=== PATIENT | female | born 1960 | race Caucasian/White ===

== ENCOUNTER 2016-09-20 08:42 | Day surgery (SDC) | payer OTHER ==
[2016-09-16 15:31] VITALS: BMI 22.6
[2016-09-20 10:22] VITALS: RESP 18; TEMP 98.3
[2016-09-20] MEDS: LACTATED RINGERS 1,000 ML IV SCH ×2 (10:32→10:44)
[2016-09-20] MEDS ORDERED: LIDOCAINE 1% 20 ML VIAL (10MG/ML) FOR IV START INTRADERMA ONE (10:33)
[2016-09-20] MEDS ORDERED: PROPOFOL 10 MG/ML 20 ML VIAL IV ONE (10:48)
[2016-09-20] MEDS ORDERED: LIDOCAINE 1% INJ 10MG/ML (20 ML MDV) ONE (10:48)
--- NOTE | 2016-09-20 11:21 | P.PCN ---
Date of Procedure: 09/20/16 Preoperative Diagnosis: Postoperative Diagnosis: Procedure(s) Performed: Procedure: Esophagogastroduodenoscopy and biopsy. Preoperative diagnosis: Chronic reflux symptoms requiring increasing doses of H2 blockers. Postoperative diagnosis: 1. Sliding hiatal hernia with a grade B distal esophagitis. 2. 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 3. Mild gastritis. Preparation and sedation: Was provided by anesthesia. Brief clinical history: The patient is a 56-year-old female with reflux symptoms since she was in her late 20s early 30s maintained on Zantac, is now referred because of persistent symptoms despite taking Zantac up to 600 mg daily. She is also concerned because of family history of esophageal cancer in her father who had reflux as well. She denied dysphagia, odynophagia or other alarm symptoms. Procedure: With the patient on her left lateral decubitus position and after informed consent and adequate sedation, I passed the Olympus-GIF 160 video upper endoscope through the cricopharyngeus down the esophagus. GE junction was around 35 cm from the incisors and there was a 3 cm sliding hiatal hernia. There was a benign short stricture at the level of the GE junction which did not impede advancement of the endoscope and did not appear restricting to require any intervention at this time. The distal esophagus had couple linear erosions terminating at the GE junction consistent with LA grade B distal esophagitis. No Mercado's esophagus. The endoscope was then passed into the stomach which was insufflated with air and inspected in detail including the retroflex view in the cardia. There was some mottling and erythema in the antrum but no ulcers or erosions. Pyloric channel, duodenal bulb, post bulbar area and descending duodenum appeared within normal limits. Because of her symptoms, I obtained biopsies from the duodenum antrum and esophagus then the endoscope was withdrawn. The patient tolerated the procedure well. Plan: The patient was reassured. Will await biopsy results. Consideration can be given to a trial with PPI what she continue antireflux diet and measures. She will follow-up with you as planned and I would be happy to see in the office if she continues to have issues. Implants: Indications for Procedure: Operative Findings: Description of Procedure:
[2016-09-20 11:31] VITALS: BP 101/64; PULSE 67
== END 2016-09-20 11:58 | disposition home or self-care (01) ==
LOC: ORWHC2ENDO 08:42
DX: K21.0 Gastro-esophageal reflux disease with esophagitis (principal); K29.50 Unspecified chronic gastritis without bleeding; K29.80 Duodenitis without bleeding; K44.9 Diaphragmatic hernia without obstruction or gangrene; K22.2 Esophageal obstruction; Z80.0 Family history of malignant neoplasm of digestive organs; M19.90 Unspecified osteoarthritis, unspecified site; J44.9 Chronic obstructive pulmonary disease, unspecified; Z79.899 Other long term (current) drug therapy
CPT/HCPCS: 88305; 88342; 43239; J2001; J2704; 88312

== ENCOUNTER 2017-09-14 11:13 | Emergency (ER) | payer OTHER ==
[2017-09-14] MEDS ORDERED: KETOROLAC 60 MG/2 ML VIAL IM STA (11:37)
[2017-09-14] MEDS ORDERED: ORPHENADRINE 30 MG/ML 2 ML VIAL IM STA (11:37)
[2017-09-14] MEDS ORDERED: HYDROcodone/APAP 5-325MG 1 EACH TAB PO STA (11:41)
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
--- NOTE | 2017-09-14 12:35 | XR ---
Lumbar spine HISTORY: Low back pain 3 views lumbar spine Lumbar vertebral bodies show decreased mineralization limits sensitivity. Alignment is maintained. Ve rtebral body height is thought to be decreased in L2, superior endplate fracture with loss of height of approximately 25% suspected. Disc spaces are relatively maintained. Surgical clips incidentally no rosette within the abdomen. IMPRESSION: There may be osteoporotic compression fracture, correlate.
[2017-09-14 13:17] VITALS: BP 98/69; PULSE 72; RESP 18; TEMP 98
== END 2017-09-14 13:10 | disposition home or self-care (01) ==
LOC: EC 11:13
DX: S32.020A Wedge compression fracture of second lumbar vertebra, initial encounter for closed fracture (principal); K21.9 Gastro-esophageal reflux disease without esophagitis; M19.90 Unspecified osteoarthritis, unspecified site; F17.200 Nicotine dependence, unspecified, uncomplicated; Z79.899 Other long term (current) drug therapy; X50.9XXA Other and unspecified overexertion or strenuous movements or postures, initial encounter
CPT/HCPCS: 72100; 99284; 96372 ×2; J2360; J1885

== ENCOUNTER → 2017-11-02 | Outpatient (CLI) | payer OTHER ==
--- NOTE | 2017-11-02 13:23 | MR ---
EXAMINATION TYPE: MR lumbar spine wo con DATE OF EXAM: 11/02/2017 COMPARISON: Plain films 09/14/2017 HISTORY: LBP CONTRAST: 0 mL intravenous Gadavist. TECHNIQUE: Multiplanar, multisequence images of the lumbar spine were acquired. FINDINGS: There is a compression deformity superior endplate of L2. There is an estimated 40% loss o f vertebral body height. Compared to the 09/14/2017 plain film exam this appears progressive. L5-S1: No significant disc bulge or disc herniation. No spinal canal stenosis. No foraminal stenosi s. . L4-L5: No significant disc bulge or disc herniation. No spinal canal stenosis. No foraminal stenosi s. . L3-L4: Minimal disc bulge has anterior thecal sac flattening. No spinal canal stenosis. No foramina l stenosis. . L2-L3: No significant disc bulge or disc herniation. No spinal canal stenosis. No foraminal stenosi s. . L1-L2: Minimal disc bulge has anterior thecal sac flattening. No cord contact is evident. No spinal c anal stenosis or neural foraminal stenosis is present. No spinal canal stenosis. No foraminal steno sis. . T12-L1: No significant disc bulge or disc herniation. No spinal canal stenosis. No foraminal stenos is. . IMPRESSION: 1. Appears to be some progressive superior endplate compression deformity of L2. No posterior wall di splacement is evident. 2. Minimal disc bulging L3-4: 2 with anterior thecal sac flattening. No stenosis is evident
== END | disposition home or self-care (01) ==
LOC: RADMRIMAIN 12:29
PROVIDERS: ATTEND Psychiatry & Neurology Pain Medicine
DX: M54.5 Low back pain (principal)
CPT/HCPCS: 72148

== ENCOUNTER → 2017-11-20 | Outpatient (CLI) | payer OTHER ==
--- NOTE | 2017-11-20 13:24 | BD ---
EXAMINATION TYPE: Axial Bone Density DATE OF EXAM: 11/20/2017 COMPARISON: 2014 CLINICAL HISTORY: compression fx Height: 5'1 Weight: 123 FRAX RISK QUESTIONS: History of Fracture in Adulthood: y Secondary Osteoporosis: 3. Menopause before 45: y Current Tobacco Use: y RISK FACTORS HISTORY OF: Postmenopausal woman: y MEDICATIONS: Osteoporosis Medications: Which medication: Fosamax How Lon year Additional Medications: hiatal hernia, ventolin Additional History: EXAM MEASUREMENTS: Bone mineral densitometry was performed using the DVDPlay System. Bone mineral density as measured about the Lumbar spine is: ----- L1-L4(G/cm2): 0.746 T Score Values are as follows: ----- L2: -1.5 ----- L3: -4.2 ----- L4: -4.8 ----- L1-L4: -3.6 Bone mineral density has: Increased 13.3% since study of: 08/15/2014 Bone mineral density about the R hip (g/cm2): 0.502 Bone mineral density about the L hip (g/cm2): 0.499 T Score values are as follows: -----R Neck: -3.9 -----L Neck: -3.6 -----R Total: -4.1 -----L Total: -4.4 Bone mineral density has: Decreased -1.7% since study of: 08/15/2014 IMPRESSION: Osteoporosis NOTE: T-SCORE=SD OF THE YOUNG ADULT MEAN.
== END | disposition home or self-care (01) ==
LOC: RADBDWWP 09:53
PROVIDERS: ATTEND Psychiatry & Neurology Neurology
DX: M81.0 Age-related osteoporosis without current pathological fracture (principal); Z87.891 Personal history of nicotine dependence
CPT/HCPCS: 77080

== ENCOUNTER → 2018-02-13 | Outpatient (CLI) | payer OTHER | END | disposition home or self-care (01) | LOC: LABWHC1 12:06 | PROVIDERS: ATTEND Psychiatry & Neurology Pain Medicine | DX: E55.9 Vitamin D deficiency, unspecified (principal) | CPT/HCPCS: 36415; 82306 ==

== ENCOUNTER → 2018-06-18 | Outpatient (CLI) | payer OTHER ==
--- NOTE | 2018-06-18 09:21 | XR ---
EXAMINATION TYPE: XR chest 2V DATE OF EXAM: 06/18/2018 COMPARISON: 06/02/12 HISTORY: Shortness of breath TECHNIQUE: Frontal and lateral views of the chest are obtained. FINDINGS: Scattered senescent parenchymal changes noted. Hyperinflation compatible with COPD. No evidence for infiltrate. No evidence for atelectasis. Heart size is stable. Mediastinal structures are stable and grossly unremarkable. No evidence for hilar prominence. Degenerative changes dorsal spine. IMPRESSION: 1. No evidence for acute pulmonary disease.
== END ==
LOC: RADXRMAIN 09:03
PROVIDERS: ATTEND Internal Medicine
DX: R06.02 Shortness of breath (principal); J44.9 Chronic obstructive pulmonary disease, unspecified; R07.89 Other chest pain
CPT/HCPCS: 71046

== ENCOUNTER → 2019-01-28 | Outpatient (CLI) | payer OTHER ==
--- NOTE | 2019-01-29 11:29 | MM ---
Reason for exam: screening (asymptomatic). Last mammogram was performed 1 year and 8 months ago. History: Patient is postmenopausal. Family history of breast cancer in maternal grandmother. Physical Findings: A clinical breast exam by your physician is recommended on an annual basis and results should be correlated with mammographic findings. MG 3D Screening Mammo W/Cad Bilateral CC and MLO view(s) were taken. Prior study comparison: May 29, 2017, mammogram, performed at [facility]. October 05, 2015, mammogram, performed at [facility]. The breast tissue is heterogeneously dense. This may lower the sensitivity of mammography. Stable benign calcifications. There is no discrete abnormality. No significant changes when compared with prior studies. ASSESSMENT: Benign, BI-RAD 2 RECOMMENDATION: Routine screening mammogram of both breasts in 1 year.
== END | disposition home or self-care (01) ==
LOC: RADMAMWWP 16:47
PROVIDERS: ATTEND Internal Medicine
DX: Z12.31 Encounter for screening mammogram for malignant neoplasm of breast (principal)
CPT/HCPCS: 77063; 77067

== ENCOUNTER 2019-01-31 09:21 | Day surgery (SDC) | payer OTHER ==
[2019-01-30 09:38] VITALS: BMI 21.7
[~2019-01-31 09:21] MED LIST: DEXAMETHASONE SOD PHOSPHATE 10 MG/ML 1 ML VIAL IV ONE; LACTATED RINGERS 1,000 ML IV SCH; LIDOCAINE 1% 20 ML VIAL (10MG/ML) FOR IV START INTRADERMA PRN
[2019-01-31 09:46] VITALS: TEMP 97.1
[2019-01-31] MEDS ORDERED: LIDOCAINE 1% INJ 10MG/ML (20 ML MDV) ONE (10:09)
[2019-01-31] MEDS ORDERED: PROPOFOL 10 MG/ML 20 ML VIAL IV ONE (10:09)
--- NOTE | 2019-01-31 10:15 | P.GSHP ---
History of Present Illness H&P Date: 01/31/19 Chief Complaint: GERD, screening colonoscopy This is a 58-year-old female who presents today for EGD and screening colonoscopy. Patient issues with GERD. She's never had a previous colonoscopy. Past Medical History Past Medical History: COPD, GERD/Reflux, Osteoarthritis (OA) Additional Past Medical History / Comment(s): Osteoporosis, HPV History of Any Multi-Drug Resistant Organisms: None Reported Past Surgical History: Section, Hysterectomy Additional Past Surgical History / Comment(s): Hemorrhoidectomy, states having some flare ups @ this time. 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 Smoking Status: Current every day smoker - Past Family History Father Family Medical History: Cancer Additional Family Medical History / Comment(s): Esophageal Medications and Allergies Home Medications Medication Instructions Recorded Confirmed Type Albuterol Sulfate [Ventolin Hfa] 2 puff INHALATION RT-QID PRN 09/16/16 01/31/19 History Alendronate Sodium [Fosamax] 35 mg PO Q7D 09/16/16 01/31/19 History Cetirizine HCl [Zyrtec] 10 mg PO DAILY PRN 09/14/17 01/31/19 History Meclizine [Antivert] 25 mg PO BID 01/30/19 01/31/19 History Omeprazole [PriLOSEC] 20 mg PO AC-BID 01/31/19 01/31/19 History Allergies Allergy/AdvReac Type Severity Reaction Status Date / Time No Known Allergies Allergy Verified 01/31/19 09:36 Surgical - Exam Vital Signs Temp Pulse Resp BP Pulse Ox 97.1 F L 109 H 18 120/75 96 01/31/19 09:37 01/31/19 09:37 01/31/19 09:37 01/31/19 09:37 01/31/19 09:37 - General well developed, well nourished, no distress - Eyes PERRL - ENT normal pinna - Neck no masses - Respiratory normal expansion - Cardiovascular Rhythm: regular - Abdomen Abdomen: soft, non tender Assessment and Plan Assessment: GERD, we'll perform EGD We'll also perform screening colonoscopy
--- NOTE | 2019-01-31 10:34 | P.OP ---
Date of Procedure: 01/31/19 Preoperative Diagnosis: GERD Screening colonoscopy Postoperative Diagnosis: Antral gastritis Small hiatal hernia Esophagitis Procedure(s) Performed: EGD Colonoscopy Anesthesia: MAC Surgeon: Kurtis Phipps Pathology: other (Antrum, esophagus) Condition: stable Disposition: PACU Description of Procedure: Patient's placed on the endoscopy table lateral position. She received IV sedation. The gastro-/oropharynx and passed in the esophagus into the stomach. Scope was then placed through the pylorus. The first and second portion of the duodenum appeared normal. Scope was then brought back the antrum and this appeared minimally inflamed. A biopsies performed. The scope was unretroflexed and remainder stomach appeared normal. There was a small sliding hiatal hernia. The GE junction was at 39 cm per the distal esophagus appeared mildly inflamed a biopsies performed. The proximal esophagusAppeared Normal. Scope was brought patient. Next digital rectal exam was performed which revealed external hemorrhoids. The flexible colonoscope was then placed patient anus and passed throughout the entire colon. The ileocecal valve was visualized. The cecum appeared normal. The ascending colon was normal. The transverse colon had a pedunculated polyp which was removed with the snare. The remainder of the transverse colon, descending colon appeared normal. In the; was a few scattered diverticula. Scope was then brought back the rectum and this appeared normal. Scope was withdrawn for patient.
[2019-01-31 11:03] VITALS: BP 101/68; PULSE 88; RESP 18
== END 2019-01-31 11:25 | disposition home or self-care (01) ==
LOC: ORWHC2ENDO 09:21
PROVIDERS: ATTEND Surgery
DX: Z12.11 Encounter for screening for malignant neoplasm of colon (principal); K29.50 Unspecified chronic gastritis without bleeding; K44.9 Diaphragmatic hernia without obstruction or gangrene; D12.3 Benign neoplasm of transverse colon; K21.0 Gastro-esophageal reflux disease with esophagitis; K57.30 Diverticulosis of large intestine without perforation or abscess without bleeding; K64.4 Residual hemorrhoidal skin tags; M19.90 Unspecified osteoarthritis, unspecified site; Z90.710 Acquired absence of both cervix and uterus; J44.9 Chronic obstructive pulmonary disease, unspecified; F17.210 Nicotine dependence, cigarettes, uncomplicated; K21.9 Gastro-esophageal reflux disease without esophagitis; Z97.2 Presence of dental prosthetic device (complete) (partial); Z79.899 Other long term (current) drug therapy
CPT/HCPCS: 88305; 45385; 43239; J2001; J2704

== ENCOUNTER 2019-05-10 15:29 | Emergency (ER) | payer OTHER ==
[2019-05-10] MEDS ORDERED: SODIUM CHLORIDE 0.9% 1,000 ML IV STA (15:56)
[2019-05-10] MEDS ORDERED: ONDANSETRON 4 MG/2 ML VIAL IVP STA (15:56)
[2019-05-10 16:49] LABS: Appearance,Urine Clear (Clear); Bilirubin,Urine Negative (Negative); Blood,Urine Negative (Negative); Color,Urine Yellow; Glucose,Urine (UA) Negative (Negative); Ketones,Urine Negative (Negative); Leukocyte Esterase,Urine Negative (Negative); Nitrite,Urine Negative (Negative); Protein,Urine Negative (Negative); Urobilinogen,Urine <2.0 mg/dL (<2.0)
[2019-05-10 16:50] LABS: Basophils % (A) 0 %; Eosinophils % (A) 1 %; HCT 41.2 % (34.0-46.0); HGB 14.1 gm/dL (11.4-16.0); Lymphocytes # (A) 3.5 k/uL (1.0-4.8); Lymphocytes % (A) 49 %; MCH 30.8 pg (25.0-35.0); MCHC 34.1 g/dL (31.0-37.0); MCV 90.2 fL (80.0-100.0); Mean Platelet Volume 7.3; Monocytes # (A) 0.5 k/uL (0-1.0); Monocytes % (A) 7 %; Neutrophils # (A) 2.9 k/uL (1.3-7.7); Neutrophils % (A) 40 %; Platelet Count 524 k/uL (150-450); RBC 4.57 m/uL (3.80-5.40); RDW 12.1 % (11.5-15.5); WBC 7.2 k/uL (3.8-10.6)
--- NOTE | 2019-05-10 16:54 | XR ---
EXAMINATION TYPE: XR chest 2V DATE OF EXAM: 05/10/2019 COMPARISON: Chest x-ray June 18, 2018. HISTORY: Chest pain. TECHNIQUE: Frontal and lateral views of the chest are obtained. FINDINGS: There is no focal air space opacity, pleural effusion, or pneumothorax seen. The cardiac silhouette size is stable and within normal limits. Old posterior lateral right upper to mid rib frac tures are seen. IMPRESSION: No acute cardiopulmonary process. No significant change from prior.
[2019-05-10 17:00] LABS: ALT 57 U/L (4-34); AST 37 U/L (14-36); African American GFR (CKD) >90 (>60 ml/min/1.73 sqM); Albumin 4.5 g/dL (3.5-5.0); Alkaline Phosphatase 80 U/L (38-126); Amylase 111 U/L (30-110); Anion Gap 10 mmol/L; Blood Urea Nitrogen 9 mg/dL (7-17); Carbon Dioxide 24 mmol/L (22-30); Chloride 100 mmol/L (98-107); Glucose 92 mg/dL (74-99); Non-African American GFR(CKD) >90 (>60 ml/min/1.73 sqM); Potassium 3.7 mmol/L (3.5-5.1); Sodium 134 mmol/L (137-145); Total Bilirubin 0.6 mg/dL (0.2-1.3); Total Protein 7.5 g/dL (6.3-8.2)
--- NOTE | 2019-05-10 17:44 | ED ---
Nausea/Vomiting/Diarrhea HPI - General Chief complaint: Nausea/Vomiting/Diarrhea Stated complaint: Vomiting Time Seen by Provider: 05/10/19 15:35 Source: patient, RN notes reviewed Mode of arrival: ambulatory Limitations: no limitations - History of Present Illness Initial comments: 58-year-old female with a past medical history of COPD, GERD presents to the emergency department for chief complaint of nausea. Patient states that a week ago she was diagnosed with an upper respiratory infection and started on Levaquin. States that since then she has had nausea. She denies any vomiting associated with this. Denies diarrhea. Denies any significant abdominal pain. States she is able to drink Pedialyte. Patient states that she just finished the Levaquin today. States that she is being seen today for nausea. She states that her cough is getting much better and she is not having any shortness of breath.Patient has no other complaints at this time including shortness of breath, chest pain, abdominal pain, nausea or vomiting, headache, or visual changes. MD complaint: nausea Onset/Timin -: days(s) Associated Abdominal Pain: No - Related Data Home Medications Medication Instructions Recorded Confirmed Albuterol Sulfate [Ventolin Hfa] 2 puff INHALATION RT-QID PRN 09/16/16 01/31/19 Alendronate Sodium [Fosamax] 35 mg PO Q7D 09/16/16 01/31/19 Cetirizine HCl [Zyrtec] 10 mg PO DAILY PRN 09/14/17 01/31/19 Meclizine [Antivert] 25 mg PO BID 01/30/19 01/31/19 Omeprazole [PriLOSEC] 20 mg PO AC-BID 01/31/19 01/31/19 Previous Rx's Medication Instructions Recorded Ondansetron [Zofran ODT] 4 mg PO Q8HR PRN #15 tab 05/10/19 Allergies Allergy/AdvReac Type Severity Reaction Status Date / Time No Known Allergies Allergy Verified 05/10/19 15:32 Review of Systems ROS Statement: Those systems with pertinent positive or pertinent negative responses have been documented in the HPI. ROS Other: All systems not noted in ROS Statement are negative. Past Medical History Past Medical History: COPD, GERD/Reflux, Osteoarthritis (OA) Additional Past Medical History / Comment(s): Osteoporosis, HPV History of Any Multi-Drug Resistant Organisms: None Reported Past Surgical History: Section, Hysterectomy Additional Past Surgical History / Comment(s): Hemorrhoidectomy, states having some flare ups @ this time. 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 Past Anesthesia/Blood Transfusion Reactions: Previous Problems w/ Anesthesia Additional Past Anesthesia/Blood Transfusion Reaction / Comment(s): woke up during sx in past Past Psychological History: No Psychological Hx Reported Smoking Status: Current every day smoker Past Alcohol Use History: None Reported Past Drug Use History: None Reported - Past Family History Father Family Medical History: Cancer Additional Family Medical History / Comment(s): Esophageal General Exam Limitations: no limitations General appearance: alert, in no apparent distress Head exam: Present: atraumatic, normocephalic, normal inspection Eye exam: Present: normal appearance, PERRL, EOMI. Absent: scleral icterus, conjunctival injection, periorbital swelling ENT exam: Present: normal exam, mucous membranes moist Neck exam: Present: normal inspection, full ROM. Absent: tenderness, mening ismus, lymphadenopathy Respiratory exam: Present: normal lung sounds bilaterally. Absent: respiratory distress, wheezes, rales, rhonchi, stridor Cardiovascular Exam: Present: regular rate, normal rhythm, normal heart sounds. Absent: systolic murmur, diastolic murmur, rubs, gallop, clicks GI/Abdominal exam: Present: soft, normal bowel sounds. Absent: distended, tenderness (No abdominal tenderness), guarding, rebound, rigid Neurological exam: Present: alert Course Vital Signs 05/10/19 15:30 Temperature 97.7 F Pulse Rate 100 Respiratory 22 Rate Blood Pressure 135/80 O2 Sat by Pulse 96 Oximetry Medical Decision Making - Medical Decision Making Vitals are stable. Physical exam is unremarkable. Abdomen is nontender. Lungs are clear bilaterally. Patient is sitting up in bed well-appearing. CBC is unremarkable. CMP does show hypercalcemia. Discussed this with patient, she will follow up. Urinalysis is unremarkable. Influenza is negative. Chest x- ray shows no acute cardiopulmonary process. No significant change from prior. Reevaluated patient, felt much better after Zofran. Discussed with patient that symptoms are likely related to Levaquin over the past week. However also discussed possibility of hypercalcemia causing symptoms. Discussed to follow up with primary care and have this repeated. Discussed keeping hydrated with this finding. She will return here if any worsening symptoms.I discussed this case with attending Dr. Herbert who agrees with this assessment and treatment plan. - Lab Data Result diagrams: 05/10/19 16:36 05/10/19 16:36 Lab Results 05/10/19 05/10/19 05/10/19 Range/Units 16:15 16:15 16:36 WBC 7.2 (3.8-10.6) k/uL RBC 4.57 (3.80-5.40) m/uL Hgb 14.1 (11.4-16.0) gm/dL Hct 41.2 (34.0-46.0) % MCV 90.2 (80.0-100.0) fL MCH 30.8 (25.0-35.0) pg MCHC 34.1 (31.0-37.0) g/dL RDW 12.1 (11.5-15.5) % Plt Count 524 H (150-450) k/uL Neutrophils % 40 % Lymphocytes % 49 % Monocytes % 7 % Eosinophils % 1 % Basophils % 0 % Neutrophils # 2.9 (1.3-7.7) k/uL Lymphocytes # 3.5 (1.0-4.8) k/uL Monocytes # 0.5 (0-1.0) k/uL Eosinophils # 0.0 (0-0.7) k/uL Basophils # 0.0 (0-0.2) k/uL Sodium (137-145) mmol/L Potassium (3.5-5.1) mmol/L Chloride (98-107) mmol/L Carbon Dioxide (22-30) mmol/L Anion Gap mmol/L BUN (7-17) mg/dL Creatinine (0.52-1.04) mg/dL Est GFR (CKD-EPI)AfAm (>60 ml/min/1.73 sqM) Est GFR (CKD-EPI)NonAf (>60 ml/min/1.73 sqM) Glucose (74-99) mg/dL Calcium (8.4-10.2) mg/dL Total Bilirubin (0.2-1.3) mg/dL AST (14-36) U/L ALT (4-34) U/L Alkaline Phosphatase (38-126) U/L Total Protein (6.3-8.2) g/dL Albumin (3.5-5.0) g/dL Amylase (30-110) U/L Lipase (23-300) U/L Urine Color Yellow Urine Appearance Clear (Clear) Urine pH 7.0 (5.0-8.0) Ur Specific [place] 1.010 (1.001-1.035) Urine Protein Negative (Negative) Urine Glucose (UA) Negative (Negative) Urine Ketones Negative (Negative) Urine Blood Negative (Negative) Urine Nitrite Negative (Negative) Urine Bilirubin Negative (Negative) Urine Urobilinogen <2.0 (<2.0) mg/dL Ur Leukocyte Esterase Negative (Negative) Influenza Type A RNA Not Detected (Not Detectd) Influenza Type B (PCR) Not Detected (Not Detectd) 05/10/19 Range/Units 16:36 WBC (3.8-10.6) k/uL RBC (3.80-5.40) m/uL Hgb (11.4-16.0) gm/dL Hct (34.0-46.0) % MCV (80.0-100.0) fL MCH (25.0-35.0) pg MCHC (31.0-37.0) g/dL RDW (11.5-15.5) % Plt Count (150-450) k/uL Neutrophils % % Lymphocytes % % Monocytes % % Eosinophils % % Basophils % % Neutrophils # (1.3-7.7) k/uL Lymphocytes # (1.0-4.8) k/uL Monocytes # (0-1.0) k/uL Eosinophils # (0-0.7) k/uL Basophils # (0-0.2) k/uL Sodium 134 L (137-145) mmol/L Potassium 3.7 (3.5-5.1) mmol/L Chloride 100 (98-107) mmol/L Carbon Dioxide 24 (22-30) mmol/L Anion Gap 10 mmol/L BUN 9 (7-17) mg/dL Creatinine 0.48 L (0.52-1.04) mg/dL Est GFR (CKD-EPI)AfAm >90 (>60 ml/min/1.73 sqM) Est GFR (CKD-EPI)NonAf >90 (>60 ml/min/1.73 sqM) Glucose 92 (74-99) mg/dL Calcium 12.0 H (8.4-10.2) mg/dL Total Bilirubin 0.6 (0.2-1.3) mg/dL AST 37 H (14-36) U/L ALT 57 H (4-34) U/L Alkaline Phosphatase 80 (38-126) U/L Total Protein 7.5 (6.3-8.2) g/dL Albumin 4.5 (3.5-5.0) g/dL Amylase 111 H (30-110) U/L Lipase 211 (23-300) U/L Urine Color Urine Appearance (Clear) Urine pH (5.0-8.0) Ur Specific [place] (1.001-1.035) Urine Protein (Negative) Urine Glucose (UA) (Negative) Urine Ketones (Negative) Urine Blood (Negative) Urine Nitrite (Negative) Urine Bilirubin (Negative) Urine Urobilinogen (<2.0) mg/dL Ur Leukocyte Esterase (Negative) Influenza Type A RNA (Not Detectd) Influenza Type B (PCR) (Not Detectd) Disposition Clinical Impression: Hypercalcemia, Nausea and vomiting Disposition: HOME SELF-CARE Condition: Good Instructions (If sedation given, give patient instructions): Acute Nausea and Vomiting (ED) Additional Instructions: Please take Zofran as needed for nausea. Please follow-up with your doctor to repeat your calcium level. Keep hydrated with plenty of fluids. Return here to the emergency department if you have any worsening symptoms. Prescriptions: Ondansetron [Zofran ODT] 4 mg PO Q8HR PRN #15 tab PRN Reason: Nausea Is patient prescribed a controlled substance at d/c from ED?: No Referrals: Farzad Strauss MD [Primary Care Provider] - 1-2 days Time of Disposition: 17:46
[2019-05-10 17:53] VITALS: BP 117/77; PULSE 79; RESP 16; TEMP 98.3
== END 2019-05-10 18:18 | disposition home or self-care (01) ==
LOC: EC 15:29
DX: E83.52 Hypercalcemia (principal); R05 Cough; J44.9 Chronic obstructive pulmonary disease, unspecified; K21.9 Gastro-esophageal reflux disease without esophagitis; F17.200 Nicotine dependence, unspecified, uncomplicated; Z79.899 Other long term (current) drug therapy; Z86.19 Personal history of other infectious and parasitic diseases
CPT/HCPCS: 80053; 36415; 82150; 83690; 85025; 81003; 87502; 71046; 99283; 96374; 96361 ×2; J2405

== ENCOUNTER 2019-08-30 12:28 | Emergency (ER) | payer OTHER ==
[2019-08-30] MEDS ORDERED: SODIUM CHLORIDE 0.9% 1,000 ML IV STA (12:51)
[2019-08-30] MEDS ORDERED: MAG HYDROX/AL HYDROX/SIMETH 30 ML, HYOSCYAMINE ELIXIR 10 ML, LIDOCAINE VISCOUS 2% 10 ML PO STA ×3 (12:51)
[2019-08-30] MEDS ORDERED: PANTOPRAZOLE 40 MG/10 ML VIAL IVP STA (12:51)
[2019-08-30] MEDS ORDERED: ONDANSETRON 4 MG/2 ML VIAL IVP STA (12:51)
--- NOTE | 2019-08-30 13:06 | ED ---
Nausea/Vomiting/Diarrhea HPI - General Chief complaint: Nausea/Vomiting/Diarrhea Stated complaint: nausea, vomiting Time Seen by Provider: 08/30/19 12:37 Source: patient Mode of arrival: ambulatory Limitations: no limitations - History of Present Illness Initial comments: Patient is a 59-year-old female, with history of COPD, GERD, presenting to the emergency Department with complaints of nausea, vomiting, burning in her throat that has been increasing over the past few weeks. Patient states she has a history of a hiatal hernia and was supposed to have that repaired by Dr. Beckett in June however it was canceled secondary to Covid. Patient states she has been taking Pepcid for the discomfort however over the past few weeks has been getting worse. Patient states she called their office today who recommended she go into the ER. She states she has not been able to eat or drink much in the last few days as well. She describes the discomfort as burning going from her throat lower down to her stomach. She states she also has pain associated with this. She is not been able to keep much food down the last few days. She denies any recent fever, chills, shortness of breath, cough. She has no further complaints at this time. - Related Data Home Medications Medication Instructions Recorded Confirmed Albuterol Sulfate [Ventolin Hfa] 2 puff INHALATION RT-QID PRN 09/16/16 01/31/19 Alendronate Sodium [Fosamax] 35 mg PO Q7D 09/16/16 01/31/19 Cetirizine HCl [Zyrtec] 10 mg PO DAILY PRN 09/14/17 01/31/19 Meclizine [Antivert] 25 mg PO BID 01/30/19 01/31/19 Omeprazole [PriLOSEC] 20 mg PO AC-BID 01/31/19 01/31/19 Previous Rx's Medication Instructions Recorded Ondansetron [Zofran ODT] 4 mg PO Q8HR PRN #15 tab 05/10/19 Pantoprazole [Protonix] 40 mg PO DAILY 14 Days #14 08/30/19 tablet. Allergies Allergy/AdvReac Type Severity Reaction Status Date / Time No Known Allergies Allergy Verified 08/30/19 12:33 Review of Systems ROS Statement: Those systems with pertinent positive or pertinent negative responses have been documented in the HPI. ROS Other: All systems not noted in ROS Statement are negative. 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 Past Anesthesia/Blood Transfusion Reactions: Previous Problems w/ Anesthesia Additional Past Anesthesia/Blood Transfusion Reaction / Comment(s): woke up during sx in past Past Psychological History: No Psychological Hx Reported Smoking Status: Current every day smoker Past Alcohol Use History: None Reported Past Drug Use History: None Reported - Past Family History Father Family Medical History: Cancer Additional Family Medical History / Comment(s): Esophageal General Exam - General Exam Comments Initial Comments: GENERAL: Patient appears fatigued, dry heaving the ER, and in no acute distress. HEAD: Atraumatic, normocephalic. EYES: Pupils equal round and reactive to light, extraocular movements intact, sclera anicteric, conjunctiva are normal. ENT: TMs normal, nares patent, oropharynx clear without exudates. Moist mucous membranes. NECK: Normal range of motion, supple without lymphadenopathy or JVD. LUNGS: Breath sounds clear to auscultation bilaterally and equal. No wheezes rales or rhonchi. HEART: Regular rate and rhythm without murmurs, rubs or gallops. ABDOMEN: Tender with palpation in the epigastric area. Soft, normoactive bowel sounds. No guarding, no rebound. No masses appreciated. : Deferred EXTREMITIES: Normal range of motion, no pitting or edema. No clubbing or cyanosis. NEUROLOGICAL: Cranial nerves II through XII grossly intact. Normal speech, normal gait. PSYCH: Normal mood, normal affect. SKIN: Warm, Dry, normal turgor, no rashes or lesions noted. Limitations: no limitations Course Vital Signs 08/30/19 08/30/19 08/30/19 12:30 13:56 16:13 Temperature 98.4 F 98.2 F Pulse Rate 114 H 94 100 Respiratory 22 18 18 Rate Blood Pressure 116/75 111/85 105/72 O2 Sat by Pulse 96 98 100 Oximetry Medical Decision Making - Medical Decision Making Patient is a 59-year-old female here with complaints of burning sensation going from her epigastric area up into her throat. She has a history of a hiatal hernia that was listed be repaired in June by Dr. Phipps, which was cancelled secondary to COVID. Her vitals are stable upon arrival. On exam patient has some tenderness in the epigastric region. Her EKG shows no acute changes. Patient did have a leukocytosis of 19.1, lactic acid was normal at 1.0, troponin was normal, lipase was normal at 121. Patient's urine showed a very small amount of WBCs, no signs of infection at this time. Chest x-ray also reveals no acute process. Patient was given fluids, Protonix, Reglan, GI cocktail and reports improvement in her symptoms. She is requesting to be discharged. She will contact Dr. beckett's office to reschedule her surgery. She is in agreement with this plan of care. I did prescribe her Protonix to help with her symptoms. She is stable for discharge. Return parameters were discussed with the patient and she verbalized understanding. Case discussed with Dr. Greenberg. - Lab Data Result diagrams: 08/30/19 13:01 08/30/19 13:01 Lab Results 08/30/19 08/30/19 08/30/19 Range/Units 13:01 13:01 13:01 WBC 19.1 H (3.8-10.6) k/uL RBC 4.76 (3.80-5.40) m/uL Hgb 14.2 (11.4-16.0) gm/dL Hct 43.6 (34.0-46.0) % MCV 91.5 (80.0-100.0) fL MCH 29.9 (25.0-35.0) pg MCHC 32.6 (31.0-37.0) g/dL RDW 12.1 (11.5-15.5) % Plt Count 490 H (150-450) k/uL Neutrophils % 80 % Lymphocytes % 13 % Monocytes % 5 % Eosinophils % 1 % Basophils % 0 % Neutrophils # 15.3 H (1.3-7.7) k/uL Lymphocytes # 2.5 (1.0-4.8) k/uL Monocytes # 1.0 (0-1.0) k/uL Eosinophils # 0.1 (0-0.7) k/uL Basophils # 0.1 (0-0.2) k/uL PT 9.7 (9.0-12.0) sec INR 0.9 (<1.2) APTT 22.2 (22.0-30.0) sec Sodium 136 L (137-145) mmol/L Potassium 3.2 L (3.5-5.1) mmol/L Chloride 95 L (98-107) mmol/L Carbon Dioxide 30 (22-30) mmol/L Anion Gap 11 mmol/L BUN 16 (7-17) mg/dL Creatinine 0.57 (0.52-1.04) mg/dL Est GFR (CKD-EPI)AfAm >90 (>60 ml/min/1.73 sqM) Est GFR (CKD-EPI)NonAf >90 (>60 ml/min/1.73 sqM) Glucose 155 H (74-99) mg/dL Plasma Lactic Acid [place] (0.7-2.0) mmol/L Calcium 11.7 H (8.4-10.2) mg/dL Total Bilirubin 1.0 (0.2-1.3) mg/dL AST 19 (14-36) U/L ALT 14 (4-34) U/L Alkaline Phosphatase 116 (38-126) U/L Troponin I (0.000-0.034) ng/mL Total Protein 8.1 (6.3-8.2) g/dL Albumin 4.7 (3.5-5.0) g/dL Amylase (30-110) U/L Lipase (23-300) U/L Urine Color Urine Appearance (Clear) Urine pH (5.0-8.0) Ur Specific [place] (1.001-1.035) Urine Protein (Negative) Urine Glucose (UA) (Negative) Urine Ketones (Negative) Urine Blood (Negative) Urine Nitrite (Negative) Urine Bilirubin (Negative) Urine Urobilinogen (<2.0) mg/dL Ur Leukocyte Esterase (Negative) Urine RBC (0-5) /hpf Urine WBC (0-5) /hpf Ur Squamous Epith Cells (0-4) /hpf Urine Mucus (None) /hpf 08/30/19 08/30/19 08/30/19 Range/Units 13:01 13:01 13:01 WBC (3.8-10.6) k/uL RBC (3.80-5.40) m/uL Hgb (11.4-16.0) gm/dL Hct (34.0-46.0) % MCV (80.0-100.0) fL MCH (25.0-35.0) pg MCHC (31.0-37.0) g/dL RDW (11.5-15.5) % Plt Count (150-450) k/uL Neutrophils % % Lymphocytes % % Monocytes % % Eosinophils % % Basophils % % Neutrophils # (1.3-7.7) k/uL Lymphocytes # (1.0-4.8) k/uL Monocytes # (0-1.0) k/uL Eosinophils # (0-0.7) k/uL Basophils # (0-0.2) k/uL PT (9.0-12.0) sec INR (<1.2) APTT (22.0-30.0) sec Sodium (137-145) mmol/L Potassium (3.5-5.1) mmol/L Chloride (98-107) mmol/L Carbon Dioxide (22-30) mmol/L Anion Gap mmol/L BUN (7-17) mg/dL Creatinine (0.52-1.04) mg/dL Est GFR (CKD-EPI)AfAm (>60 ml/min/1.73 sqM) Est GFR (CKD-EPI)NonAf (>60 ml/min/1.73 sqM) Glucose (74-99) mg/dL Plasma Lactic Acid [place] 1.0 (0.7-2.0) mmol/L Calcium (8.4-10.2) mg/dL Total Bilirubin (0.2-1.3) mg/dL AST (14-36) U/L ALT (4-34) U/L Alkaline Phosphatase (38-126) U/L Troponin I <0.012 (0.000-0.034) ng/mL Total Protein (6.3-8.2) g/dL Albumin (3.5-5.0) g/dL Amylase 75 (30-110) U/L Lipase 121 (23-300) U/L Urine Color Urine Appearance (Clear) Urine pH (5.0-8.0) Ur Specific [place] (1.001-1.035) Urine Protein (Negative) Urine Glucose (UA) (Negative) Urine Ketones (Negative) Urine Blood (Negative) Urine Nitrite (Negative) Urine Bilirubin (Negative) Urine Urobilinogen (<2.0) mg/dL Ur Leukocyte Esterase (Negative) Urine RBC (0-5) /hpf Urine WBC (0-5) /hpf Ur Squamous Epith Cells (0-4) /hpf Urine Mucus (None) /hpf 08/30/19 Range/Units 15:15 WBC (3.8-10.6) k/uL RBC (3.80-5.40) m/uL Hgb (11.4-16.0) gm/dL Hct (34.0-46.0) % MCV (80.0-100.0) fL MCH (25.0-35.0) pg MCHC (31.0-37.0) g/dL RDW (11.5-15.5) % Plt Count (150-450) k/uL Neutrophils % % Lymphocytes % % Monocytes % % Eosinophils % % Basophils % % Neutrophils # (1.3-7.7) k/uL Lymphocytes # (1.0-4.8) k/uL Monocytes # (0-1.0) k/uL Eosinophils # (0-0.7) k/uL Basophils # (0-0.2) k/uL PT (9.0-12.0) sec INR (<1.2) APTT (22.0-30.0) sec Sodium (137-145) mmol/L Potassium (3.5-5.1) mmol/L Chloride (98-107) mmol/L Carbon Dioxide (22-30) mmol/L Anion Gap mmol/L BUN (7-17) mg/dL Creatinine (0.52-1.04) mg/dL Est GFR (CKD-EPI)AfAm (>60 ml/min/1.73 sqM) Est GFR (CKD-EPI)NonAf (>60 ml/min/1.73 sqM) Glucose (74-99) mg/dL Plasma Lactic Acid [place] (0.7-2.0) mmol/L Calcium (8.4-10.2) mg/dL Total Bilirubin (0.2-1.3) mg/dL AST (14-36) U/L ALT (4-34) U/L Alkaline Phosphatase (38-126) U/L Troponin I (0.000-0.034) ng/mL Total Protein (6.3-8.2) g/dL Albumin (3.5-5.0) g/dL Amylase (30-110) U/L Lipase (23-300) U/L Urine Color Yellow Urine Appearance Clear (Clear) Urine pH 7.0 (5.0-8.0) Ur Specific [place] 1.019 (1.001-1.035) Urine Protein 1+ H (Negative) Urine Glucose (UA) Negative (Negative) Urine Ketones Trace H (Negative) Urine Blood Negative (Negative) Urine Nitrite Negative (Negative) Urine Bilirubin Negative (Negative) Urine Urobilinogen <2.0 (<2.0) mg/dL Ur Leukocyte Esterase Small H (Negative) Urine RBC 9 H (0-5) /hpf Urine WBC 13 H (0-5) /hpf Ur Squamous Epith Cells <1 (0-4) /hpf Urine Mucus Occasional H (None) /hpf - EKG Data EKG Comments: Sinus tachycardia, otherwise a normal ECG. No signs of acute ischemia. Ventricular rate 102, P on arrival 126, QT 354. Disposition Clinical Impression: GERD (gastroesophageal reflux disease), Epigastric abdominal pain Disposition: HOME SELF-CARE Condition: Stable Instructions (If sedation given, give patient instructions): Gastroesophageal Reflux Disease (ED) Additional Instructions: Please return to the Emergency Department if symptoms worsen or any other c oncerns. Follow-up with Dr. Beckett as discussed. Take medication as prescribed. Prescriptions: Pantoprazole [Protonix] 40 mg PO DAILY 14 Days #14 tablet.dr Is patient prescribed a controlled substance at d/c from ED?: No Referrals: Farzad Strauss MD [Primary Care Provider] - 1-2 days Kurtis Phipps MD [STAFF PHYSICIAN] - 1-2 days
[2019-08-30 13:19] LABS: Basophils # (A) 0.1 k/uL (0-0.2); Basophils % (A) 0 %; Eosinophils # (A) 0.1 k/uL (0-0.7); Eosinophils % (A) 1 %; HCT 43.6 % (34.0-46.0); HGB 14.2 gm/dL (11.4-16.0); Lymphocytes # (A) 2.5 k/uL (1.0-4.8); Lymphocytes % (A) 13 %; MCH 29.9 pg (25.0-35.0); MCHC 32.6 g/dL (31.0-37.0); MCV 91.5 fL (80.0-100.0); Mean Platelet Volume 6.8; Monocytes % (A) 5 %; Neutrophils # (A) 15.3 k/uL (1.3-7.7); Neutrophils % (A) 80 %; Platelet Count 490 k/uL (150-450); RBC 4.76 m/uL (3.80-5.40); RDW 12.1 % (11.5-15.5); WBC 19.1 k/uL (3.8-10.6)
[2019-08-30 13:30] LABS: INR 0.9 (<1.2); Partial Thromboplastin Time 22.2 sec (22.0-30.0); Prothrombin Time 9.7 sec (9.0-12.0)
[2019-08-30 13:32] LABS: ALT 14 U/L (4-34); AST 19 U/L (14-36); African American GFR (CKD) >90 (>60 ml/min/1.73 sqM); Albumin 4.7 g/dL (3.5-5.0); Alkaline Phosphatase 116 U/L (38-126); Anion Gap 11 mmol/L; Blood Urea Nitrogen 16 mg/dL (7-17); Calcium 11.7 mg/dL (8.4-10.2); Carbon Dioxide 30 mmol/L (22-30); Chloride 95 mmol/L (98-107); Glucose 155 mg/dL (74-99); Non-African American GFR(CKD) >90 (>60 ml/min/1.73 sqM); Potassium 3.2 mmol/L (3.5-5.1); Sodium 136 mmol/L (137-145); Total Protein 8.1 g/dL (6.3-8.2)
[2019-08-30] MEDS ORDERED: METOCLOPRAMIDE 5 MG/ML 2 ML VIAL IVP STA (13:42)
[2019-08-30 13:57] VITALS: RESP 18
--- NOTE | 2019-08-30 14:18 | XR ---
EXAMINATION TYPE: XR chest 2V DATE OF EXAM: 08/30/2019 COMPARISON: 05/10/2019 INDICATION: Chest pain TECHNIQUE: Frontal and lateral views of the chest are obtained. FINDINGS: The heart size is normal. The pulmonary vasculature is normal. The lungs are clear. IMPRESSION: 1. No acute pulmonary process.
[2019-08-30 15:24] LABS: Appearance,Urine Clear (Clear); Bilirubin,Urine Negative (Negative); Blood,Urine Negative (Negative); Color,Urine Yellow; Glucose,Urine (UA) Negative (Negative); Ketones,Urine Trace (Negative); Leukocyte Esterase,Urine Small (Negative); Mucus,Urine Occasional /hpf; Nitrite,Urine Negative (Negative); Protein,Urine 1+ (Negative); RBC,Urine 9 /hpf (0-5); Specific Gravity,Urine 1.019 (1.001-1.035); Squamous Epithelial Cell,Urine <1 /hpf (0-4); Urobilinogen,Urine <2.0 mg/dL (<2.0); WBC,Urine 13 /hpf (0-5)
[2019-08-30 15:44] LABS: Amylase 75 U/L (30-110)
[2019-08-30 16:16] VITALS: BP 105/72; PULSE 100; TEMP 98.2
== END 2019-08-30 16:17 | disposition home or self-care (01) ==
LOC: EC 12:28
DX: K21.9 Gastro-esophageal reflux disease without esophagitis (principal); J44.9 Chronic obstructive pulmonary disease, unspecified; M81.0 Age-related osteoporosis without current pathological fracture; K44.9 Diaphragmatic hernia without obstruction or gangrene; F17.200 Nicotine dependence, unspecified, uncomplicated; Z79.51 Long term (current) use of inhaled steroids; Z79.899 Other long term (current) drug therapy
CPT/HCPCS: 36415; 93005; 80053; 82150; 83605; 83690; 84484; 85025; 85610; 85730; 81001; 87086; 71046; 99284; 96374; 96375 ×2; 96361; J2765; J2405; C9113

== ENCOUNTER 2019-09-03 14:22 | Emergency (ER) | payer OTHER ==
[2019-09-03 14:38] VITALS: RESP 18
[2019-09-03] MEDS ORDERED: SODIUM CHLORIDE 0.9% 1,000 ML IV ONE (14:56)
[2019-09-03 15:07] LABS: Basophils # (A) 0.1 k/uL (0-0.2); Basophils % (A) 1 %; Eosinophils # (A) 0.2 k/uL (0-0.7); Eosinophils % (A) 2 %; HCT 38.4 % (34.0-46.0); HGB 12.8 gm/dL (11.4-16.0); Lymphocytes # (A) 2.9 k/uL (1.0-4.8); Lymphocytes % (A) 28 %; MCH 30.5 pg (25.0-35.0); MCHC 33.2 g/dL (31.0-37.0); Mean Platelet Volume 6.8; Monocytes # (A) 0.6 k/uL (0-1.0); Monocytes % (A) 5 %; Neutrophils # (A) 6.7 k/uL (1.3-7.7); Neutrophils % (A) 63 %; Platelet Count 428 k/uL (150-450); RBC 4.18 m/uL (3.80-5.40); RDW 12.1 % (11.5-15.5); WBC 10.7 k/uL (3.8-10.6)
--- NOTE | 2019-09-03 15:07 | ED ---
General Adult HPI - General Chief complaint: Recheck/Abnormal Lab/Rx Stated complaint: Abn Labs Time Seen by Provider: 09/03/19 14:45 Source: patient, RN notes reviewed Mode of arrival: ambulatory Limitations: no limitations - History of Present Illness Initial comments: 59-year-old female presents emergency Department chief complaint of abnormal labs. Patient states that she had bloodwork drawn and stated that her calcium was high. Patient states her doctor told about emergency department. Patient denies any muscle cramping she states other than she had small abdominal cramping. Patient states that she is scheduled for hiatal hernia surgery. She denies being on any medications for osteoporosis though she states years ago she was. denies any thyroid issues. Denies any headache or dizziness no chest pain or shortness breath. - Related Data Home Medications Medication Instructions Recorded Confirmed Albuterol Sulfate [Ventolin Hfa] 2 puff INHALATION RT-QID PRN 09/16/16 09/03/19 Cetirizine HCl [Zyrtec] 10 mg PO DAILY PRN 09/14/17 09/03/19 Omeprazole [PriLOSEC] 20 mg PO AC-BID 01/31/19 09/03/19 Fluticasone Nasal [place] [Flonase 1 spr EA NOSTRIL DAILY PRN 09/03/19 09/03/19 Nasal [place]] Ibuprofen [Motrin] 600 mg PO Q8HR PRN 09/03/19 09/03/19 Montelukast [Singulair] 10 mg PO HS 09/03/19 09/03/19 Ondansetron [Zofran ODT] 4 mg PO TID PRN 09/03/19 09/03/19 Sulfamethox-Tmp 800-160Mg [Bactrim 1 tab PO Q12HR 09/03/19 09/03/19 DS 800-160 mg] Previous Rx's Medication Instructions Recorded Pantoprazole [Protonix] 40 mg PO DAILY 14 Days #14 08/30/19 tablet. Allergies Allergy/AdvReac Type Severity Reaction Status Date / Time No Known Allergies Allergy Verified 09/03/19 15:25 Review of Systems ROS Statement: Those systems with pertinent positive or pertinent negative responses have been documented in the HPI. ROS Other: All systems not noted in ROS Statement are negative. 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 Past Anesthesia/Blood Transfusion Reactions: Previous Problems w/ Anesthesia Additional Past Anesthesia/Blood Transfusion Reaction / Comment(s): woke up during sx in past Past Psychological History: No Psychological Hx Reported Smoking Status: Current every day smoker Past Alcohol Use History: None Reported Past Drug Use History: None Reported - Past Family History Father Family Medical History: Cancer Additional Family Medical History / Comment(s): Esophageal General Exam Limitations: no limitations General appearance: alert, in no apparent distress Head exam: Present: atraumatic, normocephalic, normal inspection Eye exam: Present: normal appearance, PERRL, EOMI. Absent: scleral icterus, conjunctival injection, periorbital swelling ENT exam: Present: normal exam, normal oropharynx, mucous membranes moist Neck exam: Present: normal inspection, full ROM. Absent: tenderness, meningismus, lymphadenopathy Respiratory exam: Present: normal lung sounds bilaterally. Absent: respiratory distress, wheezes, rales, rhonchi, stridor Cardiovascular Exam: Present: regular rate, normal rhythm, normal heart sounds. Absent: systolic murmur, diastolic murmur, rubs, gallop, clicks Neurological exam: Present: alert, oriented X3, CN II-XII intact Skin exam: Present: warm, dry, intact, normal color. Absent: rash Course Vital Signs 09/03/19 14:35 Temperature 98.8 F Pulse Rate 92 Respiratory 18 Rate Blood Pressure 124/82 O2 Sat by Pulse 98 Oximetry Medical Decision Making - Medical Decision Making 59-year-old female presented for abnormal labs. Patient has a minimally elevated calcium. Patient is asymptomatic hyperglycemia. Patient has minimal hypokalemia which this will be replaced orally. Patient will follow-up nephrology. Return parameters were discussed. - Lab Data Result diagrams: 09/03/19 15:00 09/03/19 15:00 Lab Results 09/03/19 09/03/19 Range/Units 15:00 15:00 WBC 10.7 H (3.8-10.6) k/uL RBC 4.18 (3.80-5.40) m/uL Hgb 12.8 (11.4-16.0) gm/dL Hct 38.4 (34.0-46.0) % MCV 92.0 (80.0-100.0) fL MCH 30.5 (25.0-35.0) pg MCHC 33.2 (31.0-37.0) g/dL RDW 12.1 (11.5-15.5) % Plt Count 428 (150-450) k/uL Neutrophils % 63 % Lymphocytes % 28 % Monocytes % 5 % Eosinophils % 2 % Basophils % 1 % Neutrophils # 6.7 (1.3-7.7) k/uL Lymphocytes # 2.9 (1.0-4.8) k/uL Monocytes # 0.6 (0-1.0) k/uL Eosinophils # 0.2 (0-0.7) k/uL Basophils # 0.1 (0-0.2) k/uL Sodium 135 L (137-145) mmol/L Potassium 3.2 L (3.5-5.1) mmol/L Chloride 101 (98-107) mmol/L Carbon Dioxide 26 (22-30) mmol/L Anion Gap 8 mmol/L BUN 10 (7-17) mg/dL Creatinine 0.59 (0.52-1.04) mg/dL Est GFR (CKD-EPI)AfAm >90 (>60 ml/min/1.73 sqM) Est GFR (CKD-EPI)NonAf >90 (>60 ml/min/1.73 sqM) Glucose 102 H (74-99) mg/dL Calcium 11.3 H (8.4-10.2) mg/dL Ionized Calcium Ashu 6.1 H* (4.5-5.3) mg/dL Phosphorus 2.6 (2.5-4.5) mg/dL Magnesium 1.9 (1.6-2.3) mg/dL Total Bilirubin 0.6 (0.2-1.3) mg/dL AST 29 (14-36) U/L ALT 13 (4-34) U/L Alkaline Phosphatase 91 (38-126) U/L Total Protein 7.3 (6.3-8.2) g/dL Albumin 4.3 (3.5-5.0) g/dL TSH 1.530 (0.465-4.680) mIU/L Disposition Clinical Impression: Hypokalemia, Hypercalcemia Disposition: HOME SELF-CARE Condition: Stable Instructions (If sedation given, give patient instructions): Hypercalcemia (ED) Additional Instructions: Please return to the Emergency Department if symptoms worsen or any other concerns. Is patient prescribed a controlled substance at d/c from ED?: No Referrals: Farzad Strauss MD [Primary Care Provider] - 1-2 days Demar Cast DO [STAFF PHYSICIAN] - 1-2 days Time of Disposition: 16:02
[2019-09-03 15:13] LABS: Ionized Calcium 6.1 mg/dL (4.5-5.3)
[2019-09-03 15:21] LABS: ALT 13 U/L (4-34); AST 29 U/L (14-36); African American GFR (CKD) >90 (>60 ml/min/1.73 sqM); Albumin 4.3 g/dL (3.5-5.0); Alkaline Phosphatase 91 U/L (38-126); Blood Urea Nitrogen 10 mg/dL (7-17); Carbon Dioxide 26 mmol/L (22-30); Glucose 102 mg/dL (74-99); Non-African American GFR(CKD) >90 (>60 ml/min/1.73 sqM); Phosphorus 2.6 mg/dL (2.5-4.5); Potassium 3.2 mmol/L (3.5-5.1); Total Bilirubin 0.6 mg/dL (0.2-1.3); Total Protein 7.3 g/dL (6.3-8.2)
[2019-09-03 15:24] LABS: Anion Gap 8 mmol/L; Calcium 11.3 mg/dL (8.4-10.2); Chloride 101 mmol/L (98-107); Magnesium 1.9 mg/dL (1.6-2.3); Sodium 135 mmol/L (137-145)
[2019-09-03] MEDS ORDERED: POTASSIUM CHLORIDE ER 20 MEQ TAB.ER PO STA (16:02)
[2019-09-03 16:10] VITALS: BP 120/92; PULSE 83; TEMP 98.9
== END 2019-09-03 16:13 | disposition home or self-care (01) ==
LOC: EC 14:22
DX: E87.6 Hypokalemia (principal); E83.52 Hypercalcemia; R73.9 Hyperglycemia, unspecified; J44.9 Chronic obstructive pulmonary disease, unspecified; M19.90 Unspecified osteoarthritis, unspecified site; K21.9 Gastro-esophageal reflux disease without esophagitis; F17.200 Nicotine dependence, unspecified, uncomplicated; Z79.899 Other long term (current) drug therapy; Z90.710 Acquired absence of both cervix and uterus
CPT/HCPCS: 36415; 80053; 82330; 83735; 83970; 84100; 84443; 85025; 93005; 96360; 99284

== ENCOUNTER → 2019-09-03 | Outpatient (CLI) | payer OTHER ==
[2019-09-03 12:53] LABS: Ionized Calcium 6.2 mg/dL (4.5-5.3)
[2019-09-03 14:15] LABS: HCT 39.5 % (34.0-46.0); HGB 12.9 gm/dL (11.4-16.0); MCH 30.7 pg (25.0-35.0); MCHC 32.8 g/dL (31.0-37.0); MCV 93.6 fL (80.0-100.0); Mean Platelet Volume 7.5; Platelet Count 413 k/uL (150-450); RBC 4.22 m/uL (3.80-5.40); RDW 12.2 % (11.5-15.5); WBC 7.8 k/uL (3.8-10.6)
[2019-09-03 18:13] LABS: African American GFR (CKD) 111.5 (60.0-200.0); Albumin 4.5 g/dL (3.80-4.90); Albumin/Globulin Ratio 1.96 (1.60-3.17); Anion Gap 9.3 mmol/L (4.00-12.00); BUN/Creat Ratio 11.43 Ratio (12.00-20.00); Carbon Dioxide 26.7 mmol/L (21.6-31.8); Globulin 2.3 g/dL (1.6-3.3); Magnesium 1.8 mg/dL (1.5-2.4); Non-African American GFR(CKD) 96.2 (60.0-200.0); Potassium 3.2 mmol/L (3.5-5.5); Total Bilirubin 0.5 mg/dL (0.3-1.2); Total Protein 6.8 g/dL (6.2-8.2)
== END | disposition home or self-care (01) ==
LOC: LABWHC1 11:12
PROVIDERS: ATTEND Internal Medicine
DX: D72.829 Elevated white blood cell count, unspecified (principal); E72.51 Non-ketotic hyperglycinemia
CPT/HCPCS: 36415; 80053; 82330; 83735; 85027

== ENCOUNTER 2019-09-11 03:02 | Emergency (ER) | payer OTHER ==
[2019-09-11 03:11] VITALS: TEMP 98
[2019-09-11] MEDS ORDERED: SODIUM CHLORIDE 0.9% 1,000 ML IV STA ×2 (03:15)
[2019-09-11] MEDS ORDERED: ONDANSETRON 4 MG/2 ML VIAL IVP STA (03:15)
[2019-09-11] MEDS ORDERED: MORPHINE SULFATE 4 MG/ML SYRINGE IVP STA (03:15)
[2019-09-11] MEDS ORDERED: SODIUM CHLORIDE 0.9% 500 ML 500 ML IV STA (03:15)
[2019-09-11] MEDS ORDERED: LORazepam 2 MG/ML INJ IV STA (03:16)
--- NOTE | 2019-09-11 03:22 | ED ---
Chest Pain HPI - General Chief Complaint: Chest Pain Stated Complaint: Acid reflux Time Seen by Provider: 09/11/19 03:07 Source: patient, EMS, RN notes reviewed, old records reviewed Mode of arrival: EMS Limitations: no limitations - History of Present Illness Initial Comments: This is a 59-year-old female DF for evaluation patient Dese for evaluation of patient has recent abdominal surgery coming in with chest pain rating to her back no significant shortness of breath mild nausea no vomiting. No fevers or travel history no sick contacts. MD Complaint: chest pain, other (COPD and reflux) -: days(s) Onset: during rest Pain Location: substernal Pain Radiation: abdomen Severity: mild Severity scale (1-10): 7 Quality: sharp, other (Burning) Consistency: intermittent Improves With: nothing Worsens With: nothing Anginal Symptoms: nausea Other Symptoms: acid taste in mouth Treatments Prior to Arrival: none - Related Data Home Medications Medication Instructions Recorded Confirmed Albuterol Sulfate [Ventolin HFA] 2 puff INHALATION RT-QID PRN 09/16/16 09/12/19 Fluticasone Nasal [place] [Flonase 1 spr EA NOSTRIL BID 09/03/19 09/12/19 Nasal [place]] Montelukast [Singulair] 10 mg PO HS 09/03/19 09/12/19 Ondansetron [Zofran ODT] 4 mg PO TID PRN 09/03/19 09/12/19 Albuterol Nebulized [Ventolin 2.5 mg INHALATION RT-QID PRN 09/05/19 09/12/19 Nebulized] Ipratropium Nebulized [Atrovent 0.5 mg INHALATION RT-QID PRN 09/05/19 09/12/19 Nebulized 0.2 MG/ML] Cetirizine HCl 10 mg PO DAILY 09/12/19 09/12/19 Previous Rx's Medication Instructions Recorded Acetaminophen Tab [Tylenol Tab] 500 mg PO Q6H PRN #30 tablet 09/14/19 Cefuroxime Axetil [Ceftin] 500 mg PO BID 3 Days #6 tab 09/14/19 Metoprolol Tartrate [Lopressor] 12.5 mg PO BID #60 tab 09/14/19 Nicotine 14Mg/24Hr Patch [Habitrol] 1 patch TRANSDERM DAILY #30 patch 09/14/19 Pantoprazole [Protonix] 40 mg PO AC-BID #60 tablet. 09/14/19 Allergies Allergy/AdvReac Type Severity Reaction Status Date / Time No Known Allergies Allergy Verified 09/12/19 16:02 Review of Systems ROS Statement: Those systems with pertinent positive or pertinent negative responses have been documented in the HPI. ROS Other: All systems not noted in ROS Statement are negative. 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 Past Anesthesia/Blood Transfusion Reactions: Previous Problems w/ Anesthesia Additional Past Anesthesia/Blood Transfusion Reaction / Comment(s): woke up during sx in past Past Psychological History: No Psychological Hx Reported Smoking Status: Current every day smoker Past Alcohol Use History: None Reported Past Drug Use History: None Reported - Past Family History Father Family Medical History: Cancer Additional Family Medical History / Comment(s): Esophageal General Exam Limitations: no limitations General appearance: alert, in no apparent distress Head exam: Present: atraumatic, normocephalic, normal inspection Eye exam: Present: normal appearance, PERRL, EOMI. Absent: scleral icterus, conjunctival injection, periorbital swelling ENT exam: Present: normal exam, mucous membranes moist Neck exam: Present: normal inspection. Absent: tenderness, meningismus, lymphadenopathy Respiratory exam: Present: normal lung sounds bilaterally. Absent: respiratory distress, wheezes, rales, rhonchi, stridor Cardiovascular Exam: Present: regular rate, normal rhythm, normal heart sounds. Absent: systolic murmur, diastolic murmur, rubs, gallop, clicks GI/Abdominal exam: Present: soft, normal bowel sounds. Absent: distended, tenderness, guarding, rebound, rigid Extremities exam: Present: normal inspection, full ROM, normal capillary refill. Absent: tenderness, pedal edema, joint swelling, calf tenderness Back exam: Present: normal inspection Neurological exam: Present: alert, oriented X3, CN II-XII intact Psychiatric exam: Present: normal affect, normal mood Skin exam: Present: warm, dry, intact, normal color. Absent: rash Course Vital Signs 09/11/19 09/11/19 09/11/19 03:05 03:12 05:00 Temperature 98 F Pulse Rate 98 81 Pulse Rate [ 99 Pulse Oximetery ] Respiratory 22 16 Rate Blood Pressure 108/83 114/72 O2 Sat by Pulse 94 L 100 Oximetry - Reevaluation(s) Reevaluation #1: Medical records reviewed Patient feeling better with anxiolysis here in the ER fevers discharged home Chest Pain MDM - MDM 59 female to the ER with atypical chest pain and anxiety CT chest CT angiogram chest negative for acute disease Disposition Clinical Impression: GERD (gastroesophageal reflux disease), Epigastric abdominal pain, Panic attack, Atypical chest pain Disposition: HOME SELF-CARE Condition: Good Instructions (If sedation given, give patient instructions): Chest Pain (ED), Abdominal Pain (ED) Is patient prescribed a controlled substance at d/c from ED?: No Referrals: Farzad Strauss MD [Primary Care Provider] - 1-2 days
[2019-09-11 03:41] LABS: Basophils # (A) 0.1 k/uL (0-0.2); Basophils % (A) 1 %; Eosinophils # (A) 0.1 k/uL (0-0.7); Eosinophils % (A) 2 %; HCT 42.7 % (34.0-46.0); HGB 14.1 gm/dL (11.4-16.0); Lymphocytes # (A) 2.7 k/uL (1.0-4.8); Lymphocytes % (A) 30 %; MCH 30.4 pg (25.0-35.0); MCV 92.1 fL (80.0-100.0); Mean Platelet Volume 7.1; Monocytes # (A) 0.4 k/uL (0-1.0); Monocytes % (A) 4 %; Neutrophils # (A) 5.4 k/uL (1.3-7.7); Neutrophils % (A) 62 %; Platelet Count 467 k/uL (150-450); RBC 4.64 m/uL (3.80-5.40); RDW 12.1 % (11.5-15.5); WBC 8.8 k/uL (3.8-10.6)
[2019-09-11 03:50] LABS: ALT 15 U/L (4-34); AST 28 U/L (14-36); African American GFR (CKD) >90 (>60 ml/min/1.73 sqM); Albumin 4.6 g/dL (3.5-5.0); Alkaline Phosphatase 85 U/L (38-126); Anion Gap 13 mmol/L; Blood Urea Nitrogen 11 mg/dL (7-17); Calcium 11.5 mg/dL (8.4-10.2); Carbon Dioxide 24 mmol/L (22-30); Chloride 101 mmol/L (98-107); Creatine Kinase 44 U/L (30-135); Glucose 142 mg/dL (74-99); Magnesium 1.8 mg/dL (1.6-2.3); Non-African American GFR(CKD) >90 (>60 ml/min/1.73 sqM); Phosphorus 2.5 mg/dL (2.5-4.5); Sodium 138 mmol/L (137-145); Total Bilirubin 0.5 mg/dL (0.2-1.3); Total Protein 7.7 g/dL (6.3-8.2)
[2019-09-11 03:51] LABS: Potassium 4.1 mmol/L (3.5-5.1)
[2019-09-11 03:59] LABS: D-Dimer 0.21 mg/L FEU (<0.60); INR 0.9 (<1.2); Partial Thromboplastin Time 23.3 sec (22.0-30.0); Prothrombin Time 9.7 sec (9.0-12.0)
--- NOTE | 2019-09-11 04:14 | CT ---
EXAMINATION TYPE: CT abdomen pelvis w con DATE OF EXAM: 09/11/2019 COMPARISON: None HISTORY: chest pain, hernia repair [id number] ago CT DLP: 506 mGycm Automated exposure control for dose reduction was used. CONTRAST: Performed with IV Contrast, patient injected with 100 mL of Isovue 370. Images were obtained from the diaphragm to the floor the pelvis with IV contrast. Lung bases are clear. There is no pleural effusion. Heart size is normal. There is no pericardial eff usion. Liver appears normal. Gallbladder appears normal. Stomach is large and full fluid. Spleen is i ntact. There is no evidence of pancreatic mass. The bile ducts are not dilated. There is no adrenal mass. Kidneys show satisfactory contrast opacification. There is no hydronephrosi s. The ureters are not dilated. There is no retroperitoneal adenopathy. Appendix is posterior and papo ears normal. The bladder distends smoothly. There is no inguinal hernia. There is no free fluid in the pelvis. There is hysterectomy. There is no evidence of a pelvic mass. There is no ascites or free air. There is no bowel obstruction. There is no mesenteric edema. Lumbar vertebra have normal alignment. There is 25% compression of L2 vertebra with vertebroplasty. 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 There is 20% wedging of T11 vertebra. The bony pelvis appears intact. IMPRESSION: No acute abnormality of the abdomen pelvis. Osteomalacia and osteoporosis. Normal appendix.
--- NOTE | 2019-09-11 04:17 | CT ---
EXAMINATION TYPE: CT angio chest DATE OF EXAM: 09/11/2019 COMPARISON: None HISTORY: chest pain, hernia repair [id number] ago CT DLP: 396.3 mGycm Automated exposure control for dose reduction was used. CONTRAST: Performed with IV Contrast, patient injected with 100 mL of Isovue 370. There are 3-D post processed images. Images were obtained from the thoracic inlet to the diaphragm. The lungs are clear of infiltrate. There is no evidence of a pulmonary mass. Heart size is normal. Th ere is no pericardial effusion. There is no pleural effusion. There are no hilar masses. There is no mediastinal adenopathy. Thoracic aorta is intact. There is no aneurysm or dissection. The ascending aorta measures 3.1 cm. I see no filling defects in the pulmonary arteries. There is normal contrast opacification of the pul monary arteries. There is 20% anterior wedging of T11 vertebra. I see no focal bone destruction. Sternum is intact. Th e ribs appear intact. IMPRESSION: No evidence of pulmonary embolism.
[2019-09-11 05:25] VITALS: BP 114/72; PULSE 81; RESP 16
[2019-09-11] MEDS ORDERED: PANTOPRAZOLE 40 MG/10 ML VIAL IVP SCH (09:00)
== END 2019-09-11 05:26 | disposition home or self-care (01) ==
LOC: EC 03:02
DX: K21.9 Gastro-esophageal reflux disease without esophagitis (principal); F41.0 Panic disorder [episodic paroxysmal anxiety]; R07.89 Other chest pain; J44.9 Chronic obstructive pulmonary disease, unspecified; F17.200 Nicotine dependence, unspecified, uncomplicated; Z79.51 Long term (current) use of inhaled steroids; Z79.899 Other long term (current) drug therapy
CPT/HCPCS: 99285; 96374; 96375 ×2; 96361; 36415; 93005; 85379; 83880; 80053; 82550; 83605; 83735; 84100; 84484; 85025; 85610; 85730; 71275; 74177; J2060; J2270; J2405; Q9967

== ENCOUNTER 2019-09-12 15:50 | Observation (INO) | payer OTHER ==
[2019-09-12] MEDS ORDERED: SODIUM CHLORIDE 0.9% 500 ML 500 ML IV STA (16:26)
[2019-09-12] MEDS ORDERED: ONDANSETRON 4 MG/2 ML VIAL IVP STA (16:28)
[2019-09-12] MEDS ORDERED: HYDROmorphone 1 MG/ML 1 ML SYRINGE IVP STA (16:28)
[2019-09-12] MEDS ORDERED: PANTOPRAZOLE 40 MG/10 ML VIAL IVP STA (16:40)
[2019-09-12] MEDS ORDERED: ASPIRIN 81 MG PO STA (16:41)
[2019-09-12 17:14] LABS: Basophils # (A) 0.1 k/uL (0-0.2); Basophils % (A) 0 %; Eosinophils # (A) 0.2 k/uL (0-0.7); Eosinophils % (A) 1 %; HCT 45.5 % (34.0-46.0); HGB 14.7 gm/dL (11.4-16.0); Lymphocytes # (A) 1.9 k/uL (1.0-4.8); Lymphocytes % (A) 8 %; MCH 29.7 pg (25.0-35.0); MCHC 32.3 g/dL (31.0-37.0); MCV 92.1 fL (80.0-100.0); Mean Platelet Volume 7.2; Monocytes # (A) 0.8 k/uL (0-1.0); Monocytes % (A) 3 %; Neutrophils # (A) 21.4 k/uL (1.3-7.7); Neutrophils % (A) 88 %; Platelet Count 533 k/uL (150-450); RBC 4.94 m/uL (3.80-5.40); WBC 24.4 k/uL (3.8-10.6)
[2019-09-12 17:23] LABS: ALT 14 U/L (4-34); AST 25 U/L (14-36); African American GFR (CKD) >90 (>60 ml/min/1.73 sqM); Albumin 4.8 g/dL (3.5-5.0); Alkaline Phosphatase 96 U/L (38-126); Anion Gap 16 mmol/L; Blood Urea Nitrogen 22 mg/dL (7-17); Calcium 12.3 mg/dL (8.4-10.2); Carbon Dioxide 28 mmol/L (22-30); Chloride 90 mmol/L (98-107); Glucose 206 mg/dL (74-99); Magnesium 1.6 mg/dL (1.6-2.3); Non-African American GFR(CKD) >90 (>60 ml/min/1.73 sqM); Sodium 134 mmol/L (137-145)
[2019-09-12 17:26] LABS: Potassium 4.3 mmol/L (3.5-5.1)
[2019-09-12] MEDS ORDERED: SODIUM CHLORIDE 0.9% 1,000 ML IV ONE (17:29)
--- NOTE | 2019-09-12 17:43 | XR ---
EXAMINATION TYPE: XR KUB DATE OF EXAM: 09/12/2019 COMPARISON: NONE HISTORY: Pain TECHNIQUE: Single supine KUB image of the abdomen is obtained FINDINGS: Small bowel demonstrates no evidence for dilatation or air fluid levels. Gas and fecal material is seen in non-distended colon. No convincing evidence for pneumoperitoneum. No unusual calcifications. The lung bases are clear. The osseous structures are intact. IMPRESSION: 1. Overall nonobstructive bowel gas pattern.
--- NOTE | 2019-09-12 17:43 | XR ---
EXAMINATION TYPE: XR chest 2V DATE OF EXAM: 09/12/2019 COMPARISON: 08/30/2019 HISTORY: Shortness of breath TECHNIQUE: Frontal and lateral views of the chest are obtained. FINDINGS: Scattered senescent parenchymal changes noted. Hyperinflation compatible with COPD. No evidence for infiltrate. No evidence for atelectasis. Heart size is stable. Mediastinal structures are stable and grossly unremarkable. No evidence for hilar prominence. Degenerative changes dorsal spine. IMPRESSION: 1. No evidence for acute pulmonary disease.
[2019-09-12] MEDS ORDERED: NITROGLYCERIN SL TABS 0.4 MG TAB SUBLINGUAL PRN (18:23)
[2019-09-12] MEDS ORDERED: HYDROmorphone 0.5 MG/0.5 ML SYRINGE IVP PRN (18:24)
[2019-09-12] MEDS ORDERED: ONDANSETRON 4 MG/2 ML VIAL IVP PRN (18:25)
--- NOTE | 2019-09-12 18:27 | ED ---
General Adult HPI - General Chief complaint: Nausea/Vomiting/Diarrhea Stated complaint: Vomiting, back pain Time Seen by Provider: 09/12/19 16:16 Source: patient, RN notes reviewed, old records reviewed Mode of arrival: wheelchair Limitations: no limitations - History of Present Illness Initial comments: 59-year-old female patient received chief complaint of chest pain and abdominal pain. She reports symptoms have been ongoing the last 2 days. She has been having nausea and vomiting. Patient was seen at this emergency department for same symptoms on 09/11/19. Denies any other complaints. Systemic: Pt denies fatigue, fever/chills, rash. Pt denies weakness, night sweats, weight loss. Neuro: Pt denies headache, visual disturbances, syncope or pre-syncope. HEENT: Pt denies ocular discharge or irritation, otalgia, rhinorrhea, pharyn gitis or notable lymphadenopathy. Cardiopulmonary: Pt denies SOB, heart palpitations, dyspnea on exertion. Abdominal/GI: Pt denies diarrhea. : Pt denies dysuria, burning w/ urination, frequency/urgency. Denies new onset urinary or bowel incontinence. MSK: Pt denies myalgia, loss of strength or function in extremities. Neuro: Pt denies new onset weakness, paresthesias. - Related Data Home Medications Medication Instructions Recorded Confirmed Albuterol Sulfate [Ventolin Hfa] 2 puff INHALATION RT-QID PRN 09/16/16 09/05/19 Fluticasone Nasal [place] [Flonase 1 spr EA NOSTRIL DAILY PRN 09/03/19 09/05/19 Nasal [place]] Ibuprofen [Motrin] 600 mg PO Q8HR PRN 09/03/19 09/05/19 Montelukast [Singulair] 10 mg PO HS 09/03/19 09/05/19 Ondansetron [Zofran ODT] 4 mg PO TID PRN 09/03/19 09/05/19 Sulfamethox-Tmp 800-160Mg [Bactrim 1 tab PO Q12HR 09/03/19 09/05/19 DS 800-160 mg] Albuterol Nebulized [Ventolin 2.5 mg INHALATION DAILY PRN 09/05/19 09/05/19 Nebulized] Ipratropium Nebulized [Atrovent 0.5 mg INHALATION Q6HR PRN 09/05/19 09/05/19 Nebulized 0.2 MG/ML] Previous Rx's Medication Instructions Recorded Pantoprazole [Protonix] 40 mg PO DAILY 14 Days #14 08/30/19 tablet. Allergies Allergy/AdvReac Type Severity Reaction Status Date / Time No Known Allergies Allergy Verified 09/12/19 16:02 Review of Systems ROS Statement: Those systems with pertinent positive or pertinent negative responses have been documented in the HPI. ROS Other: All systems not noted in ROS Statement are negative. 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 Past Anesthesia/Blood Transfusion Reactions: Previous Problems w/ Anesthesia Additional Past Anesthesia/Blood Transfusion Reaction / Comment(s): woke up during sx in past Past Psychological History: No Psychological Hx Reported Smoking Status: Current every day smoker Past Alcohol Use History: None Reported Past Drug Use History: None Reported - Past Family History Father Family Medical History: Cancer Additional Family Medical History / Comment(s): Esophageal General Exam - General Exam Comments Initial Comments: Constitutional: NAD, AOX3 HEENT: NC/AT, trachea midline, neck supple, no lymphadenopathy. External ears appear normal, without discharge. Mucous membranes moist. Eyes PERRLA, EOM intact. There is no scleral icterus. No pallor noted. Cardiopulmonary: RRR, no murmurs, rubs or gallops, no JVD noted. Lungs CTAB in anterior and posterior [place]. No peripheral edema. Abdominal exam: Abdomen soft and non-distended. Abdomen mildly tender to palpation in epigastric region. Bowel sounds active in LLQ. No hepatosplenomegaly. No ecchymosis Neuro: CN II-XII grossly intact. No nuchal rigidity. No raccon eyes, no rosenberg sign, no hemotympanum. No cervical spinal tenderness. MSK: No posterior calf tenderness bilaterally, homans sign negative bilaterally. Posterior tibialis and radial pulse +2 bilaterally. Sensation intact in upper and lower extremities. Full active ROM in upper and lower extremities. Limitations: no limitations Course Vital Signs 09/12/19 09/12/19 09/12/19 16:00 17:14 18:14 Temperature 99.5 F Pulse Rate 123 H 86 Respiratory 20 16 Rate Blood Pressure 99/64 123/82 O2 Sat by Pulse 95 Oximetry Medical Decision Making - Medical Decision Making 59-year-old female patient received chief complaint of chest pain and abdominal pain. She reports symptoms have been ongoing the last 2 days. She has been having nausea and vomiting. Patient was seen at this emergency department for same symptoms on 09/11/19. Denies any other complaints. Patient will signs are stable, afebrile. Physical exam displayed epigastric tenderness. Patient is vomiting in room. Laboratorydata leukocytosis of 24. Other glucose, elevated lactic acid, elevated calcium around patient's baseline. Troponin is negative. EKG is nonischemic. Patient had extensive imaging history including CT abdomen and pelvis and CT chest angiography was sent display acute process. Patient's symptoms are improved, she'll be admitted for intractable nausea and vomiting. Case discussed with Dr. Goins. - Lab Data Result diagrams: 09/12/19 17:03 09/12/19 17:03 Lab Results 09/12/19 09/12/19 09/12/19 Range/Units 17:03 17:03 17:03 WBC 24.4 H (3.8-10.6) k/uL RBC 4.94 (3.80-5.40) m/uL Hgb 14.7 (11.4-16.0) gm/dL Hct 45.5 (34.0-46.0) % MCV 92.1 (80.0-100.0) fL MCH 29.7 (25.0-35.0) pg MCHC 32.3 (31.0-37.0) g/dL RDW 12.0 (11.5-15.5) % Plt Count 533 H (150-450) k/uL Neutrophils % 88 % Lymphocytes % 8 % Monocytes % 3 % Eosinophils % 1 % Basophils % 0 % Neutrophils # 21.4 H (1.3-7.7) k/uL Lymphocytes # 1.9 (1.0-4.8) k/uL Monocytes # 0.8 (0-1.0) k/uL Eosinophils # 0.2 (0-0.7) k/uL Basophils # 0.1 (0-0.2) k/uL Sodium 134 L (137-145) mmol/L Potassium 4.3 (3.5-5.1) mmol/L Chloride 90 L (98-107) mmol/L Carbon Dioxide 28 (22-30) mmol/L Anion Gap 16 mmol/L BUN 22 H (7-17) mg/dL Creatinine 0.64 (0.52-1.04) mg/dL Est GFR (CKD-EPI)AfAm >90 (>60 ml/min/1.73 sqM) Est GFR (CKD-EPI)NonAf >90 (>60 ml/min/1.73 sqM) Glucose 206 H (74-99) mg/dL Plasma Lactic Acid Héctor (0.7-2.0) mmol/L Calcium 12.3 H (8.4-10.2) mg/dL Magnesium 1.6 (1.6-2.3) mg/dL Total Bilirubin 1.0 (0.2-1.3) mg/dL AST 25 (14-36) U/L ALT 14 (4-34) U/L Alkaline Phosphatase 96 (38-126) U/L Troponin I <0.012 (0.000-0.034) ng/mL Total Protein 8.0 (6.3-8.2) g/dL Albumin 4.8 (3.5-5.0) g/dL 09/12/19 Range/Units 17:03 WBC (3.8-10.6) k/uL RBC (3.80-5.40) m/uL Hgb (11.4-16.0) gm/dL Hct (34.0-46.0) % MCV (80.0-100.0) fL MCH (25.0-35.0) pg MCHC (31.0-37.0) g/dL RDW (11.5-15.5) % Plt Count (150-450) k/uL Neutrophils % % Lymphocytes % % Monocytes % % Eosinophils % % Basophils % % Neutrophils # (1.3-7.7) k/uL Lymphocytes # (1.0-4.8) k/uL Monocytes # (0-1.0) k/uL Eosinophils # (0-0.7) k/uL Basophils # (0-0.2) k/uL Sodium (137-145) mmol/L Potassium (3.5-5.1) mmol/L Chloride (98-107) mmol/L Carbon Dioxide (22-30) mmol/L Anion Gap mmol/L BUN (7-17) mg/dL Creatinine (0.52-1.04) mg/dL Est GFR (CKD-EPI)AfAm (>60 ml/min/1.73 sqM) Est GFR (CKD-EPI)NonAf (>60 ml/min/1.73 sqM) Glucose (74-99) mg/dL Plasma Lactic Acid Héctor 2.2 H* (0.7-2.0) mmol/L Calcium (8.4-10.2) mg/dL Magnesium (1.6-2.3) mg/dL Total Bilirubin (0.2-1.3) mg/dL AST (14-36) U/L ALT (4-34) U/L Alkaline Phosphatase (38-126) U/L Troponin I (0.000-0.034) ng/mL Total Protein (6.3-8.2) g/dL Albumin (3.5-5.0) g/dL - EKG Data -: EKG Interpreted by Me (and Dr. Goins ) EKG Comments: Ventricular rate 78,. For 144, QRS 90, QT/QTc 402/458. Normal sinus rhythm, normal EKG, no concern for acute ischemia. Disposition Clinical Impression: Nausea and vomiting, Chest pain Disposition: ADMITTED IP TO THIS HOSP Condition: Serious Is patient prescribed a controlled substance at d/c from ED?: No Referrals: Farzad Strauss MD [Primary Care Provider] - 1-2 days
[2019-09-12] MEDS: PANTOPRAZOLE 40 MG/10 ML VIAL IVP SCH (22:29)
[2019-09-12] MEDS ORDERED: LORazepam 1 MG TAB PO PRN (22:51)
[2019-09-12] MEDS ORDERED: HYDROcodone/APAP 5-325MG 1 EACH TAB PO PRN (22:51)
[2019-09-12] MEDS ORDERED: IPRATROPIUM-ALBUTEROL 3 ML NEB INHALATION PRN (22:51)
[2019-09-12] MEDS ORDERED: TEMAZEPAM 15 MG CAP PO PRN (22:51)
[2019-09-12] MEDS: NICOTINE 14MG/24HR PATCH TRANSDERM SCH (23:18)
[2019-09-13 02:59] LABS: Appearance,Urine Clear (Clear); Bilirubin,Urine Negative (Negative); Blood,Urine Negative (Negative); Color,Urine Yellow; Glucose,Urine (UA) Negative (Negative); Ketones,Urine 2+ (Negative); Leukocyte Esterase,Urine Negative (Negative); Nitrite,Urine Negative (Negative); Protein,Urine Trace (Negative); Specific Gravity,Urine 1.026 (1.001-1.035); Urobilinogen,Urine <2.0 mg/dL (<2.0)
[2019-09-13 03:14] LABS: Cocaine Screen,Urine Not Detected (NotDetected); Opiate Screen,Urine Detected (NotDetected); Phencyclidine Screen,Urine Not Detected (NotDetected); Urn Cannabinoid Scrn Not Detected (NotDetected)
[2019-09-13 03:15] LABS: Amphetamine Screen,Urine Detected (NotDetected); Barbiturate Screen,Urine Not Detected (NotDetected); Benzodiazepines Screen,Urine Detected (NotDetected); Methadone Screen, Urine Not Detected (NotDetected); Oxycodone Screen, Urine Not Detected (NotDetected); Tricyclic Antidepressant,Urine Not Detected (NotDetected)
[2019-09-13 06:08] LABS: Basophils % (A) 0 %; Eosinophils # (A) 0.2 k/uL (0-0.7); Eosinophils % (A) 1 %; HCT 37.3 % (34.0-46.0); HGB 12.3 gm/dL (11.4-16.0); Lymphocytes # (A) 3.2 k/uL (1.0-4.8); Lymphocytes % (A) 18 %; MCH 31.2 pg (25.0-35.0); MCHC 33.1 g/dL (31.0-37.0); MCV 94.4 fL (80.0-100.0); Mean Platelet Volume 7.1; Monocytes # (A) 0.6 k/uL (0-1.0); Monocytes % (A) 4 %; Neutrophils # (A) 13.4 k/uL (1.3-7.7); Neutrophils % (A) 76 %; Platelet Count 423 k/uL (150-450); RBC 3.95 m/uL (3.80-5.40); WBC 17.6 k/uL (3.8-10.6)
[2019-09-13 06:19] LABS: African American GFR (CKD) >90 (>60 ml/min/1.73 sqM); Anion Gap 6 mmol/L; Blood Urea Nitrogen 14 mg/dL (7-17); Calcium 10.7 mg/dL (8.4-10.2); Carbon Dioxide 23 mmol/L (22-30); Chloride 104 mmol/L (98-107); Cholesterol 88 mg/dL (<200); Glucose 98 mg/dL (74-99); HDL Cholesterol 33 mg/dL (40-60); LDL Cholesterol,Calculated 35 mg/dL (0-99); Non-African American GFR(CKD) >90 (>60 ml/min/1.73 sqM); Potassium 3.6 mmol/L (3.5-5.1); Sodium 133 mmol/L (137-145); Triglycerides 99 mg/dL (<150)
[2019-09-13] MEDS: IPRATROPIUM-ALBUTEROL 3 ML NEB INHALATION SCH ×3 (07:19→20:42)
--- NOTE | 2019-09-13 07:21 | HP ---
HISTORY AND PHYSICAL DATE OF SERVICE: 09/12/2019. CHIEF COMPLAINT: Nausea, vomiting. HISTORY OF PRESENT ILLNESS: This is a 59-year-old woman with a past medical history of multiple medical problems including COPD, GERD, DJD, distention, being followed by Dr. Strauss in the outpatient setting, slated to have hiatal hernia surgery by Dr. Phipps, but apparently because the Covid situation, surgery has not been done. Currently the patient complaining of severe chest pain, abdominal pain and some diarrhea ongoing for several days, worse since 2 days. The patient came to [facility] and admitted for further evaluation. There is no history of fever, rigors. No history of headache, loss of consciousness or seizures. Patient is unable to keep anything down. PAST MEDICAL HISTORY: COPD, GERD, DJD, history of HPV, history of osteoporosis. MEDICATIONS: Prior to admission include home medication, 1. Bactrim DS 1 p.o. b.i.d. 2. Protonix 40 mg p.o. daily. 3. Zofran. 4. Singulair. 5. Atrovent. 6. Fluticasone. 7. Albuterol. ALLERGIES: None. FAMILY HISTORY: History of esophageal cancer in the family. SOCIAL HISTORY: History of smoking continued ongoing. REVIEW OF SYSTEMS: ENT: No diminished vision, no diminished hearing. Cardiovascular: No angina. Respiration as mentioned earlier. GI as mentioned earlier. no dysuria. Nervous system: No numbness or weakness. Allergy: No asthma or hayfever. MUSCULOSKELETAL as mentioned earlier. Hematology: No history anemia. Endocrine no history of history of diabetes or hypothyroidism. CONSTITUTIONAL: As mentioned earlier. Dermatology negative. Rheumatology negative. Psychiatric as mentioned earlier. PHYSICAL EXAMINATION: Alert and oriented times three. Pulse is 86, blood pressure 123/82, respiration 16, temperature 99.5, pulse ox 94% on room air. HEENT: Conjunctivae normal. NECK: No JVD. CARDIOVASCULAR SYSTEM: S1, S2 muffled. RESPIRATORY SYSTEM: Breath sounds diminished at the bases. A few scattered rhonchi and crackles. ABDOMEN: Soft, mild diffuse discomfort. No guarding. No rigidity. No mass palpable. LEGS: No edema, no swelling. NERVOUS SYSTEM: Higher functions as mentioned earlier. Moves all four limbs. No focal motor or sensory deficits. LYMPHATICS: No lymph nodes palpable in the neck, axillae or groin. SKIN: No ulcer, no rash or bleeding. JOINTS: No active deforming arthropathy. LABS: WBC 24.4, sodium 134, and plasma lactic acid 2.2. Calcium is 12.3. ASSESSMENT: 1. Acute nausea, vomiting, diarrhea, possible acute gastritis and gastroenteritis. 2. Hyponatremia. 3. Chest pain, rule out coronary artery disease. 4. Increased WBC. 5. Elevated lactic acid secondary to dehydration. 6. Hypercalcemia possibly secondary to dehydration. 7. History of chronic obstructive pulmonary disease with possible acute purulent tracheobronchitis. 8. Gastroesophageal reflux disease. 9. Degenerative joint disease. 10.History of osteoporosis. 11.History of HPV. 12.History of hemorrhoidectomy. 13.Continued ongoing nicotine dependence. RECOMMENDATIONS AND DISCUSSION: This 59-year-old woman who presented with multiple complex medical issues, we will monitor the patient closely, continue the current medications, symptomatic treatment. Initiated on broad-spectrum antibiotics. Cultures. Symptomatic treatment. Otherwise, Cardiology consultation has been sought to rule out the possibility of any myocardial infarction. We will also obtain a consultation with Dr. Phipps. Prognosis guarded because of multiple complex medical issues. Copy of dictation being forwarded to Dr. Strauss who is the primary physician. MMODL / IJN: [id number] /
[2019-09-13] MEDS ORDERED: POTASSIUM CHLORIDE ER 20 MEQ TAB.ER PO STA (08:52)
[2019-09-13] MEDS: PANTOPRAZOLE 40 MG/10 ML VIAL IVP SCH (10:21)
[2019-09-13] MEDS: NICOTINE 14MG/24HR PATCH TRANSDERM SCH (10:21)
[2019-09-13] MEDS: LORATADINE 10 MG TAB PO SCH (10:21)
[2019-09-13] MEDS: METOPROLOL TARTRATE 12.5 MG TAB PO SCH ×2 (10:22→20:49)
[2019-09-13] MEDS: HEPARIN SODIUM,PORCINE 5,000 UNIT/ML 1 ML VIAL SQ SCH ×2 (10:25→20:49)
[2019-09-13] MEDS: FLUTICASONE 50MCG/SPRAY NASAL 16GM EA NOSTRIL SCH ×2 (10:25→20:50)
[2019-09-13] MEDS ORDERED: MAG HYDROX/AL HYDROX/SIMETH 30 ML CUP PO PRN (11:02)
--- NOTE | 2019-09-13 11:12 | CONS ---
CONSULTATION Mariaa Schmid is a 59-year-old lady who smokes heavily, has history of hiatal hernia, sees Dr. Strauss on a regular basis as an outpatient. Was scheduled for a hiatal hernia surgery, but this was canceled because of recent perez virus pandemic. She is here complaining of epigastric pain. She has no chest pain. Her troponins are normal. Pain seems to be more or less related to the epigastric area. Also complains of some nausea. She is resting comfortably without symptoms at the time of my evaluation. She also had somewhat of an elevated lactate level and was a bit dehydrated when she came into the hospital. At the time of my evaluation, she is asymptomatic. Seems anxious that she should have her surgery sooner. Her main complaint was nausea, epigastric discomfort, vomiting. She has no further emesis. EKG revealed a sinus mechanism, no acute changes. PAST MEDICAL HISTORY: Smoking, COPD, bronchial asthma, hiatal hernia. No documented history of CAD. She does have probably underlying COPD and some osteoarthritis. She is status post hysterectomy, hemorrhoidectomy, and also had some . ALLERGIES: None. MEDICATIONS: Medications at home include Singulair, Zofran, and she also takes Protonix. LABORATORY DATA: Laboratory data revealed unremarkable troponins and no other significant abnormalities. PHYSICAL EXAMINATION: On examination, blood pressure is 104/60, pulse rate is about 88 per minute and regular. HEENT unremarkable. Fundus was not examined by me. Neck is supple. No JVD. I do not hear a carotid bruit. There is no thyromegaly. Heart exam reveals S1, S2 heard normally. Mild tachycardia is noted. Lungs reveal diminished air entry. Abdomen is soft, nontender. Lower extremities reveal diminished pulses. Central nervous system is normal. IMPRESSION: 1. Atypical chest pain. 2. Nausea, vomiting, probably related to hiatal hernia. 3. Smoking and chronic obstructive pulmonary disease. RECOMMENDATIONS: I am recommending that we place her on a small dose of metoprolol tartrate 12.5 mg b.i.d. I have counseled her regarding the need to quit smoking. An echo was advised. She can be discharged and further workup for her chest pain can be performed after her hiatal hernia surgery is done and she is expected to have the operation shortly. Advised beta blockers. She can be discharged and I will be happy to see her in the office in 2-3 weeks. Thank you very much for the consult. RY / ASMITA: [id number] /
--- NOTE | 2019-09-13 11:52 | P.GSCN ---
History of Present Illness Consult date: 09/13/19 History of present illness: CHIEF COMPLAINT: Intractable nausea vomiting HISTORY OF PRESENT ILLNESS: The patient is a 59-year-old female with pre- existing history of hiatal hernia. She reports yesterday developing intractable nausea and vomiting for which she came to the emergency room. She has a presented also with abdominal pain now resolved. Urine drug screen test was positive for opiates including methamphetamine use. She reports no abdominal pain this morning. In fact "I'm hungry," she describes. She reports her nausea is resolved today. General surgery is consulted for gastroesophageal reflux disease. PAST MEDICAL HISTORY: See list and reviewed PAST SURGICAL HISTORY: See list and reviewed MEDICATIONS: See list and reviewed ALLERGIES: See list and reviewed SOCIAL HISTORY: See list and reviewed FAMILY HISTORY: See list and reviewed REVIEW OF ORGAN SYSTEMS: CONSTITUTIONAL: No fevers or chills. EYES: Denies any trouble with vision. No glasses. HEENT: No difficulties with hearing. No nosebleeds. RESPIRATORY: Denies pneumonia. Has COPD. CARDIOVASCULAR: Denies any chest pain, palpitations, or recent heart attacks. GASTROINTESTINAL: Has gastroesophageal reflux disease. Denies change in bowel habits and gas bloat. GENITOURINARY: Denies any blood in urine or increased urinary frequency. NEUROLOGICAL: Denies any numbness or tingling along the distal extremities. No seizure disorders or headaches. MUSCULOSKELETAL: Has back pain, stiffness or joint arthritis. Has osteoarthritis. SKIN: No current skin cancer. No rash. PSYCHIATRIC: Denies current depression or suicidal thoughts. ENDOCRINE: Denies current thyroid disorders. Denies any blood sugar glucose intolerance. HEME/LYMPHATIC: Denies any lumps and bumps around the neck. No recent deep venous thrombosis. ALLERGY/IMMUNOLOGY: No immunoglobulin therapy. No immune deficiencies. BREAST: Denies current breast lumps, pain or nipple discharge. PHYSICAL EXAM: VITALS: Reviewed CONSTITUTIONAL: Well developed and in no acute distress. EYES: Conjuctivae without sclera icterus. Pupils are equally round and reactive to light. Extraocular movements grossly intact. HEAD, EARS, NOSE, THROAT: Dry buccal mucosa. Head is atraumatic, normocephalic. Hears conversational speech. No nasal drainage. NECK: Supple. No JV distention. No thyroidomegaly. RESPIRATORY: Non-labored respirations and equal bilateral excursions. No gross wheezes. CARDIOVASCULAR: Regular rate and rhythm. Extremities without moderate edema. Palpable 2+ radial pulses. ABDOMEN: Soft. Non-tender. Nondistended. LYMPH: No neck lymphadenopathy. MUSCULOSKELETAL: Nail and fingers with good capillary refill. SKIN: Warm and well perfused with good skin turgor. NEUROLOGIC: Cranial nerves II through XII grossly intact. No focal or lateralizing signs. PSYCH: Alert and oriented to person, place and time. CLINCAL LABS: Reviewed. White blood cell count decreased from 24,000 and 17,00 0. Urinalysis consistent with positive methamphetamine use including opiates. IMAGING: CT of the abdomen and pelvis from 09/11/2019 independently reviewed with small hiatal hernia identified. Stomach was dilated. RADIOLOGY: Report reviewed also confirms osteoporosis RECORDS: previous old records reviewed of esophagogastroduodenoscopy 2019 confirmed esophagitis hiatal hernia. ASSESSMENT: 1. Intractable nausea and vomiting 2. Gastroesophageal reflux disease PLAN: 1. May start diet as tolerated as she reports resolution of nausea including abdominal pain 2. IV fluid hydration for dehydration 3. Follow-up as outpatient for history of gastroesophageal reflux disease Thank you for this kind consultation. 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 Past Anesthesia/Blood Transfusion Reactions: Previous Problems w/ Anesthesia Additional Past Anesthesia/Blood Transfusion Reaction / Comm: woke up during sx in past Past Psychological History: No Psychological Hx Reported Smoking Status: Current every day smoker Past Alcohol Use History: None Reported Additional Past Alcohol Use History / Comment(s): smokes 1ppd from age 20 (1980) Past Drug Use History: None Reported - Past Family History Father Family Medical History: Cancer Additional Family Medical History / Comment(s): Esophageal Medications and Allergies Home Medications Medication Instructions Recorded Confirmed Type Albuterol Sulfate [Ventolin Hfa] 2 puff INHALATION RT-QID PRN 09/16/16 09/12/19 History Pantoprazole [Protonix] 40 mg PO DAILY 14 Days #14 08/30/19 09/12/19 Rx tablet. Fluticasone Nasal [place] [Flonase 1 spr EA NOSTRIL BID 09/03/19 09/12/19 History Nasal [place]] Ibuprofen [Motrin] 600 mg PO TID PRN 09/03/19 09/12/19 History Montelukast [Singulair] 10 mg PO HS 09/03/19 09/12/19 History Ondansetron [Zofran ODT] 4 mg PO TID PRN 09/03/19 09/12/19 History Sulfamethox-Tmp 800-160Mg [Bactrim 1 tab PO Q12HR 09/03/19 09/12/19 History DS 800-160 mg] Albuterol Nebulized [Ventolin 2.5 mg INHALATION RT-QID PRN 09/05/19 09/12/19 History Nebulized] Ipratropium Nebulized [Atrovent 0.5 mg INHALATION RT-QID PRN 09/05/19 09/12/19 History Nebulized 0.2 MG/ML] Cetirizine HCl 10 mg PO DAILY 09/12/19 09/12/19 History Allergies Allergy/AdvReac Type Severity Reaction Status Date / Time No Known Allergies Allergy Verified 09/12/19 16:02 Surgical - Exam Vital Signs Temp Pulse Resp Pulse Ox 99.5 F 123 H 20 95 09/12/19 16:00 09/12/19 16:00 09/12/19 16:00 09/12/19 16:00 Results - Labs 09/13/19 05:51 09/13/19 05:51 Abnormal Lab Results - Last 24 Hours (Table) 09/12/19 09/12/19 09/12/19 Range/Units 17:03 17:03 17:03 WBC 24.4 H (3.8-10.6) k/uL Plt Count 533 H (150-450) k/uL Neutrophils # 21.4 H (1.3-7.7) k/uL Sodium 134 L (137-145) mmol/L Chloride 90 L (98-107) mmol/L BUN 22 H (7-17) mg/dL Glucose 206 H (74-99) mg/dL Plasma Lactic Acid Héctor 2.2 H* (0.7-2.0) mmol/L Calcium 12.3 H (8.4-10.2) mg/dL HDL Cholesterol (40-60) mg/dL Urine Protein (Negative) Urine Ketones (Negative) Urine Opiates Screen (NotDetected) Ur Amphetamines Screen (NotDetected) U Methamphetamines Scrn (NotDetected) U Benzodiazepines Scrn (NotDetected) 09/13/19 09/13/19 09/13/19 Range/Units 02:24 02:24 05:51 WBC (3.8-10.6) k/uL Plt Count (150-450) k/uL Neutrophils # (1.3-7.7) k/uL Sodium 133 L (137-145) mmol/L Chloride (98-107) mmol/L BUN (7-17) mg/dL Glucose (74-99) mg/dL Plasma Lactic Acid Héctor (0.7-2.0) mmol/L Calcium 10.7 H (8.4-10.2) mg/dL HDL Cholesterol 33 L (40-60) mg/dL Urine Protein Trace H (Negative) Urine Ketones 2+ H (Negative) Urine Opiates Screen Detected H (NotDetected) Ur Amphetamines Screen Detected H (NotDetected) U Methamphetamines Scrn Detected H (NotDetected) U Benzodiazepines Scrn Detected H (NotDetected) 09/13/19 Range/Units 05:51 WBC 17.6 H (3.8-10.6) k/uL Plt Count (150-450) k/uL Neutrophils # 13.4 H (1.3-7.7) k/uL Sodium (137-145) mmol/L Chloride (98-107) mmol/L BUN (7-17) mg/dL Glucose (74-99) mg/dL Plasma Lactic Acid Héctor (0.7-2.0) mmol/L Calcium (8.4-10.2) mg/dL HDL Cholesterol (40-60) mg/dL Urine Protein (Negative) Urine Ketones (Negative) Urine Opiates Screen (NotDetected) Ur Amphetamines Screen (NotDetected) U Methamphetamines Scrn (NotDetected) U Benzodiazepines Scrn (NotDetected) Diabetes panel 09/12/19 09/13/19 Range/Units 17:03 05:51 Sodium 134 L 133 L (137-145) mmol/L Potassium 4.3 3.6 (3.5-5.1) mmol/L Chloride 90 L 104 (98-107) mmol/L Carbon Dioxide 28 23 (22-30) mmol/L BUN 22 H 14 (7-17) mg/dL Creatinine 0.64 0.54 (0.52-1.04) mg/dL Glucose 206 H 98 (74-99) mg/dL Calcium 12.3 H 10.7 H (8.4-10.2) mg/dL AST 25 (14-36) U/L ALT 14 (4-34) U/L Alkaline Phosphatase 96 (38-126) U/L Total Protein 8.0 (6.3-8.2) g/dL Albumin 4.8 (3.5-5.0) g/dL Triglycerides 99 (<150) mg/dL HDL Cholesterol 33 L (40-60) mg/dL Calcium panel 09/12/19 09/13/19 Range/Units 17:03 05:51 Calcium 12.3 H 10.7 H (8.4-10.2) mg/dL Albumin 4.8 (3.5-5.0) g/dL Pituitary panel 09/12/19 09/13/19 Range/Units 17:03 05:51 Sodium 134 L 133 L (137-145) mmol/L Potassium 4.3 3.6 (3.5-5.1) mmol/L Chloride 90 L 104 (98-107) mmol/L Carbon Dioxide 28 23 (22-30) mmol/L BUN 22 H 14 (7-17) mg/dL Creatinine 0.64 0.54 (0.52-1.04) mg/dL Glucose 206 H 98 (74-99) mg/dL Calcium 12.3 H 10.7 H (8.4-10.2) mg/dL Adrenal panel 09/12/19 09/13/19 Range/Units 17:03 05:51 Sodium 134 L 133 L (137-145) mmol/L Potassium 4.3 3.6 (3.5-5.1) mmol/L Chloride 90 L 104 (98-107) mmol/L Carbon Dioxide 28 23 (22-30) mmol/L BUN 22 H 14 (7-17) mg/dL Creatinine 0.64 0.54 (0.52-1.04) mg/dL Glucose 206 H 98 (74-99) mg/dL Calcium 12.3 H 10.7 H (8.4-10.2) mg/dL Total Bilirubin 1.0 (0.2-1.3) mg/dL AST 25 (14-36) U/L ALT 14 (4-34) U/L Alkaline Phosphatase 96 (38-126) U/L Total Protein 8.0 (6.3-8.2) g/dL Albumin 4.8 (3.5-5.0) g/dL Assessment and Plan (1) Methamphetamine abuse Current Visit: Yes Status: Acute Code(s): F15.10 - OTHER STIMULANT ABUSE, UNCOMPLICATED SNOMED Code(s): 006010294 (2) Dehydration Current Visit: Yes Status: Acute Code(s): E86.0 - DEHYDRATION SNOMED Code (s): 93548911 (3) COPD (chronic obstructive pulmonary disease) Current Visit: Yes Status: Acute Code(s): J44.9 - CHRONIC OBSTRUCTIVE PULMONARY DISEASE, UNSPECIFIED SNOMED Code(s): 31849315 (4) Nausea and vomiting Current Visit: Yes Status: Acute Code(s): R11.2 - NAUSEA WITH VOMITING, UNSPECIFIED SNOMED Code(s): 55872301 (5) Atypical chest pain Current Visit: No Status: Acute Code(s): R07.89 - OTHER CHEST PAIN SNOMED Code(s): 495389931 (6) Epigastric abdominal pain Current Visit: No Status: Acute Code(s): R10.13 - EPIGASTRIC PAIN SNOMED Code(s): 94929420 (7) GERD (gastroesophageal reflux disease) Current Visit: No Status: Acute Code(s): K21.9 - GASTRO-ESOPHAGEAL REFLUX DISEASE WITHOUT ESOPHAGITIS SNOMED Code(s): 244902001
--- NOTE | 2019-09-13 15:39 | PN ---
PROGRESS NOTE DATE OF SERVICE: 09/13/2019 This 58-year-old woman was admitted with nausea, vomiting and is still complaining of some chest pain. No fever. No cough. The patient also had significant hiatal hernia also. Surgery has seen the patient, as well as cardiology is also following the patient. Past medical history was reviewed. PHYSICAL EXAM: Patient is alert, oriented x3. The pulse is 91, blood pressure 97/52, respirations 16, temperature is 99 degrees, pulse ox 97% on room air. HEENT: Conjunctivae normal. Oral mucosa moist. CARDIAC: S1 and S2 normal. RESPIRATORY: Breath sounds diminished at the bases, no rhonchi, no crackles. ABDOMEN: Soft, mild diffuse discomfort on palpation. LEGS: No edema. NERVOUS SYSTEM: No focal deficits. LABS: WBC 17.6, sodium is 133, UA noted. Drug screen noted. ASSESSMENT: 1. Acute nausea, vomiting, diarrhea, possible acute gastritis and gastroenteritis. 2. Hyponatremia. No chest pain, rule out coronary artery disease, possible gastroesophageal reflux disease. 3. Increased WBC. 4. Elevated lactic acid secondary to dehydration. 5. Hypercalcemia secondary to dehydration. 6. History of chronic obstructive pulmonary disease with possible acute purulent tracheobronchitis. 7. Gastroesophageal reflux disease. 8. Degenerative joint disease. 9. History of osteoporosis. 10.History of human papillomavirus. 11.History of hemorrhoidectomy. 12.History of ongoing nicotine dependence. RECOMMENDATION: Recommend to continue current management, continue symptomatic management. Calcium is improved to 10.7 at this time. I recommend to avoid calcium supplementation. Otherwise, repeat labs. Continue with hydration. Proton pump inhibitors. Symptomatic treatment. Guarded prognosis. Further recommendations to follow. MMODL / IJN: [id number] /
[2019-09-13] MEDS: PANTOPRAZOLE 40 MG TABLET PO SCH (16:36)
[2019-09-13] MEDS ORDERED: MONTELUKAST 10 MG TAB PO SCH (21:00)
[2019-09-14] MEDS: IPRATROPIUM-ALBUTEROL 3 ML NEB INHALATION SCH ×2 (07:36→11:18)
[2019-09-14 07:58] VITALS: BP 94/58; PULSE 88; RESP 12; TEMP 98.4
[2019-09-14] MEDS: HEPARIN SODIUM,PORCINE 5,000 UNIT/ML 1 ML VIAL SQ SCH (07:58)
[2019-09-14] MEDS: FLUTICASONE 50MCG/SPRAY NASAL 16GM EA NOSTRIL SCH (07:59)
[2019-09-14] MEDS: PANTOPRAZOLE 40 MG TABLET PO SCH (07:59)
[2019-09-14] MEDS: METOPROLOL TARTRATE 12.5 MG TAB PO SCH (07:59)
[2019-09-14] MEDS: LORATADINE 10 MG TAB PO SCH (07:59)
[2019-09-14] MEDS: NICOTINE 14MG/24HR PATCH TRANSDERM SCH (07:59)
[2019-09-14 08:28] LABS: Basophils # (A) 0.1 k/uL (0-0.2); Basophils % (A) 1 %; Eosinophils # (A) 0.1 k/uL (0-0.7); Eosinophils % (A) 1 %; HCT 39.4 % (34.0-46.0); HGB 12.6 gm/dL (11.4-16.0); Lymphocytes # (A) 2.4 k/uL (1.0-4.8); Lymphocytes % (A) 33 %; MCH 30.4 pg (25.0-35.0); MCHC 31.9 g/dL (31.0-37.0); MCV 95.3 fL (80.0-100.0); Mean Platelet Volume 7.1; Monocytes # (A) 0.3 k/uL (0-1.0); Monocytes % (A) 4 %; Neutrophils # (A) 4.3 k/uL (1.3-7.7); Neutrophils % (A) 59 %; Platelet Count 358 k/uL (150-450); RBC 4.13 m/uL (3.80-5.40); WBC 7.2 k/uL (3.8-10.6)
[2019-09-14 08:41] LABS: African American GFR (CKD) >90 (>60 ml/min/1.73 sqM); Anion Gap 8 mmol/L; Blood Urea Nitrogen 9 mg/dL (7-17); Calcium 10.9 mg/dL (8.4-10.2); Carbon Dioxide 21 mmol/L (22-30); Chloride 105 mmol/L (98-107); Glucose 173 mg/dL (74-99); Non-African American GFR(CKD) >90 (>60 ml/min/1.73 sqM); Potassium 3.5 mmol/L (3.5-5.1); Sodium 134 mmol/L (137-145)
--- NOTE | 2019-09-15 09:37 | DS ---
DISCHARGE SUMMARY DATE OF SERVICE: 09/15/2019 FINAL DIAGNOSIS: 1. Acute nausea, vomiting, diarrhea, possible acute gastritis and gastroenteritis. 2. Hyponatremia. 3. Chest pain, myocardial infarction ruled out, possible gastroesophageal reflux disease. 4. Increased WBC. 5. Elevated lactic acid secondary to dehydration. 6. Hypercalcemia secondary to dehydration. 7. History of chronic obstructive pulmonary disease with acute purulent tracheobronchitis. 8. Gastroesophageal reflux disease. 9. Degenerative joint disease. 10.History of osteoporosis. 11.History of human papilloma virus. 12.History of hemorrhoidectomy. 13.History of ongoing nicotine dependence. DISCHARGE DISPOSITION: The patient will be discharged in a stable condition with a guarded prognosis. HISTORY OF PRESENT ILLNESS: This is a 59-year-old woman with a past medical history of multiple medical problems who was admitted with nausea, vomiting and gastritis, gastroenteritis, hyponatremia, chest pain, and multiple medical issues. Patient improved significantly with symptomatic treatment. Surgery and Cardiology saw the patient. Myocardial infarction was ruled out. Recommended outpatient followup. A short course of antibiotics was also given. PHYSICAL EXAMINATION: On exam, vitals are stable. Cardiovascular shows S1 and S2. Abdomen is soft. Nervous system shows no focal deficits. LABORATORY DATA: Normal labs. WBC 7.8. DISCHARGE DISPOSITION AND MEDICATIONS: Diet is cardiac. Activity is limited until follow up. Follow up with Dr. Strauss in 2-3 days. Follow with Surgery and Cardiology as recommended. Medications are; 1. Atrovent nebulizer q.i.d. p.r.n. 2. Cetirizine 10 mg daily. 3. Fluticasone spray daily. 4. Singulair 10 mg q.h.s. 5. Albuterol 2 puffs q.i.d. p.r.n. 6. Zofran 4 mg t.i.d. p.r.n. 7. Ceftin 500 mg p.o. b.i.d. for 3 days. 8. Habitrol 14. 9. Lopressor 12.5 mg b.i.d. 10.Protonix 40 mg b.i.d. 11.Tylenol p.r.n. Once again, the patient will be discharged in stable condition with guarded prognosis. MMODL / IJN: [id number] /
--- NOTE | 2019-09-18 16:00 | ECHOF ---
Referral Reason:chest pain MEASUREMENTS -------- HEIGHT: 154.9 cm WEIGHT: 54.0 kg BP: 97/52 RVIDd: 3.1 cm (< 3.3) IVSd: 0.8 cm (0.6 - 1.1) LVIDd: 3.7 cm (3.9 - 5.3) LVPWd: 1.0 cm (0.6 - 1.1) IVSs: 1.5 cm LVIDs: 2.4 cm LVPWs: 1.3 cm LA Diam: 2.8 cm (2.7 - 3.8) LAESV Index (A-L): 20.49 ml/m Ao Diam: 2.7 cm (2.0 - 3.7) AV Cusp: 1.7 cm (1.5 - 2.6) MV EXCURSION: 16.920 mm (> 18.000) MV EF SLOPE: 94 mm/s (70 - 150) EPSS: 0.5 cm MV E Lester: 0.99 m/s MV DecT: 231 ms MV A Lester: 0.94 m/s MV E/A Ratio: 1.05 AV maxP.76 mmHg AV meanP.91 mmHg FINDINGS -------- Sinus rhythm. This was a technically good study. The left ventricular size is normal. Left ventricular wall thickness is normal. Overall left vent ricular systolic function is normal with, an EF between 60 - 65 %. The right ventricle is normal in size. Normal LA size by volume 22+/-6 ml/m2. The right atrium is normal in size. Interatrial and interventricular septum intact. The aortic valve is trileaflet and appears structurally normal. Peak/mean gradient across the Aorti c Valve is 17.76mmHg / 7.91mmHg. There is trace mitral regurgitation. The tricuspid valve appears structurally normal. There is no pulmonic regurgitation present. The aortic root size is normal. Normal inferior vena cava with normal inspiratory collapse consistent with estimated right atrial pre ssure of 5 mmHg. There is no pericardial effusion. CONCLUSIONS -------- 1. Sinus rhythm. 2. This was a technically good study. 3. The left ventricular size is normal. 4. Left ventricular wall thickness is normal. 5. Overall left ventricular systolic function is normal with, an EF between 60 - 65 %. 6. The right ventricle is normal in size. 7. Normal LA size by volume 22+/-6 ml/m2. 8. The right atrium is normal in size. 9. Interatrial and interventricular septum intact. 10. The aortic valve is trileaflet and appears structurally normal. 11. Peak/mean gradient across the Aortic Valve is 17.76mmHg / 7.91mmHg. 12. There is trace mitral regurgitation. 13. The tricuspid valve appears structurally normal. 14. There is no pulmonic regurgitation present. 15. The aortic root size is normal. 16. Normal inferior vena cava with normal inspiratory collapse consistent with estimated right atrial pressure of 5 mmHg. 17. There is no pericardial effusion. ACOUSTIC ENGINEER: Laura Bird RDCS
== END 2019-09-14 12:37 | disposition home or self-care (01) ==
LOC: EC 15:50 → 1SOBS 20:24
PROVIDERS: ADMIT Internal Medicine; ATTEND Internal Medicine
DX: R11.2 Nausea with vomiting, unspecified (principal); R19.7 Diarrhea, unspecified; R07.89 Other chest pain; R10.13 Epigastric pain; E87.1 Hypo-osmolality and hyponatremia; E86.0 Dehydration; D72.829 Elevated white blood cell count, unspecified; J44.9 Chronic obstructive pulmonary disease, unspecified; M19.90 Unspecified osteoarthritis, unspecified site; M81.0 Age-related osteoporosis without current pathological fracture; Z20.828 Contact with and (suspected) exposure to other viral communicable diseases; R79.89 Other specified abnormal findings of blood chemistry; J40 Bronchitis, not specified as acute or chronic; K44.9 Diaphragmatic hernia without obstruction or gangrene; K21.9 Gastro-esophageal reflux disease without esophagitis; E83.52 Hypercalcemia; F17.210 Nicotine dependence, cigarettes, uncomplicated; F15.10 Other stimulant abuse, uncomplicated; M54.9 Dorsalgia, unspecified; Z53.8 Procedure and treatment not carried out for other reasons; Z79.899 Other long term (current) drug therapy; Z79.1 Long term (current) use of non-steroidal anti-inflammatories (NSAID); Z90.710 Acquired absence of both cervix and uterus; Z86.19 Personal history of other infectious and parasitic diseases; Z80.0 Family history of malignant neoplasm of digestive organs
CPT/HCPCS: 93005 ×2; 96365; 96366; 96372 ×2; 96376 ×2; 96361; 96375; 99285; 36415; 94640; 93306; 80061; 80053; 80048 ×2; 83605; 83690; 83735; 84484; 85025 ×3; 81003; 80306; 71046; 74018; G0378 ×3; U0003; S4990 ×3; J1644 ×2; J2405; J0696 ×2; J1170; C9113 ×2

== ENCOUNTER → 2019-09-19 | Outpatient (CLI) | payer OTHER ==
--- NOTE | 2019-09-20 07:18 | US ---
EXAMINATION TYPE: US thyroid st tissue head/neck DATE OF EXAM: 09/19/2019 COMPARISON: NONE CLINICAL HISTORY: E21.3 ELEV PTH,E83.52 ELEV CALCIUM. elevated PTH and calcium GLAND SIZE: Right Lobe: 4.9 x 0.9 x 1.5 cm Overall Parenchyma: homogenous Left Lobe: 5.0 x 1.2 x 1.6 cm Overall Parenchyma: heterogeneous Isthmus Thickness: 0.3 cm NODULES RIGHT: # of nodules measured on right: 0 LEFT: # of nodules measured on left: sub-centimeter nodules noted, only largest measured 1. 1.7 X 1.2 x 1.8 cm mixed nodule at the lower pole with well-defined margins; . This nodule is w ider than tall and shows intranodular vascularity. Prior size: no prior ISTHMUS: # of nodules measured in the isthmus: 0 Bilateral neck scanned, probable lymph node posterior to inferior right thyroid gland = 1.2cm IMPRESSION: Greater than 1 cm nodule left thyroid lobe. The need to biopsy should be made on a clinical basis.
== END | disposition home or self-care (01) ==
LOC: RADUSWWP 16:21
PROVIDERS: ATTEND Internal Medicine
DX: E04.1 Nontoxic single thyroid nodule (principal)
CPT/HCPCS: 76536

== ENCOUNTER 2019-09-26 21:29 | Observation (INO) | payer OTHER ==
[2019-09-26] MEDS ORDERED: HYDROmorphone 0.5 MG/0.5 ML SYRINGE IVP STA (22:10)
[2019-09-26] MEDS ORDERED: diphenhydrAMINE 50 MG/ML 1 ML VIAL IVP STA (22:10)
[2019-09-26] MEDS ORDERED: SODIUM CHLORIDE 0.9% 1,000 ML IV STA (22:10)
[2019-09-26] MEDS ORDERED: METOCLOPRAMIDE 5 MG/ML 2 ML VIAL IVP STA (22:10)
[2019-09-26 22:34] LABS: Basophils # (A) 0.1 k/uL (0-0.2); Basophils % (A) 0 %; Eosinophils # (A) 0.2 k/uL (0-0.7); Eosinophils % (A) 1 %; HCT 45.9 % (34.0-46.0); HGB 15.5 gm/dL (11.4-16.0); Lymphocytes # (A) 2.3 k/uL (1.0-4.8); Lymphocytes % (A) 13 %; MCH 30.9 pg (25.0-35.0); MCHC 33.7 g/dL (31.0-37.0); MCV 91.8 fL (80.0-100.0); Mean Platelet Volume 7.2; Monocytes # (A) 0.7 k/uL (0-1.0); Monocytes % (A) 4 %; Neutrophils # (A) 14.3 k/uL (1.3-7.7); Neutrophils % (A) 81 %; Platelet Count 500 k/uL (150-450); RDW 11.9 % (11.5-15.5); WBC 17.6 k/uL (3.8-10.6)
[2019-09-26 22:51] LABS: Albumin 5.1 g/dL (3.5-5.0); Calcium 12.2 mg/dL (8.4-10.2); Total Bilirubin 0.9 mg/dL (0.2-1.3); Total Protein 8.5 g/dL (6.3-8.2)
--- NOTE | 2019-09-26 22:52 | ED ---
Abdominal Pain HPI - General Source: patient Mode of arrival: wheelchair Limitations: no limitations <Melva Jiang - Last Filed: 09/27/19 02:19> <Arnulfo Lee - Last Filed: 09/27/19 02:29> - General Chief Complaint: Abdominal Pain Stated Complaint: Hernia Time Seen by Provider: 09/26/19 21:49 - History of Present Illness Initial Comments: 59-year-old female patient presents to the emergency department today for evaluation of upper abdominal pain and vomiting. Patient states that she started vomiting earlier today and has been unable to stop. States she is unable to keep down any food or fluids. States she is having pain to the upper abdomen and in her mid upper back. She denies any chest pain, shortness of breath, dizziness. States that she is scheduled to have hiatal hernia surgery with Dr. Phipps in the morning. Patient states that she has been having similar symptoms to this over the last several months and this is not new for her. States she was recently treated for an intestinal infection with antibiotics which she did complete. She denies any current diarrhea or constipation. Denies any hematochezia, melena, or hematemesis. Denies any fever or chills. Patient denies any recent rash, cough, numbness, tingling, dizziness, weakness, hematuria, dysuria, urinary urgency, urinary frequency, headache, visual changes, or any other complaints. (Melva Jiang) - Related Data Home Medications Medication Instructions Recorded Confirmed Albuterol Sulfate [Ventolin HFA] 2 puff INHALATION RT-QID PRN 09/16/16 09/26/19 Fluticasone Nasal [place] [Flonase 1 spr EA NOSTRIL BID PRN 09/03/19 09/26/19 Nasal [place]] Montelukast [Singulair] 10 mg PO HS 09/03/19 09/26/19 Albuterol Nebulized [Ventolin 2.5 mg INHALATION RT-QID PRN 09/05/19 09/26/19 Nebulized] Metoprolol Tartrate 12.5 mg PO BID 09/26/19 09/26/19 Previous Rx's Medication Instructions Recorded Acetaminophen Tab [Tylenol Tab] 500 mg PO Q6H PRN #30 tablet 09/14/19 Pantoprazole [Protonix] 40 mg PO AC-BID #60 tablet. 09/14/19 Allergies Allergy/AdvReac Type Severity Reaction Status Date / Time No Known Allergies Allergy Verified 09/26/19 22:24 Review of Systems ROS Other: All systems not noted in ROS Statement are negative. <Melva Jiang - Last Filed: 09/27/19 02:19> ROS Other: All systems not noted in ROS Statement are negative. <Arnulfo Lee - Last Filed: 09/27/19 02:29> ROS Statement: Those systems with pertinent positive or pertinent negative responses have been documented in the HPI. 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 Past Anesthesia/Blood Transfusion Reactions: Previous Problems w/ Anesthesia Additional Past Anesthesia/Blood Transfusion Reaction / Comment(s): woke up during sx in past Past Psychological History: No Psychological Hx Reported Smoking Status: Current every day smoker Past Alcohol Use History: None Reported Past Drug Use History: None Reported - Past Family History Father Family Medical History: Cancer Additional Family Medical History / Comment(s): Esophageal <Melva Jiang - Last Filed: 09/27/19 02:19> General Exam Limitations: no limitations General appearance: alert, in no apparent distress, other (This is a well- developed, well-nourished adult female patient in mild distress related to pain. Vital signs upon presentation are temperature 98.1F, pulse 125, respirations 20, blood pressure 147/82, pulse ox 97% on room air.) Eye exam: Present: normal appearance, PERRL, EOMI. Absent: scleral icterus, conjunctival injection, periorbital swelling ENT exam: Present: normal exam, normal oropharynx, mucous membranes moist Respiratory exam: Present: normal lung sounds bilaterally. Absent: respiratory distress, wheezes, rales, rhonchi, stridor Cardiovascular Exam: Present: normal rhythm, tachycardia, normal heart sounds. Absent: systolic murmur, diastolic murmur, rubs, gallop, clicks GI/Abdominal exam: Present: soft, tenderness (Upper abdominal tenderness), normal bowel sounds. Absent: distended, guarding, rebound, rigid Neurological exam: Present: alert, oriented X3, CN II-XII intact Psychiatric exam: Present: normal affect, normal mood Skin exam: Present: warm, dry, intact, normal color. Absent: rash <Melva Jiang - Last Filed: 09/27/19 02:19> Course Vital Signs 09/26/19 09/26/19 09/27/19 21:36 23:25 00:27 Temperature 98.1 F Pulse Rate 125 H 109 H 75 Respiratory 20 19 18 Rate Blood Pressure 147/82 96/58 83/57 O2 Sat by Pulse 97 97 99 Oximetry Medical Decision Making - Lab Data Result diagrams: 09/26/19 22:25 09/26/19 22:25 - EKG Data -: EKG Interpreted by Me - Radiology Data Radiology results: report reviewed, image reviewed <Melva Jiang - Last Filed: 09/27/19 02:19> - Lab Data Result diagrams: 09/26/19 22:25 09/26/19 22:25 <Arnulfo Lee - Last Filed: 09/27/19 02:29> - Medical Decision Making 59-year-old female patient presents to the emergency department today for evaluation of vomiting upper abdominal pain radiating through to the back. Physical examination did reveal midepigastric tenderness. Labs reviewed and did reveal elevated white blood cell count is 17.5. Lipase is mildly elevated at 570. Patient did receive IV fluids, nausea medication, small dose of pain medicine here and she is feeling better. Given labs and scheduled surgery in the morning we will admit to the hospital for further monitoring, management of symptoms. Dr. Phipps will be consulted. (Melva Jiang) I saw this patient in conjunction with the nurse practitioner. I performed independent history and physical exam. Agree with case management. (Arnulfo Lee) - Lab Data Lab Results 09/26/19 09/26/19 09/26/19 Range/Units 22:25 22:25 22:25 WBC 17.6 H (3.8-10.6) k/uL RBC 5.00 (3.80-5.40) m/uL Hgb 15.5 (11.4-16.0) gm/dL Hct 45.9 (34.0-46.0) % MCV 91.8 (80.0-100.0) fL MCH 30.9 (25.0-35.0) pg MCHC 33.7 (31.0-37.0) g/dL RDW 11.9 (11.5-15.5) % Plt Count 500 H (150-450) k/uL Neutrophils % 81 % Lymphocytes % 13 % Monocytes % 4 % Eosinophils % 1 % Basophils % 0 % Neutrophils # 14.3 H (1.3-7.7) k/uL Lymphocytes # 2.3 (1.0-4.8) k/uL Monocytes # 0.7 (0-1.0) k/uL Eosinophils # 0.2 (0-0.7) k/uL Basophils # 0.1 (0-0.2) k/uL Sodium 134 L (137-145) mmol/L Potassium 5.3 H (3.5-5.1) mmol/L Chloride 95 L (98-107) mmol/L Carbon Dioxide 24 (22-30) mmol/L Anion Gap 15 mmol/L BUN 14 (7-17) mg/dL Creatinine 1.18 H (0.52-1.04) mg/dL Est GFR (CKD-EPI)AfAm 59 (>60 ml/min/1.73 sqM) Est GFR (CKD-EPI)NonAf 52 (>60 ml/min/1.73 sqM) Glucose 187 H (74-99) mg/dL Plasma Lactic Acid Héctor 1.9 (0.7-2.0) mmol/L Calcium 12.2 H (8.4-10.2) mg/dL Total Bilirubin 0.9 (0.2-1.3) mg/dL AST 36 (14-36) U/L ALT 24 (4-34) U/L Alkaline Phosphatase 101 (38-126) U/L Troponin I (0.000-0.034) ng/mL Total Protein 8.5 H (6.3-8.2) g/dL Albumin 5.1 H (3.5-5.0) g/dL Amylase 245 H (30-110) U/L Lipase 524 H (23-300) U/L Urine Color Urine Appearance (Clear) Urine pH (5.0-8.0) Ur Specific [place] (1.001-1.035) Urine Protein (Negative) Urine Glucose (UA) (Negative) Urine Ketones (Negative) Urine Blood (Negative) Urine Nitrite (Negative) Urine Bilirubin (Negative) Urine Urobilinogen (<2.0) mg/dL Ur Leukocyte Esterase (Negative) Urine RBC (0-5) /hpf Urine WBC (0-5) /hpf Ur Squamous Epith Cells (0-4) /hpf Urine Bacteria (None) /hpf Hyaline Casts (0-2) /lpf Urine Mucus (None) /hpf 09/26/19 09/26/19 Range/Units 22:25 23:18 WBC (3.8-10.6) k/uL RBC (3.80-5.40) m/uL Hgb (11.4-16.0) gm/dL Hct (34.0-46.0) % MCV (80.0-100.0) fL MCH (25.0-35.0) pg MCHC (31.0-37.0) g/dL RDW (11.5-15.5) % Plt Count (150-450) k/uL Neutrophils % % Lymphocytes % % Monocytes % % Eosinophils % % Basophils % % Neutrophils # (1.3-7.7) k/uL Lymphocytes # (1.0-4.8) k/uL Monocytes # (0-1.0) k/uL Eosinophils # (0-0.7) k/uL Basophils # (0-0.2) k/uL Sodium (137-145) mmol/L Potassium (3.5-5.1) mmol/L Chloride (98-107) mmol/L Carbon Dioxide (22-30) mmol/L Anion Gap mmol/L BUN (7-17) mg/dL Creatinine (0.52-1.04) mg/dL Est GFR (CKD-EPI)AfAm (>60 ml/min/1.73 sqM) Est GFR (CKD-EPI)NonAf (>60 ml/min/1.73 sqM) Glucose (74-99) mg/dL Plasma Lactic Acid Héctor (0.7-2.0) mmol/L Calcium (8.4-10.2) mg/dL Total Bilirubin (0.2-1.3) mg/dL AST (14-36) U/L ALT (4-34) U/L Alkaline Phosphatase (38-126) U/L Troponin I <0.012 (0.000-0.034) ng/mL Total Protein (6.3-8.2) g/dL Albumin (3.5-5.0) g/dL Amylase (30-110) U/L Lipase (23-300) U/L Urine Color Yellow Urine Appearance Cloudy H (Clear) Urine pH 5.5 (5.0-8.0) Ur Specific [place] 1.022 (1.001-1.035) Urine Protein 1+ H (Negative) Urine Glucose (UA) Negative (Negative) Urine Ketones Trace H (Negative) Urine Blood Trace H (Negative) Urine Nitrite Negative (Negative) Urine Bilirubin Negative (Negative) Urine Urobilinogen 2.0 (<2.0) mg/dL Ur Leukocyte Esterase Moderate H (Negative) Urine RBC 30 H (0-5) /hpf Urine WBC 30 H (0-5) /hpf Ur Squamous Epith Cells 3 (0-4) /hpf Urine Bacteria Rare H (None) /hpf Hyaline Casts 110 H (0-2) /lpf Urine Mucus Many H (None) /hpf - EKG Data EKG Comments: EKG obtained at 2219 shows normal sinus rhythm with a ventricular rate is 97, [place] interval 132, QRS duration 82, QT 3:30, QTC 419. No evidence of ST elevation or depression. (Melva Jiang) - Radiology Data 2 views of the abdomen are obtained. Report was reviewed in its entirety. Impression by Dr. Ragland shows large and small bowel intestinal fluid levels without significant dilatation could relate to ileus and appears not significantly different than old exam. Partial mechanical bowel obstruction is not entirely excluded. (Melva Jiang) Disposition Decision to Admit Reason: Admit from EC Decision Date: 09/27/19 Decision Time: 02:06 <Melva Jiang - Last Filed: 09/27/19 02:19> <Arnulfo Lee - Last Filed: 09/27/19 02:29> Clinical Impression: Abdominal pain, Vomiting Disposition: ADMITTED IP TO THIS [facility] Condition: Serious Referrals: None,Stated [Primary Care Provider] - 1-2 days
[2019-09-26 22:54] LABS: Potassium 5.3 mmol/L (3.5-5.1)
--- NOTE | 2019-09-26 23:01 | XR ---
EXAMINATION TYPE: XR KUB DATE OF EXAM: 09/26/2019 COMPARISON: September 12, 2019 HISTORY: Abdominal pain. Vomiting TECHNIQUE: 2 views upright FINDINGS: There are multiple intestinal fluid levels in large and small bowel. There is gas down to t he rectum. I see no sign of free air. There is vertebroplasty of L2 vertebra. There is mild compressi on deformity. There are surgical clips in the pelvis. There is no evidence of abdominal mass. IMPRESSION: Large and small bowel intestinal fluid levels without significant dilation could relate t o ileus and appears not significantly different than old exam. Partial mechanical bowel obstruction n ot entirely excluded.
[2019-09-26 23:34] LABS: Appearance,Urine Cloudy (Clear); Bacteria,Urine Rare /hpf; Bilirubin,Urine Negative (Negative); Blood,Urine Trace (Negative); Color,Urine Yellow; Glucose,Urine (UA) Negative (Negative); Hyaline Casts,Urine 110 /lpf (0-2); Ketones,Urine Trace (Negative); Leukocyte Esterase,Urine Moderate (Negative); Mucus,Urine Many /hpf; Nitrite,Urine Negative (Negative); PH, Urine 5.5 (5.0-8.0); Protein,Urine 1+ (Negative); RBC,Urine 30 /hpf (0-5); Specific Gravity,Urine 1.022 (1.001-1.035); Squamous Epithelial Cell,Urine 3 /hpf (0-4); WBC,Urine 30 /hpf (0-5)
[2019-09-27] MEDS ORDERED: SODIUM CHLORIDE 0.9% 500 ML 500 ML IV ONE ×2 (00:20→01:03)
[2019-09-27] MEDS ORDERED: NALOXONE 0.4 MG/ML 1 ML VIAL IV PRN (02:04)
[2019-09-27] MEDS ORDERED: ONDANSETRON 4 MG/2 ML VIAL IVP PRN ×2 (02:04→11:48)
[2019-09-27] MEDS: SODIUM CHLORIDE 0.9% 1,000 ML IV SCH ×2 (03:00→14:45)
[2019-09-27] MEDS ORDERED: ALBUTEROL NEBULIZED 2.5 MG/3 ML INHALATION PRN (11:47)
[2019-09-27 12:25] LABS: Basophils # (A) 0.1 k/uL (0-0.2); Basophils % (A) 1 %; Eosinophils # (A) 0.1 k/uL (0-0.7); Eosinophils % (A) 1 %; HCT 35.4 % (34.0-46.0); Lymphocytes # (A) 3.5 k/uL (1.0-4.8); Lymphocytes % (A) 40 %; MCH 30.4 pg (25.0-35.0); MCHC 33.2 g/dL (31.0-37.0); MCV 91.5 fL (80.0-100.0); Monocytes # (A) 0.6 k/uL (0-1.0); Monocytes % (A) 6 %; Neutrophils # (A) 4.5 k/uL (1.3-7.7); Neutrophils % (A) 51 %; Platelet Count 390 k/uL (150-450); RBC 3.87 m/uL (3.80-5.40); RDW 12.1 % (11.5-15.5); WBC 8.9 k/uL (3.8-10.6)
[2019-09-27] MEDS: NICOTINE 14MG/24HR PATCH TRANSDERM SCH (12:25)
[2019-09-27] MEDS: PANTOPRAZOLE 40 MG/10 ML VIAL IVP SCH ×2 (12:25→20:39)
[2019-09-27 12:28] LABS: HGB 11.8 gm/dL (11.4-16.0)
[2019-09-27 12:40] LABS: African American GFR (CKD) >90 (>60 ml/min/1.73 sqM); Anion Gap 6 mmol/L; Blood Urea Nitrogen 9 mg/dL (7-17); Carbon Dioxide 23 mmol/L (22-30); Chloride 107 mmol/L (98-107); Glucose 86 mg/dL (74-99); Non-African American GFR(CKD) >90 (>60 ml/min/1.73 sqM); Potassium 3.9 mmol/L (3.5-5.1); Sodium 136 mmol/L (137-145)
[2019-09-27] MEDS: MONTELUKAST 10 MG TAB PO SCH (14:04)
--- NOTE | 2019-09-27 14:05 | P.GSCN ---
History of Present Illness Consult date: 09/27/19 Reason for Consult: Abdominal pain, nausea History of present illness: This a 59-year-old female who is admitted to hospital complaints of abdominal pain nausea. Patient underwent have leukocytosis. She also has elevated amylase lipase and a UA consistent with urinary tract infection. Patient's is crampy abdominal pain with nausea. 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 Past Anesthesia/Blood Transfusion Reactions: Previous Problems w/ Anesthesia Additional Past Anesthesia/Blood Transfusion Reaction / Comm: woke up during sx in past Past Psychological History: No Psychological Hx Reported Smoking Status: Current every day smoker Past Alcohol Use History: None Reported Additional Past Alcohol Use History / Comment(s): smokes 1ppd from age 20 (1980) Past Drug Use History: None Reported - Past Family History Father Family Medical History: Cancer Additional Family Medical History / Comment(s): Esophageal Medications and Allergies Home Medications Medication Instructions Recorded Confirmed Type Albuterol Sulfate [Ventolin HFA] 2 puff INHALATION RT-QID PRN 09/16/16 09/26/19 History Fluticasone Nasal [place] [Flonase 1 spr EA NOSTRIL BID PRN 09/03/19 09/26/19 History Nasal [place]] Montelukast [Singulair] 10 mg PO HS 09/03/19 09/26/19 History Albuterol Nebulized [Ventolin 2.5 mg INHALATION RT-QID PRN 09/05/19 09/26/19 History Nebulized] Acetaminophen Tab [Tylenol Tab] 500 mg PO Q6H PRN #30 tablet 09/14/19 09/26/19 Rx Pantoprazole [Protonix] 40 mg PO AC-BID #60 tablet. 09/14/19 09/26/19 Rx Metoprolol Tartrate 12.5 mg PO BID 09/26/19 09/26/19 History Allergies Allergy/AdvReac Type Severity Reaction Status Date / Time No Known Allergies Allergy Verified 09/26/19 22:24 Surgical - Exam Vital Signs Temp Pulse Resp BP Pulse Ox 98.1 F 125 H 20 147/82 97 09/26/19 21:36 09/26/19 21:36 09/26/19 21:36 09/26/19 21:36 09/26/19 21:36 - General well developed, well nourished, no distress - Eyes PERRL - ENT normal pinna - Neck no masses - Respiratory normal expansion - Cardiovascular Rhythm: regular - Abdomen Mild epigastric tenderness Abdomen: soft Results - Labs 09/27/19 11:58 09/27/19 11:58 Abnormal Lab Results - Last 24 Hours (Table) 09/26/19 09/26/19 09/26/19 Range/Units 22:25 22:25 23:18 WBC 17.6 H (3.8-10.6) k/uL Plt Count 500 H (150-450) k/uL Neutrophils # 14.3 H (1.3-7.7) k/uL Sodium 134 L (137-145) mmol/L Potassium 5.3 H (3.5-5.1) mmol/L Chloride 95 L (98-107) mmol/L Creatinine 1.18 H (0.52-1.04) mg/dL Glucose 187 H (74-99) mg/dL Plasma Lactic Acid Héctor (0.7-2.0) mmol/L Calcium 12.2 H (8.4-10.2) mg/dL Total Protein 8.5 H (6.3-8.2) g/dL Albumin 5.1 H (3.5-5.0) g/dL Amylase 245 H (30-110) U/L Lipase 524 H (23-300) U/L Urine Appearance Cloudy H (Clear) Urine Protein 1+ H (Negative) Urine Ketones Trace H (Negative) Urine Blood Trace H (Negative) Ur Leukocyte Esterase Moderate H (Negative) Urine RBC 30 H (0-5) /hpf Urine WBC 30 H (0-5) /hpf Urine Bacteria Rare H (None) /hpf Hyaline Casts 110 H (0-2) /lpf Urine Mucus Many H (None) /hpf 09/27/19 09/27/19 Range/Units 04:11 11:58 WBC (3.8-10.6) k/uL Plt Count (150-450) k/uL Neutrophils # (1.3-7.7) k/uL Sodium 136 L (137-145) mmol/L Potassium (3.5-5.1) mmol/L Chloride (98-107) mmol/L Creatinine (0.52-1.04) mg/dL Glucose (74-99) mg/dL Plasma Lactic Acid Héctor 0.6 L (0.7-2.0) mmol/L Calcium (8.4-10.2) mg/dL Total Protein (6.3-8.2) g/dL Albumin (3.5-5.0) g/dL Amylase (30-110) U/L Lipase (23-300) U/L Urine Appearance (Clear) Urine Protein (Negative) Urine Ketones (Negative) Urine Blood (Negative) Ur Leukocyte Esterase (Negative) Urine RBC (0-5) /hpf Urine WBC (0-5) /hpf Urine Bacteria (None) /hpf Hyaline Casts (0-2) /lpf Urine Mucus (None) /hpf Microbiology - Last 24 Hours (Table) 09/26/19 23:18 Urine Culture - Preliminary Urine,Voided Diabetes panel 09/26/19 09/27/19 Range/Units 22:25 11:58 Sodium 134 L 136 L (137-145) mmol/L Potassium 5.3 H 3.9 (3.5-5.1) mmol/L Chloride 95 L 107 (98-107) mmol/L Carbon Dioxide 24 23 (22-30) mmol/L BUN 14 9 (7-17) mg/dL Creatinine 1.18 H 0.53 (0.52-1.04) mg/dL Glucose 187 H 86 (74-99) mg/dL Calcium 12.2 H 10.0 (8.4-10.2) mg/dL AST 36 (14-36) U/L ALT 24 (4-34) U/L Alkaline Phosphatase 101 (38-126) U/L Total Protein 8.5 H (6.3-8.2) g/dL Albumin 5.1 H (3.5-5.0) g/dL Calcium panel 09/26/19 09/27/19 Range/Units 22:25 11:58 Calcium 12.2 H 10.0 (8.4-10.2) mg/dL Albumin 5.1 H (3.5-5.0) g/dL Pituitary panel 09/26/19 09/27/19 Range/Units 22:25 11:58 Sodium 134 L 136 L (137-145) mmol/L Potassium 5.3 H 3.9 (3.5-5.1) mmol/L Chloride 95 L 107 (98-107) mmol/L Carbon Dioxide 24 23 (22-30) mmol/L BUN 14 9 (7-17) mg/dL Creatinine 1.18 H 0.53 (0.52-1.04) mg/dL Glucose 187 H 86 (74-99) mg/dL Calcium 12.2 H 10.0 (8.4-10.2) mg/dL Adrenal panel 09/26/19 09/27/19 Range/Units 22:25 11:58 Sodium 134 L 136 L (137-145) mmol/L Potassium 5.3 H 3.9 (3.5-5.1) mmol/L Chloride 95 L 107 (98-107) mmol/L Carbon Dioxide 24 23 (22-30) mmol/L BUN 14 9 (7-17) mg/dL Creatinine 1.18 H 0.53 (0.52-1.04) mg/dL Glucose 187 H 86 (74-99) mg/dL Calcium 12.2 H 10.0 (8.4-10.2) mg/dL Total Bilirubin 0.9 (0.2-1.3) mg/dL AST 36 (14-36) U/L ALT 24 (4-34) U/L Alkaline Phosphatase 101 (38-126) U/L Total Protein 8.5 H (6.3-8.2) g/dL Albumin 5.1 H (3.5-5.0) g/dL Assessment and Plan Assessment: UTI Possible mild pectus Patient will be observed. We will follow with you.
[2019-09-27] MEDS ORDERED: HYDROmorphone 0.5 MG/0.5 ML SYRINGE IVP STA (14:08)
[2019-09-27] MEDS ORDERED: HYDROcodone/APAP 5-325MG 1 EACH TAB PO PRN (17:42)
[2019-09-27] MEDS: ALPRAZolam 0.25 MG TAB PO PRN (18:48)
[2019-09-27] MEDS: METOPROLOL TARTRATE 12.5 MG TAB PO SCH (20:36)
--- NOTE | 2019-09-27 23:37 | P.HPIM ---
History of Present Illness H&P Date: 09/27/19 Chief Complaint: N/V Patient is a 59-year-old female with a known history of COPD currently everyday smoker, osteoarthritis, GERD and hiatal hernia and is scheduled for Rosemary fundoplication and recurrent abdominal pain came to ER with complaints of abdominal pain mainly in the epigastric region and mid abdomen. Associate with nausea vomiting. Patient is unable to keep food down. Patient states that she was recently treated with antibiotics for infection abdo janeth which she did complete recently. Denied any diarrhea. No hematemesis or melena. Patient denied any complaints of chest pain or shortness of breath. No cough or sputum production. No fever no chills. Denied any dysuria or hematuria. No headache or dizziness. KUB x-ray showed large and small bowel distention fluid levels without significant dilation could relate to ileus and appears not significantly different than old exam. Partial mechanical bowel obstruction not entirely excluded. EKG showed normal sinus rhythm Laboratory data showed WBC 17.6, hemoglobin 15.5 and platelets 500 Sodium 134, potassium 5.3, BUN 14 and creatinine 1.18 Amylase 245 Lipase 524 Urinalysis showed cloudy with moderate leukocytes present RBC 30 and WBC is 30. Coronavirus negative. Review of Systems Constitutional: Patient denies any fever or chills . No generalized weakness or weight loss. Abdomen: Patient complains of nausea vomiting and abdominal pain. No diarrhea no constipation.. Cardiovascular: Patient denies any chest pain or short of breath no palpitations. Respiratory: patient denied any cough is from production. No shortness of breath Neurologic: Patient denied any numbness or tingling headache. Musculoskeletal: Patient denies any complaints of joint swelling or deformity. Skin: Negative Psychiatric: Negative Endocrine: No heat or cold intolerance. No recent weight gain. Genitourinary: No dysuria or hematuria. 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 Past Anesthesia/Blood Transfusion Reactions: Previous Problems w/ Anesthesia Additional Past Anesthesia/Blood Transfusion Reaction / Comment(s): woke up during sx in past Past Psychological History: No Psychological Hx Reported Smoking Status: Current every day smoker Past Alcohol Use History: None Reported Additional Past Alcohol Use History / Comment(s): smokes 1ppd from age 20 (1980) Past Drug Use History: None Reported - Past Family History Father Family Medical History: Cancer Additional Family Medical History / Comment(s): Esophageal Medications and Allergies Home Medications Medication Instructions Recorded Confirmed Type Albuterol Sulfate [Ventolin HFA] 2 puff INHALATION RT-QID PRN 09/16/16 09/26/19 History Fluticasone Nasal [place] [Flonase 1 spr EA NOSTRIL BID PRN 09/03/19 09/26/19 History Nasal [place]] Montelukast [Singulair] 10 mg PO HS 09/03/19 09/26/19 History Albuterol Nebulized [Ventolin 2.5 mg INHALATION RT-QID PRN 09/05/19 09/26/19 History Nebulized] Acetaminophen Tab [Tylenol Tab] 500 mg PO Q6H PRN #30 tablet 09/14/19 09/26/19 Rx Pantoprazole [Protonix] 40 mg PO AC-BID #60 tablet. 09/14/19 09/26/19 Rx Metoprolol Tartrate 12.5 mg PO BID 09/26/19 09/26/19 History Allergies Allergy/AdvReac Type Severity Reaction Status Date / Time No Known Allergies Allergy Verified 09/26/19 22:24 Physical Exam Vitals: Vital Signs Temp Pulse Pulse Pulse Resp BP BP 09/27/19 09:59 97.8 F 89 16 09/27/19 04:55 98.6 F 61 16 87/77 09/27/19 02:38 98 F 77 16 97/62 09/27/19 02:00 80 18 94/68 09/27/19 01:00 84 18 97/73 09/27/19 00:27 75 18 83/57 09/26/19 23:25 109 H 19 96/58 09/26/19 21:36 98.1 F 125 H 20 147/82 BP Pulse Ox 09/27/19 09:59 102/70 99 09/27/19 04:55 99 09/27/19 02:38 96 09/27/19 02:00 99 09/27/19 01:00 99 07/17/20 00:27 99 09/26/19 23:25 97 09/26/19 21:36 97 Intake and Output 09/26/19 09/27/19 09/27/19 22:59 06:59 14:59 Other: Voiding Method Toilet Weight 53.977 kg 53.977 kg PHYSICAL EXAMINATION: Patient is lying in the bed comfortably, no acute distress, awake alert and oriented.. HEENT: Normocephalic. Neck is supple. Pupils reactive. Nostrils clear. Oral cavity is moist. Ears reveal no drainage. Neck reveals no JVD, carotid bruits, or thyromegaly. CHEST EXAMINATION: Trachea is central. Symmetrical expansion. Lung haddad clear to auscultation and percussion. CARDIAC: Normal S1, S2 with no gallops. No murmurs ABDOMEN: Soft. Mild epigastric tenderness. Bowel sounds present. No organomegaly. No abdominal bruits. Extremities: reveal no edema. No clubbing or cyanosis Neurologically awake, alert, oriented x3 with well-coordinated movements. No focal deficits noted Skin: No rash or skin lesions. Psychiatric: Coperative. Nonsuicidal Musculoskeletal: No joint swelling or deformity. Normal range of motion. Results CBC & Chem 7: 09/27/19 11:58 09/27/19 11:58 Labs: Abnormal Lab Results - Last 24 Hours (Table) 09/26/19 09/26/19 09/26/19 Range/Units 22:25 22:25 23:18 WBC 17.6 H (3.8-10.6) k/uL Plt Count 500 H (150-450) k/uL Neutrophils # 14.3 H (1.3-7.7) k/uL Sodium 134 L (137-145) mmol/L Potassium 5.3 H (3.5-5.1) mmol/L Chloride 95 L (98-107) mmol/L Creatinine 1.18 H (0.52-1.04) mg/dL Glucose 187 H (74-99) mg/dL Plasma Lactic Acid Héctor (0.7-2.0) mmol/L Calcium 12.2 H (8.4-10.2) mg/dL Total Protein 8.5 H (6.3-8.2) g/dL Albumin 5.1 H (3.5-5.0) g/dL Amylase 245 H (30-110) U/L Lipase 524 H (23-300) U/L Urine Appearance Cloudy H (Clear) Urine Protein 1+ H (Negative) Urine Ketones Trace H (Negative) Urine Blood Trace H (Negative) Ur Leukocyte Esterase Moderate H (Negative) Urine RBC 30 H (0-5) /hpf Urine WBC 30 H (0-5) /hpf Urine Bacteria Rare H (None) /hpf Hyaline Casts 110 H (0-2) /lpf Urine Mucus Many H (None) /hpf 09/27/19 Range/Units 04:11 WBC (3.8-10.6) k/uL Plt Count (150-450) k/uL Neutrophils # (1.3-7.7) k/uL Sodium (137-145) mmol/L Potassium (3.5-5.1) mmol/L Chloride (98-107) mmol/L Creatinine (0.52-1.04) mg/dL Glucose (74-99) mg/dL Plasma Lactic Acid Héctor 0.6 L (0.7-2.0) mmol/L Calcium (8.4-10.2) mg/dL Total Protein (6.3-8.2) g/dL Albumin (3.5-5.0) g/dL Amylase (30-110) U/L Lipase (23-300) U/L Urine Appearance (Clear) Urine Protein (Negative) Urine Ketones (Negative) Urine Blood (Negative) Ur Leukocyte Esterase (Negative) Urine RBC (0-5) /hpf Urine WBC (0-5) /hpf Urine Bacteria (None) /hpf Hyaline Casts (0-2) /lpf Urine Mucus (None) /hpf Thrombosis Risk Factor Assmnt - DVT/VTE Prophylaxis DVT/VTE Prophylaxis: Pharmacologic Prophylaxis ordered - Choose All That Apply Each Factor Represents 1 point: Age 41-60 years Other Risk Factors: No Thrombosis Risk Factor Assessment Total Risk Factor Score: 1 Thrombosis Risk Factor Assessment Level: Low Risk Assessment and Plan Assessment: Intractable nausea and vomiting likely due to ileus and Possible acute gastritis Acute urinary tract infection Leukocytosis resolved Acute pancreatitis with mild elevated lipase and amylase level. Hiatal hernia patient is scheduled for surgery. COPD currently not in exacerbation GERD Osteoarthritis Ongoing nicotine addiction DVT prophylaxis with heparin subcu Plan: Patient will be continued on IV hydration and nothing by mouth. Continue with symptomatic management for nausea and vomiting. Continue with IV PPI Continue with antibiotics the form of ceftriaxone and follow-up urine culture reports. General surgery was consulted and further recommendations based on the clinical course. Time with Patient: Greater than 30
[2019-09-28] MEDS: SODIUM CHLORIDE 0.9% 1,000 ML IV SCH ×2 (02:31→16:05)
[2019-09-28 07:48] VITALS: RESP 18
[2019-09-28] MEDS: NICOTINE 14MG/24HR PATCH TRANSDERM SCH (07:50)
[2019-09-28] MEDS: PANTOPRAZOLE 40 MG/10 ML VIAL IVP SCH (07:50)
[2019-09-28] MEDS: METOPROLOL TARTRATE 12.5 MG TAB PO SCH (07:50)
[2019-09-28] MEDS: MONTELUKAST 10 MG TAB PO SCH (07:51)
--- NOTE | 2019-09-28 10:42 | P.PN ---
Progress Note - Text Progress Note Date: 09/28/19 Patient feels better. She is requesting more E. On exam vital signs are stable. Abdomen soft. Patient will have her diet advanced. She will be discharged home follow-up the office next week.
[2019-09-28 14:53] VITALS: BP 101/64; PULSE 71; TEMP 98.6
[2019-09-28] MEDS: ALPRAZolam 0.25 MG TAB PO PRN (16:47)
--- NOTE | 2019-10-08 21:16 | P.DS ---
Providers Date of admission: 09/27/19 02:28 Expected date of discharge: 09/28/19 Attending physician: Iker Miranda Consults: 09/27/19 02:04 Consult Physician Routine Consulting Provider: Kurtis Phipps Consult Reason/Comments: Vomiting; abdominal pain; Planned hernia surgery Do you want consulting provider notified?: Yes Primary care physician: Stated None Hospital Course: Discharge diagnosis Intractable nausea and vomiting likely due to ileus and Possible acute gastritis Acute urinary tract infection Leukocytosis resolved Acute pancreatitis with mild elevated lipase and amylase level. Hiatal hernia patient is scheduled for surgery. COPD currently not in exacerbation GERD Osteoarthritis Ongoing nicotine addiction DVT prophylaxis with heparin subcu Hospital course Patient is a 59-year-old female with a known history of COPD currently everyday smoker, osteoarthritis, GERD and hiatal hernia and is scheduled for Rosemary fundoplication and recurrent abdominal pain came to ER with complaints of abdominal pain mainly in the epigastric region and mid abdomen. Associate with nausea vomiting. Patient is unable to keep food down. Patient states that she was recently treated with antibiotics for infection abdominal which she did complete recently. Denied any diarrhea. No hematemesis or melena. Patient denied any complaints of chest pain or shortness of breath. No cough or sputum production. No fever no chills. Denied any dysuria or hematuria. No headache or dizziness. KUB x-ray showed large and small bowel distention fluid levels without signif icant dilation could relate to ileus and appears not significantly different than old exam. Partial mechanical bowel obstruction not entirely excluded. EKG showed normal sinus rhythm Laboratory data showed WBC 17.6, hemoglobin 15.5 and platelets 500 Sodium 134, potassium 5.3, BUN 14 and creatinine 1.18 Amylase 245 Lipase 524 Urinalysis showed cloudy with moderate leukocytes present RBC 30 and WBC is 30. Coronavirus negative. 09/28/2019 Patient's abdominal pain is improved and started on diet. Advance as tolerated. Patient was discharged home and recommended to follow-up with general surgery for hiatal hernia surgery. No complaints of nausea vomiting. No diarrhea. No chest pain or shortness breath. Urine culture showed normal eli. PHYSICAL EXAMINATION: Patient is lying in the bed comfortably, no acute distress, awake alert and oriented.. HEENT: Normocephalic. Neck is supple. Pupils reactive. Nostrils clear. Oral cavity is moist. Ears reveal no drainage. Neck reveals no JVD, carotid bruits, or thyromegaly. CHEST EXAMINATION: Trachea is central. Symmetrical expansion. Lung haddad clear to auscultation and percussion. CARDIAC: Normal S1, S2 with no gallops. No murmurs ABDOMEN: Soft. Mild epigastric tenderness. Bowel sounds present. No organomegaly. No abdominal bruits. Extremities: reveal no edema. No clubbing or cyanosis Neurologically awake, alert, oriented x3 with well-coordinated movements. No focal deficits noted Skin: No rash or skin lesions. Psychiatric: Coperative. Nonsuicidal Musculoskeletal: No joint swelling or deformity. Normal range of motion. Discharge vitals reviewed Patient Condition at Discharge: Stable Plan - Discharge Summary Discharge Rx Participant: No New Discharge Prescriptions: Continue Albuterol Sulfate [Ventolin HFA] 2 puff INHALATION RT-QID PRN PRN Reason: Shortness Of Breath Montelukast [Singulair] 10 mg PO QAM Fluticasone Nasal [place] [Flonase Nasal [place]] 1 spr EA NOSTRIL BID PRN PRN Reason: allergies Albuterol Nebulized [Ventolin Nebulized] 2.5 mg INHALATION RT-QID PRN PRN Reason: Shortness Of Breath Pantoprazole [Protonix] 40 mg PO AC-BID #60 tablet. Acetaminophen Tab [Tylenol] 500 mg PO Q6H PRN #30 tablet PRN Reason: Pain Metoprolol Tartrate 12.5 mg PO BID No Action Nicotine Patch Unk Dose 1 patch TOPICAL DAILY Discharge Medication List Albuterol Sulfate [Ventolin HFA] 2 puff INHALATION RT-QID PRN 09/16/16 [History] Fluticasone Nasal [place] [Flonase Nasal [place]] 1 spr EA NOSTRIL BID PRN 09/03/19 [History] Montelukast [Singulair] 10 mg PO QAM 09/03/19 [History] Albuterol Nebulized [Ventolin Nebulized] 2.5 mg INHALATION RT-QID PRN 09/05/19 [History] Acetaminophen Tab [Tylenol] 500 mg PO Q6H PRN #30 tablet 09/14/19 [Rx] Pantoprazole [Protonix] 40 mg PO AC-BID #60 tablet. 09/14/19 [Rx] Metoprolol Tartrate 12.5 mg PO BID 09/26/19 [History] Nicotine Patch Unk Dose 1 patch TOPICAL DAILY 10/04/19 [History] Follow up Appointment(s)/Referral(s): None,Stated [Primary Care Provider] - 1-2 days Kurtis Phipps MD [STAFF PHYSICIAN] - 1 Week Patient Instructions/Handouts: Acute Nausea and Vomiting (GEN), Acute Abdominal Pain (GEN) Discharge Disposition: HOME SELF-CARE
== END 2019-09-28 18:42 | disposition home or self-care (01) ==
LOC: EC 21:29 → 1SOBS 09-27 02:28
PROVIDERS: ADMIT Hospitalist; ATTEND Hospitalist
DX: R10.13 Epigastric pain (principal); F17.200 Nicotine dependence, unspecified, uncomplicated; J44.9 Chronic obstructive pulmonary disease, unspecified; K21.9 Gastro-esophageal reflux disease without esophagitis; K44.9 Diaphragmatic hernia without obstruction or gangrene; M19.90 Unspecified osteoarthritis, unspecified site; M81.0 Age-related osteoporosis without current pathological fracture; N39.0 Urinary tract infection, site not specified; Z79.899 Other long term (current) drug therapy; Z90.710 Acquired absence of both cervix and uterus; Z80.0 Family history of malignant neoplasm of digestive organs; K85.90 Acute pancreatitis without necrosis or infection, unspecified; Z03.818 Encounter for observation for suspected exposure to other biological agents ruled out
CPT/HCPCS: 96361 ×4; 96365 ×2; 96375 ×2; 96376; 99285; 36415; 93005; 80053; 80048; 82150; 83605 ×2; 83690; 84484; 85025 ×2; 81001; 87040; 87086; 74018; G0378 ×2; U0003; S4990 ×2; J1200; J2765; J0696 ×2; C9113 ×2; J1170 ×2

== ENCOUNTER 2019-10-07 09:52 | Inpatient (IN) | payer OTHER ==
[2019-10-07] MEDS ORDERED: LACTATED RINGERS 1,000 ML IV ONE (11:07)
[2019-10-07] MEDS ORDERED: LIDOCAINE 1% (10MG/ML) FOR IV START INTRADERMA ONE (11:08)
[2019-10-07] MEDS ORDERED: ONDANSETRON 4 MG/2 ML VIAL IVP ONE (11:12)
[2019-10-07] MEDS ORDERED: DEXAMETHASONE SOD PHOSPHATE 10 MG/ML 1 ML VIAL IV ONE (11:13)
[2019-10-07] MEDS ORDERED: ACETAMINOPHEN TAB 500 MG TAB ONE (11:18)
[2019-10-07] MEDS ORDERED: ACETAMINOPHEN TAB 500 MG TAB PO ONE (11:19)
[2019-10-07] MEDS ORDERED: HEPARIN SODIUM,PORCINE 5,000 UNIT/ML 1 ML VIAL SQ ONE (11:23)
[2019-10-07] MEDS ORDERED: MIDAZOLAM 2 MG/2 ML VIAL IVP ONE (11:38)
[2019-10-07] MEDS ORDERED: MIDAZOLAM 2 MG/2 ML VIAL IV ONE (11:46)
--- NOTE | 2019-10-07 12:02 | P.GSHP ---
History of Present Illness H&P Date: 10/07/19 Chief Complaint: GERD Is a 59-year-old female who has complaints of GERD. The patient has had long- standing problems with reflux esophagitis. The patient underwent recent EGD is found have evidence of esophagitis. Patient has been well informed on the pr ocedure of laparoscopic Rosemary fundoplication. The patient is aware the risk of the conversion to the open procedure, risk of injury to the stomach, liver and spleen. The patient is also a risk of recurrent GERD and dysphagia symptoms. The patient understands there is a postoperative diet of full liquids for 2 weeks after surgery. Past Medical History Past Medical History: COPD, GERD/Reflux, Osteoarthritis (OA) Additional Past Medical History / Comment(s): RECENT ADMISSION FOR UTI, N & V TREATED WITH ANTIBIOTICS. HIATAL HERNIA. 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 Past Anesthesia/Blood Transfusion Reactions: Previous Problems w/ Anesthesia Additional Past Anesthesia/Blood Transfusion Reaction / Comment(s): woke up during sx in past Past Psychological History: Anxiety Additional Psychological History / Comment(s): TAKES NO MEDS Smoking Status: Current every day smoker Past Alcohol Use History: None Reported Additional Past Alcohol Use History / Comment(s): smokes 1ppd from age 20 (1980) Past Drug Use History: None Reported - Past Family History Father Family Medical History: Cancer Additional Family Medical History / Comment(s): Esophageal Medications and Allergies Home Medications Medication Instructions Recorded Confirmed Type Albuterol Sulfate [Ventolin HFA] 2 puff INHALATION RT-QID PRN 09/16/16 10/04/19 History Fluticasone Nasal [place] [Flonase 1 spr EA NOSTRIL BID PRN 09/03/19 10/04/19 History Nasal [place]] Montelukast [Singulair] 10 mg PO QAM 09/03/19 10/04/19 History Albuterol Nebulized [Ventolin 2.5 mg INHALATION RT-QID PRN 09/05/19 10/04/19 History Nebulized] Acetaminophen Tab [Tylenol] 500 mg PO Q6H PRN #30 tablet 09/14/19 10/04/19 Rx Pantoprazole [Protonix] 40 mg PO AC-BID #60 tablet. 09/14/19 10/04/19 Rx Metoprolol Tartrate 12.5 mg PO BID 09/26/19 10/04/19 History Nicotine Patch Unk Dose 1 patch TOPICAL DAILY 10/04/19 History Allergies Allergy/AdvReac Type Severity Reaction Status Date / Time No Known Allergies Allergy Verified 10/04/19 08:24 Surgical - Exam Vital Signs Temp Pulse Resp BP Pulse Ox 97.8 F 71 18 126/71 97 10/07/19 10:39 10/07/19 10:39 10/07/19 10:39 10/07/19 10:39 10/07/19 10:39 - General well developed, well nourished, no distress - Eyes PERRL - ENT normal pinna - Neck no masses - Respiratory normal expansion - Cardiovascular Rhythm: regular - Abdomen Abdomen: soft, non tender Assessment and Plan Assessment: GERD. We'll perform laparoscopic Rosemary fundal plication
[2019-10-07] MEDS ORDERED: PROPOFOL 10 MG/ML 20 ML VIAL IV ONE (12:30)
[2019-10-07] MEDS ORDERED: GLYCOPYRROLATE 0.2 MG/ML 2 ML VIAL ONE (12:30)
[2019-10-07] MEDS ORDERED: LIDOCAINE 1% INJ 10MG/ML (20 ML MDV) ONE (12:30)
[2019-10-07] MEDS ORDERED: ROCURONIUM BROMIDE 10 MG/ML 5 ML VIAL IV ONE (12:30)
[2019-10-07] MEDS ORDERED: NEOSTIGMINE 1 MG/ML 10 ML VIAL ONE (12:30)
[2019-10-07] MEDS ORDERED: fentaNYL (PF) 50 MCG/ML 2 ML AMP ONE (12:30)
[2019-10-07] MEDS ORDERED: MIDAZOLAM 2 MG/2 ML VIAL ONE (12:30)
[2019-10-07] MEDS ORDERED: SUCCINYLCHOLINE CHLORIDE 100 MG/5 ML SYR IV ONE (12:30)
[2019-10-07] MEDS ORDERED: BUPIVACAINE (PF) 0.25% 30 ML VIAL SQ ONE (12:52)
--- NOTE | 2019-10-07 13:21 | P.OP ---
Date of Procedure: 10/07/19 Preoperative Diagnosis: GERD Postoperative Diagnosis: GERD Procedure(s) Performed: Laparoscopic Rosemary fundal plication Anesthesia: KRYSTEN Surgeon: Kurtis Phipps Pathology: none sent Condition: stable Disposition: PACU Description of Procedure: HarThe patient was placed on the operating table in the supine position. The patient received general anesthesia. And was placed in dorsal lithotomy position. The patient was prepped and draped in the usual sterile fashion. The skin incision sites were anesthetized with 1% local Xylocaine. The skin was incised in the left periumbilical area and then using a blade less 5 mm trocar under direct visualization panel cavity was entered. After adequate insufflation the laparoscope was then placed into the peritoneal cavity. Next a 5 mm trochars placed in the right epigastric position. Another 5 millimeter trocar the right lateral position. Another 5 millimeter trocar in the left lateral position a 5 mm trocar is placed in the left epigastric position. And then the initial 5 mm trocar was exchanged for a 10 mm trocar. The left lateral lobe liver was retracted. The hernia was seen. The crural defect was then dissected using the Harmonic scissors device. A 360 crural dissection was performed the esophagus stomach was reduced back into the peritoneal Cavity. The crural defect was then closed using 2-0 Ethibond suture. Next the fundus of the stomach was mobilized using the [employer] [place] scissors device. and then a 58-[place] bougie dilator was placed oropharynx passed into the esophagus and stomach the fundal plication wrap was then performed by grasping the fundus posteriorly and bringing it around the esophagus and stomach fundoplication was then performed using 2-0 Ethibond suture. Care was taken that the fundal location rested over top of the intra-abdominal esophagus. There was no injury seen to the stomach or esophagus. The dilator was then withdrawn. The abdomen was irrigated there is no bleeding seen. The trochars were then withdrawn and then skin incision sites were closed using 3-0 Monocryl suture Steri-Strips are applied. Patient thought procedure well and sent to recovery room in stable condition.
[2019-10-07] MEDS ORDERED: HYDROmorphone 0.5 MG/0.5 ML SYRINGE IVP ONE ×4 (13:30→13:59)
[2019-10-07] MEDS: HYDROmorphone 1 MG/ML 1 ML SYRINGE IVP PRN ×2 (15:14→20:21)
[2019-10-07] MEDS: NICOTINE 14MG/24HR PATCH TRANSDERM SCH (17:39)
[2019-10-07] MEDS: ONDANSETRON 4 MG/2 ML VIAL IVP PRN (18:26)
[2019-10-07] MEDS ORDERED: WATER FOR INJECTION, STERILE 10 ML IV ONE (18:57)
[2019-10-07] MEDS: LORazepam 2 MG/ML INJ IV PRN (19:03)
[2019-10-07] MEDS ORDERED: FLUTICASONE 50MCG/SPRAY NASAL 16GM EA NOSTRIL PRN (21:22)
[2019-10-07] MEDS ORDERED: ALBUTEROL NEBULIZED 2.5 MG/3 ML INHALATION PRN (21:22)
[2019-10-07] MEDS: PANTOPRAZOLE 40 MG/10 ML VIAL IVP SCH (21:45)
[2019-10-08] MEDS: HYDROmorphone 1 MG/ML 1 ML SYRINGE IVP PRN ×5 (00:20→21:36)
--- NOTE | 2019-10-08 00:52 | P.CONS ---
History of Present Illness - Reason for Consult Consult date: 10/07/19 Medical management - Chief Complaint Status post Rosemary fundoplication. - History of Present Illness Patient is a 59-year-old female with a known history of COPD, osteoarthritis, GERD, recent hospital admission with POLO and nausea and vomiting, hiatal hernia and currently everyday smoker has been having problems with GERD for a long time. Patient was admitted to the hospital for laparoscopic Rosemary fundoplication surgery. Patient tolerated the procedure very well. Currently pain is controlled. Complains of nausea and also anxious. Denies any complaints of chest pain. No headache or dizziness or lightheadedness. No fever no chills. Laboratory data not available at this time. Review of Systems Constitutional: Patient denies any fever or chills . No generalized weakness or weight loss. Abdomen: Patient does have nausea no vomiting , diarrhea or abdominal pain. Cardiovascular: Patient denies any chest pain or short of breath no palpitations. Respiratory: patient denied any cough is from production. No shortness of breath Neurologic: Patient denied any numbness or tingling headache. Musculoskeletal: Patient denies any complaints of joint swelling or deformity. Skin: Negative Psychiatric: Negative Endocrine: No heat or cold intolerance. No recent weight gain. Genitourinary: No dysuria or hematuria. All other 14 point ROS negative except the above Past Medical History Past Medical History: COPD, GERD/Reflux, Osteoarthritis (OA) Additional Past Medical History / Comment(s): RECENT ADMISSION FOR UTI, N & V TREATED WITH ANTIBIOTICS. HIATAL HERNIA. 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 Past Anesthesia/Blood Transfusion Reactions: Previous Problems w/ Anesthesia Additional Past Anesthesia/Blood Transfusion Reaction / Comm: woke up during sx in past Past Psychological History: Anxiety Additional Psychological History / Comment(s): TAKES NO MEDS Smoking Status: Current every day smoker Past Alcohol Use History: None Reported Additional Past Alcohol Use History / Comment(s): smokes 1ppd from age 20 (1980) Past Drug Use History: None Reported - Past Family History Father Family Medical History: Cancer Additional Family Medical History / Comment(s): Esophageal Medications and Allergies Home Medications Medication Instructions Recorded Confirmed Type Albuterol Sulfate [Ventolin HFA] 2 puff INHALATION RT-QID PRN 09/16/16 10/07/19 History Fluticasone Nasal [place] [Flonase 1 spr EA NOSTRIL BID PRN 09/03/19 10/07/19 History Nasal [place]] Montelukast [Singulair] 10 mg PO QAM 09/03/19 10/07/19 History Albuterol Nebulized [Ventolin 2.5 mg INHALATION RT-QID PRN 09/05/19 10/07/19 History Nebulized] Acetaminophen Tab [Tylenol] 500 mg PO Q6H PRN #30 tablet 09/14/19 10/07/19 Rx Pantoprazole [Protonix] 40 mg PO AC-BID #60 tablet. 09/14/19 10/07/19 Rx Metoprolol Tartrate 12.5 mg PO BID 09/26/19 10/07/19 History Nicotine Patch Unk Dose 1 patch TOPICAL DAILY 10/04/19 10/07/19 History Allergies Allergy/AdvReac Type Severity Reaction Status Date / Time No Known Allergies Allergy Verified 10/07/19 19:14 Physical Exam Vitals: Vital Signs Temp Pulse Resp BP Pulse Ox 10/07/19 14:38 81 16 146/84 96 10/07/19 14:23 75 18 119/88 95 10/07/19 14:08 77 18 135/89 96 10/07/19 13:53 73 16 144/83 95 10/07/19 13:38 72 18 153/83 96 10/07/19 13:23 98.5 F 71 16 140/80 100 10/07/19 10:39 97.8 F 71 18 126/71 97 Intake and Output 10/06/19 10/07/19 10/07/19 22:59 06:59 14:59 Intake Total 1050 Output Total 10 Balance 1040 Intake: IV 1050 Output: Estimated Blood Loss 10 Other: Weight 50.7 kg PHYSICAL EXAMINATION: Patient is lying in the bed comfortably, no acute distress, awake alert and oriented.. HEENT: Normocephalic. Neck is supple. Pupils reactive. Nostrils clear. Oral cavity is moist. Ears reveal no drainage. Neck reveals no JVD, carotid bruits, or thyromegaly. CHEST EXAMINATION: Trachea is central. Symmetrical expansion. Lung haddad clear to auscultation and percussion. CARDIAC: Normal S1, S2 with no gallops. No murmurs ABDOMEN: Soft. Bowel sounds normal. No organomegaly. No abdominal bruits. Extremities: reveal no edema. No clubbing or cyanosis Neurologically awake, alert, oriented x3 with well-coordinated movements. No focal deficits noted Skin: No rash or skin lesions. Psychiatric: Coperative. Nonsuicidal Musculoskeletal: No joint swelling or deformity. Normal range of motion. Assessment and Plan Assessment: Status post Rosemary fundoplication. POD 0 Longstanding history of GERD Recent admission for ileus and nausea vomiting COPD Hypertension Ongoing nicotine addiction Osteoarthritis DVT prophylaxis Plan: Patient will be continued on pain management, bowel regimen and DVT prophylaxis. Encourage incentive spirometry. Patient will be continued on home blood pressure medications in the form of metoprolol and breathing treatments as needed. Monitor H&H. Will follow closely and further recommendations based on the clinical course. Thank you for your consult. Time with Patient: Greater than 30
[2019-10-08] MEDS: ONDANSETRON 4 MG/2 ML VIAL IVP PRN ×2 (05:41→11:02)
[2019-10-08 07:01] LABS: Basophils % (A) 0 %; Eosinophils # (A) 0.1 k/uL (0-0.7); Eosinophils % (A) 0 %; HCT 37.5 % (34.0-46.0); HGB 12.8 gm/dL (11.4-16.0); Lymphocytes # (A) 2.8 k/uL (1.0-4.8); Lymphocytes % (A) 22 %; MCH 31.5 pg (25.0-35.0); MCHC 34.2 g/dL (31.0-37.0); MCV 91.9 fL (80.0-100.0); Mean Platelet Volume 7.7; Monocytes # (A) 0.6 k/uL (0-1.0); Monocytes % (A) 5 %; Neutrophils % (A) 71 %; Platelet Count 365 k/uL (150-450); RBC 4.08 m/uL (3.80-5.40); RDW 12.6 % (11.5-15.5); WBC 12.6 k/uL (3.8-10.6)
[2019-10-08 07:09] LABS: African American GFR (CKD) >90 (>60 ml/min/1.73 sqM); Anion Gap 6 mmol/L; Blood Urea Nitrogen 8 mg/dL (7-17); Calcium 10.2 mg/dL (8.4-10.2); Carbon Dioxide 26 mmol/L (22-30); Chloride 107 mmol/L (98-107); Glucose 96 mg/dL (74-99); Non-African American GFR(CKD) >90 (>60 ml/min/1.73 sqM); Potassium 3.6 mmol/L (3.5-5.1); Sodium 139 mmol/L (137-145)
--- NOTE | 2019-10-08 09:19 | FL ---
EXAMINATION TYPE: FL esophagus cervic/pharynx DATE OF EXAM: 10/08/2019 HISTORY: Status post Rosemary fundoplication COMPARISON: NONE TECHNIQUE: Patient was given 25 cc [id number] to drink, evaluation under real-time fluoroscopy the le teresa of the gastroesophageal junction FINDINGS: The esophagus shows tertiary contractions. High-grade obstruction is noted at the level of the patien t's fundoplication, only minimal contrast courses across the surgical site. There is no evident leak or pneumoperitoneum. Persisting contrast on delayed images within the distal soft tissues. Incidental note of vertebroplasty change in the lumbar spine. 1 minute 56 seconds fluoroscopy time, 7 images obtained IMPRESSION: High-grade partial obstruction at the level of the surgical site.
[2019-10-08] MEDS: ENOXAPARIN 40 MG/0.4 ML SYRINGE SQ SCH (09:47)
[2019-10-08] MEDS: METOPROLOL TARTRATE 25 MG TAB PO SCH ×3 (09:48→20:06)
[2019-10-08] MEDS: MONTELUKAST 10 MG TAB PO SCH (09:48)
[2019-10-08] MEDS: PANTOPRAZOLE 40 MG/10 ML VIAL IVP SCH ×2 (09:48→20:06)
[2019-10-08] MEDS: NICOTINE 14MG/24HR PATCH TRANSDERM SCH (09:48)
[2019-10-08 09:52] VITALS: BMI 21.1
[2019-10-08] MEDS ORDERED: WATER FOR INJECTION, STERILE 10 ML IV ONE (12:15)
[2019-10-08] MEDS: LORazepam 2 MG/ML INJ IV PRN ×2 (12:19→23:30)
[2019-10-08] MEDS: METOCLOPRAMIDE 5 MG/ML 2 ML VIAL IVP PRN (14:02)
[2019-10-08] MEDS ORDERED: SODIUM CHLORIDE 0.9% 1,000 ML IV SCH (15:45)
[2019-10-08] MEDS: SODIUM CHLORIDE 0.9% 1,000 ML IV SCH (17:09)
--- NOTE | 2019-10-08 17:28 | P.PN ---
Progress Note - Text Progress Note Date: 10/08/19 The patient has some complaints of dysphagia. Her esophagram shows a partial obstruction. On exam vital signs are stable. Abdomen soft. Patient will have repeat esophagram performed tomorrow. She'll be placed on Decadron for postoperative edema. She'll remain on sips of clears.
[2019-10-08] MEDS: DEXAMETHASONE SOD PHOSPHATE 4 MG/ML 1 ML VIAL IV SCH ×2 (17:41→23:30)
[2019-10-09] MEDS: HYDROmorphone 1 MG/ML 1 ML SYRINGE IVP PRN ×3 (03:54→12:19)
[2019-10-09] MEDS: SODIUM CHLORIDE 0.9% 1,000 ML IV SCH (03:59)
[2019-10-09] MEDS: ONDANSETRON 4 MG/2 ML VIAL IVP PRN (03:59)
[2019-10-09] MEDS: DEXAMETHASONE SOD PHOSPHATE 4 MG/ML 1 ML VIAL IV SCH ×2 (06:08→12:09)
[2019-10-09] MEDS: LORazepam 2 MG/ML INJ IV PRN (06:15)
[2019-10-09 08:01] VITALS: RESP 16; TEMP 97.6
[2019-10-09] MEDS: PANTOPRAZOLE 40 MG/10 ML VIAL IVP SCH (08:01)
[2019-10-09] MEDS: NICOTINE 14MG/24HR PATCH TRANSDERM SCH (08:02)
[2019-10-09] MEDS: ENOXAPARIN 40 MG/0.4 ML SYRINGE SQ SCH (08:03)
[2019-10-09] MEDS: METOPROLOL TARTRATE 25 MG TAB PO SCH (09:53)
[2019-10-09] MEDS: MONTELUKAST 10 MG TAB PO SCH (09:53)
--- NOTE | 2019-10-09 11:18 | P.DS ---
Providers Date of admission: 10/07/19 09:52 Expected date of discharge: 10/09/19 Attending physician: Kurtis Phipps Consults: 10/07/19 13:23 Consult Physician Routine Consulting Provider: Iker Miranda Consult Reason/Comments: Medical management Do you want consulting provider notified?: Yes Primary care physician: Stated None Hospital Course: This a 59-year-old female who underwent laparoscopic Rosemary fundoplication. Patient did well postoperative. Initially she had some nausea. Patient was discharged home postop day 2. Discussed her for details. Procedures: Laparoscopic Rosemary fundoplication Patient Condition at Discharge: Good Plan - Discharge Summary Discharge Rx Participant: Yes New Discharge Prescriptions: New Docusate [Colace] 100 mg PO BID #20 capsule HYDROcodone/APAP 5-325MG [[place] 5-325] 1 tab PO Q6HR PRN #10 tab PRN Reason: Pain No Action Albuterol Sulfate [Ventolin HFA] 2 puff INHALATION RT-QID PRN PRN Reason: Shortness Of Breath Montelukast [Singulair] 10 mg PO QAM Fluticasone Nasal [place] [Flonase Nasal [place]] 1 spr EA NOSTRIL BID PRN PRN Reason: allergies Albuterol Nebulized [Ventolin Nebulized] 2.5 mg INHALATION RT-QID PRN PRN Reason: Shortness Of Breath Pantoprazole [Protonix] 40 mg PO AC-BID #60 tablet. Acetaminophen Tab [Tylenol] 500 mg PO Q6H PRN #30 tablet PRN Reason: Pain Metoprolol Tartrate 12.5 mg PO BID Nicotine Patch Unk Dose 1 patch TOPICAL DAILY Discharge Medication List Albuterol Sulfate [Ventolin HFA] 2 puff INHALATION RT-QID PRN 09/16/16 [History] Fluticasone Nasal [place] [Flonase Nasal [place]] 1 spr EA NOSTRIL BID PRN 09/03/19 [History] Montelukast [Singulair] 10 mg PO QAM 09/03/19 [History] Albuterol Nebulized [Ventolin Nebulized] 2.5 mg INHALATION RT-QID PRN 09/05/19 [History] Acetaminophen Tab [Tylenol] 500 mg PO Q6H PRN #30 tablet 09/14/19 [Rx] Pantoprazole [Protonix] 40 mg PO AC-BID #60 tablet. 09/14/19 [Rx] Metoprolol Tartrate 12.5 mg PO BID 09/26/19 [History] Nicotine Patch Unk Dose 1 patch TOPICAL DAILY 10/04/19 [History] Docusate [Colace] 100 mg PO BID #20 capsule 10/09/19 [Rx] HYDROcodone/APAP 5-325MG [[place] 5-325] 1 tab PO Q6HR PRN #10 tab 10/09/19 [Rx] Follow up Appointment(s)/Referral(s): Kurtis Phipps MD [STAFF PHYSICIAN] - 10/22/19 1:20 pm Patient Instructions/Handouts: *Surgery [facility] - ([facility]) Lap Rosemary Fundiplication Post-Op Instructions, Full Liquid Diet (GEN), Fundoplication in Adults (DC) Activity/Diet/Wound Care/Special Instructions: No lifting anything heavier than a gallon of milk. No driving while on pain medications. No bathtubs, hot tubs, pools, ponds, or hallman swimming. No house work. You have surgical tape over your incisions. Please leave this tape in place as it will all off on its own. Call Dr Phipps if you develop a fever or chills, increase in pain, vomiting, or if you have any other questions or concerns. Keep your follow up appointment with Dr Phipps on Tuesday, October 22, 2019 at 1:40 pm. Discharge Disposition: HOME SELF-CARE
--- NOTE | 2019-10-09 11:33 | FL ---
EXAMINATION TYPE: FL esophagus cervic/pharynx DATE OF EXAM: 10/09/2019 HISTORY: Status post Niesen fundoplication 2 days postoperative. COMPARISON: Fluoroscopic barium swallow 10/08/2019 TECHNIQUE: A single contrast esophagram is performed utilizing water-soluble contrast. FINDINGS: The esophagus shows mild tertiary contractions. There is decreased narrowing at the fundoplication, n ow with complete esophageal emptying into the stomach. No abnormal contrast extravasation. No evidenc e of hiatal hernia. Fluoroscopy time 43 seconds. 6 images obtained. IMPRESSION: Interval decrease in postoperative edema at the surgical site versus 10/08/2019 compariso n, now with mildly delayed however complete esophageal emptying into the stomach. No evidence of leak .
[2019-10-09 12:03] VITALS: BP 102/67; PULSE 76
[2019-10-09] MEDS: METOCLOPRAMIDE 5 MG/ML 2 ML VIAL IVP PRN (12:09)
== END 2019-10-09 14:00 | disposition home or self-care (01) | DRG 328 ==
LOC: 2ORMAIN 09:52 → 6PED 13:44
PROVIDERS: ADMIT Surgery; ATTEND Surgery
DX: K21.0 Gastro-esophageal reflux disease with esophagitis (principal); F41.9 Anxiety disorder, unspecified; I10 Essential (primary) hypertension; J44.9 Chronic obstructive pulmonary disease, unspecified; M19.90 Unspecified osteoarthritis, unspecified site; M81.0 Age-related osteoporosis without current pathological fracture; R13.10 Dysphagia, unspecified; F17.210 Nicotine dependence, cigarettes, uncomplicated; K44.9 Diaphragmatic hernia without obstruction or gangrene; R60.9 Edema, unspecified; Z90.710 Acquired absence of both cervix and uterus; Z87.440 Personal history of urinary (tract) infections; Z79.899 Other long term (current) drug therapy
CPT/HCPCS: 74210; 80048; 85025

== ENCOUNTER 2019-10-12 16:27 | Observation (INO) | payer OTHER ==
[2019-10-12] MEDS ORDERED: ONDANSETRON 4 MG/2 ML VIAL IVP STA (17:19)
[2019-10-12] MEDS ORDERED: SODIUM CHLORIDE 0.9% 500 ML 500 ML IV STA (17:19)
[2019-10-12] MEDS ORDERED: FAMOTIDINE 20 MG/2 ML VIAL IV STA (17:19)
[2019-10-12] MEDS ORDERED: SODIUM CHLORIDE 0.9% 1,000 ML IV STA (17:19)
[2019-10-12 17:34] LABS: Basophils % (A) 0 %; Eosinophils # (A) 0.2 k/uL (0-0.7); Eosinophils % (A) 2 %; HCT 40.8 % (34.0-46.0); HGB 13.5 gm/dL (11.4-16.0); Lymphocytes # (A) 2.9 k/uL (1.0-4.8); Lymphocytes % (A) 29 %; MCH 30.1 pg (25.0-35.0); MCHC 33.1 g/dL (31.0-37.0); MCV 91.1 fL (80.0-100.0); Mean Platelet Volume 6.7; Monocytes # (A) 0.6 k/uL (0-1.0); Monocytes % (A) 6 %; Neutrophils # (A) 6.3 k/uL (1.3-7.7); Neutrophils % (A) 62 %; Platelet Count 442 k/uL (150-450); RBC 4.48 m/uL (3.80-5.40); RDW 12.9 % (11.5-15.5); WBC 10.2 k/uL (3.8-10.6)
[2019-10-12 17:46] LABS: ALT 15 U/L (4-34); AST 19 U/L (14-36); African American GFR (CKD) >90 (>60 ml/min/1.73 sqM); Albumin 4.4 g/dL (3.5-5.0); Alkaline Phosphatase 69 U/L (38-126); Anion Gap 9 mmol/L; Blood Urea Nitrogen 13 mg/dL (7-17); Calcium 11.4 mg/dL (8.4-10.2); Carbon Dioxide 27 mmol/L (22-30); Chloride 102 mmol/L (98-107); Glucose 107 mg/dL (74-99); Non-African American GFR(CKD) >90 (>60 ml/min/1.73 sqM); Potassium 2.8 mmol/L (3.5-5.1); Sodium 138 mmol/L (137-145); Total Bilirubin 0.8 mg/dL (0.2-1.3)
[2019-10-12 17:50] LABS: Amorphous Sediment,Urine Rare /hpf; Appearance,Urine Turbid (Clear); Bilirubin,Urine Negative (Negative); Blood,Urine Moderate (Negative); Color,Urine Yellow; Glucose,Urine (UA) Negative (Negative); Ketones,Urine 2+ (Negative); Leukocyte Esterase,Urine Moderate (Negative); Mucus,Urine Moderate /hpf; Nitrite,Urine Negative (Negative); PH, Urine 6.5 (5.0-8.0); Protein,Urine Trace (Negative); RBC,Urine >182 /hpf (0-5); Specific Gravity,Urine 1.014 (1.001-1.035); Squamous Epithelial Cell,Urine 2 /hpf (0-4); WBC,Urine 15 /hpf (0-5)
--- NOTE | 2019-10-12 18:21 | CT ---
EXAMINATION TYPE: CT abdomen pelvis w con DATE OF EXAM: 10/12/2019 COMPARISON: 09/11/2019 HISTORY: Post op hernia repair, vomiting and abdominal pain. CT DLP: 592 mGycm Automated exposure control for dose reduction was used. CONTRAST: Performed with IV Contrast, patient injected with 100ml mL of Isovue 300. Lung bases are clear. There is hiatal hernia. There are surgical clips at the gastroesophageal juncti on. Liver spleen pancreas gallbladder appear normal. Bile ducts are not dilated. Stomach is intact. There is no adrenal mass. Kidneys show satisfactory contrast opacification. There is no hydronephrosi s. There is 3 mm calculus posterior right kidney. Ureters are not dilated. The delayed images show no rmal renal excretion. There is no retroperitoneal adenopathy. Appendix is posterior and appears anand l. Bladder distends smoothly. There is no inguinal hernia. There is no evidence of pelvic mass. There is hysterectomy. There is no mesenteric edema. There is no ascites or free air. There is no sign of a bowel obstructio n. Lumbar vertebra show normal alignment. There is 20% biconcave compression deformity of L2 vertebra with vertebroplasty. There is similar compression fracture of T11 vertebra. The bony pelvis appears intact. IMPRESSION: Compression fractures of T11 and L2 unchanged compared to old exam. No acute fracture. Changes of ost eomalacia. No sign of acute abdomen and pelvis. Previous gastric surgery.
--- NOTE | 2019-10-12 18:32 | ED ---
Nausea/Vomiting/Diarrhea HPI - General Chief complaint: Nausea/Vomiting/Diarrhea Stated complaint: post op/vomiting Time Seen by Provider: 10/12/19 16:42 Source: patient Mode of arrival: wheelchair Limitations: no limitations - History of Present Illness Initial comments: 59-year-old female patient presents to the emergency department today for evaluation of vomiting. Patient did have viviana fundoplication [address] Phipps. States that initially she was doing well. A couple of days ago she started to experience heart burn and has been throwing up any fluids she takes in. She state that her vomitous is foamy. She states she has tried to eat some soft foods including mashed potatoes but gets really nauseated when trying to eat anything more solid. she denies any fevers or chills. Denies any constipation or diarrhea. States her incision seemed to be doing well and she is not having abdominal pain. Patient denies any recent rash, cough, shortness of breath, chest pain, back pain, numbness, tingling, dizziness, weakness, hematuria, dysuria, urinary urgency, urinary frequency, headache, visual changes, or any other complaints. - Related Data Home Medications Medication Instructions Recorded Confirmed Albuterol Sulfate [Ventolin HFA] 2 puff INHALATION RT-QID PRN 09/16/16 10/12/19 Fluticasone Nasal [place] [Flonase 1 spr EA NOSTRIL BID PRN 09/03/19 10/12/19 Nasal [place]] Montelukast [Singulair] 10 mg PO DAILY 09/03/19 10/12/19 Albuterol Nebulized [Ventolin 2.5 mg INHALATION RT-QID PRN 09/05/19 10/12/19 Nebulized] Metoprolol Tartrate 12.5 mg PO BID 09/26/19 10/12/19 Nicotine 14Mg/24Hr Patch [Habitrol 1 patch TRANSDERM DAILY 10/12/19 10/12/19 14Mg/24Hr Patch] Ondansetron [Zofran ODT] 4 mg PO Q8H PRN 10/12/19 10/12/19 Previous Rx's Medication Instructions Recorded Acetaminophen Tab [Tylenol] 500 mg PO Q6H PRN #30 tablet 09/14/19 Pantoprazole [Protonix] 40 mg PO AC-BID #60 tablet. 09/14/19 Docusate [Colace] 100 mg PO BID #20 capsule 10/09/19 HYDROcodone/APAP 5-325MG [[place] 1 tab PO Q6HR PRN #10 tab 10/09/19 5-325] Allergies Allergy/AdvReac Type Severity Reaction Status Date / Time No Known Allergies Allergy Verified 10/12/19 18:40 Review of Systems ROS Statement: Those systems with pertinent positive or pertinent negative responses have been documented in the HPI. ROS Other: All systems not noted in ROS Statement are negative. Past Medical History Past Medical History: COPD, GERD/Reflux, Osteoarthritis (OA) Additional Past Medical History / Comment(s): RECENT ADMISSION FOR UTI, N & V TREATED WITH ANTIBIOTICS. HIATAL HERNIA. 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 10/07/2019 Viviana procedure Past Anesthesia/Blood Transfusion Reactions: Previous Problems w/ Anesthesia Additional Past Anesthesia/Blood Transfusion Reaction / Comment(s): woke up during sx in past Past Psychological History: Anxiety Smoking Status: Current every day smoker Past Alcohol Use History: None Reported Past Drug Use History: None Reported - Past Family History Father Family Medical History: Cancer Additional Family Medical History / Comment(s): Esophageal General Exam Limitations: no limitations General appearance: alert, in no apparent distress, other (this is a well- developed, well-nourished adult female patient in no acute distress.) Respiratory exam: Present: normal lung sounds bilaterally. Absent: respiratory distress, wheezes, rales, rhonchi, stridor Cardiovascular Exam: Present: regular rate, normal rhythm, normal heart sounds. Absent: systolic murmur, diastolic murmur, rubs, gallop, clicks GI/Abdominal exam: Present: soft, normal bowel sounds, other (There are 5 laparoscopic incision sites over the abdomen, incisions are well approximated, no surrounding erythema, no drainage.). Absent: distended, tenderness, guarding, rebound, rigid Neurological exam: Present: alert, oriented X3, CN II-XII intact Psychiatric exam: Present: normal affect, normal mood Skin exam: Present: warm, dry, intact, normal color. Absent: rash Course Vital Signs 10/12/19 10/12/19 16:38 17:25 Temperature 98.7 F 98.7 F Pulse Rate 104 H 79 Respiratory 18 18 Rate Blood Pressure 101/66 99/66 O2 Sat by Pulse 97 97 Oximetry Medical Decision Making - Medical Decision Making 59-year-old female patient presents to the emergency department today for evaluation of vomiting. Patient had Viviana fundoplication last Monday with Dr. Phipps.patient presented she is unable to keep down any food or fluids. Denies abdominal pain. Incisions look approximated with no signs of infection. Abdomen is soft. Labs reviewed and did reveal decreased potassium level at 2.8. We did perform CT, plan was for barium swallow but she was unable to swallow the barium contrast. I did discuss the case with Dr. Phipps, he wants to admit for IV hydration and potassium replacement. Dr. Balbuena is on-call and she has been notified of the patient is here. - Lab Data Result diagrams: 10/12/19 17:23 10/12/19 17:23 Lab Results 10/12/19 10/12/19 10/12/19 Range/Units 17:23 17:23 17:35 WBC 10.2 (3.8-10.6) k/uL RBC 4.48 (3.80-5.40) m/uL Hgb 13.5 (11.4-16.0) gm/dL Hct 40.8 (34.0-46.0) % MCV 91.1 (80.0-100.0) fL MCH 30.1 (25.0-35.0) pg MCHC 33.1 (31.0-37.0) g/dL RDW 12.9 (11.5-15.5) % Plt Count 442 (150-450) k/uL Neutrophils % 62 % Lymphocytes % 29 % Monocytes % 6 % Eosinophils % 2 % Basophils % 0 % Neutrophils # 6.3 (1.3-7.7) k/uL Lymphocytes # 2.9 (1.0-4.8) k/uL Monocytes # 0.6 (0-1.0) k/uL Eosinophils # 0.2 (0-0.7) k/uL Basophils # 0.0 (0-0.2) k/uL Sodium 138 (137-145) mmol/L Potassium 2.8 L (3.5-5.1) mmol/L Chloride 102 (98-107) mmol/L Carbon Dioxide 27 (22-30) mmol/L Anion Gap 9 mmol/L BUN 13 (7-17) mg/dL Creatinine 0.55 (0.52-1.04) mg/dL Est GFR (CKD-EPI)AfAm >90 (>60 ml/min/1.73 sqM) Est GFR (CKD-EPI)NonAf >90 (>60 ml/min/1.73 sqM) Glucose 107 H (74-99) mg/dL Calcium 11.4 H (8.4-10.2) mg/dL Total Bilirubin 0.8 (0.2-1.3) mg/dL AST 19 (14-36) U/L ALT 15 (4-34) U/L Alkaline Phosphatase 69 (38-126) U/L Total Protein 7.0 (6.3-8.2) g/dL Albumin 4.4 (3.5-5.0) g/dL Lipase 30 (23-300) U/L Urine Color Yellow Urine Appearance Turbid H (Clear) Urine pH 6.5 (5.0-8.0) Ur Specific [place] 1.014 (1.001-1.035) Urine Protein Trace H (Negative) Urine Glucose (UA) Negative (Negative) Urine Ketones 2+ H (Negative) Urine Blood Moderate H (Negative) Urine Nitrite Negative (Negative) Urine Bilirubin Negative (Negative) Urine Urobilinogen 2.0 (<2.0) mg/dL Ur Leukocyte Esterase Moderate H (Negative) Urine RBC >182 H (0-5) /hpf Urine WBC 15 H (0-5) /hpf Ur Squamous Epith Cells 2 (0-4) /hpf Amorphous Sediment Rare H (None) /hpf Urine Mucus Moderate H (None) /hpf - Radiology Data Radiology results: report reviewed, image reviewed CT abdomen and pelvis with contrast was obtained. Report was reviewed in its entirety. Impression by Dr. Ragland shows compression fractures of T11 and L2 unchanged compared to old exam. No acute fracture. Changes of osteomalacia. No sign of acute abdomen and pelvis. Previous gastric surgery. Disposition Clinical Impression: Hypokalemia, Vomiting Disposition: ADMITTED IP TO THIS [facility] Condition: Serious Referrals: None,Stated [Primary Care Provider] - 1-2 days Decision to Admit Reason: Admit from EC Decision Date: 10/12/19 Decision Time: 19:02
[2019-10-12] MEDS ORDERED: Potassium Replacement Protocol 1 EACH MISC MISCELLANE PRN (18:35)
[2019-10-12] MEDS ORDERED: ONDANSETRON 4 MG/2 ML VIAL IVP PRN (18:36)
[2019-10-12] MEDS ORDERED: NALOXONE 0.4 MG/ML 1 ML VIAL IV PRN (18:36)
[2019-10-12] MEDS ORDERED: SODIUM CHLORIDE 0.9% 1,000 ML IV SCH (18:45)
[2019-10-12] MEDS: POTASSIUM CHLORIDE 10 MEQ in WATER FOR INJECTION 1 100ML.BAG IVPB SCH ×4 (19:15→23:18)
[2019-10-12] MEDS ORDERED: ALBUTEROL NEBULIZED 2.5 MG/3 ML INHALATION PRN ×2 (22:08)
[2019-10-12] MEDS ORDERED: ONDANSETRON ODT 4 MG TAB PO PRN (22:08)
[2019-10-12] MEDS ORDERED: FLUTICASONE 50MCG/SPRAY NASAL 16GM EA NOSTRIL PRN (22:08)
[2019-10-12] MEDS ORDERED: ACETAMINOPHEN TAB 500 MG TAB PO PRN (22:08)
[2019-10-12] MEDS ORDERED: HYDROcodone/APAP 5-325MG 1 EACH TAB PO PRN (22:08)
[2019-10-12] MEDS ORDERED: NICOTINE 14MG/24HR PATCH TRANSDERM STA (22:27)
[2019-10-12] MEDS ORDERED: HYDROmorphone 0.5 MG/0.5 ML SYRINGE IM PRN (22:40)
[2019-10-12] MEDS ORDERED: HYDROmorphone 0.5 MG/0.5 ML SYRINGE IVP PRN (22:50)
--- NOTE | 2019-10-12 23:46 | XR ---
EXAMINATION TYPE: XR chest 1V portable DATE OF EXAM: 10/12/2019 COMPARISON: September 12, 2019 HISTORY: Short of breath TECHNIQUE: FINDINGS: Heart and mediastinum are normal. Lungs are clear. Diaphragm is normal. Bony thorax appears normal. There is probably old right-sided healed rib fractures. IMPRESSION: No active cardiopulmonary disease. Normal heart. No evidence of heart failure. No change.
[2019-10-13] MEDS: POTASSIUM CHLORIDE 10 MEQ in WATER FOR INJECTION 1 100ML.BAG IVPB SCH ×2 (00:23→01:29)
[2019-10-13] MEDS: DEXAMETHASONE SOD PHOSPHATE 4 MG/ML 1 ML VIAL IV SCH ×3 (00:23→12:32)
[2019-10-13] MEDS: SODIUM CHLORIDE 0.9% 1,000 ML with POTASSIUM CHLORIDE 40 MEQ IV SCH ×4 (02:53→12:33)
[2019-10-13 02:57] VITALS: RESP 16
[2019-10-13 06:52] LABS: African American GFR (CKD) >90 (>60 ml/min/1.73 sqM); Anion Gap 7 mmol/L; Blood Urea Nitrogen 10 mg/dL (7-17); Calcium 9.6 mg/dL (8.4-10.2); Carbon Dioxide 19 mmol/L (22-30); Chloride 112 mmol/L (98-107); Glucose 101 mg/dL (74-99); Magnesium 1.8 mg/dL (1.6-2.3); Non-African American GFR(CKD) >90 (>60 ml/min/1.73 sqM); Potassium 4.8 mmol/L (3.5-5.1); Sodium 138 mmol/L (137-145)
--- NOTE | 2019-10-13 07:06 | CONS ---
CONSULTATION DATE OF SERVICE: 07/12/2019 REASON FOR CONSULTATION: Advice regarding COPD and other multiple medical issues, requested by Dr. Phipps. HISTORY OF PRESENT ILLNESS: This 59-year-old woman with a past COPD, GERD, DJD, not being followed by any primary physician in the outpatient setting, recently had a Rosemary fundoplication. Patient went home but subsequently patient was having difficulty swallowing, fluid coming out of his mouth, nausea, and the patient unable to keep anything down and because of dehydration the patient came to [facility] and was admitted for further evaluation and treatment. The white count is normal. Calcium is 11.4. UA showed some RBCs and an abdominal and pelvis CAT scan was also done which showed compression fracture of T1-L2, unchanged. Otherwise, no other significant findings are noted. There is no history of fever, rigors. No history of headache, loss of consciousness, seizures. PAST MEDICAL HISTORY: History of recent Rosemary fundoplication, COPD, GERD, DJD, UTI, hiatal hernia. HOME MEDICATIONS: 1. Protonix 40 mg p.o. b.i.d. 2. Zofran 4 mg q.8 p.r.n. 3. Habitrol 14 daily. 4. Singulair 10 mg daily. 5. Metoprolol 12.5 mg b.i.d. 6. [place] 5 mg q.6 p.r.n. 7. Flonase 1 spray b.i.d. p.r.n. 8. Colace 100 mg p.o. b.i.d. 9. Ventolin 2 puffs q.i.d. p.r.n. 10.Tylenol 500 mg q.6 p.r.n. ALLERGIES: None. FAMILY HISTORY: History of esophageal cancer in the family. SOCIAL HISTORY: No history of alcohol. History of smoking, continued, ongoing. REVIEW OF SYSTEMS: ENT No history of diminished hearing or vision. CARDIOVASCULAR No angina or palpitations. RESPIRATORY As mentioned earlier. GI As mentioned earlier. No dysuria or hematuria. NERVOUS No numbness or weakness. ALLERGY/IMMUNOLOGY No asthma or hayfever. MUSCULOSKELETAL As mentioned earlier. HEMATOLOGY/ONCOLOGY Negative. ENDOCRINE No history of diabetes or hypothyroidism. CONSTITUTIONAL As mentioned earlier. DERMATOLOGY Negative. RHEUMATOLOGY Negative, PSYCHIATRY As mentioned earlier. PHYSICAL EXAMINATION: Alert and oriented x3. Pulse 78, blood pressure 116/79, respiration 18, temperature 98.5, pulse ox 98% on room. HEENT: Conjunctivae normal. Oral mucosa moist. NECK: No jugular venous distention. No lymph node enlargement. CARDIOVASCULAR: S1, S2, muffled. No S3, no S4, RESPIRATORY: Diminished breath sounds at the bases. No rhonchi, no crackles. ABDOMEN: Soft. Status post laparoscopic surgery. Mild diffuse discomfort. No tenderness. No rigidity. No rebound tenderness. No distention. Bowel sounds are diminished. LEGS: No edema, no swelling. NERVOUS SYSTEM: Higher functions mentioned earlier. Moves all four limbs. No focal motor or sensory deficits. LYMPHATICS: No lymph node in neck or axilla. SKIN: No rash. JOINTS: No active deforming arthropathy. LABS: CBC within normal. Potassium 2.8, calcium 11.4. UA noted. ASSESSMENT: 1. Incessant nausea and vomiting after surgery, rule out esophageal obstruction. 2. Recent Rosemary fundoplication. 3. Severe hypokalemia. 4. Dehydration, present on admission. 5. Hypercalcemia. 6. Hematuria. 7. Chronic obstructive pulmonary disease. 8. Gastroesophageal reflux disease. 9. Degenerative joint disease. 10.History of urinary tract infection. 11.History of hemorrhoidectomy. 12.History of anxiety. 13.Continued ongoing nicotine dependence. RECOMMENDATIONS AND DISCUSSION: In this 59-year-old woman who presented with multiple complex medical issues, we will monitor the patient closely, continue the current medications, continue symptomatic treatment, replace potassium and check magnesium. Otherwise, resume the home medications. Symptomatic treatment and also recommend close followup with primary physician outpatient in the outpatient setting. Further recommendations to follow. Thank you for letting us participate in this care of this patient. MMODL / IJN: [id number] /
[2019-10-13] MEDS ORDERED: PANTOPRAZOLE 40 MG TABLET PO SCH (07:30)
[2019-10-13 08:39] VITALS: BP 98/61; PULSE 83; TEMP 98.2
[2019-10-13] MEDS ORDERED: DOCUSATE 100 MG CAP PO SCH (09:00)
[2019-10-13] MEDS ORDERED: NICOTINE 14MG/24HR PATCH TRANSDERM SCH (09:00)
[2019-10-13] MEDS ORDERED: MONTELUKAST 10 MG TAB PO SCH (09:00)
[2019-10-13] MEDS ORDERED: METOPROLOL TARTRATE 25 MG TAB PO SCH (09:00)
[2019-10-13] MEDS ORDERED: FAMOTIDINE 20 MG/2 ML VIAL IV SCH (09:00)
--- NOTE | 2019-10-13 13:09 | P.GSHP ---
History of Present Illness H&P Date: 10/13/19 CHIEF COMPLAINT: Intractable nausea and vomiting HISTORY OF PRESENT ILLNESS: The patient is a59 year old female who is status post Rosemary fundoplication 10/07/2019 was discharged 10/09/2019. She had gone home and reports developing nausea and vomiting. She was could not keep anything down. She presented to the emergency room with intractable nausea and vomiting and potassium less than 2.8. After receiving several bags of potassium, her potassium is elevated at 4.8. "I feel great.". She is tolerating diet. She reports avoiding straws. PAST MEDICAL HISTORY: See list and reviewed PAST SURGICAL HISTORY: See list and reviewed. Recent Rosemary fundoplication 10/07/2019 MEDICATIONS: See list and reviewed ALLERGIES: See list and reviewed SOCIAL HISTORY: See list and reviewed. History of tobacco use. FAMILY HISTORY: See list and reviewed REVIEW OF ORGAN SYSTEMS: CONSTITUTIONAL: No fevers or chills. EYES: Denies any trouble with vision. No glasses. HEENT: No difficulties with hearing. No nosebleeds. No difficulty swallowing. RESPIRATORY: Denies pneumonia. Has asthma. History of COPD. CARDIOVASCULAR: Denies any chest pain, palpitations, or recent heart attacks. GASTROINTESTINAL: Has gastroesophageal reflux disease GENITOURINARY: Denies any blood in urine or increased urinary frequency. NEUROLOGICAL: Denies any numbness or tingling along the distal extremities. No seizure disorders or headaches. MUSCULOSKELETAL: Has back pain, stiffness or joint arthritis. SKIN: No current skin cancer. No rash. PSYCHIATRIC: Denies current depression or suicidal thoughts. Has anxiety. ENDOCRINE: Denies current thyroid disorders. Denies any blood sugar glucose int olerance. HEME/LYMPHATIC: Denies any lumps and bumps around the neck. No recent deep venous thrombosis. ALLERGY/IMMUNOLOGY: No immunoglobulin therapy. No immune deficiencies. PHYSICAL EXAM: VITALS: Reviewed CONSTITUTIONAL: Well developed and in no acute distress. EYES: Conjuctivae without sclera icterus. Pupils are equally round and reactive to light. Extraocular movements grossly intact. HEAD, EARS, NOSE, THROAT: Moist buccal mucosa. Head is atraumatic, normocephalic. Hears conversational speech. No nasal drainage. NECK: No JV distention. No thyroidomegaly. RESPIRATORY: Non-labored respirations and equal bilateral excursions. No gross wheezes. CARDIOVASCULAR: Regular rate and rhythm. Extremities without moderate edema. Palpable 2+ radial pulses. ABDOMEN: Soft. Non-tender. Nondistended. LYMPH: No neck lymphadenopathy. MUSCULOSKELETAL: Nail and fingers with good capillary refill. SKIN: Warm and well perfused with good skin turgor. NEUROLOGIC: Cranial nerves II through XII grossly intact. Sensation upper and extremities intact. No focal or lateralizing signs. PSYCH: Appropriate affect. Alert and oriented to person, place and time. Displays appropriate insight. CLINCAL LABS: Reviewed. Initial potassium 2.8 now 4.8. Magnesium 1.8. WBC normal. IMAGING: Independently reviewed CT of the abdomen and pelvis reviewed demonstrating dilated stomach. No free air. No small bowel obstruction. RADIOLOGY: Report reviewed. CT abdomen and pelvis demonstrates pre-existing compression fracture of T11. Calculus of the right kidney. RECORDS: previous records reviewed health Rosemary fundoplasty 10/07/2019 ASSESSMENT: 1. Intractable nausea and vomiting 2. Hypokalemia 3. History of tobacco use PLAN: 1. Patient encouraged to take high potassium foods and beverages such as apple juice. 2. Recommend dietary evaluation. 3. Otherwise patient stable for discharge as acute nausea and vomiting is now resolved. 4. Post-Rosemary diet including avoiding carbonated beverages and straws reinforced This note serves for same-day admit discharge Past Medical History Past Medical History: COPD, GERD/Reflux, Osteoarthritis (OA) Additional Past Medical History / Comment(s): RECENT ADMISSION FOR UTI, N & V TREATED WITH ANTIBIOTICS. HIATAL HERNIA. 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 10/07/2019 Rosemary procedure Past Anesthesia/Blood Transfusion Reactions: Previous Problems w/ Anesthesia Additional Past Anesthesia/Blood Transfusion Reaction / Comment(s): woke up during sx in past Past Psychological History: Anxiety Additional Psychological History / Comment(s): TAKES NO MEDS Smoking Status: Former smoker Past Alcohol Use History: None Reported Additional Past Alcohol Use History / Comment(s): smokes 1ppd from age 20 (1980) Past Drug Use History: None Reported Additional Drug Use History / Comment(s): currently using a nicotine patch at home - Past Family History Father Family Medical History: Cancer Additional Family Medical History / Comment(s): Esophageal Medications and Allergies Home Medications Medication Instructions Recorded Confirmed Type Albuterol Sulfate [Ventolin HFA] 2 puff INHALATION RT-QID PRN 09/16/16 10/12/19 History Fluticasone Nasal [place] [Flonase 1 spr EA NOSTRIL BID PRN 09/03/19 10/12/19 History Nasal [place]] Montelukast [Singulair] 10 mg PO DAILY 09/03/19 10/12/19 History Albuterol Nebulized [Ventolin 2.5 mg INHALATION RT-QID PRN 09/05/19 10/12/19 History Nebulized] Acetaminophen Tab [Tylenol] 500 mg PO Q6H PRN #30 tablet 09/14/19 10/12/19 Rx Pantoprazole [Protonix] 40 mg PO AC-BID #60 tablet. 09/14/19 10/12/19 Rx Metoprolol Tartrate 12.5 mg PO BID 09/26/19 10/12/19 History Docusate [Colace] 100 mg PO BID #20 capsule 10/09/19 10/12/19 Rx HYDROcodone/APAP 5-325MG [[place] 1 tab PO Q6HR PRN #10 tab 10/09/19 10/12/19 Rx 5-325] Nicotine 14Mg/24Hr Patch [Habitrol] 1 patch TRANSDERM DAILY 10/12/19 10/12/19 History Ondansetron [Zofran ODT] 4 mg PO Q8H PRN 10/12/19 10/12/19 History Allergies Allergy/AdvReac Type Severity Reaction Status Date / Time No Known Allergies Allergy Verified 10/12/19 18:40 Surgical - Exam Vital Signs Temp Pulse Resp BP Pulse Ox 98.7 F 104 H 18 101/66 97 10/12/19 16:38 10/12/19 16:38 10/12/19 16:38 10/12/19 16:38 10/12/19 16:38 Results - Labs 10/12/19 17:23 10/13/19 06:23 Abnormal Lab Results - Last 24 Hours (Table) 10/12/19 10/12/19 10/13/19 Range/Units 17:23 17:35 06:23 Potassium 2.8 L (3.5-5.1) mmol/L Chloride 112 H (98-107) mmol/L Carbon Dioxide 19 L (22-30) mmol/L Creatinine 0.47 L (0.52-1.04) mg/dL Glucose 107 H 101 H (74-99) mg/dL Calcium 11.4 H (8.4-10.2) mg/dL Urine Appearance Turbid H (Clear) Urine Protein Trace H (Negative) Urine Ketones 2+ H (Negative) Urine Blood Moderate H (Negative) Ur Leukocyte Esterase Moderate H (Negative) Urine RBC >182 H (0-5) /hpf Urine WBC 15 H (0-5) /hpf Amorphous Sediment Rare H (None) /hpf Urine Mucus Moderate H (None) /hpf Microbiology - Last 24 Hours (Table) 10/12/19 17:35 Urine Culture - Preliminary Urine,Voided Diabetes panel 10/12/19 10/13/19 Range/Units 17:23 06:23 Sodium 138 138 (137-145) mmol/L Potassium 2.8 L 4.8 (3.5-5.1) mmol/L Chloride 102 112 H (98-107) mmol/L Carbon Dioxide 27 19 L (22-30) mmol/L BUN 13 10 (7-17) mg/dL Creatinine 0.55 0.47 L (0.52-1.04) mg/dL Glucose 107 H 101 H (74-99) mg/dL Calcium 11.4 H 9.6 (8.4-10.2) mg/dL AST 19 (14-36) U/L ALT 15 (4-34) U/L Alkaline Phosphatase 69 (38-126) U/L Total Protein 7.0 (6.3-8.2) g/dL Albumin 4.4 (3.5-5.0) g/dL Calcium panel 10/12/19 10/13/19 Range/Units 17:23 06:23 Calcium 11.4 H 9.6 (8.4-10.2) mg/dL Albumin 4.4 (3.5-5.0) g/dL Pituitary panel 10/12/19 10/13/19 Range/Units 17:23 06:23 Sodium 138 138 (137-145) mmol/L Potassium 2.8 L 4.8 (3.5-5.1) mmol/L Chloride 102 112 H (98-107) mmol/L Carbon Dioxide 27 19 L (22-30) mmol/L BUN 13 10 (7-17) mg/dL Creatinine 0.55 0.47 L (0.52-1.04) mg/dL Glucose 107 H 101 H (74-99) mg/dL Calcium 11.4 H 9.6 (8.4-10.2) mg/dL Adrenal panel 10/12/19 10/13/19 Range/Units 17:23 06:23 Sodium 138 138 (137-145) mmol/L Potassium 2.8 L 4.8 (3.5-5.1) mmol/L Chloride 102 112 H (98-107) mmol/L Carbon Dioxide 27 19 L (22-30) mmol/L BUN 13 10 (7-17) mg/dL Creatinine 0.55 0.47 L (0.52-1.04) mg/dL Glucose 107 H 101 H (74-99) mg/dL Calcium 11.4 H 9.6 (8.4-10.2) mg/dL Total Bilirubin 0.8 (0.2-1.3) mg/dL AST 19 (14-36) U/L ALT 15 (4-34) U/L Alkaline Phosphatase 69 (38-126) U/L Total Protein 7.0 (6.3-8.2) g/dL Albumin 4.4 (3.5-5.0) g/dL
--- NOTE | 2019-10-13 14:57 | PN ---
PROGRESS NOTE DATE OF SERVICE: 10/13/2019 This is a 59-year-old woman who had recent Rosemary fundoplication who was admitted with nausea and vomiting. The patient is significantly improving at this time. The patient has severe hypokalemia, which is being corrected. No chest pain. No palpitations. No fever. Potassium 4.8 today. PHYSICAL EXAMINATION: GENERAL: Patient is alert and oriented times three. VITAL SIGNS: Pulse 83, blood pressure 98/61, respirations 16, temperature 98.2, pulse ox 99% on room air HEENT: Conjunctivae normal. NECK: No jugular venous distention. RESPIRATORY: Breath sounds diminished at the bases. No rhonchi, no crackles. HEART: S1 and S2, muffled. ABDOMEN: Soft, status post recent surgery. No guarding, no rigidity, no tenderness. EXTREMITIES: No edema, no swelling. NERVOUS: No focal deficits. LABS: CO2 is 19, otherwise other labs are noted. ASSESSMENT: 1. Nausea and vomiting after surgery improved. 2. Recent Rosemary fundoplication. 3. Severe hypokalemia on presentation, improved. 4. Dehydration, present on admission, improved. 5. Hypercalcemia, improved. 6. Hematuria. 7. Chronic obstructive pulmonary disease. 8. Gastroesophageal reflux disease. 9. Degenerative joint disease. 10.History of urinary tract infection .. 11.History of hemorrhoidectomy. 12.History of anxiety. 13.Continued ongoing nicotine dependence. RECOMMENDATIONS AND DISCUSSION: In this 59-year-old woman who presented with multiple medical problems, patient improving significantly. Surgery is planning discharge. I am recommending to resume the home medications. Follow with primary physician, Dr. Ahn, in the outpatient setting. Otherwise the rest of the recommendations per Surgery. Continue to monitor with guarded prognosis. MMODL / IJN: [id number] /
--- NOTE | 2019-10-13 20:51 | P.DS ---
Providers Date of admission: 10/12/19 19:02 Expected date of discharge: 10/13/19 Attending physician: Anastasiya Balbuena Primary care physician: Stated None - Discharge Diagnosis(es) (1) COPD (chronic obstructive pulmonary disease) Status: Acute (2) Dehydration Status: Acute (3) GERD (gastroesophageal reflux disease) Status: Acute (4) Hypokalemia Status: Acute (5) Nausea and vomiting Status: Acute Hospital Course: CHIEF COMPLAINT: Intractable nausea and vomiting HISTORY OF PRESENT ILLNESS: The patient is a59 year old female who is status post Rosemary fundoplication 10/07/2019 was discharged 10/09/2019. She had gone home and reports developing nausea and vomiting. She was could not keep anything down. She presented to the emergency room with intractable nausea and vomiting and potassium less than 2.8. After receiving several bags of potassium, her potassium is elevated at 4.8. "I feel great.". She is tolerating diet. She reports avoiding straws. PAST MEDICAL HISTORY: See list and reviewed PAST SURGICAL HISTORY: See list and reviewed. Recent Rosemary fundoplication 10/07/2019 MEDICATIONS: See list and reviewed ALLERGIES: See list and reviewed SOCIAL HISTORY: See list and reviewed. History of tobacco use. FAMILY HISTORY: See list and reviewed REVIEW OF ORGAN SYSTEMS: CONSTITUTIONAL: No fevers or chills. EYES: Denies any trouble with vision. No glasses. HEENT: No difficulties with hearing. No nosebleeds. No difficulty swallowing. RESPIRATORY: Denies pneumonia. Has asthma. History of COPD. CARDIOVASCULAR: Denies any chest pain, palpitations, or recent heart attacks. GASTROINTESTINAL: Has gastroesophageal reflux disease GENITOURINARY: Denies any blood in urine or increased urinary frequency. NEUROLOGICAL: Denies any numbness or tingling along the distal extremities. No seizure disorders or headaches. MUSCULOSKELETAL: Has back pain, stiffness or joint arthritis. SKIN: No current skin cancer. No rash. PSYCHIATRIC: Denies current depression or suicidal thoughts. Has anxiety. ENDOCRINE: Denies current thyroid disorders. Denies any blood sugar glucose intolerance. HEME/LYMPHATIC: Denies any lumps and bumps around the neck. No recent deep venous thrombosis. ALLERGY/IMMUNOLOGY: No immunoglobulin therapy. No immune deficiencies. PHYSICAL EXAM: VITALS: Reviewed CONSTITUTIONAL: Well developed and in no acute distress. EYES: Conjuctivae without sclera icterus. Pupils are equally round and reactive to light. Extraocular movements grossly intact. HEAD, EARS, NOSE, THROAT: Moist buccal mucosa. Head is atraumatic, normocephalic. Hears conversational speech. No nasal drainage. NECK: No JV distention. No thyroidomegaly. RESPIRATORY: Non-labored respirations and equal bilateral excursions. No gross wheezes. CARDIOVASCULAR: Regular rate and rhythm. Extremities without moderate edema. Palpable 2+ radial pulses. ABDOMEN: Soft. Non-tender. Nondistended. LYMPH: No neck lymphadenopathy. MUSCULOSKELETAL: Nail and fingers with good capillary refill. SKIN: Warm and well perfused with good skin turgor. NEUROLOGIC: Cranial nerves II through XII grossly intact. Sensation upper and extremities intact. No focal or lateralizing signs. PSYCH: Appropriate affect. Alert and oriented to person, place and time. Displays appropriate insight. CLINCAL LABS: Reviewed. Initial potassium 2.8 now 4.8. Magnesium 1.8. WBC normal. IMAGING: Independently reviewed CT of the abdomen and pelvis reviewed demonstrating dilated stomach. No free air. No small bowel obstruction. RADIOLOGY: Report reviewed. CT abdomen and pelvis demonstrates pre-existing compression fracture of T11. Calculus of the right kidney. RECORDS: previous records reviewed health Rosemary fundoplasty 10/07/2019 ASSESSMENT: 1. Intractable nausea and vomiting 2. Hypokalemia 3. History of tobacco use PLAN: 1. Patient encouraged to take high potassium foods and beverages such as apple juice. 2. Recommend dietary evaluation. 3. Otherwise patient stable for discharge as acute nausea and vomiting is now resolved. 4. Post-Rosemary diet including avoiding carbonated beverages and straws reinforced This note serves for same-day admit discharge Patient Condition at Discharge: Stable Plan - Discharge Summary New Discharge Prescriptions: Continue Albuterol Sulfate [Ventolin HFA] 2 puff INHALATION RT-QID PRN PRN Reason: Shortness Of Breath Montelukast [Singulair] 10 mg PO DAILY Fluticasone Nasal [place] [Flonase Nasal [place]] 1 spr EA NOSTRIL BID PRN PRN Reason: allergies Albuterol Nebulized [Ventolin Nebulized] 2.5 mg INHALATION RT-QID PRN PRN Reason: Shortness Of Breath Pantoprazole [Protonix] 40 mg PO AC-BID #60 tablet. Acetaminophen Tab [Tylenol] 500 mg PO Q6H PRN #30 tablet PRN Reason: Pain Metoprolol Tartrate 12.5 mg PO BID Docusate [Colace] 100 mg PO BID #20 capsule HYDROcodone/APAP 5-325MG [[place] 5-325] 1 tab PO Q6HR PRN #10 tab PRN Reason: Pain Ondansetron [Zofran ODT] 4 mg PO Q8H PRN PRN Reason: Nausea Nicotine 14Mg/24Hr Patch [Habitrol] 1 patch TRANSDERM DAILY Discharge Medication List Albuterol Sulfate [Ventolin HFA] 2 puff INHALATION RT-QID PRN 09/16/16 [History] Fluticasone Nasal [place] [Flonase Nasal [place]] 1 spr EA NOSTRIL BID PRN 09/03/19 [History] Montelukast [Singulair] 10 mg PO DAILY 09/03/19 [History] Albuterol Nebulized [Ventolin Nebulized] 2.5 mg INHALATION RT-QID PRN 09/05/19 [History] Acetaminophen Tab [Tylenol] 500 mg PO Q6H PRN #30 tablet 09/14/19 [Rx] Pantoprazole [Protonix] 40 mg PO AC-BID #60 tablet. 09/14/19 [Rx] Metoprolol Tartrate 12.5 mg PO BID 09/26/19 [History] Docusate [Colace] 100 mg PO BID #20 capsule 10/09/19 [Rx] HYDROcodone/APAP 5-325MG [[place] 5-325] 1 tab PO Q6HR PRN #10 tab 10/09/19 [Rx] Nicotine 14Mg/24Hr Patch [Habitrol] 1 patch TRANSDERM DAILY 10/12/19 [History] Ondansetron [Zofran ODT] 4 mg PO Q8H PRN 10/12/19 [History] Follow up Appointment(s)/Referral(s): None,Stated [Primary Care Provider] - 1-2 days (Kurtis Martinez MD [STAFF PHYSICIAN] - 1 Week Patient Instructions/Handouts: Potassium Content of Foods List (DC), Hypokalemia (DC) Activity/Diet/Wound Care/Special Instructions: Continue Rosemary diet. Avoid carbonated beverages. Avoid straws. Potassium- rich foods described for discharge. Discharge Disposition: HOME SELF-CARE
== END 2019-10-13 15:11 | disposition home or self-care (01) ==
LOC: EC 16:27 → 1SOBS 19:02
PROVIDERS: ADMIT Surgery Plastic and Reconstructive Surgery; ATTEND Surgery Plastic and Reconstructive Surgery
DX: E86.0 Dehydration (principal); E87.6 Hypokalemia; E83.52 Hypercalcemia; R31.9 Hematuria, unspecified; R11.2 Nausea with vomiting, unspecified; J44.9 Chronic obstructive pulmonary disease, unspecified; N20.0 Calculus of kidney; K21.9 Gastro-esophageal reflux disease without esophagitis; A63.0 Anogenital (venereal) warts; M19.90 Unspecified osteoarthritis, unspecified site; M80.88XA Other osteoporosis with current pathological fracture, vertebra(e), initial encounter for fracture; Z87.440 Personal history of urinary (tract) infections; Z90.710 Acquired absence of both cervix and uterus; Z98.890 Other specified postprocedural states; F41.9 Anxiety disorder, unspecified; F17.210 Nicotine dependence, cigarettes, uncomplicated; Z80.0 Family history of malignant neoplasm of digestive organs; Z79.891 Long term (current) use of opiate analgesic; Z79.899 Other long term (current) drug therapy
CPT/HCPCS: 96361 ×3; 96366 ×2; 96375 ×3; 96376; 96365; 99285; 36415; 80053; 80048; 83690; 83735; 85025; 81001; 87086; 87077; 87186; 71045; 74177; G0378 ×2; U0003; S4990 ×2; J1100; J2405; J3480 ×3; J1170; Q9967

== ENCOUNTER 2019-10-16 13:31 | Observation (INO) | payer OTHER ==
--- NOTE | 2019-10-16 13:52 | ED ---
Abdominal Pain HPI <Uzair Hercules - Last Filed: 10/16/19 15:20> - General Source: patient, EMS Mode of arrival: EMS Limitations: no limitations <Anshul uSn - Last Filed: 10/16/19 15:28> - General Chief Complaint: Abdominal Pain Stated Complaint: Dehydration Time Seen by Provider: 10/16/19 13:43 - History of Present Illness Initial Comments: Patient is a 59-year-old female presenting to the emergency room with a chief complaint of abdominal pain, back pain, nausea and diarrhea. Patient states about 10 days ago she had Rosemary fundoplication for a hiatal hernia by . Patient states initially she had difficulties with nausea or vomiting, however now she has developed profuse diarrhea for the last 2 days. Patient reports the diarrhea is green in nature. States she is able to keep some fluids down but is still not able to tolerate larger meals. Patient reports the back pain is located in the right thoracic region and states that was there ever since the surgery. Patient reports she is concerned for dehydration. She denies any hematuria, hematochezia or melena. Denies any vaginal urinary symptoms. She denies any chest pain shortness of breath headaches positive weakness paresthesias. Denies night sweats fevers or chills. (Anshul Sun) - Related Data Home Medications Medication Instructions Recorded Confirmed Albuterol Sulfate [Ventolin HFA] 2 puff INHALATION RT-QID PRN 09/16/16 10/12/19 Fluticasone Nasal [place] [Flonase 1 spr EA NOSTRIL BID PRN 09/03/19 10/12/19 Nasal [place]] Montelukast [Singulair] 10 mg PO DAILY 09/03/19 10/12/19 Albuterol Nebulized [Ventolin 2.5 mg INHALATION RT-QID PRN 09/05/19 10/12/19 Nebulized] Metoprolol Tartrate 12.5 mg PO BID 09/26/19 10/12/19 Nicotine 14Mg/24Hr Patch [Habitrol] 1 patch TRANSDERM DAILY 10/12/19 10/12/19 Ondansetron [Zofran ODT] 4 mg PO Q8H PRN 10/12/19 10/12/19 Previous Rx's Medication Instructions Recorded Acetaminophen Tab [Tylenol] 500 mg PO Q6H PRN #30 tablet 09/14/19 Pantoprazole [Protonix] 40 mg PO AC-BID #60 tablet. 09/14/19 Docusate [Colace] 100 mg PO BID #20 capsule 10/09/19 HYDROcodone/APAP 5-325MG [[place] 1 tab PO Q6HR PRN #10 tab 10/09/19 5-325] Allergies Allergy/AdvReac Type Severity Reaction Status Date / Time No Known Allergies Allergy Verified 10/16/19 13:38 Review of Systems ROS Other: All systems not noted in ROS Statement are negative. <Uzair Hercules - Last Filed: 10/16/19 15:20> ROS Other: All systems not noted in ROS Statement are negative. <Anshul Sun - Last Filed: 10/16/19 15:28> ROS Statement: Those systems with pertinent positive or pertinent negative responses have been documented in the HPI. Past Medical History Past Medical History: COPD, GERD/Reflux, Osteoarthritis (OA) Additional Past Medical History / Comment(s): RECENT ADMISSION FOR UTI, N & V TREATED WITH ANTIBIOTICS. HIATAL HERNIA. 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 10/07/2019 Rosemary procedure Past Anesthesia/Blood Transfusion Reactions: Previous Problems w/ Anesthesia Additional Past Anesthesia/Blood Transfusion Reaction / Comment(s): woke up during sx in past Past Psychological History: Anxiety Smoking Status: Former smoker Past Alcohol Use History: None Reported Past Drug Use History: None Reported - Past Family History Father Family Medical History: Cancer Additional Family Medical History / Comment(s): Esophageal <Anshul Sun - Last Filed: 10/16/19 15:28> General Exam Limitations: no limitations General appearance: alert, in no apparent distress Head exam: Present: atraumatic, normocephalic, normal inspection Eye exam: Present: normal appearance, PERRL, EOMI Pupils: Present: normal accommodation ENT exam: Present: normal exam, normal oropharynx, mucous membranes moist, TM's normal bilaterally, normal external ear exam Neck exam: Present: normal inspection, full ROM. Absent: tenderness Respiratory exam: Present: normal lung sounds bilaterally. Absent: respiratory distress, wheezes, rales Cardiovascular Exam: Present: regular rate, normal rhythm, normal heart sounds GI/Abdominal exam: Present: soft, tenderness (Epigastric tenderness), other (5 the prescribed incision sites are healing well.). Absent: distended Extremities exam: Present: normal inspection, full ROM, normal capillary refill Back exam: Present: normal inspection, full ROM, tenderness (Right-sided thoracic region near days of low) Neurological exam: Present: alert, oriented X3 Psychiatric exam: Present: normal affect, normal mood Skin exam: Present: warm, dry, intact, normal color <Anshul Sun - Last Filed: 10/16/19 15:28> Course <Uzair Hercules - Last Filed: 10/16/19 15:20> Vital Signs 10/16/19 10/16/19 10/16/19 13:33 14:26 15:24 Temperature 98.2 F Pulse Rate 70 71 Respiratory 18 18 Rate Blood Pressure 95/73 105/82 100/71 O2 Sat by Pulse 100 100 Oximetry - Reevaluation(s) Reevaluation #1: 10/16/19 15:[address] Phipps recommended CT with both oral and IV contrast, antibiotics, IV hydration, will admit. (Uzair Hercules) Medical Decision Making - Lab Data Result diagrams: 10/16/19 14:19 10/16/19 14:19 <Uzair Hercules - Last Filed: 10/16/19 15:20> - Lab Data Result diagrams: 10/16/19 14:19 10/16/19 14:19 <Anshul Sun - Last Filed: 10/16/19 15:28> - Medical Decision Making Patient 59-year-old male presenting to the emergency department with chief complaint of abdominal pain. Patient had recent Rosemary fundoplication about 10 days ago. Patient was recently admitted for dehydration due to intractable nausea or vomiting. Now she appears to be dehydrated on physical examination secondary to profuse diarrhea for the past 2 days. Patient was given IV fluids, antiemetics, analgesia. CBC reveals leukocytosis of 20 K. CMP reveals hypercalcemia. CT of abdomen and pelvis with oral and IV contrast ordered. Imaging is pending. Patient will be started on antibiotics. Case was discussed with who spoke with Dr Fisher. Will admit patient for further management (Anshul Sun) - Lab Data Lab Results 10/16/19 10/16/19 Range/Units 14:19 14:19 WBC 20.3 H (3.8-10.6) k/uL RBC 4.56 (3.80-5.40) m/uL Hgb 13.8 (11.4-16.0) gm/dL Hct 43.2 (34.0-46.0) % MCV 94.7 (80.0-100.0) fL MCH 30.2 (25.0-35.0) pg MCHC 31.9 (31.0-37.0) g/dL RDW 13.1 (11.5-15.5) % Plt Count 444 (150-450) k/uL Neutrophils % 89 % Lymphocytes % 6 % Monocytes % 4 % Eosinophils % 0 % Basophils % 0 % Neutrophils # 18.2 H (1.3-7.7) k/uL Lymphocytes # 1.2 (1.0-4.8) k/uL Monocytes # 0.8 (0-1.0) k/uL Eosinophils # 0.1 (0-0.7) k/uL Basophils # 0.0 (0-0.2) k/uL Sodium 137 (137-145) mmol/L Potassium 4.4 (3.5-5.1) mmol/L Chloride 106 (98-107) mmol/L Carbon Dioxide 23 (22-30) mmol/L Anion Gap 8 mmol/L BUN 13 (7-17) mg/dL Creatinine 0.56 (0.52-1.04) mg/dL Est GFR (CKD-EPI)AfAm >90 (>60 ml/min/1.73 sqM) Est GFR (CKD-EPI)NonAf >90 (>60 ml/min/1.73 sqM) Glucose 139 H (74-99) mg/dL Calcium 10.5 H (8.4-10.2) mg/dL Magnesium 1.7 (1.6-2.3) mg/dL Total Bilirubin 0.5 (0.2-1.3) mg/dL AST 14 (14-36) U/L ALT 12 (4-34) U/L Alkaline Phosphatase 62 (38-126) U/L Total Protein 6.9 (6.3-8.2) g/dL Albumin 4.3 (3.5-5.0) g/dL Lipase 30 (23-300) U/L Disposition <Uzair Hercules - Last Filed: 10/16/19 15:20> Is patient prescribed a controlled substance at d/c from ED?: No Time of Disposition: 15:28 <Anshul Sun - Last Filed: 10/16/19 15:28> Clinical Impression: Abdominal pain, Diarrhea Disposition: ADMITTED IP TO THIS HOSP Condition: Stable Instructions (If sedation given, give patient instructions): Abdominal Pain (ED) Additional Instructions: Patient will be admitted Referrals: None,Stated [Primary Care Provider] - 1-2 days
[2019-10-16] MEDS ORDERED: SODIUM CHLORIDE 0.9% 1,000 ML IV STA (13:57)
[2019-10-16] MEDS ORDERED: PANTOPRAZOLE 40 MG/10 ML VIAL IVP STA (13:57)
[2019-10-16 14:42] LABS: Basophils % (A) 0 %; Eosinophils # (A) 0.1 k/uL (0-0.7); Eosinophils % (A) 0 %; HCT 43.2 % (34.0-46.0); HGB 13.8 gm/dL (11.4-16.0); Lymphocytes # (A) 1.2 k/uL (1.0-4.8); Lymphocytes % (A) 6 %; MCH 30.2 pg (25.0-35.0); MCHC 31.9 g/dL (31.0-37.0); MCV 94.7 fL (80.0-100.0); Mean Platelet Volume 6.9; Monocytes # (A) 0.8 k/uL (0-1.0); Monocytes % (A) 4 %; Neutrophils # (A) 18.2 k/uL (1.3-7.7); Neutrophils % (A) 89 %; Platelet Count 444 k/uL (150-450); RBC 4.56 m/uL (3.80-5.40); RDW 13.1 % (11.5-15.5); WBC 20.3 k/uL (3.8-10.6)
[2019-10-16 14:46] LABS: ALT 12 U/L (4-34); AST 14 U/L (14-36); African American GFR (CKD) >90 (>60 ml/min/1.73 sqM); Albumin 4.3 g/dL (3.5-5.0); Alkaline Phosphatase 62 U/L (38-126); Anion Gap 8 mmol/L; Blood Urea Nitrogen 13 mg/dL (7-17); Calcium 10.5 mg/dL (8.4-10.2); Carbon Dioxide 23 mmol/L (22-30); Chloride 106 mmol/L (98-107); Glucose 139 mg/dL (74-99); Magnesium 1.7 mg/dL (1.6-2.3); Non-African American GFR(CKD) >90 (>60 ml/min/1.73 sqM); Potassium 4.4 mmol/L (3.5-5.1); Sodium 137 mmol/L (137-145); Total Bilirubin 0.5 mg/dL (0.2-1.3); Total Protein 6.9 g/dL (6.3-8.2)
[2019-10-16] MEDS ORDERED: PIPERACILLIN-TAZOBACTAM 3.375 GM in SODIUM CHLORIDE 0.9% 100 ML IVPB STA (15:19)
[2019-10-16] MEDS ORDERED: IOPAMIDOL CONTRAST (ORAL USE) VIAL PO PRN (15:19)
[2019-10-16] MEDS ORDERED: ACETAMINOPHEN TAB 325 MG TAB PO PRN (15:23)
[2019-10-16] MEDS ORDERED: HYDROmorphone 1 MG/ML 1 ML SYRINGE IVP PRN (15:23)
[2019-10-16] MEDS ORDERED: NALOXONE 0.4 MG/ML 1 ML VIAL IV PRN (15:23)
[2019-10-16] MEDS ORDERED: ONDANSETRON 4 MG/2 ML VIAL IVP PRN (15:23)
[2019-10-16 15:43] LABS: Appearance,Urine Cloudy (Clear); Bacteria,Urine Rare /hpf; Bilirubin,Urine Negative (Negative); Blood,Urine Negative (Negative); Color,Urine Yellow; Glucose,Urine (UA) Negative (Negative); Hyaline Casts,Urine 18 /lpf (0-2); Ketones,Urine 1+ (Negative); Leukocyte Esterase,Urine Trace (Negative); Mucus,Urine Many /hpf; Nitrite,Urine Negative (Negative); Protein,Urine Trace (Negative); RBC,Urine 14 /hpf (0-5); Specific Gravity,Urine 1.022 (1.001-1.035); Squamous Epithelial Cell,Urine 1 /hpf (0-4); Urobilinogen,Urine <2.0 mg/dL (<2.0); WBC,Urine 9 /hpf (0-5)
--- NOTE | 2019-10-16 15:59 | CT ---
EXAMINATION TYPE: CT abdomen pelvis w con DATE OF EXAM: 10/16/2019 HISTORY: Abdomen pain. Recent hiatal hernia sx on [address] DLP: 634.8mGycm Automated Exposure Control for Dose Reduction was Utilized. CONTRAST: CT scan of the abdomen and pelvis is performed without oral but with IV Contrast, patient injected wi th 100 mL of Isovue 300. COMPARISON: CT 4 days ago. FINDINGS: LUNG BASES: Stable tiny pericardial effusion. LIVER/GB: No significant abnormality is appreciated. PANCREAS: No significant abnormality is seen. SPLEEN: Single calcification in spleen presumed benign axial image 22. ADRENALS: No significant abnormality is seen. KIDNEYS: Symmetric cortical medullary uptake and excretion without hydronephrosis seen bilaterally. S table 3 mm calculus right kidney midpole level axial image 33. BOWEL: Suboptimal evaluation of enteric contrast. Surgical changes epigastric region near the diaphra gm from hiatal hernia repair surgery redemonstrated. No recurrent hiatal hernia currently. Fluid fill ed mildly prominent stomach with internal 2-3 ovoid densities presumed ingested pills axial image 31. Some fluid-filled prominent small bowel loops throughout the abdomen and pelvis without greater than 3.0 cm dilatation. There are nondistended ileal loops in the right lower quadrant. Transition point n ot distinctly identified. Fluid in the right and transverse colon could reflect product of diarrhea a nd/or mild uncomplicated colitis. Few diverticula in the sigmoid colon with mild to moderate wall thi ckening. Poor distention noted. There is 2.2 cm diverticulum along the third portion of duodenum mesenteric surface coronal image 43. Incidental normal-appearing appendix from base of cecum. UTERUS/ADNEXA: Uterus surgically absent markedly atrophic. LYMPH NODES: No greater than 1cm abdominal or pelvic lymph nodes are appreciated. OSSEOUS STRUCTURES: Osseous structures are demineralized. Vertebroplasty L2 level redemonstrated. Sta ble mild compression fractures T11 and L2 level. OTHER: No significant additional abnormality is seen. IMPRESSION: Possible mild uncomplicated acute enterocolitis as detailed above. Possible partial small bowel obstruction with prominent fluid-filled small bowel loops and distal ileal loops right lower q uadrant showing poor distention.
[2019-10-16] MEDS: HYDROmorphone 0.5 MG/0.5 ML SYRINGE IVP PRN ×2 (16:10→22:34)
[2019-10-16] MEDS: SODIUM CHLORIDE 0.9% 1,000 ML IV SCH (16:15)
[2019-10-16] MEDS: LORazepam 2 MG/ML INJ IV PRN (16:27)
[2019-10-16] MEDS: NICOTINE 21MG/24HR PATCH TRANSDERM SCH (20:10)
[2019-10-16] MEDS: PIPERACILLIN-TAZOBACTAM 3.375 GM in SODIUM CHLORIDE 0.9% 100 ML IVPB SCH (22:34)
[2019-10-17] MEDS: SODIUM CHLORIDE 0.9% 1,000 ML IV SCH ×2 (03:54→12:14)
[2019-10-17] MEDS: PIPERACILLIN-TAZOBACTAM 3.375 GM in SODIUM CHLORIDE 0.9% 100 ML IVPB SCH ×3 (05:44→21:51)
[2019-10-17] MEDS: HYDROmorphone 0.5 MG/0.5 ML SYRINGE IVP PRN ×2 (07:31→21:47)
[2019-10-17 08:43] LABS: Basophils % (A) 0 %; Eosinophils # (A) 0.2 k/uL (0-0.7); Eosinophils % (A) 2 %; HCT 34.2 % (34.0-46.0); Lymphocytes # (A) 2.8 k/uL (1.0-4.8); Lymphocytes % (A) 28 %; MCH 30.6 pg (25.0-35.0); MCHC 31.7 g/dL (31.0-37.0); MCV 96.3 fL (80.0-100.0); Mean Platelet Volume 7.1; Monocytes # (A) 0.6 k/uL (0-1.0); Monocytes % (A) 6 %; Neutrophils # (A) 6.3 k/uL (1.3-7.7); Neutrophils % (A) 63 %; Platelet Count 323 k/uL (150-450); RBC 3.55 m/uL (3.80-5.40); RDW 13.3 % (11.5-15.5)
[2019-10-17 08:46] LABS: HGB 10.8 gm/dL (11.4-16.0)
[2019-10-17] MEDS: LORazepam 2 MG/ML INJ IV PRN (11:10)
--- NOTE | 2019-10-17 13:52 | P.GSHP ---
History of Present Illness H&P Date: 10/17/19 CHIEF COMPLAINT: Abdominal pain HISTORY OF PRESENT ILLNESS: This is a 59-year-old female with a known past medical history of Rosemary fundoplication for hiatal hernia about 10 days ago. She also has a history of COPD, GERD, osteoarthritis and nicotine dependence. Patient presented to the emergency room with complaints of abdominal pain, shoulder pain nausea and diarrhea. Patient reports initially after her Rosemary fundoplication she was having some nausea and vomiting. However now she is havi ng diarrhea for the last 2 days. She is able to keep some fluids down. Patient denies any hematochezia or melena. She denies any hematemesis. She is able to keep some fluids down but is unable to tolerate larger meals. PAST MEDICAL HISTORY: See list. PAST SURGICAL HISTORY: See list. MEDICATIONS: See list. ALLERGIES: See list. SOCIAL HISTORY: No illicit drug use. REVIEW OF SYSTEMS: CONSTITUTIONAL: Denies fever or chills. HEENT: Denies blurred vision, vision changes, or eye pain. Denies hemoptysis ENDOCRINE: Denies heat or cold intolerance. CARDIOVASCULAR: Denies chest pain or pressure. RESPIRATORY: No shortness of breath. GASTROINTESTINAL: Denies abdominal pain. Denies nausea or vomiting. NEURO: Denies history of seizures. PSYCH: No depression or suicidal ideation HEMATOLOGIC: Denies bleeding disorders. LYMPHATIC: The patient denies any lumps and bumps around the neck. GENITOURINARY: Denies any blood in urine or increased urinary frequency. MUSCULOSKELETAL: Denies myalgias. Denies joint swelling. Denies decreased range of motion beyond patients baseline. SKIN: Denies pruitis. Denies rash. PHYSICAL EXAM: VITAL SIGNS: Reviewed GENERAL: Well-developed in no acute distress. HEENT: No sclera icterus. Extraocular movements grossly intact. Moist buccal mucosa. Head is atraumatic, normocephalic. Hears conversational speech. No nasal drainage. NECK: Supple without lymphadenopathy. CHEST: Non-labored respirations and equal bilateral excursions. CARDIOVASCULAR: Regular rate with regular rhythm. Palpable 2+ radial pulses. ABDOMEN: Soft. Nondistended. Right upper quadrant tenderness MUSCULOSKELETAL: No clubbing or cyanosis. NEUROLOGIC: No focal or lateralizing signs. Cranial nerves II through XII grossly intact. PSYCH: Appropriate affect. Alert and oriented to person, place and time. SKIN: Well perfused. Good skin turgor. LABORATORY DATA: White count 20.3 down to 10.0, hemoglobin 13.8 down to 10.8. Normal LFTs. Lipase normal IMAGING: Computed tomography scan of the abdomen and pelvis: Possible mild uncomplicated acute enterocolitis. Possible partial small bowel obstruction with prominent fluid-filled small bowel loops and distal ileal loops right lower quadrant showing poor distention ASSESSMENT: 1. Mild uncomplicated acute enterocolitis. 2. Recent Rosemary fundoplication for hiatal hernia about 10 days ago 3. Nicotine dependence 4. Anemia likely dilutional due to IV fluids. We'll monitor PLAN: 1. Continue IV Zosyn and IV fluids 2. Follow-up on stool studies 3. Advance diet to a full liquid diet 4. GI prophylaxis Pepcid 5. DVT prophylaxis subcu heparin 6. Check CBC in a.m. 7. Nicotine patch added Physician Pole Climber note has been reviewed by physician. Signing provider agrees with the documented findings, assessment, and plan of care. Past Medical History Past Medical History: COPD, GERD/Reflux, Osteoarthritis (OA) Additional Past Medical History / Comment(s): RECENT ADMISSION FOR UTI, N & V TREATED WITH ANTIBIOTICS. HIATAL HERNIA. 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 10/07/2019 Rosemary procedure Past Anesthesia/Blood Transfusion Reactions: Previous Problems w/ Anesthesia Additional Past Anesthesia/Blood Transfusion Reaction / Comment(s): woke up during sx in past Past Psychological History: Anxiety Additional Psychological History / Comment(s): TAKES NO MEDS Smoking Status: Former smoker Past Alcohol Use History: None Reported Additional Past Alcohol Use History / Comment(s): smokes 1ppd from age 20 (1980) Past Drug Use History: None Reported Additional Drug Use History / Comment(s): currently using a nicotine patch at home - Past Family History Father Family Medical History: Cancer Additional Family Medical History / Comment(s): Esophageal Medications and Allergies Home Medications Medication Instructions Recorded Confirmed Type Albuterol Sulfate [Ventolin HFA] 2 puff INHALATION RT-QID PRN 09/16/16 10/16/19 History Montelukast [Singulair] 10 mg PO DAILY 09/03/19 10/16/19 History Acetaminophen Tab [Tylenol] 500 mg PO Q6H PRN #30 tablet 09/14/19 10/16/19 Rx Pantoprazole [Protonix] 40 mg PO AC-BID #60 tablet. 09/14/19 10/16/19 Rx Metoprolol Tartrate 12.5 mg PO BID 09/26/19 10/16/19 History HYDROcodone/APAP 5-325MG [[place] 1 tab PO Q6HR PRN #10 tab 10/09/19 10/16/19 Rx 5-325] Ondansetron [Zofran ODT] 4 mg PO Q8H PRN 10/12/19 10/16/19 History Allergies Allergy/AdvReac Type Severity Reaction Status Date / Time No Known Allergies Allergy Verified 10/16/19 16:13 Surgical - Exam Vital Signs Temp Pulse Resp BP Pulse Ox 98.2 F 70 18 95/73 100 10/16/19 13:33 10/16/19 13:33 10/16/19 13:33 10/16/19 13:33 10/16/19 13:33 Results - Labs 10/17/19 08:23 10/16/19 14:19 Abnormal Lab Results - Last 24 Hours (Table) 10/16/19 10/16/19 10/16/19 Range/Units 14:19 14:19 15:20 WBC 20.3 H (3.8-10.6) k/uL RBC (3.80-5.40) m/uL Hgb (11.4-16.0) gm/dL Neutrophils # 18.2 H (1.3-7.7) k/uL Glucose 139 H (74-99) mg/dL Calcium 10.5 H (8.4-10.2) mg/dL Urine Appearance Cloudy H (Clear) Urine Protein Trace H (Negative) Urine Ketones 1+ H (Negative) Ur Leukocyte Esterase Trace H (Negative) Urine RBC 14 H (0-5) /hpf Urine WBC 9 H (0-5) /hpf Urine Bacteria Rare H (None) /hpf Hyaline Casts 18 H (0-2) /lpf Urine Mucus Many H (None) /hpf 10/17/19 Range/Units 08:23 WBC (3.8-10.6) k/uL RBC 3.55 L (3.80-5.40) m/uL Hgb 10.8 L D (11.4-16.0) gm/dL Neutrophils # (1.3-7.7) k/uL Glucose (74-99) mg/dL Calcium (8.4-10.2) mg/dL Urine Appearance (Clear) Urine Protein (Negative) Urine Ketones (Negative) Ur Leukocyte Esterase (Negative) Urine RBC (0-5) /hpf Urine WBC (0-5) /hpf Urine Bacteria (None) /hpf Hyaline Casts (0-2) /lpf Urine Mucus (None) /hpf Diabetes panel 10/16/19 Range/Units 14:19 Sodium 137 (137-145) mmol/L Potassium 4.4 (3.5-5.1) mmol/L Chloride 106 (98-107) mmol/L Carbon Dioxide 23 (22-30) mmol/L BUN 13 (7-17) mg/dL Creatinine 0.56 (0.52-1.04) mg/dL Glucose 139 H (74-99) mg/dL Calcium 10.5 H (8.4-10.2) mg/dL AST 14 (14-36) U/L ALT 12 (4-34) U/L Alkaline Phosphatase 62 (38-126) U/L Total Protein 6.9 (6.3-8.2) g/dL Albumin 4.3 (3.5-5.0) g/dL Calcium panel 10/16/19 Range/Units 14:19 Calcium 10.5 H (8.4-10.2) mg/dL Albumin 4.3 (3.5-5.0) g/dL Pituitary panel 10/16/19 Range/Units 14:19 Sodium 137 (137-145) mmol/L Potassium 4.4 (3.5-5.1) mmol/L Chloride 106 (98-107) mmol/L Carbon Dioxide 23 (22-30) mmol/L BUN 13 (7-17) mg/dL Creatinine 0.56 (0.52-1.04) mg/dL Glucose 139 H (74-99) mg/dL Calcium 10.5 H (8.4-10.2) mg/dL Adrenal panel 10/16/19 Range/Units 14:19 Sodium 137 (137-145) mmol/L Potassium 4.4 (3.5-5.1) mmol/L Chloride 106 (98-107) mmol/L Carbon Dioxide 23 (22-30) mmol/L BUN 13 (7-17) mg/dL Creatinine 0.56 (0.52-1.04) mg/dL Glucose 139 H (74-99) mg/dL Calcium 10.5 H (8.4-10.2) mg/dL Total Bilirubin 0.5 (0.2-1.3) mg/dL AST 14 (14-36) U/L ALT 12 (4-34) U/L Alkaline Phosphatase 62 (38-126) U/L Total Protein 6.9 (6.3-8.2) g/dL Albumin 4.3 (3.5-5.0) g/dL
[2019-10-17] MEDS: FAMOTIDINE 20 MG TAB PO SCH (16:47)
[2019-10-17] MEDS: NICOTINE 21MG/24HR PATCH TRANSDERM SCH (21:50)
[2019-10-18] MEDS: SODIUM CHLORIDE 0.9% 1,000 ML IV SCH ×2 (01:35→08:49)
[2019-10-18] MEDS: HEPARIN SODIUM,PORCINE 5,000 UNIT/ML 1 ML VIAL SQ SCH ×2 (04:47→08:49)
[2019-10-18] MEDS: PIPERACILLIN-TAZOBACTAM 3.375 GM in SODIUM CHLORIDE 0.9% 100 ML IVPB SCH (05:26)
[2019-10-18] MEDS: HYDROmorphone 0.5 MG/0.5 ML SYRINGE IVP PRN (05:30)
[2019-10-18 06:57] LABS: Basophils % (A) 1 %; Eosinophils # (A) 0.2 k/uL (0-0.7); Eosinophils % (A) 2 %; HCT 36.3 % (34.0-46.0); HGB 11.3 gm/dL (11.4-16.0); Hypochromasia Slight; Lymphocytes # (A) 2.1 k/uL (1.0-4.8); Lymphocytes % (A) 32 %; MCH 30.2 pg (25.0-35.0); MCV 97.3 fL (80.0-100.0); Mean Platelet Volume 7.3; Monocytes # (A) 0.5 k/uL (0-1.0); Monocytes % (A) 7 %; Neutrophils # (A) 3.8 k/uL (1.3-7.7); Neutrophils % (A) 57 %; Platelet Count 332 k/uL (150-450); RBC 3.73 m/uL (3.80-5.40); RDW 13.3 % (11.5-15.5); WBC 6.7 k/uL (3.8-10.6)
[2019-10-18 07:19] VITALS: RESP 18
[2019-10-18] MEDS: FAMOTIDINE 20 MG TAB PO SCH (08:49)
[2019-10-18 11:45] LABS: African American GFR (CKD) >90 (>60 ml/min/1.73 sqM); Anion Gap 4 mmol/L; Blood Urea Nitrogen 3 mg/dL (7-17); Calcium 9.8 mg/dL (8.4-10.2); Carbon Dioxide 20 mmol/L (22-30); Chloride 112 mmol/L (98-107); Glucose 89 mg/dL (74-99); Non-African American GFR(CKD) >90 (>60 ml/min/1.73 sqM); Potassium 3.7 mmol/L (3.5-5.1); Sodium 136 mmol/L (137-145)
--- NOTE | 2019-10-18 14:23 | P.DS ---
Providers Date of admission: 10/16/19 15:20 Expected date of discharge: 10/18/19 Attending physician: Kurtis Phipps Primary care physician: Stated None Hospital Course: discharge diagnosis 1. Mild uncomplicated acute enterocolitis. 2. Recent Rosemary fundoplication for hiatal hernia about 10 days ago 3. Nicotine dependence 4. Anemia likely dilutional due to IV fluids. Hemoglobin Improved and is 11.3 at discharge Hospital course Patient presented to the emergency room with complaints of abdominal pain, shoulder pain nausea and diarrhea. Patient reports initially after her Rosemary fundoplication she was having some nausea and vomiting. she also had been having some diarrhea. computed tomography scan of the abdomen and pelvis showing Possible mild uncomplicated acute enterocolitis. Possible partial small bowel obstruction with prominent fluid-filled small bowel loops and distal ileal loops right lower quadrant showing poor distention. She was given IV fluids and IV antibiotics. Her diarrhea resolved. Her white count has normalized. Electrolytes are within normal range. Patient seen and evaluated by Dr. Phipps. patient does not require antibiotics at discharge. He is recommending patient stays on a full liquid diet and follow-up in the Bariatric clinic in 1 week. patient is stable for discharge. Physician Medication Aid note has been reviewed by physician. Signing provider agrees with the documented findings, assessment, and plan of care. Patient Condition at Discharge: Stable Plan - Discharge Summary Discharge Rx Participant: Yes New Discharge Prescriptions: Continue Albuterol Sulfate [Ventolin HFA] 2 puff INHALATION RT-QID PRN PRN Reason: Shortness Of Breath Montelukast [Singulair] 10 mg PO DAILY Pantoprazole [Protonix] 40 mg PO AC-BID #60 tablet. Acetaminophen Tab [Tylenol] 500 mg PO Q6H PRN #30 tablet PRN Reason: Pain Metoprolol Tartrate 12.5 mg PO BID HYDROcodone/APAP 5-325MG [[place] 5-325] 1 tab PO Q6HR PRN #10 tab PRN Reason: Pain Ondansetron [Zofran ODT] 4 mg PO Q8H PRN PRN Reason: Nausea Discharge Medication List Albuterol Sulfate [Ventolin HFA] 2 puff INHALATION RT-QID PRN 09/16/16 [History] Montelukast [Singulair] 10 mg PO DAILY 09/03/19 [History] Acetaminophen Tab [Tylenol] 500 mg PO Q6H PRN #30 tablet 09/14/19 [Rx] Pantoprazole [Protonix] 40 mg PO AC-BID #60 tablet. 09/14/19 [Rx] Metoprolol Tartrate 12.5 mg PO BID 09/26/19 [History] HYDROcodone/APAP 5-325MG [[place] 5-325] 1 tab PO Q6HR PRN #10 tab 10/09/19 [Rx] Ondansetron [Zofran ODT] 4 mg PO Q8H PRN 10/12/19 [History] Follow up Appointment(s)/Referral(s): None,Stated [Primary Care Provider] - 1-2 days [place], [place] [NON-STAFF] - 1 Week Patient Instructions/Handouts: Abdominal Pain (ED) Activity/Diet/Wound Care/Special Instructions: Diet Full liquids Activity as tolerated Discharge Disposition: HOME SELF-CARE
[2019-10-18 14:55] VITALS: BP 106/68; PULSE 67; TEMP 98.3
== END 2019-10-18 15:24 | disposition home or self-care (01) ==
LOC: EC 13:31 → OBSVTOIN 15:20 → 1SOBS 15:20 → INTOOBSV 15:20 → 4SSUR 16:58 → UNDODISIN 10-18 15:24
PROVIDERS: ADMIT Surgery; ATTEND Surgery
DX: K52.9 Noninfective gastroenteritis and colitis, unspecified (principal); E86.0 Dehydration; E83.52 Hypercalcemia; Z98.890 Other specified postprocedural states; Z79.899 Other long term (current) drug therapy; K21.9 Gastro-esophageal reflux disease without esophagitis; J44.9 Chronic obstructive pulmonary disease, unspecified; M19.90 Unspecified osteoarthritis, unspecified site; M81.0 Age-related osteoporosis without current pathological fracture; Z90.710 Acquired absence of both cervix and uterus; F41.9 Anxiety disorder, unspecified; Z87.891 Personal history of nicotine dependence; Z87.42 Personal history of other diseases of the female genital tract; Z80.0 Family history of malignant neoplasm of digestive organs; D64.9 Anemia, unspecified; Z79.891 Long term (current) use of opiate analgesic
CPT/HCPCS: 96376 ×3; 96366 ×4; 96372; 96361; 96365; 96375; 99285; 36415; 80053; 80048; 83690; 83735 ×2; 85025 ×3; 81001; 87040; 74177; G0378 ×3; S4990 ×2; J2543 ×3; J2060 ×2; J1644; C9113; J1170 ×3; Q9967

== ENCOUNTER 2019-10-28 01:20 | Observation (INO) | payer OTHER ==
[2019-10-28] MEDS ORDERED: SODIUM CHLORIDE 0.9% 1,000 ML IV ONE ×2 (01:37→03:21)
[2019-10-28] MEDS ORDERED: MORPHINE SULFATE 4 MG/ML SYRINGE IVP STA (01:38)
--- NOTE | 2019-10-28 01:50 | ED ---
Back Pain HPI - General Chief Complaint: Back Pain/Injury Stated Complaint: Dehydrated Time Seen by Provider: 10/28/19 01:30 Source: patient, family Limitations: no limitations - History of Present Illness Initial Comments: Ileana is a 59-year-old female who presents the ER today for evaluation of possible dehydration. Patient reports that since having her hiatal hernia surgery last month she's had come the hospital 2 times for dehydration. She reports that she's been trying to eat and drink but has noticed that her skin is very dry and tenting which is for her bed indication that she is dehydrated. Patient also reports pain in the bilateral flanks which she believes is due to dehydration. She denies any abdominal pain, nausea or vomiting. Denies any dysuria but reports that her urine is very dark. - Related Data Home Medications Medication Instructions Recorded Confirmed Albuterol Sulfate [Ventolin HFA] 2 puff INHALATION RT-QID PRN 09/16/16 10/16/19 Montelukast [Singulair] 10 mg PO DAILY 09/03/19 10/16/19 Metoprolol Tartrate 12.5 mg PO BID 09/26/19 10/16/19 Ondansetron [Zofran ODT] 4 mg PO Q8H PRN 10/12/19 10/16/19 Previous Rx's Medication Instructions Recorded Acetaminophen Tab [Tylenol] 500 mg PO Q6H PRN #30 tablet 09/14/19 Pantoprazole [Protonix] 40 mg PO AC-BID #60 tablet. 09/14/19 HYDROcodone/APAP 5-325MG [[place] 1 tab PO Q6HR PRN #10 tab 10/09/19 5-325] Allergies Allergy/AdvReac Type Severity Reaction Status Date / Time No Known Allergies Allergy Verified 10/28/19 01:25 Review of Systems ROS Statement: Those systems with pertinent positive or pertinent negative responses have been documented in the HPI. ROS Other: All systems not noted in ROS Statement are negative. Past Medical History Past Medical History: COPD, GERD/Reflux, Osteoarthritis (OA) Additional Past Medical History / Comment(s): RECENT ADMISSION FOR UTI, N & V TREATED WITH ANTIBIOTICS. HIATAL HERNIA. 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 10/07/2019 Rosemary procedure Past Anesthesia/Blood Transfusion Reactions: Previous Problems w/ Anesthesia Additional Past Anesthesia/Blood Transfusion Reaction / Comment(s): woke up during sx in past Past Psychological History: Anxiety Smoking Status: Former smoker Past Alcohol Use History: None Reported Past Drug Use History: None Reported - Past Family History Father Family Medical History: Cancer Additional Family Medical History / Comment(s): Esophageal General Exam - General Exam Comments Initial Comments: Physical Exam GENERAL: Chronically ill-appearing female, appears older than stated age HENT: Normocephalic, Atraumatic. EYES: PERRL, EOMI PULMONARY: Unlabored respirations. CARDIOVASCULAR: RRR Warm and well perfused extremities ABDOMEN: Soft, nontender, Non-distended Tenderness to percussion of bilateral flanks SKIN: No rashes or bruising Skin tenting is noted : Deferred NEUROLOGIC: Alert and oriented Normal speech Normal gait MUSCULOSKELETAL: Moving all extremities with no apparent injury PSYCHIATRIC: No SI/HI Limitations: no limitations Course Vital Signs 10/28/19 10/28/19 01:21 03:05 Temperature 97.6 F Pulse Rate 107 H 86 Respiratory 20 18 Rate Blood Pressure 90/58 103/71 O2 Sat by Pulse 99 100 Oximetry Procedures - Sepsis Sepsis Focused Exam #1 Time Sepsis Criteria Met: 03:20 Sepsis Focused Exam Date: 10/28/19 Sepsis Focused Exam Time: 03:50 Sepsis Focused Exam Complete: Yes Vital Signs & RN Notes Reviewed: Yes Capillary Refill: < 2 Seconds: Fingers, Toes Peripheral Pulses: Normal: Radial (R), Radial (L) Skin Color: Normal for Patient Respiratory Exam: normal lung sounds Cardiovascular Exam: regular rate Medical Decision Making - Medical Decision Making The patient was seen and evaluated history was obtained from the patient has concern that she is dehydrated she has bilateral flank pain Basic labs and urinalysis were obtained Basic labs resulted with profound leukocytosis, given the patient's leukocytosis and back pain a computed tomography scan was ordered and results with no acute findings 3:20 AM sepsis identified Urinalysis has some contamination but some concern for infection, previous urinalysis was positive for Proteus which was yates susceptible, patient be treated with Rocephin Given the patient presented tachycardic and hypotensive she has leukocytosis and a urinary tract infection she does meet criteria for sepsis, at this point blood cultures lactic acid were obtained 3:50 AM Patient was reevaluated, she has received a full liter fluids, her blood pressure has improved her heart rate has improved she remains afebrile Review of patient's chart reveals she previously followed with Dr. 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 Disla from [facility] who agrees with plan for admission for dehydration, ileus and possible pyelo - Lab Data Result diagrams: 10/28/19 01:40 10/28/19 01:40 Lab Results 10/28/19 10/28/19 10/28/19 Range/Units 01:40 01:40 01:40 WBC 22.3 H (3.8-10.6) k/uL RBC 4.97 (3.80-5.40) m/uL Hgb 14.9 D (11.4-16.0) gm/dL Hct 47.5 H (34.0-46.0) % MCV 95.5 (80.0-100.0) fL MCH 30.0 (25.0-35.0) pg MCHC 31.4 (31.0-37.0) g/dL RDW 12.9 (11.5-15.5) % Plt Count 419 (150-450) k/uL Neutrophils % 82 % Lymphocytes % 13 % Monocytes % 3 % Eosinophils % 2 % Basophils % 1 % Neutrophils # 18.2 H (1.3-7.7) k/uL Lymphocytes # 2.8 (1.0-4.8) k/uL Monocytes # 0.7 (0-1.0) k/uL Eosinophils # 0.4 (0-0.7) k/uL Basophils # 0.1 (0-0.2) k/uL Sodium 131 L (137-145) mmol/L Potassium 4.8 (3.5-5.1) mmol/L Chloride 100 (98-107) mmol/L Carbon Dioxide 18 L (22-30) mmol/L Anion Gap 13 mmol/L BUN 24 H (7-17) mg/dL Creatinine 1.26 H (0.52-1.04) mg/dL Est GFR (CKD-EPI)AfAm 55 (>60 ml/min/1.73 sqM) Est GFR (CKD-EPI)NonAf 47 (>60 ml/min/1.73 sqM) Glucose 192 H (74-99) mg/dL Calcium 11.6 H (8.4-10.2) mg/dL Total Bilirubin 0.6 (0.2-1.3) mg/dL AST 27 (14-36) U/L ALT 15 (4-34) U/L Alkaline Phosphatase 89 (38-126) U/L Total Protein 7.6 (6.3-8.2) g/dL Albumin 4.7 (3.5-5.0) g/dL Lipase 81 (23-300) U/L Urine Color Luci Urine Appearance Clear (Clear) Urine pH 6.0 (5.0-8.0) Ur Specific Dwight 1.005 (1.001-1.035) Urine Protein 1+ H (Negative) Urine Glucose (UA) Negative (Negative) Urine Ketones Negative (Negative) Urine Blood Small H (Negative) Urine Nitrite Negative (Negative) Urine Bilirubin Negative (Negative) Urine Urobilinogen <2.0 (<2.0) mg/dL Ur Leukocyte Esterase Large H (Negative) Urine RBC 34 H (0-5) /hpf Urine WBC 11 H (0-5) /hpf Ur Squamous Epith Cells 11 H (0-4) /hpf Urine Bacteria Rare H (None) /hpf Hyaline Casts 160 H (0-2) /lpf Urine Mucus Rare H (None) /hpf Urine Yeast (Budding) Occasional H (None) /hpf Disposition Clinical Impression: Status post Rosemary fundoplication, Dehydration, Urinary tract infection, Ileus following gastrointestinal surgery Disposition: ADMITTED IP TO THIS HOSP Condition: Stable Is patient prescribed a controlled substance at d/c from ED?: No Referrals: None,Stated [Primary Care Provider] - 1-2 days
[2019-10-28 02:13] LABS: Basophils # (A) 0.1 k/uL (0-0.2); Basophils % (A) 1 %; Eosinophils # (A) 0.4 k/uL (0-0.7); Eosinophils % (A) 2 %; HCT 47.5 % (34.0-46.0); Lymphocytes # (A) 2.8 k/uL (1.0-4.8); Lymphocytes % (A) 13 %; MCHC 31.4 g/dL (31.0-37.0); MCV 95.5 fL (80.0-100.0); Mean Platelet Volume 7.9; Monocytes # (A) 0.7 k/uL (0-1.0); Monocytes % (A) 3 %; Neutrophils # (A) 18.2 k/uL (1.3-7.7); Neutrophils % (A) 82 %; Platelet Count 419 k/uL (150-450); RBC 4.97 m/uL (3.80-5.40); RDW 12.9 % (11.5-15.5); WBC 22.3 k/uL (3.8-10.6)
[2019-10-28 02:14] LABS: HGB 14.9 gm/dL (11.4-16.0)
[2019-10-28 02:22] LABS: Albumin 4.7 g/dL (3.5-5.0); Calcium 11.6 mg/dL (8.4-10.2); Potassium 4.8 mmol/L (3.5-5.1); Total Bilirubin 0.6 mg/dL (0.2-1.3); Total Protein 7.6 g/dL (6.3-8.2)
--- NOTE | 2019-10-28 03:07 | CT ---
EXAMINATION TYPE: CT abdomen pelvis w con DATE OF EXAM: 10/28/2019 COMPARISON: 10/16/2019 HISTORY: Dehydration, Pain CT DLP: 559.60 mGycm Automated exposure control for dose reduction was used. CONTRAST: Performed with IV Contrast, patient injected with 80 mL of Isovue 300. The lung bases are clear. There is no pleural effusion. Heart size is normal. There is no pericardial effusion. Liver spleen pancreas gallbladder appear normal. Bile ducts are not dilated. Stomach is la rge and filled with fluid. There are clips at the gastroesophageal junction. There is no adrenal mass. Kidneys show satisfactory contrast opacification. There is no hydronephrosi s. Ureters are not dilated. There is 4 mm calculus interpolar right kidney. There is no retroperitone al adenopathy. Bladder distends smoothly. There is 5 mm high density focus in the dependent urinary b ladder on the left side. This could be a small bladder stone. There is no inguinal hernia. There is n o evidence of a pelvic mass. There is no free fluid in the pelvis. Appendix is posterior and appears normal. There are large bowel fluid levels down to the rectum. There is distended loops of fluid-fill ed distal small bowel that measure up to 2.5 cm. There is no evidence of free air. There is no ascite s. There is no mesenteric edema. Proximal small bowel has fairly normal size. Lumbar vertebra have normal alignment. There is 35% compression deformity of L2 vertebra with vertebr oplasty. There is T11 wedging 25%. Bony pelvis is intact. IMPRESSION: Distended large and small bowel loops with fluid and air consistent with ileus and diarrhea. I do not suspect a mechanical bowel obstruction. Normal appendix. Bowel appears not significantly different t knight previous exam. Distended gas and fluid-filled stomach consistent with some degree of gastroparesi s. Compression fractures unchanged.
[2019-10-28 03:18] LABS: Bacteria,Urine Rare /hpf; Budding Yeast,Urine Occasional /hpf; Hyaline Casts,Urine 160 /lpf (0-2); Mucus,Urine Rare /hpf; RBC,Urine 34 /hpf (0-5); Squamous Epithelial Cell,Urine 11 /hpf (0-4); WBC,Urine 11 /hpf (0-5)
[2019-10-28 03:21] LABS: Appearance,Urine Clear (Clear); Color,Urine Amber; Protein,Urine 1+ (Negative); Specific Gravity,Urine 1.005 (1.001-1.035)
[2019-10-28 03:22] LABS: Bilirubin,Urine Negative (Negative); Blood,Urine Small (Negative); Glucose,Urine (UA) Negative (Negative); Ketones,Urine Negative (Negative)
[2019-10-28 03:23] LABS: Leukocyte Esterase,Urine Large (Negative); Nitrite,Urine Negative (Negative); Urobilinogen,Urine <2.0 mg/dL (<2.0)
[2019-10-28] MEDS ORDERED: cefTRIAXone IN SWFI 1,000 MG/10 ML SYRINGE IVP STA (03:24)
[2019-10-28] MEDS ORDERED: SODIUM CHLORIDE 0.9% 1,000 ML IV SCH (03:30)
[2019-10-28] MEDS ORDERED: NALOXONE 0.4 MG/ML 1 ML VIAL IV PRN (03:40)
[2019-10-28] MEDS ORDERED: MORPHINE SULFATE 4 MG/ML SYRINGE IV PRN (03:40)
[2019-10-28] MEDS ORDERED: NICOTINE 14MG/24HR PATCH TRANSDERM STA (04:09)
--- NOTE | 2019-10-28 04:18 | P.HPIM ---
History of Present Illness H&P Date: 10/28/19 Patient is a 59-year-old female with a PMH of recent fundoplication for hiatal hernia 3 weeks ago, COPD, tobacco abuse, and GERD who presented to the ED with complaints of back pain and "dehydration". The patient reports that ever since her surgery, she has a poor appetite and has not been drinking enough water. She reports drinking no water on a daily basis, and drinks only 1-2 bottles of Gatorade a day. At presentation to the ED, she had endorsed flank pain which had resolved by the time of this interview. The patient reported feeling better this after receiving IV fluids. She also reported feeling somewhat lethargic but denied any additional complaints. She denied urinary complaints including dysuria, urinary frequency, or urgency. She denied diarrhea, nausea, or vomiting. Denied chest pain, shortness of breath, cough, fever, or chills. In the emergency room, she was tachycardic on presentation with pulse 107 with BP 90/58 which improved to pulse 86 and BP 103/[address] abdomen and pelvis revealed distended large and small bowel loops consistent with ileus juan carlos mir diarrhea. Laboratory evaluation revealed a WBC count of 22.3, sodium 131, CO2 18, BUN 24, creatinine 1.26, calcium 11.6, and a contaminated UA. Review of Systems Pertinent positives and negatives as discussed in HPI, a complete review of systems was performed and all other systems are negative. Past Medical History Past Medical History: COPD, GERD/Reflux, Osteoarthritis (OA) Additional Past Medical History / Comment(s): RECENT ADMISSION FOR UTI, N & V TREATED WITH ANTIBIOTICS. HIATAL HERNIA. 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 10/07/2019 Rosemary procedure Past Anesthesia/Blood Transfusion Reactions: Previous Problems w/ Anesthesia Additional Past Anesthesia/Blood Transfusion Reaction / Comment(s): woke up during sx in past Past Psychological History: Anxiety Smoking Status: Former smoker Past Alcohol Use History: None Reported Past Drug Use History: None Reported - Past Family History Father Family Medical History: Cancer Additional Family Medical History / Comment(s): Esophageal Medications and Allergies Home Medications Medication Instructions Recorded Confirmed Type Albuterol Sulfate [Ventolin HFA] 2 puff INHALATION RT-QID PRN 09/16/16 10/16/19 History Montelukast [Singulair] 10 mg PO DAILY 09/03/19 10/16/19 History Acetaminophen Tab [Tylenol] 500 mg PO Q6H PRN #30 tablet 09/14/19 10/16/19 Rx Pantoprazole [Protonix] 40 mg PO AC-BID #60 tablet. 09/14/19 10/16/19 Rx Metoprolol Tartrate 12.5 mg PO BID 09/26/19 10/16/19 History HYDROcodone/APAP 5-325MG [[place] 1 tab PO Q6HR PRN #10 tab 10/09/19 10/16/19 Rx 5-325] Ondansetron [Zofran ODT] 4 mg PO Q8H PRN 10/12/19 10/16/19 History Allergies Allergy/AdvReac Type Severity Reaction Status Date / Time No Known Allergies Allergy Verified 10/28/19 01:25 Physical Exam Vitals: Vital Signs Temp Pulse Resp BP Pulse Ox 10/28/19 03:05 86 18 103/71 100 10/28/19 01:21 97.6 F 107 H 20 90/58 99 Intake and Output 10/27/19 10/27/19 10/28/19 14:59 22:59 06:59 Other: Weight 52.163 kg General: non toxic, no distress, appears older than stated age, normal weight Derm: no unusual rashes/lesions no unusual ecchymoses, warm, dry Head: atraumatic, normocephalic, symmetric Eyes: EOMI, no lid lag, anicteric sclera, pupils equal round reactive to light ENT: Nose and ears atraumatic, no thrush, no pharyngeal erythema Neck: No thyromegaly, no cervical lymphadenopathy, trachea midline, supple Mouth: no lip lesion, mucus membranes dry Cardiovascular: S1S2 reg, no murmur, positive posterior tibial pulse bilateral, no edema, capillary refill less than 2 seconds Lungs: CTA bilateral, no rhonchi, no rales , no accessory muscle use Abdominal: soft, nontender to palpation, no guarding, no appreciable organomegaly, normal bowel sounds, no CVA tenderness Ext: no gross muscle atrophy, muscle strength 5 out of 5 in all 4 extremities grossly, no contractures, Neuro: CN II-XI grossly intact, light touch intact all 4 extremities, finger to nose within normal limits, Psych: Alert, oriented, appropriate affect Results CBC & Chem 7: 10/28/19 01:40 10/28/19 01:40 Labs: Abnormal Lab Results - Last 24 Hours (Table) 10/28/19 10/28/19 10/28/19 Range/Units 01:40 01:40 01:40 WBC 22.3 H (3.8-10.6) k/uL Hct 47.5 H (34.0-46.0) % Neutrophils # 18.2 H (1.3-7.7) k/uL Sodium 131 L (137-145) mmol/L Carbon Dioxide 18 L (22-30) mmol/L BUN 24 H (7-17) mg/dL Creatinine 1.26 H (0.52-1.04) mg/dL Glucose 192 H (74-99) mg/dL Calcium 11.6 H (8.4-10.2) mg/dL Urine Protein 1+ H (Negative) Urine Blood Small H (Negative) Ur Leukocyte Esterase Large H (Negative) Urine RBC 34 H (0-5) /hpf Urine WBC 11 H (0-5) /hpf Ur Squamous Epith Cells 11 H (0-4) /hpf Urine Bacteria Rare H (None) /hpf Hyaline Casts 160 H (0-2) /lpf Urine Mucus Rare H (None) /hpf Urine Yeast (Budding) Occasional H (None) /hpf Assessment and Plan Plan: Dehydration with prerenal GUALBERTO, due to poor oral fluid intake -Continue with IV fluids -Monitor BMP Postoperative ileus -Surgery consult Leukocytosis -Likely secondary to severe dehydration -No signs of active infection at this time Abnormal UA, likely due to dehydration -Patient denying any urinary complaints at this time -Hold off on antibiotics at this time Hypercalcemia, due to dehydration -Monitor BMP for now Chronic conditions: Nicotine dependence, COPD -Containing patch as needed DVT prophylaxis -Heparin subq The patient is admitted with an anticipated less than 2 midnight stay for evaluation of dehydration CODE STATUS: Full Code Discussed with: Patient Anticipated discharge date: 10/[address]: Home A total of 35 minutes was spent on the care of this complex patient more than 50% of the time was spent in counseling and care coordination.
[2019-10-28 05:39] LABS: HCT 37.9 % (34.0-46.0); HGB 12.1 gm/dL (11.4-16.0); MCH 30.5 pg (25.0-35.0); MCHC 31.9 g/dL (31.0-37.0); MCV 95.8 fL (80.0-100.0); Mean Platelet Volume 8.7; Platelet Count 374 k/uL (150-450); RBC 3.95 m/uL (3.80-5.40); RDW 12.7 % (11.5-15.5); WBC 19.8 k/uL (3.8-10.6)
[2019-10-28 05:52] LABS: African American GFR (CKD) >90 (>60 ml/min/1.73 sqM); Anion Gap 7 mmol/L; Blood Urea Nitrogen 21 mg/dL (7-17); Calcium 9.5 mg/dL (8.4-10.2); Carbon Dioxide 19 mmol/L (22-30); Chloride 107 mmol/L (98-107); Glucose 86 mg/dL (74-99); Non-African American GFR(CKD) 79 (>60 ml/min/1.73 sqM); Sodium 133 mmol/L (137-145)
[2019-10-28 06:23] VITALS: RESP 16
[2019-10-28 11:45] VITALS: BP 97/56; PULSE 89; TEMP 98
--- NOTE | 2019-10-28 12:05 | P.DS ---
Providers Date of admission: 10/28/19 03:40 Attending physician: Nicol Disla MD Primary care physician: Stated None Hospital Course: 1. Dehydration 2. GUALBERTO 3. Ileus 59 year old woman with recent fundoplication surgery 3 weeks ago, COPD, and GERD presented with dehydration with prerenal GUALBERTO, due to poor oral fluid intake. Pt was placed on IVF and reported significant improvement with increase in her appetite. She reported feeling back to her normal and wanted to return home. Imaging showed distended small and large bowel loops, but no obstruction. Patient Condition at Discharge: Stable Plan - Discharge Summary Discharge Rx Participant: No New Discharge Prescriptions: Continue Albuterol Sulfate [Ventolin HFA] 2 puff INHALATION RT-QID PRN PRN Reason: Shortness Of Breath Montelukast [Singulair] 10 mg PO DAILY Acetaminophen Tab [Tylenol] 500 mg PO Q6H PRN #30 tablet PRN Reason: Pain Metoprolol Tartrate 12.5 mg PO BID Ondansetron [Zofran ODT] 4 mg PO Q8H PRN PRN Reason: Nausea Fluticasone Nasal Buckner [Flonase Nasal Buckner] 1 spr EA NOSTRIL DAILY PRN PRN Reason: Allergy Symptoms Nicotine 14Mg/24Hr Patch [Habitrol] 1 patch TRANSDERM DAILY Discharge Medication List Albuterol Sulfate [Ventolin HFA] 2 puff INHALATION RT-QID PRN 09/16/16 [History] Montelukast [Singulair] 10 mg PO DAILY 09/03/19 [History] Acetaminophen Tab [Tylenol] 500 mg PO Q6H PRN #30 tablet 09/14/19 [Rx] Metoprolol Tartrate 12.5 mg PO BID 09/26/19 [History] Ondansetron [Zofran ODT] 4 mg PO Q8H PRN 10/12/19 [History] Fluticasone Nasal Buckner [Flonase Nasal Buckner] 1 spr EA NOSTRIL DAILY PRN 10/28/19 [History] Nicotine 14Mg/24Hr Patch [Habitrol] 1 patch TRANSDERM DAILY 10/28/19 [History] Follow up Appointment(s)/Referral(s): None,Stated [Primary Care Provider] - 1-2 days Patient Instructions/Handouts: Chronic Back Pain (DC) Discharge Disposition: HOME SELF-CARE
== END 2019-10-28 11:46 | disposition home or self-care (01) ==
LOC: EC 01:20 → 1SOBS 03:40
PROVIDERS: ADMIT Internal Medicine; ATTEND Internal Medicine
DX: E86.0 Dehydration (principal); N17.9 Acute kidney failure, unspecified; K56.7 Ileus, unspecified; A41.9 Sepsis, unspecified organism; N39.0 Urinary tract infection, site not specified; J44.9 Chronic obstructive pulmonary disease, unspecified; K21.9 Gastro-esophageal reflux disease without esophagitis; E83.52 Hypercalcemia; M54.9 Dorsalgia, unspecified; M81.0 Age-related osteoporosis without current pathological fracture; F41.9 Anxiety disorder, unspecified; F17.200 Nicotine dependence, unspecified, uncomplicated; M19.90 Unspecified osteoarthritis, unspecified site; Z79.899 Other long term (current) drug therapy; K91.89 Other postprocedural complications and disorders of digestive system; Z87.440 Personal history of urinary (tract) infections; Z90.710 Acquired absence of both cervix and uterus; Z79.891 Long term (current) use of opiate analgesic; Z80.0 Family history of malignant neoplasm of digestive organs
CPT/HCPCS: 96361; 96374; 96375; 99284; 36415; 80053; 80048; 83605; 83690; 85025; 85027; 81001; 87040; 74177; G0378; S4990; J2270; J0696; Q9967

== ENCOUNTER 2019-10-29 03:49 | Observation (INO) | payer OTHER ==
[2019-10-29] MEDS ORDERED: MORPHINE SULFATE 4 MG/ML SYRINGE IV STA (04:17)
[2019-10-29] MEDS ORDERED: SODIUM CHLORIDE 0.9% 1,000 ML IV ONE (04:17)
[2019-10-29] MEDS ORDERED: ONDANSETRON 4 MG/2 ML VIAL IVP STA (04:17)
--- NOTE | 2019-10-29 04:20 | ED ---
Nausea/Vomiting/Diarrhea HPI - General Chief complaint: Nausea/Vomiting/Diarrhea Stated complaint: Vomiting, Diarrhea Time Seen by Provider: 10/29/19 03:59 Source: patient Mode of arrival: ambulatory Limitations: no limitations - History of Present Illness MD complaint: nausea, vomiting, abdominal pain -: hour(s) Description of Vomiting: food contents Associated Abdominal Pain: Yes Location: RUQ, RLQ Radiation: none Severity: severe Quality: cramping Consistency: constant Improves with: none Worsens with: none Context: recent surgery/procedure - Related Data Home Medications Medication Instructions Recorded Confirmed Albuterol Sulfate [Ventolin HFA] 2 puff INHALATION RT-QID PRN 09/16/16 10/28/19 Montelukast [Singulair] 10 mg PO DAILY 09/03/19 10/28/19 Metoprolol Tartrate 12.5 mg PO BID 09/26/19 10/28/19 Ondansetron [Zofran ODT] 4 mg PO Q8H PRN 10/12/19 10/28/19 Fluticasone Nasal [place] [Flonase 1 spr EA NOSTRIL DAILY PRN 10/28/19 10/28/19 Nasal [place]] Nicotine 14Mg/24Hr Patch [Habitrol] 1 patch TRANSDERM DAILY 10/28/19 10/28/19 Previous Rx's Medication Instructions Recorded Acetaminophen Tab [Tylenol] 500 mg PO Q6H PRN #30 tablet 09/14/19 Allergies Allergy/AdvReac Type Severity Reaction Status Date / Time No Known Allergies Allergy Verified 10/29/19 03:57 Review of Systems ROS Statement: Those systems with pertinent positive or pertinent negative responses have been documented in the HPI. ROS Other: All systems not noted in ROS Statement are negative. Constitutional: Denies: fever, chills Respiratory: Denies: cough, dyspnea Cardiovascular: Denies: chest pain, palpitations, edema Gastrointestinal: Reports: abdominal pain, nausea, vomiting, diarrhea. Denies: hematemesis, melena, hematochezia Genitourinary: Denies: dysuria, hematuria Musculoskeletal: Denies: back pain Skin: Denies: rash Neurological: Denies: headache, weakness Past Medical History Past Medical History: COPD, GERD/Reflux, Osteoarthritis (OA) Additional Past Medical History / Comment(s): Pt recently admitted to [facility] twice for dehydration/post viviana fundoplication. Other hx: Pt states she has been having diarrhea lately-liquid/watery stools, bronchitis, UTI, nephritis, pt unsure why lopressor was recently prescribed, osteoporosis, past low back fracture, occasional upper back pain, sinus allergies. History of Any Multi-Drug Resistant Organisms: None Reported Past Surgical History: Section, Hernia Repair, Hysterectomy Additional Past Surgical History / Comment(s): 10/07/19 Viviana fundoplication, colonoscopy, hemorrhoidectomy, L shoulder benign tumor removed Past Anesthesia/Blood Transfusion Reactions: Previous Problems w/ Anesthesia Additional Past Anesthesia/Blood Transfusion Reaction / Comment(s): woke up during sx in past Past Psychological History: Anxiety, Depression Smoking Status: Current every day smoker Past Alcohol Use History: Occasional Past Drug Use History: None Reported - Past Family History Father Family Medical History: Cancer Additional Family Medical History / Comment(s): Esophageal cancer/ulcer. Pt states father of pneumonia at the age of 56yrs. Mother Family Medical History: Diabetes Mellitus Additional Family Medical History / Comment(s): MENS SYNDROME Sister(s) Additional Family Medical History / Comment(s): MENS SYNDROME General Exam Limitations: no limitations General appearance: alert, in no apparent distress Head exam: Present: atraumatic, normocephalic Eye exam: Present: normal appearance. Absent: scleral icterus, conjunctival injection Respiratory exam: Present: normal lung sounds bilaterally. Absent: respiratory distress, wheezes, rales, rhonchi, stridor Cardiovascular Exam: Present: regular rate, normal rhythm, normal heart sounds. Absent: systolic murmur, diastolic murmur, rubs, gallop GI/Abdominal exam: Present: soft, hyperactive bowel sounds. Absent: distended, tenderness, guarding, rebound, rigid, mass, pulsatile mass, hernia Extremities exam: Present: normal inspection, normal capillary refill. Absent: pedal edema, calf tenderness Back exam: Present: normal inspection. Absent: CVA tenderness (R), CVA tenderness (L) Neurological exam: Present: alert Skin exam: Present: warm, dry, intact, normal color. Absent: rash Course Vital Signs 10/29/19 10/29/19 03:53 05:50 Temperature 98.1 F Pulse Rate 108 H 81 Respiratory 22 16 Rate Blood Pressure 91/60 96/68 O2 Sat by Pulse 97 100 Oximetry Medical Decision Making - Lab Data Result diagrams: 10/29/19 04:18 10/29/19 04:18 Lab Results 10/29/19 10/29/19 10/29/19 Range/Units 04:17 04:18 04:18 WBC 15.4 H (3.8-10.6) k/uL RBC 4.55 (3.80-5.40) m/uL Hgb 13.8 (11.4-16.0) gm/dL Hct 42.5 (34.0-46.0) % MCV 93.5 (80.0-100.0) fL MCH 30.4 (25.0-35.0) pg MCHC 32.5 (31.0-37.0) g/dL RDW 12.7 (11.5-15.5) % Plt Count 428 (150-450) k/uL Neutrophils % 77 % Lymphocytes % 15 % Monocytes % 4 % Eosinophils % 3 % Basophils % 0 % Neutrophils # 11.9 H (1.3-7.7) k/uL Lymphocytes # 2.3 (1.0-4.8) k/uL Monocytes # 0.7 (0-1.0) k/uL Eosinophils # 0.4 (0-0.7) k/uL Basophils # 0.1 (0-0.2) k/uL Sodium (137-145) mmol/L Potassium (3.5-5.1) mmol/L Chloride (98-107) mmol/L Carbon Dioxide (22-30) mmol/L Anion Gap mmol/L BUN (7-17) mg/dL Creatinine (0.52-1.04) mg/dL Est GFR (CKD-EPI)AfAm (>60 ml/min/1.73 sqM) Est GFR (CKD-EPI)NonAf (>60 ml/min/1.73 sqM) Glucose (74-99) mg/dL Plasma Lactic Acid Héctor 1.0 (0.7-2.0) mmol/L Calcium (8.4-10.2) mg/dL Total Bilirubin (0.2-1.3) mg/dL AST (14-36) U/L ALT (4-34) U/L Alkaline Phosphatase (38-126) U/L Total Protein (6.3-8.2) g/dL Albumin (3.5-5.0) g/dL Amylase (30-110) U/L Lipase (23-300) U/L Urine Color Yellow Urine Appearance Cloudy H (Clear) Urine pH 6.0 (5.0-8.0) Ur Specific [place] 1.015 (1.001-1.035) Urine Protein 1+ H (Negative) Urine Glucose (UA) Negative (Negative) Urine Ketones 2+ H (Negative) Urine Blood Large (Negative) Urine Nitrite Negative (Negative) Urine Bilirubin Negative (Negative) Urine Urobilinogen <2.0 (<2.0) mg/dL Ur Leukocyte Esterase Negative (Negative) Urine RBC >182 H (0-5) /hpf Urine WBC 11 H (0-5) /hpf Ur Squamous Epith Cells <1 (0-4) /hpf Amorphous Sediment Rare H (None) /hpf Hyaline Casts 2 (0-2) /lpf Urine Mucus Rare H (None) /hpf 08/18/20 Range/Units 04:18 WBC (3.8-10.6) k/uL RBC (3.80-5.40) m/uL Hgb (11.4-16.0) gm/dL Hct (34.0-46.0) % MCV (80.0-100.0) fL MCH (25.0-35.0) pg MCHC (31.0-37.0) g/dL RDW (11.5-15.5) % Plt Count (150-450) k/uL Neutrophils % % Lymphocytes % % Monocytes % % Eosinophils % % Basophils % % Neutrophils # (1.3-7.7) k/uL Lymphocytes # (1.0-4.8) k/uL Monocytes # (0-1.0) k/uL Eosinophils # (0-0.7) k/uL Basophils # (0-0.2) k/uL Sodium 136 L (137-145) mmol/L Potassium 3.6 (3.5-5.1) mmol/L Chloride 101 (98-107) mmol/L Carbon Dioxide 26 (22-30) mmol/L Anion Gap 9 mmol/L BUN 15 (7-17) mg/dL Creatinine 0.51 L (0.52-1.04) mg/dL Est GFR (CKD-EPI)AfAm >90 (>60 ml/min/1.73 sqM) Est GFR (CKD-EPI)NonAf >90 (>60 ml/min/1.73 sqM) Glucose 133 H (74-99) mg/dL Plasma Lactic Acid Héctor (0.7-2.0) mmol/L Calcium 11.5 H (8.4-10.2) mg/dL Total Bilirubin 0.6 (0.2-1.3) mg/dL AST 29 (14-36) U/L ALT 16 (4-34) U/L Alkaline Phosphatase 68 (38-126) U/L Total Protein 6.7 (6.3-8.2) g/dL Albumin 4.1 (3.5-5.0) g/dL Amylase 46 (30-110) U/L Lipase 68 (23-300) U/L Urine Color Urine Appearance (Clear) Urine pH (5.0-8.0) Ur Specific [place] (1.001-1.035) Urine Protein (Negative) Urine Glucose (UA) (Negative) Urine Ketones (Negative) Urine Blood (Negative) Urine Nitrite (Negative) Urine Bilirubin (Negative) Urine Urobilinogen (<2.0) mg/dL Ur Leukocyte Esterase (Negative) Urine RBC (0-5) /hpf Urine WBC (0-5) /hpf Ur Squamous Epith Cells (0-4) /hpf Amorphous Sediment (None) /hpf Hyaline Casts (0-2) /lpf Urine Mucus (None) /hpf Disposition Clinical Impression: Abdominal pain, Ileus, Hematuria Disposition: ADMITTED IP TO THIS [facility] Condition: Fair Referrals: None,Stated [Primary Care Provider] - 1-2 days
[2019-10-29 04:59] LABS: Basophils # (A) 0.1 k/uL (0-0.2); Basophils % (A) 0 %; Eosinophils # (A) 0.4 k/uL (0-0.7); Eosinophils % (A) 3 %; HCT 42.5 % (34.0-46.0); HGB 13.8 gm/dL (11.4-16.0); Lymphocytes # (A) 2.3 k/uL (1.0-4.8); Lymphocytes % (A) 15 %; MCH 30.4 pg (25.0-35.0); MCHC 32.5 g/dL (31.0-37.0); MCV 93.5 fL (80.0-100.0); Mean Platelet Volume 8.6; Monocytes # (A) 0.7 k/uL (0-1.0); Monocytes % (A) 4 %; Neutrophils # (A) 11.9 k/uL (1.3-7.7); Neutrophils % (A) 77 %; Platelet Count 428 k/uL (150-450); RBC 4.55 m/uL (3.80-5.40); RDW 12.7 % (11.5-15.5); WBC 15.4 k/uL (3.8-10.6)
--- NOTE | 2019-10-29 05:06 | XR ---
EXAMINATION TYPE: XR KUB DATE OF EXAM: 10/29/2019 COMPARISON: 09/26/2019. CT scan yesterday. HISTORY: Abdominal pain TECHNIQUE: Single view FINDINGS: There are some distended loops of small bowel with multiple fluid levels. There is L2 verte broplasty. There is gas down to the rectum. There is no sign of free air. IMPRESSION: Dilated large and small bowel loops with fluid levels consistent with ileus. Partial mech anical obstruction not excluded. There is probably no change compared to CT scan yesterday. No free a ir.
[2019-10-29 05:07] LABS: ALT 16 U/L (4-34); AST 29 U/L (14-36); African American GFR (CKD) >90 (>60 ml/min/1.73 sqM); Albumin 4.1 g/dL (3.5-5.0); Alkaline Phosphatase 68 U/L (38-126); Amorphous Sediment,Urine Rare /hpf; Amylase 46 U/L (30-110); Anion Gap 9 mmol/L; Blood Urea Nitrogen 15 mg/dL (7-17); Calcium 11.5 mg/dL (8.4-10.2); Carbon Dioxide 26 mmol/L (22-30); Chloride 101 mmol/L (98-107); Glucose 133 mg/dL (74-99); Hyaline Casts,Urine 2 /lpf (0-2); Mucus,Urine Rare /hpf; Non-African American GFR(CKD) >90 (>60 ml/min/1.73 sqM); Potassium 3.6 mmol/L (3.5-5.1); RBC,Urine >182 /hpf (0-5); Sodium 136 mmol/L (137-145); Squamous Epithelial Cell,Urine <1 /hpf (0-4); Total Bilirubin 0.6 mg/dL (0.2-1.3); Total Protein 6.7 g/dL (6.3-8.2); WBC,Urine 11 /hpf (0-5)
[2019-10-29 05:10] LABS: Color,Urine Yellow
[2019-10-29 05:11] LABS: Appearance,Urine Cloudy (Clear); Bilirubin,Urine Negative (Negative); Blood,Urine Large (Negative); Glucose,Urine (UA) Negative (Negative); Ketones,Urine 2+ (Negative); Leukocyte Esterase,Urine Negative (Negative); Nitrite,Urine Negative (Negative); Protein,Urine 1+ (Negative); Specific Gravity,Urine 1.015 (1.001-1.035); Urobilinogen,Urine <2.0 mg/dL (<2.0)
[2019-10-29] MEDS ORDERED: ONDANSETRON 4 MG/2 ML VIAL IVP PRN (06:18)
[2019-10-29] MEDS ORDERED: NALOXONE 0.4 MG/ML 1 ML VIAL IV PRN (06:18)
[2019-10-29] MEDS ORDERED: ALBUTEROL NEBULIZED 2.5 MG/3 ML INHALATION PRN (06:20)
[2019-10-29] MEDS ORDERED: FLUTICASONE 50MCG/SPRAY NASAL 16GM EA NOSTRIL PRN (06:20)
[2019-10-29] MEDS: SODIUM CHLORIDE 0.9% 1,000 ML IV SCH ×2 (06:22→16:18)
[2019-10-29] MEDS: MONTELUKAST 10 MG TAB PO SCH (07:30)
[2019-10-29] MEDS: METOPROLOL TARTRATE 12.5 MG TAB PO SCH ×2 (07:30→22:47)
[2019-10-29] MEDS: NICOTINE 14MG/24HR PATCH TRANSDERM SCH (07:34)
[2019-10-29 09:28] VITALS: BMI 21.7
[2019-10-29] MEDS: HYDROmorphone 0.5 MG/0.5 ML SYRINGE IVP PRN ×3 (11:30→22:51)
--- NOTE | 2019-10-29 11:38 | P.GSHP ---
History of Present Illness H&P Date: 10/29/19 CHIEF COMPLAINT: Abdominal pain with nausea and vomiting HISTORY OF PRESENT ILLNESS: This is a 59-year-old female with a known past medical history of Viviana fundoplication for hiatal hernia that was recently done on November 06. She also has a history of COPD, GERD, osteo-arthritis and nicotine dependence. She presents to the emergency room with complaints of diffuse abdominal pain with nausea and vomiting. She reports since her surgery she is unable to keep anything down. She has tried to start on soft diet but is on been unable to tolerate it. She also has difficulty with liquids. She had been recently discharged on October 27 and at that time treated by medicine for dehydration and acute kidney injury and ileus. Patient denies any fever, chills, sweats. She reports having small bowel movements. She is found to have a UTI as well as an ileus on KUB x-ray. PAST MEDICAL HISTORY: See list. PAST SURGICAL HISTORY: See list. MEDICATIONS: See list. ALLERGIES: See list. SOCIAL HISTORY: No illicit drug use. REVIEW OF SYSTEMS: CONSTITUTIONAL: Denies fever or chills. HEENT: Denies blurred vision, vision changes, or eye pain. Denies hemoptysis CARDIOVASCULAR: Denies chest pain or pressure. RESPIRATORY: No shortness of breath. GASTROINTESTINAL: See HPI for pertinent findings HEMATOLOGIC: Denies bleeding disorders. GENITOURINARY: Denies any blood in urine or increased urinary frequency. SKIN: Denies pruitis. Denies rash. PHYSICAL EXAM: VITAL SIGNS: Reviewed GENERAL: Well-developed in no acute distress. HEENT: No sclera icterus. Extraocular movements grossly intact. Moist buccal mucosa. Head is atraumatic, normocephalic. No nasal drainage. ABDOMEN: Soft. Nondistended. Diffuse abdominal tenderness with palpation NEUROLOGIC: Alert and oriented. Cranial nerves II through XII grossly intact. LABORATORY DATA: WBC is 15.4 hemoglobin 15.8 platelets are 428 calcium 11.5 IMAGING: kub x-ray dilated large and small bowel loops with fluid levels consistent with ileus ASSESSMENT: 1. Ileus likely secondary to UTI 2. Abdominal pain with nausea and vomiting 3. UTI PLAN: -Start Rocephin 1 g daily -Await urine culture -Continue with IV fluids -Check CBC, CMP, Mg in a.m. -Consult medicine for medical management Physician Potter Or Ceramic Artist note has been reviewed by physician. Signing provider agrees with the documented findings, assessment, and plan of care. Past Medical History Past Medical History: COPD, GERD/Reflux, Osteoarthritis (OA) Additional Past Medical History / Comment(s): Pt recently admitted to [facility] on 10/28/19 for dehydration, acute kidney injury, ileus. She is recent post viviana fundoplication and has had other recent admits for dehydration. Other hx: Pt states she has been having diarrhea lately-liquid/watery stools, bronchitis, UTI, nephritis, pt unsure why lopressor was recently prescribed, osteoporosis, past low back fracture, occasional upper back pain, sinus allergies. History of Any Multi-Drug Resistant Organisms: None Reported Past Surgical History: Section, Hernia Repair, Hysterectomy Additional Past Surgical History / Comment(s): 10/07/19 Viviana fundoplication, colonoscopy, hemorrhoidectomy, L shoulder benign tumor removed Past Anesthesia/Blood Transfusion Reactions: Previous Problems w/ Anesthesia Additional Past Anesthesia/Blood Transfusion Reaction / Comment(s): woke up during sx in past Smoking Status: Current every day smoker - Past Family History Father Family Medical History: Cancer Additional Family Medical History / Comment(s): Esophageal cancer/ulcer. Pt states father of pneumonia at the age of 56yrs. Mother Family Medical History: Diabetes Mellitus Additional Family Medical History / Comment(s): MENS SYNDROME Sister(s) Additional Family Medical History / Comment(s): MENS SYNDROME Medications and Allergies Home Medications Medication Instructions Recorded Confirmed Type Albuterol Sulfate [Ventolin HFA] 2 puff INHALATION RT-QID PRN 09/16/16 10/29/19 History Montelukast [Singulair] 10 mg PO DAILY 09/03/19 10/29/19 History Acetaminophen Tab [Tylenol] 500 mg PO Q6H PRN #30 tablet 09/14/19 10/29/19 Rx Metoprolol Tartrate 12.5 mg PO BID 09/26/19 10/29/19 History Ondansetron [Zofran ODT] 4 mg PO Q8H PRN 10/12/19 10/29/19 History Fluticasone Nasal [place] [Flonase 1 spr EA NOSTRIL DAILY PRN 10/28/19 10/29/19 History Nasal [place]] Nicotine 14Mg/24Hr Patch [Habitrol] 1 patch TRANSDERM DAILY 10/28/19 10/29/19 History Allergies Allergy/AdvReac Type Severity Reaction Status Date / Time No Known Allergies Allergy Verified 10/29/19 07:10 Surgical - Exam Vital Signs Temp Pulse Resp BP Pulse Ox 98.1 F 108 H 22 91/60 97 10/29/19 03:53 10/29/19 03:53 10/29/19 03:53 10/29/19 03:53 10/29/19 03:53 Results - Labs 10/29/19 04:18 10/29/19 04:18 Abnormal Lab Results - Last 24 Hours (Table) 10/29/19 10/29/19 10/29/19 Range/Units 04:18 04:18 04:18 WBC 15.4 H (3.8-10.6) k/uL Neutrophils # 11.9 H (1.3-7.7) k/uL Sodium 136 L (137-145) mmol/L Creatinine 0.51 L (0.52-1.04) mg/dL Glucose 133 H (74-99) mg/dL Calcium 11.5 H (8.4-10.2) mg/dL Urine Appearance Cloudy H (Clear) Urine Protein 1+ H (Negative) Urine Ketones 2+ H (Negative) Urine RBC >182 H (0-5) /hpf Urine WBC 11 H (0-5) /hpf Amorphous Sediment Rare H (None) /hpf Urine Mucus Rare H (None) /hpf Diabetes panel 10/29/19 Range/Units 04:18 Sodium 136 L (137-145) mmol/L Potassium 3.6 (3.5-5.1) mmol/L Chloride 101 (98-107) mmol/L Carbon Dioxide 26 (22-30) mmol/L BUN 15 (7-17) mg/dL Creatinine 0.51 L (0.52-1.04) mg/dL Glucose 133 H (74-99) mg/dL Calcium 11.5 H (8.4-10.2) mg/dL AST 29 (14-36) U/L ALT 16 (4-34) U/L Alkaline Phosphatase 68 (38-126) U/L Total Protein 6.7 (6.3-8.2) g/dL Albumin 4.1 (3.5-5.0) g/dL Calcium panel 10/29/19 Range/Units 04:18 Calcium 11.5 H (8.4-10.2) mg/dL Albumin 4.1 (3.5-5.0) g/dL Pituitary panel 10/29/19 Range/Units 04:18 Sodium 136 L (137-145) mmol/L Potassium 3.6 (3.5-5.1) mmol/L Chloride 101 (98-107) mmol/L Carbon Dioxide 26 (22-30) mmol/L BUN 15 (7-17) mg/dL Creatinine 0.51 L (0.52-1.04) mg/dL Glucose 133 H (74-99) mg/dL Calcium 11.5 H (8.4-10.2) mg/dL Adrenal panel 10/29/19 Range/Units 04:18 Sodium 136 L (137-145) mmol/L Potassium 3.6 (3.5-5.1) mmol/L Chloride 101 (98-107) mmol/L Carbon Dioxide 26 (22-30) mmol/L BUN 15 (7-17) mg/dL Creatinine 0.51 L (0.52-1.04) mg/dL Glucose 133 H (74-99) mg/dL Calcium 11.5 H (8.4-10.2) mg/dL Total Bilirubin 0.6 (0.2-1.3) mg/dL AST 29 (14-36) U/L ALT 16 (4-34) U/L Alkaline Phosphatase 68 (38-126) U/L Total Protein 6.7 (6.3-8.2) g/dL Albumin 4.1 (3.5-5.0) g/dL
[2019-10-29] MEDS ORDERED: HYDROcodone/APAP 5-325MG 1 EACH TAB PO PRN (12:39)
[2019-10-29] MEDS ORDERED: ALPRAZolam 0.25 MG TAB PO PRN (12:39)
[2019-10-29] MEDS ORDERED: ACETAMINOPHEN TAB 500 MG TAB PO PRN (12:39)
--- NOTE | 2019-10-29 13:13 | CONS ---
CONSULTATION REASON FOR CONSULTATION: Advice regarding COPD and other multiple medical issues requested by Dr. Phipps. HISTORY OF PRESENT ILLNESS: This is a 52-year-old woman with a past history COPD, GERD, DJD, was recently admitted with dehydration, kidney injury and ileus. The patient has a Rosemary fundoplication recently. The patient is complaining of diffuse abdominal pain, some diarrhea. A CT scan of the abdomen was done last night which showed dilated small and large bowel loops, possibly ileus. No mechanical obstruction was seen. The x-ray plain as well as KUB also confirmed the finding. Dr. Phipps is following the patient closely. There is no history of fever, rigors, chills. No history of headache, loss of consciousness, seizures. PAST MEDICAL: COPD, GERD, DJD, history of anxiety, depression, and Rosemary fundoplication. HOME MEDICATIONS: 1. Zofran 4 mg q.8 p.r.n. 2. Habitrol 14 daily. 3. Singulair 10 mg daily. 4. Metoprolol 12.5 mg b.i.d. 5. Flonase 1 spray daily p.r.n. 6. Ventolin 2 puffs q.i.d. p.r.n. 7. Tylenol 500 mg q.6 p.r.n. ALLERGIES: None known. FAMILY HISTORY: History of esophageal cancer in the family. SOCIAL HISTORY: History of smoking. No history of alcohol intake. REVIEW OF SYSTEMS: ENT: No diminished vision or hearing. CARDIOVASCULAR: No angina or palpitations. RESPIRATORY: As mentioned earlier. GI: No nausea or vomiting. : No dysuria. NERVOUS SYSTEM: No numbness or weakness. ALLERGY/IMMUNOLOGY: No asthma or hayfever. MUSCULOSKELETAL: As mentioned earlier. HEMATOLOGY: No history anemia. ENDOCRINE: No history of diabetes or hypothyroidism. CONSTITUTIONAL: As mentioned earlier. DERMATOLOGY: Negative. RHEUMATOLOGY: Negative. PSYCHIATRY: As mentioned earlier. PHYSICAL EXAMINATION: Patient is alert and oriented times three. Pulse 77, blood pressure 97/58, respiration 18, temperature 97.5, pulse ox 100% on room air. HEENT: Conjunctivae normal. Oral mucous moist. NECK: No jugular venous distention. No carotid bruits. No lymph node enlargement. RESPIRATORY: Breath sounds diminished at the bases. A few scattered rhonchi and crackles. HEART: S1 and S2, muffled. ABDOMEN: Soft, mild diffuse discomfort. Bowel sounds diminished. No guarding, no rigidity or masses palpable. EXTREMITIES: No edema, no swelling. NERVOUS: Higher functions as mentioned earlier. Moves all limbs. No focal or motor deficits. LYMPHATICS: No lymph nodes in the neck or axilla. SKIN: No rashes. JOINTS: No active deforming arthropathy. LABS: WBC 15.4, sodium 136. UA shows some WBCs. ASSESSMENT: 1. Abdominal discomfort and possibly ileus with dilated large and small bowel loops. Rule out mechanical obstruction. 2. Possible acute urinary tract infection present on admission. 3. Increased WBC. 4. Hyponatremia. 5. Hypercalcemia. 6. Hypomagnesemia. 7. Dehydration, present on admission. 8. Continued ongoing nicotine dependence. 9. Chronic obstructive pulmonary disease. 10.Gastroesophageal reflux disease. 11.Degenerative joint disease. 12.History of recent kidney injury. 13.Ileus. 14.History of Rosemary fundoplication recently. 15.History of anxiety, depression. 16.FULL CODE. RECOMMENDATIONS AND DISCUSSION: In this 49-year-old woman who presented with multiple complex medical issues, we will monitor the patient closely. Continue the current management and continue symptomatic treatment. The patient has empiric antibiotics. Otherwise, we will resume the home medications. Symptomatic treatment. DVT prophylaxis. Check C difficile. Guarded prognosis because of multiple complex medical issues. Further recommendations to follow. MMODL / IJN: [id number] /
[2019-10-29] MEDS: PANTOPRAZOLE 40 MG/10 ML VIAL IVP SCH (13:33)
[2019-10-29] MEDS ORDERED: Magnesium Replacement Protocol 1 EACH MISC MISCELLANE PRN ×2 (21:24→21:41)
[2019-10-29] MEDS: FAMOTIDINE 20 MG TAB PO SCH (22:43)
[2019-10-29] MEDS: HEPARIN SODIUM,PORCINE 5,000 UNIT/ML 1 ML VIAL SQ SCH (22:43)
[2019-10-29] MEDS: MAGNESIUM SULFATE-D5W PMX 1 GM in DEXTROSE/WATER 1 100ML.BAG IVPB SCH (23:42)
[2019-10-30] MEDS: MAGNESIUM SULFATE-D5W PMX 1 GM in DEXTROSE/WATER 1 100ML.BAG IVPB SCH (00:50)
[2019-10-30] MEDS: SODIUM CHLORIDE 0.9% 1,000 ML IV SCH ×2 (02:42→12:12)
[2019-10-30 06:12] LABS: Basophils # (A) 0.1 k/uL (0-0.2); Basophils % (A) 1 %; Eosinophils # (A) 0.2 k/uL (0-0.7); Eosinophils % (A) 3 %; HCT 32.4 % (34.0-46.0); Hypochromasia Slight; Lymphocytes % (A) 42 %; MCH 30.8 pg (25.0-35.0); MCHC 31.8 g/dL (31.0-37.0); MCV 96.8 fL (80.0-100.0); Monocytes # (A) 0.4 k/uL (0-1.0); Monocytes % (A) 5 %; Neutrophils # (A) 3.5 k/uL (1.3-7.7); Neutrophils % (A) 47 %; Platelet Count 295 k/uL (150-450); RBC 3.35 m/uL (3.80-5.40); RDW 12.9 % (11.5-15.5); WBC 7.3 k/uL (3.8-10.6)
[2019-10-30 06:14] LABS: HGB 10.3 gm/dL (11.4-16.0)
[2019-10-30 06:15] LABS: ALT 11 U/L (4-34); AST 16 U/L (14-36); African American GFR (CKD) >90 (>60 ml/min/1.73 sqM); Albumin 2.5 g/dL (3.5-5.0); Alkaline Phosphatase 55 U/L (38-126); Anion Gap 3 mmol/L; Blood Urea Nitrogen 5 mg/dL (7-17); Calcium 8.7 mg/dL (8.4-10.2); Carbon Dioxide 20 mmol/L (22-30); Chloride 113 mmol/L (98-107); Glucose 73 mg/dL (74-99); Non-African American GFR(CKD) >90 (>60 ml/min/1.73 sqM); Potassium 3.5 mmol/L (3.5-5.1); Sodium 136 mmol/L (137-145); Total Bilirubin 0.3 mg/dL (0.2-1.3); Total Protein 4.6 g/dL (6.3-8.2)
[2019-10-30] MEDS: HEPARIN SODIUM,PORCINE 5,000 UNIT/ML 1 ML VIAL SQ SCH ×2 (09:00→22:18)
[2019-10-30] MEDS: METOPROLOL TARTRATE 12.5 MG TAB PO SCH ×2 (09:00→22:18)
[2019-10-30] MEDS: NICOTINE 14MG/24HR PATCH TRANSDERM SCH (09:00)
[2019-10-30] MEDS: MONTELUKAST 10 MG TAB PO SCH (09:00)
[2019-10-30] MEDS: PANTOPRAZOLE 40 MG/10 ML VIAL IVP SCH (09:00)
[2019-10-30] MEDS: FAMOTIDINE 20 MG TAB PO SCH ×2 (09:00→22:18)
--- NOTE | 2019-10-30 11:58 | P.PN ---
Subjective Progress Note Date: 10/30/19 CHIEF COMPLAINT: Abdominal pain with nausea and vomiting HISTORY OF PRESENT ILLNESS: Patient reports improvement in her abdominal pain. No further nausea or vomiting. White count has normalized at 7.3 she is afebrile. She was clear liquid diet. She'll be advanced to regular. Magnesium replaced yesterday. Magnesium level II.0 PHYSICAL EXAM: VITAL SIGNS: Reviewed. GENERAL: Well-developed in no acute distress. HEENT: No sclera icterus. Extraocular movements grossly intact. Moist buccal mucosa. Head is atraumatic, normocephalic. ABDOMEN: Soft. Nondistended. Nontender. NEUROLOGIC: Alert and oriented. Cranial nerves II through XII grossly intact. ASSESSMENT: 1. Ileus likely secondary to UTI 2. Abdominal pain with nausea and vomiting 3. UTI 4. Hypomagnesemia improved with supplements 5. History of recent Rosemary fundoplication for hiatal hernia PLAN: -Continue Rocephin 1 g daily -Await urine culture -Continue with IV fluids -Check CBC, CMP -Medicine following -Advance diet to regular diet -Anticipate discharge home tomorrow Physician Antenna Design Engineer note has been reviewed by physician. Signing provider agrees with the documented findings, assessment, and plan of care. Objective - Vital Signs Vital signs: Vital Signs Temp 98.2 F 10/30/19 08:56 Pulse 62 10/30/19 08:56 Resp 16 10/30/19 08:56 BP 98/58 10/30/19 08:56 Pulse Ox 100 10/30/19 08:56 Intake & Output 10/29/19 10/30/19 10/30/19 18:59 06:59 18:59 Intake Total 240 440 Balance 240 440 Weight 52.163 kg Intake: Oral 240 240 Other 200 Other: # Voids 1 1 - Labs CBC & Chem 7: 10/30/19 05:16 10/30/19 05:16 Labs: Abnormal Lab Results - Last 24 Hours (Table) 10/29/19 10/30/19 10/30/19 Range/Units 12:03 05:16 05:16 RBC 3.35 L (3.80-5.40) m/uL Hgb 10.3 L D (11.4-16.0) gm/dL Hct 32.4 L (34.0-46.0) % Sodium 136 L (137-145) mmol/L Chloride 113 H (98-107) mmol/L Carbon Dioxide 20 L (22-30) mmol/L BUN 5 L (7-17) mg/dL Creatinine 0.38 L (0.52-1.04) mg/dL Glucose 73 L (74-99) mg/dL Magnesium 1.3 L (1.6-2.3) mg/dL Total Protein 4.6 L (6.3-8.2) g/dL Albumin 2.5 L (3.5-5.0) g/dL Microbiology - Last 24 Hours (Table) 10/29/19 04:18 Urine Culture - Preliminary Urine,Clean Catch
--- NOTE | 2019-10-30 19:52 | PN ---
PROGRESS NOTE DATE OF SERVICE: 10/30/2019 This 59-year-old woman who was admitted with acute abdominal discomfort and possible ileus is being closely monitored. No chest pain. No palpitations. No fever. Surgery is following the patient closely. PHYSICAL EXAMINATION: Alert and oriented x3. Pulse 62, blood pressure 98/58, respirations 16, temperature 98.8, pulse ox 100% on room air. HEENT: Conjunctivae normal. NECK: No jugular venous distention. CARDIOVASCULAR SYSTEM: S1, S2 muffled. RESPIRATORY SYSTEM: Breath sounds diminished at the bases. No rhonchi. No crackles. ABDOMEN: Soft, non-tender. No mass palpable. LEGS: No edema. No swelling. NERVOUS SYSTEM: No focal deficit. LABS: Hemoglobin 10.3, sodium 136 and albumin is 2.5. UA showing possible UTI. ASSESSMENT: 1. Abdominal discomfort and possible ileus with dilated large and small bowel loops. Rule out mechanical obstruction. 2. Possible acute urinary tract infection, present on admission. 3. Increased white count. 4. Hyponatremia. 5. Hypercalcemia. 6. Hypomagnesemia. 7. Dehydration, present on admission. 8. Continued ongoing nicotine dependence. 9. History of chronic obstructive pulmonary disease. 10.Gastroesophageal reflux disease. 11.Degenerative joint disease. 12.History of recent kidney injury. 13.Ileus. 14.History of Rosemary fundoplication recently. 15.History of anxiety, depression. 16.FULL CODE. RECOMMENDATIONS AND DISCUSSION: I recommend to continue current medications, continue with the monitoring, symptomatic treatment. Diet per Surgery. Repeat labs. Continue with the antibiotics. Further recommendations to follow. MMODL / IJN: [id number] /
[2019-10-31] MEDS: SODIUM CHLORIDE 0.9% 1,000 ML IV SCH ×2 (04:15→08:00)
[2019-10-31 06:08] LABS: Basophils % (A) 1 %; Eosinophils # (A) 0.2 k/uL (0-0.7); Eosinophils % (A) 3 %; HCT 33.5 % (34.0-46.0); HGB 10.9 gm/dL (11.4-16.0); Lymphocytes # (A) 2.9 k/uL (1.0-4.8); Lymphocytes % (A) 55 %; MCH 30.6 pg (25.0-35.0); MCHC 32.4 g/dL (31.0-37.0); MCV 94.6 fL (80.0-100.0); Mean Platelet Volume 8.1; Monocytes # (A) 0.3 k/uL (0-1.0); Monocytes % (A) 6 %; Neutrophils # (A) 1.8 k/uL (1.3-7.7); Neutrophils % (A) 34 %; Platelet Count 317 k/uL (150-450); RBC 3.55 m/uL (3.80-5.40); RDW 13.1 % (11.5-15.5); WBC 5.2 k/uL (3.8-10.6)
[2019-10-31 06:28] LABS: ALT 14 U/L (4-34); AST 21 U/L (14-36); African American GFR (CKD) >90 (>60 ml/min/1.73 sqM); Albumin 2.9 g/dL (3.5-5.0); Alkaline Phosphatase 55 U/L (38-126); Anion Gap 5 mmol/L; Blood Urea Nitrogen 5 mg/dL (7-17); Calcium 9.6 mg/dL (8.4-10.2); Carbon Dioxide 23 mmol/L (22-30); Chloride 111 mmol/L (98-107); Glucose 97 mg/dL (74-99); Non-African American GFR(CKD) >90 (>60 ml/min/1.73 sqM); Potassium 3.2 mmol/L (3.5-5.1); Sodium 139 mmol/L (137-145); Total Bilirubin 0.3 mg/dL (0.2-1.3); Total Protein 5.1 g/dL (6.3-8.2)
[2019-10-31] MEDS ORDERED: POTASSIUM CHLORIDE ER 20 MEQ TAB.ER PO STA (07:41)
[2019-10-31] MEDS: NICOTINE 14MG/24HR PATCH TRANSDERM SCH (07:59)
[2019-10-31] MEDS: METOPROLOL TARTRATE 12.5 MG TAB PO SCH (07:59)
[2019-10-31] MEDS: FAMOTIDINE 20 MG TAB PO SCH (07:59)
[2019-10-31] MEDS: PANTOPRAZOLE 40 MG/10 ML VIAL IVP SCH (07:59)
[2019-10-31] MEDS: HEPARIN SODIUM,PORCINE 5,000 UNIT/ML 1 ML VIAL SQ SCH (07:59)
[2019-10-31] MEDS: MONTELUKAST 10 MG TAB PO SCH (08:00)
[2019-10-31 08:07] VITALS: BP 112/69; PULSE 60; RESP 16; TEMP 98.3
[2019-10-31] MEDS ORDERED: PANTOPRAZOLE 40 MG TABLET PO SCH (09:15)
--- NOTE | 2019-10-31 11:42 | P.DS ---
Providers Date of admission: 10/29/19 06:18 Expected date of discharge: 10/31/19 Attending physician: Kurtis Phipps Consults: 10/29/19 09:59 Consult Physician Routine Consulting Provider: Iker Miranda Consult Reason/Comments: medical management Do you want consulting provider notified?: Yes Primary care physician: Stated None Hospital Course: Discharge diagnosis 1. Ileus likely secondary to UTI 2. Abdominal pain with nausea and vomiting 3. UTI 4. Hypomagnesemia improved with supplements 6. Hypokalemia patient given supplement for K 3.2 at discharge 7. History of recent Rosemary fundoplication for hiatal hernia Hospital course This is a 59-year-old female presented to the hospital with complaints of abdominal pain with nausea and vomiting. KUB x-ray showed evidence of dilated large and small bowel loops with fluid levels consistent with ileus. She also had evidence of a UTI. She was started on antibiotics. Given IV fluids. Likely ileus secondary to UTI. Symptoms improved. She tolerated advancement of diet. She is having bowel movements. Her magnesium and potassium were also replaced during this admission. Recommend continue potassium supplement K Dur 10 mEq twice a day for one month. Also she will get 3 more days of Ceftin to complete treatment for UTI. Urine culture was negative. She is afebrile. Patient is stable for discharge. She will follow-up with Dr. Phipps in 1 week Physician Vessel Manager note has been reviewed by physician. Signing provider agrees with the documented findings, assessment, and plan of care. Patient Condition at Discharge: Stable Plan - Discharge Summary Discharge Rx Participant: No New Discharge Prescriptions: New Potassium Chloride ER [K-Dur 10] 10 meq PO BID #60 tab Continue Albuterol Sulfate [Ventolin HFA] 2 puff INHALATION RT-QID PRN PRN Reason: Shortness Of Breath Montelukast [Singulair] 10 mg PO DAILY Acetaminophen Tab [Tylenol] 500 mg PO Q6H PRN #30 tablet PRN Reason: Pain Metoprolol Tartrate 12.5 mg PO BID Ondansetron [Zofran ODT] 4 mg PO Q8H PRN PRN Reason: Nausea Fluticasone Nasal [place] [Flonase Nasal [place]] 1 spr EA NOSTRIL DAILY PRN PRN Reason: Allergy Symptoms Nicotine 14Mg/24Hr Patch [Habitrol] 1 patch TRANSDERM DAILY Discharge Medication List Albuterol Sulfate [Ventolin HFA] 2 puff INHALATION RT-QID PRN 09/16/16 [History] Montelukast [Singulair] 10 mg PO DAILY 09/03/19 [History] Acetaminophen Tab [Tylenol] 500 mg PO Q6H PRN #30 tablet 09/14/19 [Rx] Metoprolol Tartrate 12.5 mg PO BID 09/26/19 [History] Ondansetron [Zofran ODT] 4 mg PO Q8H PRN 10/12/19 [History] Fluticasone Nasal [place] [Flonase Nasal [place]] 1 spr EA NOSTRIL DAILY PRN 10/28/19 [History] Nicotine 14Mg/24Hr Patch [Habitrol] 1 patch TRANSDERM DAILY 10/28/19 [History] Potassium Chloride ER [K-Dur 10] 10 meq PO BID #60 tab 10/31/19 [Rx] Follow up Appointment(s)/Referral(s): None,Stated [Primary Care Provider] - 1-2 days Kurtis Phipps MD [STAFF PHYSICIAN] - 1 Week Activity/Diet/Wound Care/Special Instructions: Diet Regular Activity as tolerated Discharge Disposition: HOME SELF-CARE
--- NOTE | 2019-10-31 23:57 | PN ---
PROGRESS NOTE DATE OF SERVICE: 10/31/2019 This is a 59-year-old woman who was admitted with abdominal discomfort and possible ileus, improving significantly. No chest pain or palpitations. No fever. PHYSICAL EXAMINATION: On exam, alert and oriented x3. Pulse 68, blood pressure 103/71, respirations 14, temperature 97.9, pulse ox 100% on room air. HEENT: Conjunctivae normal. NECK: No jugular venous distention. CARDIOVASCULAR: S1, S2 muffled. RESPIRATORY: Breath sounds diminished at the bases. No rhonchi, no crackles. ABDOMEN: Soft, nontender. No mass palpable. LEGS: No edema, no swelling. NERVOUS SYSTEM: No focal deficits. LABS: WBC 5.2, potassium 3.2. ASSESSMENT: 1. Abdominal discomfort with possible ileus, dilated large AND small bowel loops, improving with conservative line of management. 2. Hypokalemia. 3. Acute urinary tract infection, present on admission. 4. Increased WBC. 5. Hyponatremia. 6. Hypercalcemia. 7. Hypomagnesemia. 8. Dehydration, present on admission. 9. Continued ongoing nicotine dependence. 10.History of chronic obstructive pulmonary disease. 11.Gastroesophageal reflux disease. 12.Degenerative joint disease. 13.History of recent kidney injury. 14.History of ileus. 15.History of Rosemary fundoplication. 16.History of anxiety, depression. 17.FULL CODE. RECOMMENDATIONS AND DISCUSSION: Recommend to continue current medications and symptomatic treatment. Cultures are negative. Recommend to continue the current medications and closely follow with primary physician and short course of Ceftin. Further recommendations to follow. MMODL / IJN: [id number] /
== END 2019-10-31 12:32 | disposition home or self-care (01) ==
LOC: EC 03:49 → 1SOBS 06:18
PROVIDERS: ADMIT Surgery; ATTEND Surgery
DX: K56.7 Ileus, unspecified (principal); N39.0 Urinary tract infection, site not specified; E83.42 Hypomagnesemia; E87.6 Hypokalemia; J44.9 Chronic obstructive pulmonary disease, unspecified; K21.9 Gastro-esophageal reflux disease without esophagitis; M19.90 Unspecified osteoarthritis, unspecified site; M81.0 Age-related osteoporosis without current pathological fracture; F41.9 Anxiety disorder, unspecified; F32.9 Major depressive disorder, single episode, unspecified; E83.52 Hypercalcemia; E86.0 Dehydration; F17.200 Nicotine dependence, unspecified, uncomplicated; Z87.19 Personal history of other diseases of the digestive system; Z98.890 Other specified postprocedural states; Z79.899 Other long term (current) drug therapy; Z86.39 Personal history of other endocrine, nutritional and metabolic disease; Z87.09 Personal history of other diseases of the respiratory system; Z87.898 Personal history of other specified conditions; Z87.440 Personal history of urinary (tract) infections; Z87.448 Personal history of other diseases of urinary system; Z87.81 Personal history of (healed) traumatic fracture; Z91.09 Other allergy status, other than to drugs and biological substances; Z90.710 Acquired absence of both cervix and uterus; Z91.89 Other specified personal risk factors, not elsewhere classified; Z80.0 Family history of malignant neoplasm of digestive organs; Z82.5 Family history of asthma and other chronic lower respiratory diseases; Z83.3 Family history of diabetes mellitus; Z83.49 Family history of other endocrine, nutritional and metabolic diseases
CPT/HCPCS: 96361 ×2; 96365; 96366 ×2; 96367; 96372 ×3; 96375 ×2; 96376 ×3; 99285; 36415; 80053 ×3; 82150; 83605; 83690; 83735 ×2; 85025 ×3; 81001; 87086; 74018; G0378 ×3; S4990 ×3; J2270; J1644 ×3; J2405; J0696 ×3; J3475 ×2; C9113 ×3; J1170

== ENCOUNTER 2019-11-06 17:13 | Inpatient (IN) | payer OTHER ==
[2019-11-06] MEDS ORDERED: SODIUM CHLORIDE 0.9% 1,000 ML IV STA (18:16)
[2019-11-06] MEDS ORDERED: ONDANSETRON 4 MG/2 ML VIAL IVP STA (18:16)
[2019-11-06] MEDS ORDERED: MORPHINE SULFATE 4 MG/ML SYRINGE IV STA (18:31)
[2019-11-06 19:13] LABS: Basophils # (A) 0.1 k/uL (0-0.2); Basophils % (A) 1 %; Eosinophils # (A) 0.3 k/uL (0-0.7); Eosinophils % (A) 1 %; Lymphocytes # (A) 4.1 k/uL (1.0-4.8); Lymphocytes % (A) 19 %; MCH 30.6 pg (25.0-35.0); MCV 95.7 fL (80.0-100.0); Mean Platelet Volume 7.9; Monocytes # (A) 0.9 k/uL (0-1.0); Monocytes % (A) 4 %; Neutrophils # (A) 16.1 k/uL (1.3-7.7); Neutrophils % (A) 74 %; Platelet Count 614 k/uL (150-450); RBC 5.12 m/uL (3.80-5.40); RDW 13.1 % (11.5-15.5); WBC 21.8 k/uL (3.8-10.6)
[2019-11-06 19:16] LABS: HGB 15.7 gm/dL (11.4-16.0)
[2019-11-06] MEDS ORDERED: SODIUM CHLORIDE 0.9% 1,000 ML IV ONE (19:21)
[2019-11-06 19:25] LABS: Potassium 5.3 mmol/L (3.5-5.1)
[2019-11-06 19:26] LABS: Albumin 5.5 g/dL (3.5-5.0); Calcium 12.7 mg/dL (8.4-10.2); Total Bilirubin 0.7 mg/dL (0.2-1.3); Total Protein 8.7 g/dL (6.3-8.2)
--- NOTE | 2019-11-06 19:37 | XR ---
EXAMINATION TYPE: XR KUB DATE OF EXAM: 11/06/2019 COMPARISON: 10/29/2019 INDICATION: Small bowel obstruction, UTI, abdominal pain TECHNIQUE: Single view abdomen supine view FINDINGS: Multiple dilated air-filled small bowel loops are present. This extends to the right abdomen. Small a mount of colonic bowel gas is present. Partial small bowel obstruction should be considered. Follow-u p is recommended. No mass effect is evident. Surgical clips are within the upper pelvic region. Psoas margins are normal. No organomegaly is present. IMPRESSION: 1. Multiple dilated air-filled small bowel loops. Partial small bowel obstruction should be considere d. Ileus could be considered. Follow-up is recommended.
[2019-11-06] MEDS ORDERED: HYDROmorphone 0.5 MG/0.5 ML SYRINGE IVP STA (20:01)
--- NOTE | 2019-11-06 21:28 | ED ---
General Adult HPI - General Chief complaint: Urogenital Stated complaint: UTI Time Seen by Provider: 11/06/19 17:42 Source: patient, RN notes reviewed, old records reviewed Mode of arrival: wheelchair Limitations: no limitations - History of Present Illness Initial comments: 59-year-old female patient proceeded for evaluation of abdominal pain. Also has been having some dysuria. Patient reports has been having abdominal pain nausea and diarrhea for the last 3 days. Patient had partial hernia Jered fundal plication procedure about a month ago. She did have postop ileus after. Denies any other acute complaints at this time. Systemic: Pt denies fatigue, fever/chills, rash. Pt denies weakness, night sweats, weight loss. Neuro: Pt denies headache, visual disturbances, syncope or pre-syncope. HEENT: Pt denies ocular discharge or irritation, otalgia, rhinorrhea, pharyngitis or notable lymphadenopathy. Cardiopulmonary: Pt denies chest pain, SOB, heart palpitations, dyspnea on exertion. : Pt denies dysuria, burning w/ urination, frequency/urgency. Denies new onset urinary or bowel incontinence. MSK: Pt denies myalgia, loss of strength or function in extremities. Neuro: Pt denies new onset weakness, paresthesias. - Related Data Home Medications Medication Instructions Recorded Confirmed Montelukast [Singulair] 10 mg PO HS 09/03/19 11/06/19 Metoprolol Tartrate 12.5 mg PO BID 09/26/19 11/06/19 Nicotine 14Mg/24Hr Patch [Habitrol] 1 patch TRANSDERM DAILY 10/28/19 11/06/19 Pantoprazole [Protonix] 40 mg PO BID 11/06/19 11/06/19 Previous Rx's Medication Instructions Recorded Potassium Chloride ER [K-Dur 10] 10 meq PO BID #60 tab 10/31/19 Allergies Allergy/AdvReac Type Severity Reaction Status Date / Time No Known Allergies Allergy Verified 11/06/19 18:58 Review of Systems ROS Statement: Those systems with pertinent positive or pertinent negative responses have been documented in the HPI. ROS Other: All systems not noted in ROS Statement are negative. Past Medical History Past Medical History: COPD, GERD/Reflux, Osteoarthritis (OA) Additional Past Medical History / Comment(s): Pt recently admitted to [facility] on 10/28/19 for dehydration, acute kidney injury, ileus. She is recent post rosemary fundoplication and has had other recent admits for dehydration. Other hx: Pt states she has been having diarrhea lately-liquid/watery stools, bronchitis, UTI, nephritis, pt unsure why lopressor was recently prescribed, osteoporosis, past low back fracture, occasional upper back pain, sinus allergies. History of Any Multi-Drug Resistant Organisms: None Reported Past Surgical History: Section, Hernia Repair, Hysterectomy Additional Past Surgical History / Comment(s): 10/07/19 Rosemary fundoplication, colonoscopy, hemorrhoidectomy, L shoulder benign tumor removed Past Anesthesia/Blood Transfusion Reactions: Previous Problems w/ Anesthesia Additional Past Anesthesia/Blood Transfusion Reaction / Comment(s): woke up during sx in past Past Psychological History: Anxiety, Depression Smoking Status: Current every day smoker Past Alcohol Use History: None Reported Past Drug Use History: None Reported - Past Family History Father Family Medical History: Cancer Additional Family Medical History / Comment(s): Esophageal cancer/ulcer. Pt states father of pneumonia at the age of 56yrs. Mother Family Medical History: Diabetes Mellitus Additional Family Medical History / Comment(s): MENS SYNDROME Sister(s) Additional Family Medical History / Comment(s): MENS SYNDROME General Exam - General Exam Comments Initial Comments: Constitutional: NAD, AOX3, Pt has pleasant affect. HEENT: NC/AT, trachea midline, neck supple, no lymphadenopathy. External ears appear normal, without discharge. Mucous membranes moist. Eyes PERRLA, EOM intact. There is no scleral icterus. No pallor noted. Cardiopulmonary: RRR, no murmurs, rubs or gallops, no JVD noted. Lungs CTAB in anterior and posterior [place]. No peripheral edema. Abdominal exam: Abdomen soft and non-distended. Abdomen moderate tenderness diffusely.. Bowel sounds active in LLQ. No hepatosplenomegaly. No ecchymosis Neuro: CN II-XII grossly intact. No nuchal rigidity. No raccon eyes, no rosenberg sign, no hemotympanum. No cervical spinal tenderness. MSK: Full active ROM in upper and lower extremities, 5/5 stregnth. Limitations: no limitations Course Vital Signs 11/06/19 11/06/19 11/06/19 17:29 18:37 20:00 Temperature 98.6 F 98.3 F Pulse Rate 107 H 98 80 Respiratory 20 22 16 Rate Blood Pressure 92/55 92/74 96/75 O2 Sat by Pulse 100 100 100 Oximetry 11/06/19 11/06/19 21:23 22:45 Temperature 97.6 F 98.5 F Pulse Rate 66 94 Respiratory 16 16 Rate Blood Pressure 98/69 125/74 O2 Sat by Pulse 100 99 Oximetry Medical Decision Making - Medical Decision Making 59-year-old female patient received chief complaint of abdominal pain. Patient vital signs are stable, afebrile. Physical exam is displaying lateral abdominal tenderness in all quadrants. Laboratory investigations are obtained they do display leukocytosis of 21. Multivitamin bounces secondary to dehydration. Mild lactic acid elevation 2.2. Uterine is contaminated however does display some possible signs of infection. The TMs films displayed findings suggestive high-grade small bowel obstruction transition the right lower quadrant distal ileum proximal terminal ileum. I did discuss case with patient's surgeon Dr. Dunn who recommended continuing of Rocephin, IV fluids, NG tube which was placed. Patient will be admitted. Case discussed with Dr. Aguirre. - Lab Data Result diagrams: 11/06/19 18:37 11/06/19 18:37 Lab Results 11/06/19 11/06/19 11/06/19 Range/Units 18:37 18:37 18:37 WBC 21.8 H (3.8-10.6) k/uL RBC 5.12 (3.80-5.40) m/uL Hgb 15.7 D (11.4-16.0) gm/dL Hct 49.0 H (34.0-46.0) % MCV 95.7 (80.0-100.0) fL MCH 30.6 (25.0-35.0) pg MCHC 32.0 (31.0-37.0) g/dL RDW 13.1 (11.5-15.5) % Plt Count 614 H (150-450) k/uL Neutrophils % 74 % Lymphocytes % 19 % Monocytes % 4 % Eosinophils % 1 % Basophils % 1 % Neutrophils # 16.1 H (1.3-7.7) k/uL Lymphocytes # 4.1 (1.0-4.8) k/uL Monocytes # 0.9 (0-1.0) k/uL Eosinophils # 0.3 (0-0.7) k/uL Basophils # 0.1 (0-0.2) k/uL Sodium 135 L (137-145) mmol/L Potassium 5.3 H (3.5-5.1) mmol/L Chloride 99 (98-107) mmol/L Carbon Dioxide 21 L (22-30) mmol/L Anion Gap 15 mmol/L BUN 17 (7-17) mg/dL Creatinine 1.01 (0.52-1.04) mg/dL Est GFR (CKD-EPI)AfAm 72 (>60 ml/min/1.73 sqM) Est GFR (CKD-EPI)NonAf 62 (>60 ml/min/1.73 sqM) Glucose 221 H (74-99) mg/dL Lactic Ac Sepsis Rflx Plasma Lactic Acid Héctor (0.7-2.0) mmol/L Calcium 12.7 H (8.4-10.2) mg/dL Total Bilirubin 0.7 (0.2-1.3) mg/dL AST 44 H (14-36) U/L ALT 37 H (4-34) U/L Alkaline Phosphatase 81 (38-126) U/L Total Protein 8.7 H (6.3-8.2) g/dL Albumin 5.5 H (3.5-5.0) g/dL Lipase 155 (23-300) U/L Urine Color Yellow Urine Appearance Cloudy H (Clear) Urine pH 6.0 (5.0-8.0) Ur Specific [place] >1.050 H (1.001-1.035) Urine Protein 1+ H (Negative) Urine Glucose (UA) Negative (Negative) Urine Ketones Negative (Negative) Urine Blood Small H (Negative) Urine Nitrite Negative (Negative) Urine Bilirubin Negative (Negative) Urine Urobilinogen <2.0 (<2.0) mg/dL Ur Leukocyte Esterase Small H (Negative) Urine RBC 27 H (0-5) /hpf Urine WBC 20 H (0-5) /hpf Ur Squamous Epith Cells 8 H (0-4) /hpf Calcium Oxalate Crystal Rare H (None) /hpf Hyaline Casts 9 H (0-2) /lpf Urine Mucus Few H (None) /hpf 11/06/19 11/06/19 Range/Units 18:37 19:56 WBC (3.8-10.6) k/uL RBC (3.80-5.40) m/uL Hgb (11.4-16.0) gm/dL Hct (34.0-46.0) % MCV (80.0-100.0) fL MCH (25.0-35.0) pg MCHC (31.0-37.0) g/dL RDW (11.5-15.5) % Plt Count (150-450) k/uL Neutrophils % % Lymphocytes % % Monocytes % % Eosinophils % % Basophils % % Neutrophils # (1.3-7.7) k/uL Lymphocytes # (1.0-4.8) k/uL Monocytes # (0-1.0) k/uL Eosinophils # (0-0.7) k/uL Basophils # (0-0.2) k/uL Sodium (137-145) mmol/L Potassium (3.5-5.1) mmol/L Chloride (98-107) mmol/L Carbon Dioxide (22-30) mmol/L Anion Gap mmol/L BUN (7-17) mg/dL Creatinine (0.52-1.04) mg/dL Est GFR (CKD-EPI)AfAm (>60 ml/min/1.73 sqM) Est GFR (CKD-EPI)NonAf (>60 ml/min/1.73 sqM) Glucose (74-99) mg/dL Lactic Ac Sepsis Rflx Y Plasma Lactic Acid Héctor 2.2 H* (0.7-2.0) mmol/L Calcium (8.4-10.2) mg/dL Total Bilirubin (0.2-1.3) mg/dL AST (14-36) U/L ALT (4-34) U/L Alkaline Phosphatase (38-126) U/L Total Protein (6.3-8.2) g/dL Albumin (3.5-5.0) g/dL Lipase (23-300) U/L Urine Color Urine Appearance (Clear) Urine pH (5.0-8.0) Ur Specific [place] (1.001-1.035) Urine Protein (Negative) Urine Glucose (UA) (Negative) Urine Ketones (Negative) Urine Blood (Negative) Urine Nitrite (Negative) Urine Bilirubin (Negative) Urine Urobilinogen (<2.0) mg/dL Ur Leukocyte Esterase (Negative) Urine RBC (0-5) /hpf Urine WBC (0-5) /hpf Ur Squamous Epith Cells (0-4) /hpf Calcium Oxalate Crystal (None) /hpf Hyaline Casts (0-2) /lpf Urine Mucus (None) /hpf Disposition Clinical Impression: Small bowel obstruction Disposition: ADMITTED IP TO THIS HOSP Condition: Serious Is patient prescribed a controlled substance at d/c from ED?: No
--- NOTE | 2019-11-06 21:28 | CT ---
EXAMINATION TYPE: CT abdomen pelvis w con DATE OF EXAM: 11/06/2019 COMPARISON: 10/28/2019 INDICATION: Abdomen pain, possible bowel obstruction. Patient 1 month postop DLP: 579.3 mGycm, Automated exposure control for dose reduction was used. CONTRAST: 100 mL of Isovue 300. Study performed without Oral Contrast TECHNIQUE: Axial images were obtained from above the diaphragm to the pubic rami in the axial plane a t 5 mm thick sections. Reconstructed images are reviewed on the computer in the coronal plane. FINDINGS: Limited CT sections are obtained the lung bases. The lung bases are clear. CT ABDOMEN: Stomach is distended with fluid. The proximal duodenum is distended. Second portion duode num has a more normal caliber in the retroperitoneal region. Additional small bowel loops within the abdomen or dilated with fluid. Distal ileum has a more normal caliber. A zone of transition is within the distal ileum right lower quadrant. Series 202 image 34, series 201 image 56. An etiology for obs truction is not identified. Differential could include ileus and partial small bowel obstruction. Fin dings have worsened from the comparison study. Report was called to emergency room by Dr. Wong by telephone 2119 hours the 2019. Liver: Normal Spleen: Normal Pancreas: Pancreatic duct is prominent. No cut off sign is evident. No discrete masses or cysts are i dentified. Adrenal glands: The adrenal glands are normal. Gallbladder: Normal Kidneys: No masses are evident. No hydronephrosis is present. No cysts are present. Delayed images were obtained through the kidneys, which remain unremarkable. Aorta: Normal Inferior vena cava: Normal. CT PELVIS: Appendix: Normal as visualized. Urinary bladder: Incompletely distended. Genitourinary structures: Uterus is not identified. Adnexal regions are clear. No free fluid is withi n the pelvis. Osseous structures: No suspicious lytic or sclerotic lesions. IMPRESSIONS: 1. Findings suggestive for high-grade partial small bowel obstruction with transition in the right l ower quadrant distal ileum proximal to the terminal ileum. No radiographic etiology is identified how ever.
[2019-11-06 21:37] LABS: Appearance,Urine Cloudy (Clear); Bilirubin,Urine Negative (Negative); Blood,Urine Small (Negative); Calcium Oxalate Crystals,Urine Rare /hpf; Color,Urine Yellow; Glucose,Urine (UA) Negative (Negative); Hyaline Casts,Urine 9 /lpf (0-2); Ketones,Urine Negative (Negative); Leukocyte Esterase,Urine Small (Negative); Mucus,Urine Few /hpf; Nitrite,Urine Negative (Negative); Protein,Urine 1+ (Negative); RBC,Urine 27 /hpf (0-5); Squamous Epithelial Cell,Urine 8 /hpf (0-4); Urobilinogen,Urine <2.0 mg/dL (<2.0); WBC,Urine 20 /hpf (0-5)
[2019-11-06 21:44] LABS: Specific Gravity,Urine >1.050 (1.001-1.035)
[2019-11-06] MEDS ORDERED: ONDANSETRON 4 MG/2 ML VIAL IVP PRN (22:21)
[2019-11-06] MEDS ORDERED: HYDROmorphone 0.5 MG/0.5 ML SYRINGE IVP PRN (22:21)
[2019-11-06] MEDS ORDERED: NALOXONE 0.4 MG/ML 1 ML VIAL IV PRN (22:21)
--- NOTE | 2019-11-06 23:09 | XR ---
EXAMINATION TYPE: XR abdomen 1V DATE OF EXAM: 11/06/2019 COMPARISON: NONE HISTORY: Pain TECHNIQUE: Single view FINDINGS: There is nasogastric tube in the stomach. Tip is in the gastric fundus. The bowel gas patte rn is nonacute. There is L2 vertebroplasty noted. There is no evidence of abdominal mass. Lung bases are clear. IMPRESSION: NG tube is in good position in the gastric fundus.
[2019-11-07] MEDS ORDERED: LORazepam 2 MG/ML INJ IV STA ×2 (00:10→09:33)
[2019-11-07] MEDS: SODIUM CHLORIDE 0.9% 1,000 ML IV SCH ×3 (00:18→20:18)
[2019-11-07] MEDS: NICOTINE 14MG/24HR PATCH TRANSDERM SCH ×2 (00:18→07:47)
--- NOTE | 2019-11-07 10:21 | XR ---
EXAMINATION TYPE: XR KUB DATE OF EXAM: 11/07/2019 6:51 AM CLINICAL HISTORY: Bowel obstruction TECHNIQUE: Upright images of the abdomen and pelvis were obtained COMPARISON: 11/06/2019 KUB. FINDINGS: There is a paucity of small bowel gas on current exam. Colonic gas with air-fluid levels is seen. Excreted contrast within the urinary bladder. Lower abdominal surgical clips and kyphoplasty c hanges. No pneumoperitoneum. Lung bases are clear. Osseous structures are intact. IMPRESSION: Paucity of small bowel gas limits evaluation of the small bowel on current exam. The colonic gas is n onspecific with air-fluid levels suggestive of ileus.
[2019-11-07] MEDS ORDERED: IV FLUID CONTINUATION 50 ML IV ONE (10:24)
--- NOTE | 2019-11-07 10:27 | P.GSHP ---
<Edwige Dwyer - Last Filed: 11/07/19 10:10> History of Present Illness H&P Date: 11/07/19 CHIEF COMPLAINT: Abdominal pain with nausea and vomiting 3 days HISTORY OF PRESENT ILLNESS: This is a 59-year-old female with a known history of Rosemary fundoplication for hiatal hernia completed on 10/07/2019. She also has a history of COPD, GERD, osteoarthritis and nicotine dependence. She was recently hospitalized on October due to an ileus secondary to UTI. She completed treatment for UTI and her ileus did resolve. Patient presents back again to the emergency room with abdominal pain nausea and vomiting for the last 3 days. She reports she had gone several days without a bowel movement and then she was able to have one small soft BM yesterday. She had a computed tomography scan of the abdomen and pelvis showing high-grade partial small bowel obstruction. NG tube was placed in ER. Patient denies any fever, chills or sweats. She denies any hematemesis or hematochezia. PAST MEDICAL HISTORY: See list. PAST SURGICAL HISTORY: See list. MEDICATIONS: See list. ALLERGIES: See list. SOCIAL HISTORY: No illicit drug use. REVIEW OF SYSTEMS: CONSTITUTIONAL: Denies fever or chills. HEENT: Denies blurred vision, vision changes, or eye pain. Denies hemoptysis CARDIOVASCULAR: Denies chest pain or pressure. RESPIRATORY: No shortness of breath. GASTROINTESTINAL: See HPI for pertinent findings HEMATOLOGIC: Denies bleeding disorders. GENITOURINARY: Denies any blood in urine or increased urinary frequency. SKIN: Denies pruitis. Denies rash. PHYSICAL EXAM: VITAL SIGNS: Reviewed GENERAL: Well-developed in no acute distress. HEENT: No sclera icterus. Extraocular movements grossly intact. Moist buccal mucosa. Head is atraumatic, normocephalic. No nasal drainage. ABDOMEN: Soft. Nondistended. diffuse tenderness with palpation. NG tube in place with clear pinkish color fluid NEUROLOGIC: Alert and oriented. Cranial nerves II through XII grossly intact. LABORATORY DATA: WBC 21.8 lactic acid 2.2 AST 44 ALT 37 lipase 155 IMAGING: Computed tomography scan of the abdomen and pelvis reveals report shows suggestive findings for high-grade partial small bowel obstruction with miller sition in the right lower quadrant distal ileum proximal to the terminal ileum. ASSESSMENT: 1. High-grade partial small bowel obstruction in the distal ileum 2. Possible UTI continue Rocephin. Urine culture pending 3. Recent hospitalization with ileus likely secondary to UTI 4. History of recent Rosemary fundoplication for hiatal hernia 10/07/2019 PLAN: -Exploratory laparotomy scheduled today with Dr. Phipps -Continue NG tube to suction -Continue nothing by mouth -Continue IV fluids -Continue IV pain medication as needed -Continue IV Zofran as needed for nausea -Give 1 dose of IV Ativan 0.5 mg 1 for anxiety -Consult placed for medicine for medical management Physician Coal Handling Supervisor note has been reviewed by physician. Signing provider agrees with the documented findings, assessment, and plan of care. Past Medical History Past Medical History: COPD, GERD/Reflux, Osteoarthritis (OA) Additional Past Medical History / Comment(s): Pt recently admitted to [facility] on 10/28/19 for dehydration, acute kidney injury, ileus. She is recent post rosemary fundoplication and has had other recent admits for dehydration. Other hx: Pt states she has been having diarrhea lately-liquid/watery stools, bronchitis, UTI, nephritis, pt unsure why lopressor was recently prescribed, osteoporosis, past low back fracture, occasional upper back pain, sinus allergies. History of Any Multi-Drug Resistant Organisms: None Reported Past Surgical History: Section, Hernia Repair, Hysterectomy Additional Past Surgical History / Comment(s): 10/07/19 Rosemary fundoplication, colonoscopy, hemorrhoidectomy, L shoulder benign tumor removed Past Anesthesia/Blood Transfusion Reactions: Previous Problems w/ Anesthesia Additional Past Anesthesia/Blood Transfusion Reaction / Comment(s): woke up during sx in past Past Psychological History: Anxiety, Depression Additional Psychological History / Comment(s): Pt reides with her significant other. She has a nebulizer. She is independent. Smoking Status: Current every day smoker Past Alcohol Use History: None Reported Additional Past Alcohol Use History / Comment(s): Pt smokes 1ppd from age 20 (1980) Past Drug Use History: None Reported Additional Drug Use History / Comment(s): currently using a nicotine patch at home - Past Family History Father Family Medical History: Cancer Additional Family Medical History / Comment(s): Esophageal cancer/ulcer. Pt states father of pneumonia at the age of 56yrs. Mother Family Medical History: Diabetes Mellitus Additional Family Medical History / Comment(s): MENS SYNDROME Sister(s) Additional Family Medical History / Comment(s): MENS SYNDROME Medications and Allergies Home Medications Medication Instructions Recorded Confirmed Type Montelukast [Singulair] 10 mg PO HS 09/03/19 11/06/19 History Metoprolol Tartrate 12.5 mg PO BID 09/26/19 11/06/19 History Nicotine 14Mg/24Hr Patch [Habitrol] 1 patch TRANSDERM DAILY 10/28/19 11/06/19 History Potassium Chloride ER [K-Dur 10] 10 meq PO BID #60 tab 10/31/19 11/06/19 Rx Pantoprazole [Protonix] 40 mg PO BID 11/06/19 11/06/19 History Allergies Allergy/AdvReac Type Severity Reaction Status Date / Time No Known Allergies Allergy Verified 11/06/19 18:58 Surgical - Exam Vital Signs Temp Pulse Resp BP Pulse Ox 98.6 F 107 H 20 92/55 100 11/06/19 17:29 11/06/19 17:29 11/06/19 17:29 11/06/19 17:29 11/06/19 17:29 Results - Labs 11/06/19 18:37 11/06/19 18:37 Abnormal Lab Results - Last 24 Hours (Table) 11/06/19 11/06/19 11/06/19 Range/Units 18:37 18:37 18:37 WBC 21.8 H (3.8-10.6) k/uL Hct 49.0 H (34.0-46.0) % Plt Count 614 H (150-450) k/uL Neutrophils # 16.1 H (1.3-7.7) k/uL Sodium 135 L (137-145) mmol/L Potassium 5.3 H (3.5-5.1) mmol/L Carbon Dioxide 21 L (22-30) mmol/L Glucose 221 H (74-99) mg/dL Plasma Lactic Acid Héctor (0.7-2.0) mmol/L Calcium 12.7 H (8.4-10.2) mg/dL AST 44 H (14-36) U/L ALT 37 H (4-34) U/L Total Protein 8.7 H (6.3-8.2) g/dL Albumin 5.5 H (3.5-5.0) g/dL Urine Appearance Cloudy H (Clear) Ur Specific [place] >1.050 H (1.001-1.035) Urine Protein 1+ H (Negative) Urine Blood Small H (Negative) Ur Leukocyte Esterase Small H (Negative) Urine RBC 27 H (0-5) /hpf Urine WBC 20 H (0-5) /hpf Ur Squamous Epith Cells 8 H (0-4) /hpf Calcium Oxalate Crystal Rare H (None) /hpf Hyaline Casts 9 H (0-2) /lpf Urine Mucus Few H (None) /hpf 11/06/19 Range/Units 18:37 WBC (3.8-10.6) k/uL Hct (34.0-46.0) % Plt Count (150-450) k/uL Neutrophils # (1.3-7.7) k/uL Sodium (137-145) mmol/L Potassium (3.5-5.1) mmol/L Carbon Dioxide (22-30) mmol/L Glucose (74-99) mg/dL Plasma Lactic Acid Héctor 2.2 H* (0.7-2.0) mmol/L Calcium (8.4-10.2) mg/dL AST (14-36) U/L ALT (4-34) U/L Total Protein (6.3-8.2) g/dL Albumin (3.5-5.0) g/dL Urine Appearance (Clear) Ur Specific [place] (1.001-1.035) Urine Protein (Negative) Urine Blood (Negative) Ur Leukocyte Esterase (Negative) Urine RBC (0-5) /hpf Urine WBC (0-5) /hpf Ur Squamous Epith Cells (0-4) /hpf Calcium Oxalate Crystal (None) /hpf Hyaline Casts (0-2) /lpf Urine Mucus (None) /hpf Microbiology - Last 24 Hours (Table) 11/06/19 18:37 Urine Culture - Preliminary Urine,Clean Catch Diabetes panel 11/06/19 Range/Units 18:37 Sodium 135 L (137-145) mmol/L Potassium 5.3 H (3.5-5.1) mmol/L Chloride 99 (98-107) mmol/L Carbon Dioxide 21 L (22-30) mmol/L BUN 17 (7-17) mg/dL Creatinine 1.01 (0.52-1.04) mg/dL Glucose 221 H (74-99) mg/dL Calcium 12.7 H (8.4-10.2) mg/dL AST 44 H (14-36) U/L ALT 37 H (4-34) U/L Alkaline Phosphatase 81 (38-126) U/L Total Protein 8.7 H (6.3-8.2) g/dL Albumin 5.5 H (3.5-5.0) g/dL Calcium panel 11/06/19 Range/Units 18:37 Calcium 12.7 H (8.4-10.2) mg/dL Albumin 5.5 H (3.5-5.0) g/dL Pituitary panel 11/06/19 Range/Units 18:37 Sodium 135 L (137-145) mmol/L Potassium 5.3 H (3.5-5.1) mmol/L Chloride 99 (98-107) mmol/L Carbon Dioxide 21 L (22-30) mmol/L BUN 17 (7-17) mg/dL Creatinine 1.01 (0.52-1.04) mg/dL Glucose 221 H (74-99) mg/dL Calcium 12.7 H (8.4-10.2) mg/dL Adrenal panel 11/06/19 Range/Units 18:37 Sodium 135 L (137-145) mmol/L Potassium 5.3 H (3.5-5.1) mmol/L Chloride 99 (98-107) mmol/L Carbon Dioxide 21 L (22-30) mmol/L BUN 17 (7-17) mg/dL Creatinine 1.01 (0.52-1.04) mg/dL Glucose 221 H (74-99) mg/dL Calcium 12.7 H (8.4-10.2) mg/dL Total Bilirubin 0.7 (0.2-1.3) mg/dL AST 44 H (14-36) U/L ALT 37 H (4-34) U/L Alkaline Phosphatase 81 (38-126) U/L Total Protein 8.7 H (6.3-8.2) g/dL Albumin 5.5 H (3.5-5.0) g/dL <Kurtis Phipps - Last Filed: 11/07/19 11:00> Surgical - Exam Vital Signs Temp Pulse Resp BP Pulse Ox 98.6 F 107 H 20 92/55 100 11/06/19 17:29 11/06/19 17:29 11/06/19 17:29 11/06/19 17:29 11/06/19 17:29 Results - Labs 11/06/19 18:37 11/06/19 18:37 Abnormal Lab Results - Last 24 Hours (Table) 11/06/19 11/06/19 11/06/19 Range/Units 18:37 18:37 18:37 WBC 21.8 H (3.8-10.6) k/uL Hct 49.0 H (34.0-46.0) % Plt Count 614 H (150-450) k/uL Neutrophils # 16.1 H (1.3-7.7) k/uL Sodium 135 L (137-145) mmol/L Potassium 5.3 H (3.5-5.1) mmol/L Carbon Dioxide 21 L (22-30) mmol/L Glucose 221 H (74-99) mg/dL Plasma Lactic Acid Héctor (0.7-2.0) mmol/L Calcium 12.7 H (8.4-10.2) mg/dL AST 44 H (14-36) U/L ALT 37 H (4-34) U/L Total Protein 8.7 H (6.3-8.2) g/dL Albumin 5.5 H (3.5-5.0) g/dL Urine Appearance Cloudy H (Clear) Ur Specific [place] >1.050 H (1.001-1.035) Urine Protein 1+ H (Negative) Urine Blood Small H (Negative) Ur Leukocyte Esterase Small H (Negative) Urine RBC 27 H (0-5) /hpf Urine WBC 20 H (0-5) /hpf Ur Squamous Epith Cells 8 H (0-4) /hpf Calcium Oxalate Crystal Rare H (None) /hpf Hyaline Casts 9 H (0-2) /lpf Urine Mucus Few H (None) /hpf 11/06/19 Range/Units 18:37 WBC (3.8-10.6) k/uL Hct (34.0-46.0) % Plt Count (150-450) k/uL Neutrophils # (1.3-7.7) k/uL Sodium (137-145) mmol/L Potassium (3.5-5.1) mmol/L Carbon Dioxide (22-30) mmol/L Glucose (74-99) mg/dL Plasma Lactic Acid Héctor 2.2 H* (0.7-2.0) mmol/L Calcium (8.4-10.2) mg/dL AST (14-36) U/L ALT (4-34) U/L Total Protein (6.3-8.2) g/dL Albumin (3.5-5.0) g/dL Urine Appearance (Clear) Ur Specific [place] (1.001-1.035) Urine Protein (Negative) Urine Blood (Negative) Ur Leukocyte Esterase (Negative) Urine RBC (0-5) /hpf Urine WBC (0-5) /hpf Ur Squamous Epith Cells (0-4) /hpf Calcium Oxalate Crystal (None) /hpf Hyaline Casts (0-2) /lpf Urine Mucus (None) /hpf Microbiology - Last 24 Hours (Table) 11/06/19 18:37 Urine Culture - Preliminary Urine,Clean Catch Diabetes panel 11/06/19 Range/Units 18:37 Sodium 135 L (137-145) mmol/L Potassium 5.3 H (3.5-5.1) mmol/L Chloride 99 (98-107) mmol/L Carbon Dioxide 21 L (22-30) mmol/L BUN 17 (7-17) mg/dL Creatinine 1.01 (0.52-1.04) mg/dL Glucose 221 H (74-99) mg/dL Calcium 12.7 H (8.4-10.2) mg/dL AST 44 H (14-36) U/L ALT 37 H (4-34) U/L Alkaline Phosphatase 81 (38-126) U/L Total Protein 8.7 H (6.3-8.2) g/dL Albumin 5.5 H (3.5-5.0) g/dL Calcium panel 11/06/19 Range/Units 18:37 Calcium 12.7 H (8.4-10.2) mg/dL Albumin 5.5 H (3.5-5.0) g/dL Pituitary panel 11/06/19 Range/Units 18:37 Sodium 135 L (137-145) mmol/L Potassium 5.3 H (3.5-5.1) mmol/L Chloride 99 (98-107) mmol/L Carbon Dioxide 21 L (22-30) mmol/L BUN 17 (7-17) mg/dL Creatinine 1.01 (0.52-1.04) mg/dL Glucose 221 H (74-99) mg/dL Calcium 12.7 H (8.4-10.2) mg/dL Adrenal panel 11/06/19 Range/Units 18:37 Sodium 135 L (137-145) mmol/L Potassium 5.3 H (3.5-5.1) mmol/L Chloride 99 (98-107) mmol/L Carbon Dioxide 21 L (22-30) mmol/L BUN 17 (7-17) mg/dL Creatinine 1.01 (0.52-1.04) mg/dL Glucose 221 H (74-99) mg/dL Calcium 12.7 H (8.4-10.2) mg/dL Total Bilirubin 0.7 (0.2-1.3) mg/dL AST 44 H (14-36) U/L ALT 37 H (4-34) U/L Alkaline Phosphatase 81 (38-126) U/L Total Protein 8.7 H (6.3-8.2) g/dL Albumin 5.5 H (3.5-5.0) g/dL Assessment and Plan Plan: Small bowel obstruction. Patient's CAT scan shows a high-grade small bowel obstruction in the distal ileum. Patient undergo exploratory laparotomy today.
[2019-11-07] MEDS ORDERED: SODIUM CHLORIDE 0.9% 1,000 ML IV ONE (10:42)
[2019-11-07] MEDS ORDERED: ONDANSETRON 4 MG/2 ML VIAL ONE (10:44)
[2019-11-07] MEDS ORDERED: ONDANSETRON 4 MG/2 ML VIAL IVP ONE (10:46)
[2019-11-07 11:10] LABS: ALT 22 U/L (4-34); AST 20 U/L (14-36); African American GFR (CKD) >90 (>60 ml/min/1.73 sqM); Albumin 3.4 g/dL (3.5-5.0); Alkaline Phosphatase 55 U/L (38-126); Anion Gap 4 mmol/L; Blood Urea Nitrogen 10 mg/dL (7-17); Calcium 9.4 mg/dL (8.4-10.2); Carbon Dioxide 21 mmol/L (22-30); Chloride 114 mmol/L (98-107); Glucose 83 mg/dL (74-99); Non-African American GFR(CKD) >90 (>60 ml/min/1.73 sqM); Potassium 4.6 mmol/L (3.5-5.1); Sodium 139 mmol/L (137-145); Total Bilirubin 0.4 mg/dL (0.2-1.3)
[2019-11-07] MEDS ORDERED: NEOSTIGMINE 1 MG/ML 10 ML VIAL ONE (11:11)
[2019-11-07] MEDS ORDERED: ROCURONIUM BROMIDE 10 MG/ML 5 ML VIAL IV ONE (11:11)
[2019-11-07] MEDS ORDERED: MIDAZOLAM 2 MG/2 ML VIAL ONE (11:11)
[2019-11-07] MEDS ORDERED: GLYCOPYRROLATE 0.2 MG/ML 2 ML VIAL ONE (11:11)
[2019-11-07] MEDS ORDERED: PROPOFOL 10 MG/ML 20 ML VIAL IV ONE (11:11)
[2019-11-07] MEDS ORDERED: LIDOCAINE 1% INJ 10MG/ML (20 ML MDV) ONE (11:11)
[2019-11-07] MEDS ORDERED: fentaNYL (PF) 50 MCG/ML 2 ML AMP ONE (11:11)
[2019-11-07] MEDS ORDERED: SUCCINYLCHOLINE CHLORIDE 100 MG/5 ML SYR IV ONE (11:11)
[2019-11-07] MEDS ORDERED: ePHEDrine SULFATE/0.9% NACL/PF 50 MG/5 ML SYRINGE IV ONE (11:11)
[2019-11-07 11:16] LABS: Basophils % (A) 0 %; Eosinophils # (A) 0.2 k/uL (0-0.7); Eosinophils % (A) 3 %; HCT 36.4 % (34.0-46.0); Lymphocytes # (A) 2.7 k/uL (1.0-4.8); Lymphocytes % (A) 35 %; MCH 31.2 pg (25.0-35.0); MCHC 32.4 g/dL (31.0-37.0); MCV 96.1 fL (80.0-100.0); Mean Platelet Volume 7.9; Monocytes # (A) 0.5 k/uL (0-1.0); Monocytes % (A) 7 %; Neutrophils # (A) 4.3 k/uL (1.3-7.7); Neutrophils % (A) 54 %; Platelet Count 338 k/uL (150-450); RBC 3.79 m/uL (3.80-5.40); RDW 13.1 % (11.5-15.5); WBC 7.9 k/uL (3.8-10.6)
[2019-11-07] MEDS ORDERED: SODIUM CHLORIDE 0.9% 50 ML with ceFAZolin 1,000 MG IV ONE ×2 (11:16)
[2019-11-07 11:17] LABS: HGB 11.8 gm/dL (11.4-16.0)
[2019-11-07] MEDS ORDERED: METOCLOPRAMIDE 5 MG/ML 2 ML VIAL IVP PRN (11:52)
[2019-11-07] MEDS ORDERED: ONDANSETRON 4 MG/2 ML VIAL IVP PRN (11:52)
[2019-11-07] MEDS ORDERED: ACETAMINOPHEN TAB 325 MG TAB PO PRN (11:52)
[2019-11-07] MEDS ORDERED: NALOXONE 0.4 MG/ML 1 ML VIAL IV PRN (11:52)
--- NOTE | 2019-11-07 11:56 | P.OP ---
Date of Procedure: 11/07/19 Preoperative Diagnosis: Small bowel obstruction Postoperative Diagnosis: Small bowel charge secondary to adhesions Procedure(s) Performed: Exploratory laparotomy with lysis of adhesions Anesthesia: KRYSTEN Surgeon: Kurtis Phipps Estimated Blood Loss (ml): 5 Pathology: none sent Condition: stable Disposition: PACU Description of Procedure: The patient's placed the operative table in the supine position. She received general anesthesia. Patient had a well-healed low midline scar. The abdomen was entered through the midline. There were adhesions to the anterior abdominal wall. These were lysed with sharp dissection. The small bowel appeared to be dilated. Small bowel was run to the level of the ileum. In the terminal ileum there were a few adhesions these were lysed with sharp dissection. There was no definitive transition zone seen. The small bowel was then run from ligament Treitz to the terminal ileum and ileocecal valve. No other obstruction was seen. The abdomen was areas of bleeding seen. The fascia was closed loop #1 PDS suture. Skin was closed meir. Patient tolerated the procedure well.
[2019-11-07] MEDS: HYDROmorphone 1 MG/ML 1 ML SYRINGE IVP ONE ×4 (12:15→12:32)
[2019-11-07] MEDS ORDERED: LACTATED RINGERS 1,000 ML IV ONE ×2 (12:18)
[2019-11-07] MEDS: fentaNYL (PF) 50 MCG/ML 2 ML AMP IVP ONE ×3 (12:56→13:13)
[2019-11-07] MEDS: KETOROLAC 15 MG/ML 1 ML VIAL IVP SCH ×3 (13:58→23:29)
--- NOTE | 2019-11-07 14:31 | P.CONS ---
History of Present Illness - Reason for Consult leukocytosis, possible UTI - History of Present Illness 59-year-old female came in with high-grade small bowel obstruction with the nausea vomiting. Patient had a recent Viviana fundoplication followed by an ileus secondary to that. Patient was admitted to general surgery service and I valid the patient of the surgery after the surgery patient underwent laparotomy and additional physis today. Patient denied any dysuria denied any increased urinary frequency before she came and patient was recently treated for UTI repeat urine analysis is a contaminated urine sample. A she is comparing of pain in the abdomen the surgical site area presently doesn't have an epidural. Patient is on multiple medications pain including Toradol and Dilaudid. Review of Systems REVIEW OF SYSTEMS: CONSTITUTIONAL: No fever, no malaise, no fatigue. HEENT: No recent visual problems or hearing problems. Denied any sore throat. CARDIOVASCULAR: No chest pain, orthopnea, PND, no palpitations, no syncope. PULMONARY: No shortness of breath, no cough, no hemoptysis. GASTROINTESTINAL:as mentioned in HPI NEUROLOGICAL: No headaches, no weakness, no numbness. HEMATOLOGICAL: Denies any bleeding or petechiae. GENITOURINARY: Denies any burning micturition, frequency, or urgency. MUSCULOSKELETAL/RHEUMATOLOGICAL: Denies any joint pain, swelling, or any muscle pain. ENDOCRINE: Denies any polyuria or polydipsia. The rest of the 14-point review of systems is negative. Past Medical History Past Medical History: COPD, GERD/Reflux, Osteoarthritis (OA) Additional Past Medical History / Comment(s): Pt recently admitted to [facility] on 10/28/19 for dehydration, acute kidney injury, ileus. She is recent post viviana fundoplication and has had other recent admits for dehydration. Other hx: Pt states she has been having diarrhea lately-liquid/watery stools, bronchitis, UTI, nephritis, pt unsure why lopressor was recently prescribed, osteoporosis, past low back fracture, occasional upper back pain, sinus allergies. History of Any Multi-Drug Resistant Organisms: None Reported Past Surgical History: Section, Hernia Repair, Hysterectomy Additional Past Surgical History / Comment(s): 10/07/19 Viviana fundoplication, colonoscopy, hemorrhoidectomy, L shoulder benign tumor removed Past Anesthesia/Blood Transfusion Reactions: Previous Problems w/ Anesthesia Additional Past Anesthesia/Blood Transfusion Reaction / Comm: woke up during sx in past Past Psychological History: Anxiety, Depression Additional Psychological History / Comment(s): Pt reides with her significant other. She has a nebulizer. She is independent. Smoking Status: Current every day smoker Past Alcohol Use History: None Reported Additional Past Alcohol Use History / Comment(s): Pt smokes 1ppd from age 20 (1980) Past Drug Use History: None Reported Additional Drug Use History / Comment(s): currently using a nicotine patch at home - Past Family History Father Family Medical History: Cancer Additional Family Medical History / Comment(s): Esophageal cancer/ulcer. Pt states father of pneumonia at the age of 56yrs. Mother Family Medical History: Diabetes Mellitus Additional Family Medical History / Comment(s): MENS SYNDROME Sister(s) Additional Family Medical History / Comment(s): MENS SYNDROME Medications and Allergies Home Medications Medication Instructions Recorded Confirmed Type Montelukast [Singulair] 10 mg PO HS 09/03/19 11/06/19 History Metoprolol Tartrate 12.5 mg PO BID 09/26/19 11/06/19 History Nicotine 14Mg/24Hr Patch [Habitrol] 1 patch TRANSDERM DAILY 10/28/19 11/06/19 History Potassium Chloride ER [K-Dur 10] 10 meq PO BID #60 tab 10/31/19 11/06/19 Rx Pantoprazole [Protonix] 40 mg PO BID 11/06/19 11/06/19 History Allergies Allergy/AdvReac Type Severity Reaction Status Date / Time No Known Allergies Allergy Verified 11/06/19 18:58 Physical Exam Vitals: Vital Signs Temp Pulse Pulse Pulse Resp BP BP 11/07/19 13:05 89 16 113/72 11/07/19 12:50 94 16 118/68 11/07/19 12:35 99 18 129/75 11/07/19 12:20 93 16 133/78 11/07/19 12:04 97.4 F L 106 H 20 138/80 11/07/19 10:34 98 F 93 18 11/07/19 07:53 73 16 11/07/19 07:00 98.1 F 73 16 11/07/19 04:44 16 11/06/19 23:33 97.8 F 85 16 11/06/19 22:45 98.5 F 94 16 125/74 11/06/19 21:23 97.6 F 66 16 98/69 11/06/19 20:00 98.3 F 80 16 96/75 11/06/19 18:37 98 22 92/74 11/06/19 17:29 98.6 F 107 H 20 92/55 BP Pulse Ox 11/07/19 13:05 100 11/07/19 12:50 100 11/07/19 12:35 100 11/07/19 12:20 100 11/07/19 12:04 100 11/07/19 10:34 114/67 91 L 11/07/19 07:53 11/07/19 07:00 103/67 100 11/07/19 04:44 11/06/19 23:33 105/78 98 11/06/19 22:45 99 11/06/19 21:23 100 11/06/19 20:00 100 11/06/19 18:37 100 11/06/19 17:29 100 Intake and Output 11/06/19 11/07/19 11/07/19 22:59 06:59 14:59 Intake Total 1450 Output Total 220 510 Balance -220 940 Intake: IV 1450 Output: Gastric Drainage 220 Urine 500 Estimated Blood Loss 10 Other: Weight 49.895 kg 49.895 kg PHYSICAL EXAMINATION: GENERAL: The patient is alert and oriented x3, not in any acute distress. Well developed, well nourished. HEENT: Pupils are round and equally reacting to light. EOMI. No scleral icterus. No conjunctival pallor. Normocephalic, atraumatic. No pharyngeal erythema. No thyromegaly. CARDIOVASCULAR: S1 and S2 present. No murmurs, rubs, or gallops. PULMONARY: Chest is clear to auscultation, no wheezing or crackles. ABDOMEN:patient has a midline abdominal surgical scar which appears to be clean patient has an abdominal binder in place sluggish bowel sounds tenderness in the surgical site area MUSCULOSKELETAL: No joint swelling or deformity. EXTREMITIES: No cyanosis, clubbing, or pedal edema. NEUROLOGICAL: Gross neurological examination did not reveal any focal deficits. SKIN: No rashes. Results CBC & Chem 7: 11/07/19 10:40 11/07/19 10:40 Labs: Abnormal Lab Results - Last 24 Hours (Table) 11/06/19 11/06/19 11/06/19 Range/Units 18:37 18:37 18:37 WBC 21.8 H (3.8-10.6) k/uL RBC (3.80-5.40) m/uL Hct 49.0 H (34.0-46.0) % Plt Count 614 H (150-450) k/uL Neutrophils # 16.1 H (1.3-7.7) k/uL Sodium 135 L (137-145) mmol/L Potassium 5.3 H (3.5-5.1) mmol/L Chloride (98-107) mmol/L Carbon Dioxide 21 L (22-30) mmol/L Creatinine (0.52-1.04) mg/dL Glucose 221 H (74-99) mg/dL Plasma Lactic Acid Héctor (0.7-2.0) mmol/L Calcium 12.7 H (8.4-10.2) mg/dL AST 44 H (14-36) U/L ALT 37 H (4-34) U/L Total Protein 8.7 H (6.3-8.2) g/dL Albumin 5.5 H (3.5-5.0) g/dL Urine Appearance Cloudy H (Clear) Ur Specific [place] >1.050 H (1.001-1.035) Urine Protein 1+ H (Negative) Urine Blood Small H (Negative) Ur Leukocyte Esterase Small H (Negative) Urine RBC 27 H (0-5) /hpf Urine WBC 20 H (0-5) /hpf Ur Squamous Epith Cells 8 H (0-4) /hpf Calcium Oxalate Crystal Rare H (None) /hpf Hyaline Casts 9 H (0-2) /lpf Urine Mucus Few H (None) /hpf 11/06/19 11/07/19 11/07/19 Range/Units 18:37 10:40 10:40 WBC (3.8-10.6) k/uL RBC 3.79 L (3.80-5.40) m/uL Hct (34.0-46.0) % Plt Count (150-450) k/uL Neutrophils # (1.3-7.7) k/uL Sodium (137-145) mmol/L Potassium (3.5-5.1) mmol/L Chloride 114 H (98-107) mmol/L Carbon Dioxide 21 L (22-30) mmol/L Creatinine 0.41 L (0.52-1.04) mg/dL Glucose (74-99) mg/dL Plasma Lactic Acid Héctor 2.2 H* (0.7-2.0) mmol/L Calcium (8.4-10.2) mg/dL AST (14-36) U/L ALT (4-34) U/L Total Protein 6.0 L (6.3-8.2) g/dL Albumin 3.4 L (3.5-5.0) g/dL Urine Appearance (Clear) Ur Specific [place] (1.001-1.035) Urine Protein (Negative) Urine Blood (Negative) Ur Leukocyte Esterase (Negative) Urine RBC (0-5) /hpf Urine WBC (0-5) /hpf Ur Squamous Epith Cells (0-4) /hpf Calcium Oxalate Crystal (None) /hpf Hyaline Casts (0-2) /lpf Urine Mucus (None) /hpf Microbiology - Last 24 Hours (Table) 11/06/19 18:37 Urine Culture - Preliminary Urine,Clean Catch Assessment and Plan Plan: -leukocytosis without any fever urine is a contaminated urine sample I do not believe patient has urinary tract infection patient will not require antibiotics from this perspective.leukocytosis is reactive. Well obstruction -Small bowel obstruction high-grade: Status post laparotomy and adhesiono- lysis -COPD without any exacerbation of and have her gases. Reflux disease -Depression -Continued nicotine use: Counseling was provided -patient and DVT prophylaxis with Lovenox
[2019-11-07] MEDS: D5-0.45% NACL WITH KCL 20MEQ/L 1,000 ML IV SCH ×2 (14:36→20:35)
[2019-11-07] MEDS: HYDROmorphone 0.5 MG/0.5 ML SYRINGE IVP PRN ×2 (15:35→20:25)
[2019-11-07] MEDS: PANTOPRAZOLE 40 MG TABLET PO SCH (18:12)
[2019-11-07] MEDS: MONTELUKAST 10 MG TAB PO SCH (20:20)
[2019-11-07] MEDS: METOPROLOL TARTRATE 12.5 MG TAB PO SCH (20:20)
[2019-11-08] MEDS: HYDROmorphone 0.5 MG/0.5 ML SYRINGE IVP PRN ×5 (02:21→19:22)
[2019-11-08] MEDS: SODIUM CHLORIDE 0.9% 1,000 ML IV SCH ×2 (03:31→18:59)
[2019-11-08] MEDS: KETOROLAC 15 MG/ML 1 ML VIAL IVP SCH ×4 (05:33→23:07)
[2019-11-08] MEDS: D5-0.45% NACL WITH KCL 20MEQ/L 1,000 ML IV SCH ×3 (05:34→21:13)
[2019-11-08] MEDS: PANTOPRAZOLE 40 MG TABLET PO SCH (08:16)
[2019-11-08] MEDS: ENOXAPARIN 40 MG/0.4 ML SYRINGE SQ SCH (08:18)
[2019-11-08] MEDS: NICOTINE 14MG/24HR PATCH TRANSDERM SCH (08:18)
[2019-11-08] MEDS: METOPROLOL TARTRATE 12.5 MG TAB PO SCH ×2 (08:18→20:12)
[2019-11-08] MEDS: PANTOPRAZOLE 40 MG/10 ML VIAL IV SCH (08:19)
[2019-11-08 08:52] LABS: ALT 16 U/L (4-34); AST 20 U/L (14-36); African American GFR (CKD) >90 (>60 ml/min/1.73 sqM); Albumin 2.7 g/dL (3.5-5.0); Alkaline Phosphatase 52 U/L (38-126); Anion Gap 4 mmol/L; Blood Urea Nitrogen 3 mg/dL (7-17); Carbon Dioxide 21 mmol/L (22-30); Chloride 112 mmol/L (98-107); Glucose 124 mg/dL (74-99); Non-African American GFR(CKD) >90 (>60 ml/min/1.73 sqM); Potassium 4.6 mmol/L (3.5-5.1); Sodium 137 mmol/L (137-145); Total Bilirubin 0.3 mg/dL (0.2-1.3); Total Protein 4.8 g/dL (6.3-8.2)
[2019-11-08] MEDS ORDERED: NICOTINE 14MG/24HR PATCH TRANSDERM SCH (09:00)
[2019-11-08 09:09] LABS: Basophils % (A) 0 %; Eosinophils # (A) 0.2 k/uL (0-0.7); Eosinophils % (A) 1 %; HCT 36.7 % (34.0-46.0); HGB 11.7 gm/dL (11.4-16.0); Hypochromasia Slight; Lymphocytes # (A) 1.1 k/uL (1.0-4.8); Lymphocytes % (A) 8 %; MCHC 31.8 g/dL (31.0-37.0); MCV 97.5 fL (80.0-100.0); Mean Platelet Volume 7.9; Monocytes # (A) 0.4 k/uL (0-1.0); Monocytes % (A) 3 %; Neutrophils # (A) 12.9 k/uL (1.3-7.7); Neutrophils % (A) 88 %; Platelet Count 336 k/uL (150-450); RBC 3.76 m/uL (3.80-5.40); WBC 14.6 k/uL (3.8-10.6)
--- NOTE | 2019-11-08 12:31 | P.PN ---
Subjective Progress Note Date: 11/08/19 CHIEF COMPLAINT: Small bowel obstruction secondary to adhesions HISTORY OF PRESENT ILLNESS: Patient being followed for small bowel obstruction secondary to adhesions status post Exploratory laparotomy with lysis of adhesions. NG tube will be removed this morning. She is passing gas. She denies any nausea or vomiting. She is complaining of abdominal pain. Afebrile. White count 14.8 PHYSICAL EXAM: VITAL SIGNS: Reviewed. GENERAL: Well-developed in no acute distress. HEENT: No sclera icterus. Extraocular movements grossly intact. Moist buccal mucosa. Head is atraumatic, normocephalic. ABDOMEN: Soft. distended. minimal blood drainage noted on incision dressing NEUROLOGIC: Alert and oriented. Cranial nerves II through XII grossly intact. ASSESSMENT: 1. Small bowel obstruction secondary to adhesions status post Exploratory laparotomy with lysis of adhesions. POD #1 2. UTI continue Rocephin. Urine culture growing gram negative bacilli 3. Recent hospitalization with ileus likely secondary to UTI 4. History of recent Rosemary fundoplication for hiatal hernia 10/07/2019 PLAN: -discontinue NG tube -start clear liquid diet with sips -continue pain medications -GI prophylaxis Protonix and DVT prophylaxis Lovenox Physician Management Specialist note has been reviewed by physician. Signing provider agrees with the documented findings, assessment, and plan of care. Objective - Vital Signs Vital signs: Vital Signs Temp 98.1 F 11/08/19 07:27 Pulse 86 11/08/19 08:21 Resp 16 11/08/19 08:21 BP 103/70 11/08/19 07:27 Pulse Ox 98 11/08/19 07:27 Intake & Output 11/07/19 11/08/19 11/08/19 18:59 06:59 18:59 Intake Total 1450 Output Total 510 2425 Balance 940 -2425 Intake: IV 1450 Output: Urine 500 2425 Estimated Blood Loss 10 Other: Voiding Method Indwelling Catheter Indwelling Catheter - Labs CBC & Chem 7: 11/08/19 07:05 11/08/19 07:05 Labs: Abnormal Lab Results - Last 24 Hours (Table) 11/08/19 11/08/19 Range/Units 07:05 07:05 WBC 14.6 H (3.8-10.6) k/uL RBC 3.76 L (3.80-5.40) m/uL Neutrophils # 12.9 H (1.3-7.7) k/uL Chloride 112 H (98-107) mmol/L Carbon Dioxide 21 L (22-30) mmol/L BUN 3 L (7-17) mg/dL Creatinine 0.38 L (0.52-1.04) mg/dL Glucose 124 H (74-99) mg/dL Total Protein 4.8 L (6.3-8.2) g/dL Albumin 2.7 L (3.5-5.0) g/dL Microbiology - Last 24 Hours (Table) 11/06/19 18:37 Urine Culture - Preliminary Urine,Clean Catch Gram Neg Bacilli
[2019-11-08] MEDS: HYDROcodone/APAP 5-325MG 1 EACH TAB PO PRN ×2 (13:25→23:07)
--- NOTE | 2019-11-08 14:29 | P.PN ---
Subjective Progress Note Date: 11/08/19 Principal diagnosis: 59-year-old female came in with high-grade small bowel obstruction with the nausea vomiting. Patient had a recent Rosemary fundoplication followed by an ileus secondary to that. Patient was admitted to general surgery service and I valid the patient of the surgery after the surgery patient underwent laparotomy and lysis of adhesions today. Patient denied any dysuria denied any increased urinary frequency before she came and patient was recently treated for UTI repeat urine analysis is a contaminated urine sample. She is complaining of pain in the abdomen the surgical site area presently doesn't have an epidural. Patient is on multiple medications pain including Toradol and Dilaudid. 11/08/2019 Patient is seen and evaluated and follow-up and continues to have severe abdominal discomfort at the surgical site. Abdominal binder is noted. Follow ing closely along with surgery. Patient continues to have an NG tube to low intermittent suction and is currently nothing by mouth although will be transitioning to clear liquid diet. She is maintained on IV antibiotics in the form of ceftriaxone as urine cultures preliminary showing gram negative bacilli. Patient instructed to increase activity as tolerated. Patient also continues with an indwelling Noble catheter at this time. Review of systems: Constitutional: No reports of fatigue, fever, or chills Cardiovascular: No reports of chest pain or palpitations Respiratory: No reports of shortness of breath, reports nose irritation from the NG tube and slight cough GI: Reports intermittent nausea, no reports of vomiting, or diarrhea : No reports of dysuria or retention Neurovascular: No reports of weakness or numbness All medications have been reviewed Active Medications Acetaminophen (Tylenol Tab) 650 mg PO Q6HR PRN PRN Reason: Mild Pain or Fever >= 100.5 Hydrocodone Bitart/Acetaminophen ([place] 5-325) 1 each PO Q4HR PRN PRN Reason: Mild Pain Last Admin: 11/08/19 13:25 Dose: 1 each Documented by: Enoxaparin Sodium (Lovenox) 40 mg SQ DAILY BRIJESH Last Admin: 11/08/19 08:18 Dose: 40 mg Documented by: Hydromorphone HCl (Dilaudid) 0.5 mg IVP Q3HR PRN PRN Reason: Moderate to Severe Pain Last Admin: 11/08/19 09:58 Dose: 0.5 mg Documented by: Sodium Chloride (Saline 0.9%) 1,000 mls @ 100 mls/hr IV .Q10H [facility] Last Admin: 11/08/19 03:31 Dose: Not Given Documented by: Ceftriaxone Sodium 1 gm/ (Sodium Chloride) 50 mls @ 100 mls/hr IVPB Q24H [facility] Last Admin: 11/07/19 20:26 Dose: 100 mls/hr Documented by: Potassium Chloride/Dextrose/Sod Cl (D5%-1/2ns-Kcl 20 Meq/L Iv Solution) 1,000 mls @ 125 mls/hr IV .Q8H [facility] Last Admin: 11/08/19 13:25 Dose: 125 mls/hr Documented by: Ketorolac Tromethamine (Toradol) 15 mg IVP Q6HR [facility] Stop: 11/09/19 06:01 Last Admin: 11/08/19 11:56 Dose: 15 mg Documented by: Metoclopramide HCl (Reglan) 10 mg IVP Q6H PRN PRN Reason: Nausea And Vomiting Metoprolol Tartrate (Lopressor) 12.5 mg PO BID [facility] Last Admin: 11/08/19 08:18 Dose: Not Given Documented by: Montelukast Sodium (Singulair) 10 mg PO HS [facility] Last Admin: 11/07/19 20:20 Dose: Not Given Documented by: Naloxone HCl (Narcan) 0.2 mg IV Q2M PRN PRN Reason: Opioid Reversal Nicotine (Habitrol 14mg/24hr Patch) 1 patch TRANSDERM DAILY [facility] Last Admin: 11/08/19 08:18 Dose: 1 patch Documented by: Ondansetron HCl (Zofran) 4 mg IVP Q6HR PRN PRN Reason: Nausea And Vomiting Pantoprazole Sodium (Protonix) 40 mg IV DAILY [facility] Last Admin: 11/08/19 08:19 Dose: 40 mg Documented by: Objective - Vital Signs Vital signs: Vital Signs Temp 98.1 F 11/08/19 07:27 Pulse 86 11/08/19 08:21 Resp 16 11/08/19 08:21 BP 103/70 11/08/19 07:27 Pulse Ox 98 11/08/19 07:27 Intake & Output 11/07/19 11/08/19 11/08/19 18:59 06:59 18:59 Intake Total 1450 Output Total 510 2425 Balance 940 -2425 Intake: IV 1450 Output: Urine 500 2425 Estimated Blood Loss 10 Other: Voiding Method Indwelling Catheter Indwelling Catheter - Exam GENERAL: The patient is alert and oriented x3. Well developed, well nourished. Temp is 98.1F, pulse is 86, respirations are 16, blood pressure is 103/70, oxygen saturation is 98% on room air HEENT: Pupils are round and equally reacting to light. EOMI. No scleral icterus. No conjunctival pallor. Normocephalic, atraumatic. No pharyngeal erythema. No thyromegaly. NG tube noted CARDIOVASCULAR: S1 and S2 present. No murmurs, rubs, or gallops. PULMONARY: Diminished breath sounds bilaterally with no wheezing or crackles. ABDOMEN:patient has a midline abdominal surgical scar which appears to be clean patient has an abdominal binder in place sluggish bowel sounds tenderness in the surgical site area MUSCULOSKELETAL: No joint swelling or deformity. EXTREMITIES: No cyanosis, clubbing, or pedal edema. NEUROLOGICAL: Gross neurological examination did not reveal any focal deficits. SKIN: No rashes. - Labs CBC & Chem 7: 11/08/19 07:05 11/08/19 07:05 Labs: Abnormal Lab Results - Last 24 Hours (Table) 11/07/19 11/07/19 11/08/19 Range/Units 10:40 10:40 07:05 WBC 14.6 H (3.8-10.6) k/uL RBC 3.79 L 3.76 L (3.80-5.40) m/uL Neutrophils # 12.9 H (1.3-7.7) k/uL Chloride 114 H (98-107) mmol/L Carbon Dioxide 21 L (22-30) mmol/L BUN (7-17) mg/dL Creatinine 0.41 L (0.52-1.04) mg/dL Glucose (74-99) mg/dL Total Protein 6.0 L (6.3-8.2) g/dL Albumin 3.4 L (3.5-5.0) g/dL 11/08/19 Range/Units 07:05 WBC (3.8-10.6) k/uL RBC (3.80-5.40) m/uL Neutrophils # (1.3-7.7) k/uL Chloride 112 H (98-107) mmol/L Carbon Dioxide 21 L (22-30) mmol/L BUN 3 L (7-17) mg/dL Creatinine 0.38 L (0.52-1.04) mg/dL Glucose 124 H (74-99) mg/dL Total Protein 4.8 L (6.3-8.2) g/dL Albumin 2.7 L (3.5-5.0) g/dL Microbiology - Last 24 Hours (Table) 11/06/19 18:37 Urine Culture - Preliminary Urine,Clean Catch Gram Neg Bacilli Assessment and Plan Assessment: -leukocytosis without any fever -Possible acute urinary tract infection -Small bowel obstruction high-grade: Status post laparotomy and lysis of adhesions -COPD without any exacerbation -Gastroesophageal reflux disease -Depression -Continued nicotine use: Counseling was provided -DVT prophylaxis with Lovenox -GI prophylaxis: Protonix Plan: Continue current medications, management, and symptomatic treatment. Will continue to follow along closely with surgery. Instructed the patient to increase activity as tolerated. She currently has an NG tube and will be transitioning to clear liquid diet. Urine cultures preliminary showing gram-negative bacilli and patient is maintained on IV ceftriaxone. Will await finalization. Further recommendations to follow.
[2019-11-08] MEDS: MONTELUKAST 10 MG TAB PO SCH (20:12)
[2019-11-09] MEDS: D5-0.45% NACL WITH KCL 20MEQ/L 1,000 ML IV SCH (04:24)
[2019-11-09] MEDS: HYDROmorphone 0.5 MG/0.5 ML SYRINGE IVP PRN ×6 (04:24→20:04)
[2019-11-09] MEDS: KETOROLAC 15 MG/ML 1 ML VIAL IVP SCH (05:33)
[2019-11-09] MEDS: NICOTINE 14MG/24HR PATCH TRANSDERM SCH (07:00)
[2019-11-09] MEDS: PANTOPRAZOLE 40 MG/10 ML VIAL IV SCH (07:00)
[2019-11-09] MEDS: METOPROLOL TARTRATE 12.5 MG TAB PO SCH ×2 (07:01→20:04)
[2019-11-09] MEDS: ENOXAPARIN 40 MG/0.4 ML SYRINGE SQ SCH (07:01)
[2019-11-09 07:08] LABS: Basophils % (A) 0 %; Eosinophils # (A) 0.4 k/uL (0-0.7); Eosinophils % (A) 4 %; HCT 33.3 % (34.0-46.0); HGB 10.5 gm/dL (11.4-16.0); Lymphocytes # (A) 1.8 k/uL (1.0-4.8); Lymphocytes % (A) 20 %; MCH 30.1 pg (25.0-35.0); MCHC 31.4 g/dL (31.0-37.0); MCV 95.9 fL (80.0-100.0); Mean Platelet Volume 7.5; Monocytes # (A) 0.4 k/uL (0-1.0); Monocytes % (A) 4 %; Neutrophils # (A) 6.6 k/uL (1.3-7.7); Neutrophils % (A) 71 %; Platelet Count 348 k/uL (150-450); RBC 3.48 m/uL (3.80-5.40); WBC 9.3 k/uL (3.8-10.6)
[2019-11-09 07:20] LABS: African American GFR (CKD) >90 (>60 ml/min/1.73 sqM); Anion Gap 5 mmol/L; Blood Urea Nitrogen 2 mg/dL (7-17); Calcium 9.5 mg/dL (8.4-10.2); Carbon Dioxide 21 mmol/L (22-30); Chloride 110 mmol/L (98-107); Glucose 119 mg/dL (74-99); Non-African American GFR(CKD) >90 (>60 ml/min/1.73 sqM); Potassium 4.2 mmol/L (3.5-5.1); Sodium 136 mmol/L (137-145)
[2019-11-09] MEDS: HYDROcodone/APAP 5-325MG 1 EACH TAB PO PRN ×3 (09:54→23:31)
[2019-11-09] MEDS ORDERED: D5-0.45% NACL WITH KCL 20MEQ/L 1,000 ML IV SCH (12:00)
--- NOTE | 2019-11-09 14:47 | P.PN ---
Subjective Progress Note Date: 11/09/19 CHIEF COMPLAINT: Bowel obstruction HISTORY OF PRESENT ILLNESS: The patient is a 59-year-old female status post lysis of adhesions for bowel obstruction. She reports troubles with ambulation with her oconnor catheter. "I have gas pains." She is belching. No flatus. ROS: No reports of nausea and vomiting. No bowel movements. No fevers or chills. No new chest pain. PHYSICAL EXAM: VITAL SIGNS: Reviewed CONSTITUTIONAL: Well developed and in no acute distress. EYES: Conjuctivae without sclera icterus. Extraocular movements grossly intact. HEAD, EARS, NOSE, THROAT: Moist buccal mucosa. Head is atraumatic, normocephalic. Hears conversational speech. No nasal drainage. NECK: Supple. No thyroidomegaly. RESPIRATORY: Non-labored respirations and equal bilateral excursions. CARDIOVASCULAR: Palpable 2+ radial pulses. ABDOMEN: Mild distention. Abdominal binder present MUSCULOSKELETAL: No gross deformity of the lower extremities noted. No clubbing. No cyanosis. SKIN: Good skin turgor. Well perfused. NEUROLOGIC: Cranial nerves II through XII grossly intact. No focal or lateralizing signs. PSYCH: Appropriate affect. Alert and oriented to person, place and time. CLINICAL LABS: White blood cell count normal, 9.3. Hgb down 11.7 to 10.5 ASSESSMENT: 1. Small bowel obstruction PLAN: 1. Discontinue oconnor 2. Ambulate 3. Await flatus Objective - Vital Signs Vital signs: Vital Signs Temp 98.1 F 11/09/19 06:54 Pulse 98 11/09/19 06:54 Resp 17 11/09/19 07:00 BP 107/74 11/09/19 06:54 Pulse Ox 98 11/09/19 01:20 Intake & Output 11/08/19 11/09/19 11/09/19 18:59 06:59 18:59 Intake Total 1375 Output Total 1200 950 Balance -1200 425 Intake: Intake, IV Titration 1375 Amount D5-0.45% NaCl with KCl 1375 20Meq/l 1,000 ml @ 125 mls/hr IV .Q8H [facility] Rx#: [id number] Output: Urine 1200 950 Other: Voiding Method Indwelling Catheter Indwelling Catheter Indwelling Catheter - Labs CBC & Chem 7: 11/10/19 07:12 11/10/19 07:12 Labs: Abnormal Lab Results - Last 24 Hours (Table) 11/09/19 11/09/19 Range/Units 06:41 06:41 RBC 3.48 L (3.80-5.40) m/uL Hgb 10.5 L (11.4-16.0) gm/dL Hct 33.3 L (34.0-46.0) % Sodium 136 L (137-145) mmol/L Chloride 110 H (98-107) mmol/L Carbon Dioxide 21 L (22-30) mmol/L BUN 2 L (7-17) mg/dL Creatinine 0.36 L (0.52-1.04) mg/dL Glucose 119 H (74-99) mg/dL Microbiology - Last 24 Hours (Table) 11/06/19 18:37 Urine Culture - Final Urine,Clean Catch Enterobacter cloacae Assessment and Plan (1) Small bowel obstruction Current Visit: Yes Status: Acute Code(s): K56.609 - UNSP INTESTNL OBST, UNSP TO PARTIAL VERSUS COMPLETE OBST SNOMED Code(s): 810124549 (2) COPD (chronic obstructive pulmonary disease) Current Visit: No Status: Acute Code(s): J44.9 - CHRONIC OBSTRUCTIVE PULMO NARY DISEASE, UNSPECIFIED SNOMED Code(s): 90304228
[2019-11-09] MEDS: SODIUM CHLORIDE 0.9% 1,000 ML IV SCH (17:08)
--- NOTE | 2019-11-09 17:27 | PN ---
PROGRESS NOTE DATE OF SERVICE: 11/09/2019. This 59-year-old woman was admitted with features of small-bowel obstruction and secondary adhesions, was being started on conservative line of treatment. Has had exploratory laparotomy with lysis of adhesions. Today is postop day 2. No chest pain. No palpitations. No fever. PHYSICAL EXAMINATION: On exam, alert and oriented. Pulse 83, blood pressure 115/75, respirations 18, temperature 98.2, pulse ox 98% on room air. HEENT: Conjunctivae normal. NECK: Supple. RESPIRATORY: Breath sounds diminished in the bases. No rhonchi no crackles. ABDOMEN: Soft. Status post surgery. NERVOUS SYSTEM: No focal deficits. LAB STUDIES: WBC 9.2, hemoglobin 10.5, sodium is 136. ASSESSMENT: 1. Acute small-bowel obstructions secondary to adhesions status post exploratory laparotomy. 2. Acute urinary tract infection present on admission. 3. COPD. 4. GERD. 5. Depression. 6. History of nicotine dependence. 7. Hyponatremia. 8. Increased WBC, improved. RECOMMENDATIONS AND DISCUSSION: In this 59-year-old woman who was admitted with multiple medical problems, we will monitor the patient closely. Continue the current management. Symptomatic treatment. Change fluid to 0.9. Repeat labs, CBC and BMP. Otherwise, DVT prophylaxis. Proton pump inhibitors. Further recommendations to follow. Closely follow with Surgery. MMODL / IJN: [id number] /
[2019-11-09] MEDS: MONTELUKAST 10 MG TAB PO SCH (20:04)
[2019-11-10] MEDS: HYDROmorphone 0.5 MG/0.5 ML SYRINGE IVP PRN ×3 (00:14→07:11)
[2019-11-10] MEDS: HYDROcodone/APAP 5-325MG 1 EACH TAB PO PRN ×2 (07:11→12:16)
[2019-11-10] MEDS: METOPROLOL TARTRATE 12.5 MG TAB PO SCH ×2 (07:11→20:00)
[2019-11-10] MEDS: ENOXAPARIN 40 MG/0.4 ML SYRINGE SQ SCH (07:12)
[2019-11-10] MEDS: NICOTINE 14MG/24HR PATCH TRANSDERM SCH (07:12)
[2019-11-10] MEDS: PANTOPRAZOLE 40 MG/10 ML VIAL IV SCH (07:12)
[2019-11-10 07:50] LABS: Basophils % (A) 0 %; Eosinophils # (A) 0.5 k/uL (0-0.7); Eosinophils % (A) 7 %; HCT 34.4 % (34.0-46.0); HGB 10.9 gm/dL (11.4-16.0); Lymphocytes # (A) 1.9 k/uL (1.0-4.8); Lymphocytes % (A) 23 %; MCH 29.9 pg (25.0-35.0); MCHC 31.7 g/dL (31.0-37.0); MCV 94.5 fL (80.0-100.0); Mean Platelet Volume 8.2; Monocytes # (A) 0.3 k/uL (0-1.0); Monocytes % (A) 4 %; Neutrophils # (A) 5.3 k/uL (1.3-7.7); Neutrophils % (A) 65 %; Platelet Count 368 k/uL (150-450); RBC 3.64 m/uL (3.80-5.40); WBC 8.2 k/uL (3.8-10.6)
[2019-11-10 08:05] LABS: African American GFR (CKD) >90 (>60 ml/min/1.73 sqM); Anion Gap 6 mmol/L; Blood Urea Nitrogen 5 mg/dL (7-17); Calcium 10.9 mg/dL (8.4-10.2); Carbon Dioxide 24 mmol/L (22-30); Chloride 105 mmol/L (98-107); Glucose 92 mg/dL (74-99); Non-African American GFR(CKD) >90 (>60 ml/min/1.73 sqM); Potassium 4.3 mmol/L (3.5-5.1); Sodium 135 mmol/L (137-145)
[2019-11-10] MEDS: SODIUM CHLORIDE 0.9% 1,000 ML IV SCH (11:11)
[2019-11-10] MEDS ORDERED: ALBUTEROL NEBULIZED 2.5 MG/3 ML INHALATION PRN (13:03)
[2019-11-10] MEDS: LORazepam 2 MG/ML INJ IV PRN (13:10)
--- NOTE | 2019-11-10 13:11 | P.PN ---
Subjective Progress Note Date: 11/10/19 CHIEF COMPLAINT: Bowel obstruction HISTORY OF PRESENT ILLNESS: The patient is a 59-year-old female status post lysis of adhesions for bowel obstruction. "I am having a panic attack!" She reports difficulty with clearing her throat and breathing. She has history of tobacco abuse. Discussion with nurse includes, she prefers dilaudid over her pain pill. She is not on scheduled pain medications. She is trying to cough and reports pain with coughing. ROS: No reports of nausea and vomiting. No bowel movements. No fevers or chills. PHYSICAL EXAM: VITAL SIGNS: Reviewed CONSTITUTIONAL: Well developed and in no acute distress. EYES: Conjuctivae without sclera icterus. Extraocular movements grossly intact. HEAD, EARS, NOSE, THROAT: Moist buccal mucosa. Head is atraumatic, normocephalic. Hears conversational speech. No nasal drainage. NECK: Supple. No thyroidomegaly. RESPIRATORY: Non-labored respirations and equal bilateral excursions. CARDIOVASCULAR: Palpable 2+ radial pulses. ABDOMEN: Binder intact. Dressing intact. MUSCULOSKELETAL: No gross deformity of the lower extremities noted. No clubbing. No cyanosis. SKIN: Good skin turgor. Well perfused. NEUROLOGIC: Cranial nerves II through XII grossly intact. No focal or lateralizing signs. PSYCH: Anxious. Alert and oriented to person, place and time. CLINICAL LABS: White blood cell count normal, 9.3 now 8.2. Hgb down 11.7 to 10.5, now 10.9 ASSESSMENT: 1. Small bowel obstruction 2. Dyspnea PLAN: 1. Obtain chest xray for dyspnea 2. Start nebulizers for history of COPD and chronic tobacco abuse 3. Pain medications adjusted to include scheduled Toradol and tylenol 4. For anxiety, Ativan started 5. Incentive spirometry started for pulmonary toilet 6. Reglan ordered for bowel motility and nausea Objective - Vital Signs Vital signs: Vital Signs Temp 98.4 F 11/10/19 07:00 Pulse 68 11/10/19 07:00 Resp 18 11/10/19 07:00 BP 106/68 11/10/19 07:00 Pulse Ox 97 11/10/19 07:00 Intake & Output 11/09/19 11/10/19 11/10/19 18:59 06:59 18:59 Intake Total 150 Output Total 1700 Balance -1700 150 Intake: Intake, IV Titration 150 Amount Sodium Chloride 0.9% 1, 150 000 ml @ 50 mls/hr IV . Q20H [facility] Rx#:[id number] Output: Urine 1700 Uretheral ([place]) 1300 Other: Voiding Method Indwelling Catheter Toilet Toilet Bedside Commode Bedside Commode # Voids 6 - Labs CBC & Chem 7: 11/10/19 07:12 11/10/19 07:12 Labs: Abnormal Lab Results - Last 24 Hours (Table) 11/10/19 11/10/19 Range/Units 07:12 07:12 RBC 3.64 L (3.80-5.40) m/uL Hgb 10.9 L (11.4-16.0) gm/dL Sodium 135 L (137-145) mmol/L BUN 5 L (7-17) mg/dL Creatinine 0.37 L (0.52-1.04) mg/dL Calcium 10.9 H (8.4-10.2) mg/dL Assessment and Plan (1) Small bowel obstruction Current Visit: Yes Status: Acute Code(s): K56.609 - UNSP INTESTNL OBST, UNSP TO PARTIAL VERSUS COMPLETE OBST SNOMED Code(s): 761911745 (2) COPD (chronic obstructive pulmonary disease) Current Visit: No Status: Acute Code(s): J44.9 - CHRONIC OBSTRUCTIVE PULM ONARY DISEASE, UNSPECIFIED SNOMED Code(s): 66129143
[2019-11-10 13:12] VITALS: BMI 20.7
[2019-11-10] MEDS ORDERED: ACETAMINOPHEN ORAL SUSP (PEDS) 3,840 MG/120 ML BOTTLE PO SCH (13:15)
[2019-11-10] MEDS: KETOROLAC 15 MG/ML 1 ML VIAL IVP SCH ×2 (13:19→17:24)
[2019-11-10] MEDS: METOCLOPRAMIDE 5 MG/ML 2 ML VIAL IVP SCH ×2 (13:20→20:00)
--- NOTE | 2019-11-10 14:02 | XR ---
EXAMINATION TYPE: XR chest 1V DATE OF EXAM: 11/10/2019 COMPARISON: 10/12/2019 INDICATION: Difficulty breathing TECHNIQUE: Single frontal view of the chest is obtained. FINDINGS: The heart size is normal. The pulmonary vasculature is normal. The lungs are clear. Prominent air-filled loops of bowel are present. Subtle air under the right diaphragm may be present. Patient had a recent laparotomy. Report was divided to Francisco, patient's nurse by Dr. Wong in pers on at the time of interpretation. IMPRESSION: 1. No acute pulmonary process. 2. Small pneumoperitoneum compatible with recent exploratory laparotomy rate
[2019-11-10] MEDS: ACETAMINOPHEN IV (For NPO) 650 MG in EMPTY BAG 1 BAG IVPB SCH ×2 (14:31→17:39)
[2019-11-10] MEDS ORDERED: IPRATROPIUM-ALBUTEROL 3 ML NEB INHALATION PRN (15:29)
[2019-11-10] MEDS: LEVOFLOXACIN 500MG-D5W PMX 500 MG in DEXTROSE/WATER 1 100ML.BAG IVPB SCH (16:36)
--- NOTE | 2019-11-10 17:12 | PN ---
PROGRESS NOTE DATE OF SERVICE: 11/10/2019 INTERVAL HISTORY: This is a 59-year-old woman who was admitted with acute small-bowel obstruction. Had exploratory laparotomy. Patient also had UTI present on admission. A chest x-ray done today showed small pneumoperitoneum and no acute pulmonary process. No chest pain. No palpitations. No fever. Surgery is following the patient closely. The patient has mild shortness of breath. Nebulizer has been initiated for COPD. Urine culture showed Enterobacter cloacae several days ago, which is slightly resistant, which is resistant to Rocephin. The patient is on Levaquin and it is sensitive to Levaquin. PAST MEDICAL HISTORY: Reviewed. REVIEW OF SYSTEMS: CARDIOVASCULAR: No angina or palpitations. RESPIRATORY: As mentioned earlier. GI: As mentioned earlier. : As mentioned earlier. NERVOUS SYSTEM: No numbness or weakness. CURRENT MEDICATIONS: Reviewed and include Tylenol, [place], Ventolin, Rocephin, Toradol, Reglan, lopressor, Singular, Narcan, Habitrol, Zofran, Protonix. PHYSICAL EXAM: GENERAL: Patient is alert and oriented times three. VITAL SIGNS: Pulse 94, blood pressure 123/83, respirations 16, temperature 98.4, pulse ox 94% on room. HEENT: Conjunctivae normal. NECK: No jugular venous distention. RESPIRATORY: Breath sounds diminished at the bases. A few scattered rhonchi. HEART: S1 and S2, muffled. ABDOMEN: Soft, status post surgery. EXTREMITIES: No edema, no swelling. NERVOUS: No focal deficits. LABS: WBC 8.2, hemoglobin 7.9, sodium 135, potassium 4.3 and calcium is 10.9. The albumin is 2.7. IMAGING: The chest x-ray which was personally reviewed by me showed evidence of pneumoperitoneum, otherwise no acute respiratory illnesses. ASSESSMENT: 1. Acute small-bowel obstruction secondary to adhesions status post exploratory laparotomy. 2. Acute urinary tract infection present on admission. 3. Enterobacter cloacae resistant urinary tract infection .. 4. Possible chronic obstructive pulmonary disease acute exacerbation. 5. Gastroesophageal reflux disease. 6. Depression. 7. History of nicotine dependence. 8. Hyponatremia. 9. Increased WBC improved. RECOMMENDATIONS AND DISCUSSION: In this 59-year-old woman who presented with multiple medical issues, at this time we will monitor the patient closely. Continue the current management. Continue symptomatic treatment. I recommend to change the antibiotics to Levaquin. Repeat urine culture. Otherwise continue to monitor. Repeat cultures. Guarded prognosis. Further recommendations to follow. DVT prophylaxis. See orders for further details. MMODL / IJN: [id number] /
[2019-11-10 17:34] LABS: Appearance,Urine Clear (Clear); Bilirubin,Urine Negative (Negative); Blood,Urine Small (Negative); Color,Urine Yellow; Glucose,Urine (UA) Negative (Negative); Ketones,Urine 2+ (Negative); Leukocyte Esterase,Urine Negative (Negative); Mucus,Urine Occasional /hpf; Nitrite,Urine Negative (Negative); PH, Urine 5.5 (5.0-8.0); Protein,Urine Negative (Negative); RBC,Urine 13 /hpf (0-5); Specific Gravity,Urine 1.011 (1.001-1.035); Urobilinogen,Urine <2.0 mg/dL (<2.0); WBC,Urine 3 /hpf (0-5)
[2019-11-10] MEDS: MONTELUKAST 10 MG TAB PO SCH (20:00)
[2019-11-10] MEDS: IPRATROPIUM-ALBUTEROL 3 ML NEB INHALATION SCH (20:32)
[2019-11-11] MEDS: KETOROLAC 15 MG/ML 1 ML VIAL IVP SCH ×5 (00:01→23:27)
[2019-11-11] MEDS: ACETAMINOPHEN IV (For NPO) 650 MG in EMPTY BAG 1 BAG IVPB SCH ×2 (00:01→06:05)
[2019-11-11] MEDS: METOCLOPRAMIDE 5 MG/ML 2 ML VIAL IVP SCH ×4 (01:52→20:21)
[2019-11-11] MEDS: HYDROcodone/APAP 5-325MG 1 EACH TAB PO PRN ×4 (06:28→20:23)
[2019-11-11] MEDS: IPRATROPIUM-ALBUTEROL 3 ML NEB INHALATION SCH ×3 (07:29→19:55)
[2019-11-11] MEDS: NICOTINE 14MG/24HR PATCH TRANSDERM SCH (07:39)
[2019-11-11] MEDS: PANTOPRAZOLE 40 MG/10 ML VIAL IV SCH (07:39)
[2019-11-11] MEDS: SODIUM CHLORIDE 0.9% 1,000 ML IV SCH (07:40)
[2019-11-11] MEDS: METOPROLOL TARTRATE 12.5 MG TAB PO SCH ×2 (07:40→20:21)
[2019-11-11 11:49] LABS: Basophils % (A) 0 %; Eosinophils # (A) 0.6 k/uL (0-0.7); Eosinophils % (A) 12 %; HCT 33.9 % (34.0-46.0); HGB 10.5 gm/dL (11.4-16.0); Lymphocytes # (A) 1.4 k/uL (1.0-4.8); Lymphocytes % (A) 28 %; MCH 29.8 pg (25.0-35.0); MCV 96.1 fL (80.0-100.0); Mean Platelet Volume 7.5; Monocytes # (A) 0.2 k/uL (0-1.0); Monocytes % (A) 4 %; Neutrophils # (A) 2.8 k/uL (1.3-7.7); Neutrophils % (A) 54 %; Platelet Count 372 k/uL (150-450); RBC 3.53 m/uL (3.80-5.40); WBC 5.2 k/uL (3.8-10.6)
[2019-11-11 12:02] LABS: African American GFR (CKD) >90 (>60 ml/min/1.73 sqM); Anion Gap 4 mmol/L; Blood Urea Nitrogen 4 mg/dL (7-17); Calcium 10.6 mg/dL (8.4-10.2); Carbon Dioxide 20 mmol/L (22-30); Chloride 111 mmol/L (98-107); Glucose 112 mg/dL (74-99); Non-African American GFR(CKD) >90 (>60 ml/min/1.73 sqM); Sodium 135 mmol/L (137-145)
--- NOTE | 2019-11-11 12:45 | P.PN ---
Subjective Progress Note Date: 11/11/19 Principal diagnosis: This is a 59-year-old female who was recently admitted with an acute small bowel Obstruction and underwent exploratory laparotomy with adhesion lysis and is be ing closely monitored. Following closely with surgery. Patient also was found to have a UTI on presentation and is currently maintained on Levaquin as urine cultures finalized showing Enterobacter Cloacae. Patient continues to have some abdominal discomfort although states is passing gas with no bowel movements report. Patient has been on clear liquids. Patient has been up and increasing activity as tolerated. Patient is currently on room air and is maintained on nebulizer treatments and will continue at this time. Patient currently denies any chest pain, shortness of breath, or palpitations. Patient is afebrile. No reports of nausea or vomiting and patient tolerating diet. Objective - Vital Signs Vital signs: Vital Signs Temp 98.2 F 11/11/19 07:00 Pulse 72 11/11/19 11:57 Resp 18 11/11/19 07:00 BP 121/77 11/11/19 07:00 Pulse Ox 98 11/11/19 07:00 Intake & Output 11/10/19 11/11/19 11/11/19 18:59 06:59 18:59 Intake Total 550 Balance 550 Weight 49.895 kg Intake: Intake, IV Titration 550 Amount Sodium Chloride 0.9% 1, 550 000 ml @ 50 mls/hr IV . Q20H [facility] Rx#:[id number] Other: Voiding Method Toilet Toilet Toilet Bedside Commode Bedside Commode Bedside Commode # Voids 4 - Exam GENERAL: The patient is alert and oriented x3. Well developed, well nourished. Temp is 98.2F, pulse is 62, respirations are 18, blood pressure is 121/77, oxygen saturation is 98% on room air HEENT: Pupils are round and equally reacting to light. EOMI. No scleral icterus. No conjunctival pallor. Normocephalic, atraumatic. No pharyngeal erythema. No thyromegaly. NG tube noted CARDIOVASCULAR: S1 and S2 present. No murmurs, rubs, or gallops. PULMONARY: Diminished breath sounds bilaterally with no wheezing or crackles. ABDOMEN:patient has a midline abdominal surgical scar which appears to be clean patient has an abdominal binder in place, Positive bowel sounds MUSCULOSKELETAL: No joint swelling or deformity. EXTREMITIES: No cyanosis, clubbing, or pedal edema. NEUROLOGICAL: Gross neurological examination did not reveal any focal deficits. SKIN: No rashes. - Labs CBC & Chem 7: 11/11/19 11:21 11/11/19 11:21 Labs: Abnormal Lab Results - Last 24 Hours (Table) 11/10/19 11/11/19 11/11/19 Range/Units 16:50 11:21 11:21 RBC 3.53 L (3.80-5.40) m/uL Hgb 10.5 L (11.4-16.0) gm/dL Hct 33.9 L (34.0-46.0) % Sodium 135 L (137-145) mmol/L Chloride 111 H (98-107) mmol/L Carbon Dioxide 20 L (22-30) mmol/L BUN 4 L (7-17) mg/dL Creatinine 0.36 L (0.52-1.04) mg/dL Glucose 112 H (74-99) mg/dL Calcium 10.6 H (8.4-10.2) mg/dL Urine Ketones 2+ H (Negative) Urine Blood Small H (Negative) Urine RBC 13 H (0-5) /hpf Urine Mucus Occasional H (None) /hpf Microbiology - Last 24 Hours (Table) 11/10/19 16:50 Urine Culture - Preliminary Urine,Voided Assessment and Plan Assessment: -leukocytosis, Improved -Acute urinary tract infection, present on admission -Enterobacter cloacae resistant urinary tract infection -Acute Small bowel obstruction Secondary to adhesions status post exploratory laparotomy -Possible COPD, Acute exacerbation -Gastroesophageal reflux disease -Depression -Hyponatremia -Continued nicotine use: Counseling was provided -DVT prophylaxis with Lovenox -GI prophylaxis: Protonix Plan: Continue current medications, management, and symptomatic treatment. Will continue to follow along closely with surgery. Instructed the patient to increase activity as tolerated. Patient tolerating clear liquids with no reports of nausea or vomiting noted. Repeat urine cultures pending at this time with initial culture showing Enterobacter Cloacae and antibiotics in the form of Levaquin at this time. Further recommendations to follow.
--- NOTE | 2019-11-11 15:02 | P.PN ---
Subjective Progress Note Date: 11/11/19 CHIEF COMPLAINT: Small bowel obstruction secondary to adhesions HISTORY OF PRESENT ILLNESS: Patient being followed for small bowel obstruction secondary to adhesions status post Exploratory laparotomy with lysis of adhesions. She is passing gas. She denies any nausea or vomiting. She is tolerating a clear liquid diet. She is asking if she can be discharged home. She is afebrile. PHYSICAL EXAM: VITAL SIGNS: Reviewed. GENERAL: Well-developed in no acute distress. HEENT: No sclera icterus. Extraocular movements grossly intact. Moist buccal mucosa. Head is atraumatic, normocephalic. ABDOMEN: Soft. Nondistended nontender NEUROLOGIC: Alert and oriented. Cranial nerves II through XII grossly intact. ASSESSMENT: 1. Small bowel obstruction secondary to adhesions status post Exploratory la parotomy with lysis of adhesions. 2. UTI 3. Recent hospitalization with ileus likely secondary to UTI 4. History of recent Rosemary fundoplication for hiatal hernia 10/07/2019 PLAN: -Advance diet to regular -continue pain medications -GI prophylaxis Protonix and DVT prophylaxis Lovenox -Anticipate discharge home tomorrow Physician Poultry Buyer note has been reviewed by physician. Signing provider agrees with the documented findings, assessment, and plan of care. Objective - Vital Signs Vital signs: Vital Signs Temp 98.2 F 11/11/19 07:00 Pulse 72 11/11/19 11:57 Resp 18 11/11/19 07:00 BP 121/77 11/11/19 07:00 Pulse Ox 98 11/11/19 07:00 Intake & Output 11/10/19 11/11/19 11/11/19 18:59 06:59 18:59 Intake Total 550 Balance 550 Weight 49.895 kg Intake: Intake, IV Titration 550 Amount Sodium Chloride 0.9% 1, 550 000 ml @ 50 mls/hr IV . Q20H [facility] Rx#:[id number] Other: Voiding Method Toilet Toilet Toilet Bedside Commode Bedside Commode Bedside Commode # Voids 4 - Labs CBC & Chem 7: 11/11/19 11:21 11/11/19 11:21 Labs: Abnormal Lab Results - Last 24 Hours (Table) 11/10/19 11/11/19 11/11/19 Range/Units 16:50 11:21 11:21 RBC 3.53 L (3.80-5.40) m/uL Hgb 10.5 L (11.4-16.0) gm/dL Hct 33.9 L (34.0-46.0) % Sodium 135 L (137-145) mmol/L Chloride 111 H (98-107) mmol/L Carbon Dioxide 20 L (22-30) mmol/L BUN 4 L (7-17) mg/dL Creatinine 0.36 L (0.52-1.04) mg/dL Glucose 112 H (74-99) mg/dL Calcium 10.6 H (8.4-10.2) mg/dL Urine Ketones 2+ H (Negative) Urine Blood Small H (Negative) Urine RBC 13 H (0-5) /hpf Urine Mucus Occasional H (None) /hpf Microbiology - Last 24 Hours (Table) 11/10/19 16:50 Urine Culture - Preliminary Urine,Voided
[2019-11-11] MEDS: LEVOFLOXACIN 500MG-D5W PMX 500 MG in DEXTROSE/WATER 1 100ML.BAG IVPB SCH (16:24)
[2019-11-11] MEDS: MONTELUKAST 10 MG TAB PO SCH (20:21)
[2019-11-12] MEDS: METOCLOPRAMIDE 5 MG/ML 2 ML VIAL IVP SCH ×2 (01:34→08:16)
[2019-11-12] MEDS: SODIUM CHLORIDE 0.9% 1,000 ML IV SCH (01:34)
[2019-11-12] MEDS: HYDROcodone/APAP 5-325MG 1 EACH TAB PO PRN (02:55)
[2019-11-12] MEDS: LORazepam 2 MG/ML INJ IV PRN (02:58)
[2019-11-12] MEDS: KETOROLAC 15 MG/ML 1 ML VIAL IVP SCH ×2 (05:01→11:32)
[2019-11-12 07:31] VITALS: BP 130/73; RESP 16; TEMP 97.9
[2019-11-12] MEDS: IPRATROPIUM-ALBUTEROL 3 ML NEB INHALATION SCH (07:44)
[2019-11-12 07:48] VITALS: PULSE 74
[2019-11-12] MEDS: NICOTINE 14MG/24HR PATCH TRANSDERM SCH (08:16)
[2019-11-12] MEDS: METOPROLOL TARTRATE 12.5 MG TAB PO SCH (08:16)
[2019-11-12] MEDS: PANTOPRAZOLE 40 MG/10 ML VIAL IV SCH (08:16)
[2019-11-12 09:41] LABS: Basophils % (A) 0 %; Eosinophils # (A) 0.6 k/uL (0-0.7); Eosinophils % (A) 14 %; HCT 32.4 % (34.0-46.0); HGB 10.5 gm/dL (11.4-16.0); Lymphocytes # (A) 1.7 k/uL (1.0-4.8); Lymphocytes % (A) 40 %; MCH 30.5 pg (25.0-35.0); MCHC 32.3 g/dL (31.0-37.0); MCV 94.5 fL (80.0-100.0); Mean Platelet Volume 7.2; Monocytes # (A) 0.2 k/uL (0-1.0); Monocytes % (A) 5 %; Neutrophils # (A) 1.7 k/uL (1.3-7.7); Neutrophils % (A) 39 %; Platelet Count 348 k/uL (150-450); RBC 3.43 m/uL (3.80-5.40); RDW 13.1 % (11.5-15.5); WBC 4.3 k/uL (3.8-10.6)
[2019-11-12 09:43] LABS: African American GFR (CKD) >90 (>60 ml/min/1.73 sqM); Anion Gap 5 mmol/L; Blood Urea Nitrogen <2 mg/dL (7-17); Calcium 10.6 mg/dL (8.4-10.2); Carbon Dioxide 26 mmol/L (22-30); Chloride 108 mmol/L (98-107); Glucose 101 mg/dL (74-99); Non-African American GFR(CKD) >90 (>60 ml/min/1.73 sqM); Potassium 3.2 mmol/L (3.5-5.1); Sodium 139 mmol/L (137-145)
[2019-11-12] MEDS ORDERED: POTASSIUM CHLORIDE ER 20 MEQ TAB.ER PO STA (11:00)
--- NOTE | 2019-11-12 11:15 | P.DS ---
Providers Date of admission: 11/06/19 21:44 Expected date of discharge: 11/12/19 Attending physician: Kurtis Phipps Consults: 11/06/19 22:21 Consult Physician Stat Consulting Provider: Iker Miranda Consult Reason/Comments: mechanical small bowel obstruction Do you want consulting provider notified?: Yes Primary care physician: Stated None Hospital Course: Discharge diagnosis 1. Small bowel obstruction secondary to adhesions status post Exploratory laparotomy with lysis of adhesions. 2. UTI completed antibiotics during her hospitalization 3. Recent hospitalization with ileus likely secondary to UTI 4. History of recent Rosemary fundoplication for hiatal hernia 10/07/2019 5. Hypokalemia potassium 3.2 at discharge. Patient given supplement. Continue her oral potassium at home Hospital course This is a 59-year-old female with a known history of Rosemary fundoplication for hiatal hernia completed on 10/07/2019. Patient presented to the emergency room with abdominal pain nausea and vomiting for the last 3 days. She reports she had gone several days without a bowel movement and then she was able to have one small soft BM. She had a computed tomography scan of the abdomen and pelvis showing high-grade partial small bowel obstruction. NG tube was placed in ER. Patient then had exploratory laparotomy with lysis of adhesions for her small bowel obstruction with Dr. Phipps. She tolerated surgery well. She has tolerated advancement of diet. She is having bowel movements. Denies any nausea or vomiting. She is afebrile. She is stable for discharge. She'll follow-up with Dr. Phipps in 1 week Physician Rn Private Duty note has been reviewed by physician. Signing provider agrees with the documented findings, assessment, and plan of care. Patient Condition at Discharge: Stable Plan - Discharge Summary Discharge Rx Participant: Yes New Discharge Prescriptions: New Docusate [Colace] 100 mg PO BID #30 capsule Hydrocodone/Acetaminophen [[place] 5-325] 1 tab PO Q6HR PRN 3 Days #12 tab PRN Reason: Pain Continue Montelukast [Singulair] 10 mg PO HS Metoprolol Tartrate 12.5 mg PO BID Nicotine 14Mg/24Hr Patch [Habitrol] 1 patch TRANSDERM DAILY Potassium Chloride ER [K-Dur 10] 10 meq PO BID #60 tab Pantoprazole [Protonix] 40 mg PO BID Discharge Medication List Montelukast [Singulair] 10 mg PO HS 09/03/19 [History] Metoprolol Tartrate 12.5 mg PO BID 09/26/19 [History] Nicotine 14Mg/24Hr Patch [Habitrol] 1 patch TRANSDERM DAILY 10/28/19 [History] Potassium Chloride ER [K-Dur 10] 10 meq PO BID #60 tab 10/31/19 [Rx] Pantoprazole [Protonix] 40 mg PO BID 11/06/19 [History] Docusate [Colace] 100 mg PO BID #30 capsule 11/12/19 [Rx] Hydrocodone/Acetaminophen [[place] 5-325] 1 tab PO Q6HR PRN 3 Days #12 tab 11/12/19 [Rx] Follow up Appointment(s)/Referral(s): None,Stated [Primary Care Provider] - 1-2 days Kurtis Phipps MD [STAFF PHYSICIAN] - 1 Week Activity/Diet/Wound Care/Special Instructions: No driving while taking [place] No lifting over 10 pounds You may shower. No soaking or tub baths for 2 weeks after surgery Very light activity until you are reevaluated at your follow up appointment with your surgeon Discharge Disposition: HOME SELF-CARE
--- NOTE | 2019-11-12 13:52 | P.PN ---
Subjective Progress Note Date: 11/12/19 Principal diagnosis: This is a 59-year-old female who was recently admitted with an acute small bowel Obstruction and underwent exploratory laparotomy with adhesion lysis and is be ing closely monitored. Following closely with surgery. Patient also was found to have a UTI on presentation and is currently maintained on Levaquin as urine cultures finalized showing Enterobacter Cloacae. Patient continues to have some abdominal discomfort although states is passing gas with no bowel movements report. Patient has been on clear liquids. Patient has been up and increasing activity as tolerated. Patient is currently on room air and is maintained on nebulizer treatments and will continue at this time. Patient currently denies any chest pain, shortness of breath, or palpitations. Patient is afebrile. No reports of nausea or vomiting and patient tolerating diet. 11/12/2019 Patient is seen and evaluated and follow-up currently on a regular diet and tolerating that she is passing gas and has not had a bowel movement yet. Patient denies any abdominal discomfort at this time and is stating she is going home today. Repeat urine culture remains negative and patient received Levaquin and will not require antibiotics upon discharge. Denies any dysuria or discomfort with urination. Patient instructed to continue to increase activity as tolerated and also to continue using incentive spirometer at least 10 times every hour while awake. Patient verbalized understanding. Patient denies any chest pain, shortness of breath, or palpitations. Patient is afebrile. Patient is tolerating diet with no reports of nausea or vomiting noted. Patient states she is being discharged home today. Objective - Vital Signs Vital signs: Vital Signs Temp 97.9 F 11/12/19 06:47 Pulse 74 11/12/19 07:55 Resp 16 11/12/19 06:47 BP 130/73 11/12/19 06:47 Pulse Ox 98 11/12/19 07:45 Intake & Output 11/11/19 11/12/19 11/12/19 18:59 06:59 18:59 Intake Total 550 Balance 550 Intake: Intake, IV Titration 550 Amount Sodium Chloride 0.9% 1, 400 000 ml @ 50 mls/hr IV . [facility] Rx#:[id number] Sodium Chloride 0.9% 50 150 ml @ 0 mls/hr IV .STK-MED ONE with ceFAZolin 1,000 mg Rx#:[id number] Other: Voiding Method Toilet Toilet Bedside Commode # Voids 3 - Exam GENERAL: The patient is alert and oriented x3. Well developed, well nourished. Temp is 97.9 F, pulse is 70, respirations are 16, blood pressure is 130/73, oxygen saturation is 96% on room air HEENT: Pupils are round and equally reacting to light. EOMI. No scleral icterus. No conjunctival pallor. Normocephalic, atraumatic. No pharyngeal erythema. No thyromegaly. CARDIOVASCULAR: S1 and S2 present. No murmurs, rubs, or gallops. PULMONARY: Diminished breath sounds bilaterally with no wheezing or crackles. ABDOMEN:patient has a midline abdominal surgical scar which appears to be clean patient has an abdominal binder in place, Positive bowel sounds MUSCULOSKELETAL: No joint swelling or deformity. EXTREMITIES: No cyanosis, clubbing, or pedal edema. NEUROLOGICAL: Gross neurological examination did not reveal any focal deficits. SKIN: No rashes. - Labs CBC & Chem 7: 11/12/19 09:12 11/12/19 09:12 Labs: Abnormal Lab Results - Last 24 Hours (Table) 11/12/19 11/12/19 Range/Units 09:12 09:12 RBC 3.43 L (3.80-5.40) m/uL Hgb 10.5 L (11.4-16.0) gm/dL Hct 32.4 L (34.0-46.0) % Potassium 3.2 L (3.5-5.1) mmol/L Chloride 108 H (98-107) mmol/L BUN <2 L (7-17) mg/dL Creatinine 0.37 L (0.52-1.04) mg/dL Glucose 101 H (74-99) mg/dL Calcium 10.6 H (8.4-10.2) mg/dL Microbiology - Last 24 Hours (Table) 11/10/19 16:50 Urine Culture - Final Urine,Voided Assessment and Plan Assessment: -leukocytosis, Improved -Acute urinary tract infection, present on admission -Enterobacter cloacae resistant urinary tract infection -Acute Small bowel obstruction Secondary to adhesions status post exploratory laparotomy -Possible COPD, Acute exacerbation -Gastroesophageal reflux disease -Depression -Hyponatremia -Continued nicotine use: Counseling was provided -DVT prophylaxis with Lovenox -GI prophylaxis: Protonix Plan: Continue current medications, management, and symptomatic treatment. Will continue to follow along closely with surgery. Instructed the patient to increase activity as tolerated. Patient tolerating regular diet with no reports of nausea or vomiting noted. Repeat urine cultures are negative and patient has completed course of antibiotics. Further recommendations to follow. She is being discharged today.
[2019-11-13] MEDS ORDERED: PANTOPRAZOLE 40 MG TABLET PO SCH (09:00)
== END 2019-11-12 14:00 | disposition home or self-care (01) | DRG 336 ==
LOC: EC 17:13 → 4SSUR 21:44
PROVIDERS: ADMIT Surgery; ATTEND Surgery
PROC: 0D9670Z Drainage of Stomach with Drainage Device, Via Natural or Artificial Opening (ICD-10-PCS; 2019-11-06)
PROC: 0DNW0ZZ Release Peritoneum, Open Approach (ICD-10-PCS; principal; 2019-11-07 09:15)
DX: K56.51 Intestinal adhesions [bands], with partial obstruction (principal); N39.0 Urinary tract infection, site not specified; J44.1 Chronic obstructive pulmonary disease with (acute) exacerbation; E87.1 Hypo-osmolality and hyponatremia; Z16.19 Resistance to other specified beta lactam antibiotics; E86.0 Dehydration; E87.6 Hypokalemia; F17.200 Nicotine dependence, unspecified, uncomplicated; F32.9 Major depressive disorder, single episode, unspecified; F41.0 Panic disorder [episodic paroxysmal anxiety]; K21.9 Gastro-esophageal reflux disease without esophagitis; M81.0 Age-related osteoporosis without current pathological fracture; B96.89 Other specified bacterial agents as the cause of diseases classified elsewhere; M19.90 Unspecified osteoarthritis, unspecified site; D72.829 Elevated white blood cell count, unspecified; Z79.899 Other long term (current) drug therapy; Z87.440 Personal history of urinary (tract) infections; Z90.710 Acquired absence of both cervix and uterus; Z98.890 Other specified postprocedural states; Z87.19 Personal history of other diseases of the digestive system; Z87.828 Personal history of other (healed) physical injury and trauma; Z71.6 Tobacco abuse counseling; Z80.0 Family history of malignant neoplasm of digestive organs; Z83.3 Family history of diabetes mellitus; Z83.49 Family history of other endocrine, nutritional and metabolic diseases
CPT/HCPCS: 36415; 71045; 74018; 74177; 80048; 80053; 81001; 83605; 83690; 85025; 87077; 87086; 87186; 94640; 94760; 96361; 96365; 96375; 96376; 99285

== ENCOUNTER 2019-11-17 17:37 | Inpatient (IN) | payer OTHER ==
[2019-11-17] MEDS ORDERED: SODIUM CHLORIDE 0.9% 1,000 ML IV STA (19:51)
[2019-11-17] MEDS ORDERED: ONDANSETRON 4 MG/2 ML VIAL IVP STA (19:52)
[2019-11-17] MEDS ORDERED: HYDROmorphone 1 MG/ML 1 ML SYRINGE IVP STA (19:52)
--- NOTE | 2019-11-17 19:56 | ED ---
Nausea/Vomiting/Diarrhea HPI - General Chief complaint: Nausea/Vomiting/Diarrhea Stated complaint: Post Op week diarrhea Time Seen by Provider: 11/17/19 19:41 Source: patient Mode of arrival: ambulatory Limitations: no limitations - History of Present Illness Initial comments: 59-year-old female patient presents to the emergency department today for eval uation of abdominal pain and diarrhea. Patient states she's been having worsening pain and diarrhea over the last 3 days. She describes the pain as sharp and stabbing. States it all over her mid abdomen. States it is radiating through to her back. Patient states that she has been having frequent dry heaves. Unable to eat or drink anything. Denies fever or chills. Patient did have exploratory surgery for mechanical small bowel obstruction with lysis of adhesions approximately one week ago with Dr. Phipps. This is after having a niece and fundoplication several weeks ago with Dr. Dunn as well. Patient has been having intermittent pain and diarrhea since the procedures. She denies any chest pain or shortness of breath. States she is also been treated recently for urinary tract infection. Patient denies any recent rash, cough, shortness of breath, chest pain, numbness, tingling, dizziness, weakness, hematuria, dysuria, urinary urgency, urinary frequency, headache, visual changes, or any other complaints. - Related Data Home Medications Medication Instructions Recorded Confirmed Montelukast [Singulair] 10 mg PO HS 09/03/19 11/06/19 Metoprolol Tartrate 12.5 mg PO BID 09/26/19 11/06/19 Nicotine 14Mg/24Hr Patch [Habitrol] 1 patch TRANSDERM DAILY 10/28/19 11/06/19 Pantoprazole [Protonix] 40 mg PO BID 11/06/19 11/06/19 Previous Rx's Medication Instructions Recorded Potassium Chloride ER [K-Dur 10] 10 meq PO BID #60 tab 10/31/19 Docusate [Colace] 100 mg PO BID #30 capsule 11/12/19 Hydrocodone/Acetaminophen [[place] 1 tab PO Q6HR PRN 3 Days #12 tab 11/12/19 5-325] Allergies Allergy/AdvReac Type Severity Reaction Status Date / Time No Known Allergies Allergy Verified 11/17/19 18:16 Review of Systems ROS Statement: Those systems with pertinent positive or pertinent negative responses have been documented in the HPI. ROS Other: All systems not noted in ROS Statement are negative. Past Medical History Past Medical History: COPD, GERD/Reflux, Osteoarthritis (OA) Additional Past Medical History / Comment(s): Pt recently admitted to [facility] on 10/28/19 for dehydration, acute kidney injury, ileus. She is recent post viviana fundoplication and has had other recent admits for dehydration. Other hx: Pt states she has been having diarrhea lately-liquid/watery stools, bronchitis, UTI, nephritis, pt unsure why lopressor was recently prescribed, osteoporosis, past low back fracture, occasional upper back pain, sinus allergies. History of Any Multi-Drug Resistant Organisms: None Reported Past Surgical History: Section, Hernia Repair, Hysterectomy Additional Past Surgical History / Comment(s): 10/07/19 Viviana fundoplication, co lonoscopy, hemorrhoidectomy, L shoulder benign tumor removed Past Anesthesia/Blood Transfusion Reactions: Previous Problems w/ Anesthesia Additional Past Anesthesia/Blood Transfusion Reaction / Comment(s): woke up during sx in past Past Psychological History: Anxiety, Depression Smoking Status: Current every day smoker Past Alcohol Use History: None Reported Past Drug Use History: None Reported - Past Family History Father Family Medical History: Cancer Additional Family Medical History / Comment(s): Esophageal cancer/ulcer. Pt states father of pneumonia at the age of 56yrs. Mother Family Medical History: Diabetes Mellitus Additional Family Medical History / Comment(s): MENS SYNDROME Sister(s) Additional Family Medical History / Comment(s): MENS SYNDROME General Exam Limitations: no limitations General appearance: alert, in no apparent distress, other (This is a well- developed, well-nourished adult female patient in mild distress related to pain. Vital signs upon presentation are temperature 98.0F, pulse 93, respirations 18, blood pressure 88/62, pulse ox 97% on room air.) Eye exam: Present: normal appearance, PERRL, EOMI. Absent: scleral icterus, conjunctival injection, periorbital swelling ENT exam: Present: normal exam, normal oropharynx, mucous membranes moist Respiratory exam: Present: normal lung sounds bilaterally. Absent: respiratory distress, wheezes, rales, rhonchi, stridor Cardiovascular Exam: Present: regular rate, normal rhythm, normal heart sounds. Absent: systolic murmur, diastolic murmur, rubs, gallop, clicks GI/Abdominal exam: Present: soft, tenderness (Generalized), normal bowel sounds. Absent: distended, guarding, rebound, rigid Neurological exam: Present: alert, oriented X3, CN II-XII intact Psychiatric exam: Present: normal affect, normal mood Skin exam: Present: warm, dry, intact, normal color. Absent: rash Course Vital Signs 11/17/19 11/17/19 11/17/19 18:11 19:47 20:14 Temperature 98 F Pulse Rate 93 89 93 Respiratory 18 22 22 Rate Blood Pressure 88/62 91/63 110/80 O2 Sat by Pulse 97 99 99 Oximetry 11/17/19 11/17/19 20:58 22:53 Temperature Pulse Rate 74 98 Respiratory 18 20 Rate Blood Pressure 102/75 117/84 O2 Sat by Pulse 96 98 Oximetry - Reevaluation(s) Reevaluation #1: 11/17/19 22:39 Diagnoses sepsis at 2239. IV antibiotics ordered. We will administer additional IV fluids. Procedures - Sepsis Sepsis Focused Exam #1 Time Sepsis Criteria Met: 22:33 Sepsis Focused Exam Date: 11/17/19 Sepsis Focused Exam Time: 22:56 Sepsis Focused Exam Complete: Yes Vital Signs & RN Notes Reviewed: Yes Capillary Refill: < 2 Seconds: Fingers, Toes Peripheral Pulses: Absent: Radial (R), Radial (L), Dorsalis Pedis (R), Dorsalis Pedis (L) Skin Color: Normal for Patient Respiratory Exam: normal lung sounds Cardiovascular Exam: regular rate, normal rhythm Medical Decision Making - Medical Decision Making 59-year-old female patient with several recent admissions for similar symptoms including abdominal pain, diarrhea, vomiting. Patient did have surgery with Dr. Phipps about one week ago for the lysis of adhesions and mechanical small bowel obstruction. Patient states for the last 3 days she has been having frequent watery bowel movements, abdominal pain and cramping, as well as dry heaving. Physical examination did reveal generalized abdominal tenderness. Labs reviewed and did reveal leukocytosis with a white blood cell count at 20,000. A lactic acid and blood cultures are pending. Skin no culture for C. diff is also pending. Given her recent hospitalization and no other source of infection at this time we will administer oral vancomycin to treat possible C. diff. She'll be admitted to the hospital Dr. Dunn will be consulted. - Lab Data Result diagrams: 11/17/19 19:55 11/17/19 19:55 Lab Results 11/17/19 11/17/19 11/17/19 Range/Units 19:55 19:55 22:00 WBC 20.4 H (3.8-10.6) k/uL RBC 5.07 (3.80-5.40) m/uL Hgb 15.3 D (11.4-16.0) gm/dL Hct 48.4 H (34.0-46.0) % MCV 95.5 (80.0-100.0) fL MCH 30.1 (25.0-35.0) pg MCHC 31.5 (31.0-37.0) g/dL RDW 13.3 (11.5-15.5) % Plt Count 613 H (150-450) k/uL Neutrophils % 78 % Lymphocytes % 15 % Monocytes % 4 % Eosinophils % 2 % Basophils % 0 % Neutrophils # 15.8 H (1.3-7.7) k/uL Lymphocytes # 3.1 (1.0-4.8) k/uL Monocytes # 0.9 (0-1.0) k/uL Eosinophils # 0.3 (0-0.7) k/uL Basophils # 0.1 (0-0.2) k/uL Sodium 137 (137-145) mmol/L Potassium 3.9 (3.5-5.1) mmol/L Chloride 102 (98-107) mmol/L Carbon Dioxide 21 L (22-30) mmol/L Anion Gap 14 mmol/L BUN 12 (7-17) mg/dL Creatinine 1.05 H (0.52-1.04) mg/dL Est GFR (CKD-EPI)AfAm 68 (>60 ml/min/1.73 sqM) Est GFR (CKD-EPI)NonAf 59 (>60 ml/min/1.73 sqM) Glucose 158 H (74-99) mg/dL Calcium 12.1 H (8.4-10.2) mg/dL Total Bilirubin 0.3 (0.2-1.3) mg/dL AST 23 (14-36) U/L ALT 18 (4-34) U/L Alkaline Phosphatase 80 (38-126) U/L Total Protein 7.9 (6.3-8.2) g/dL Albumin 4.8 (3.5-5.0) g/dL Lipase 90 (23-300) U/L Urine Color Yellow Urine Appearance Clear (Clear) Urine pH 6.0 (5.0-8.0) Ur Specific [place] >1.050 H (1.001-1.035) Urine Protein 1+ H (Negative) Urine Glucose (UA) Negative (Negative) Urine Ketones Negative (Negative) Urine Blood Trace H (Negative) Urine Nitrite Negative (Negative) Urine Bilirubin Negative (Negative) Urine Urobilinogen <2.0 (<2.0) mg/dL Ur Leukocyte Esterase Negative (Negative) Urine RBC 16 H (0-5) /hpf Urine WBC 7 H (0-5) /hpf Ur Squamous Epith Cells 5 H (0-4) /hpf Urine Bacteria Rare H (None) /hpf Urine Mucus Rare H (None) /hpf - Radiology Data Radiology results: report reviewed, image reviewed CT abdomen and pelvis with contrast was obtained. Report was reviewed in its entirety. Impression by Dr. Ragland shows dilated fluid-filled small bowel loops. Dilated stomach. Large bowel mild fluid levels. This probably relates to generalize intestinal ileus and gastroparesis. This appears similar to old exam. No transition point seen. Disposition Clinical Impression: Diarrhea, Gastroparesis, Ileus, Sepsis Disposition: ADMITTED IP TO THIS [facility] Condition: Serious Referrals: None,Stated [Primary Care Provider] - 1-2 days Decision to Admit Reason: Admit from EC Decision Date: 11/17/19 Decision Time: 23:18
[2019-11-17 20:50] LABS: Albumin 4.8 g/dL (3.5-5.0); Basophils # (A) 0.1 k/uL (0-0.2); Basophils % (A) 0 %; Calcium 12.1 mg/dL (8.4-10.2); Eosinophils # (A) 0.3 k/uL (0-0.7); Eosinophils % (A) 2 %; HCT 48.4 % (34.0-46.0); Lymphocytes # (A) 3.1 k/uL (1.0-4.8); Lymphocytes % (A) 15 %; MCH 30.1 pg (25.0-35.0); MCHC 31.5 g/dL (31.0-37.0); MCV 95.5 fL (80.0-100.0); Mean Platelet Volume 7.1; Monocytes # (A) 0.9 k/uL (0-1.0); Monocytes % (A) 4 %; Neutrophils # (A) 15.8 k/uL (1.3-7.7); Neutrophils % (A) 78 %; Platelet Count 613 k/uL (150-450); Potassium 3.9 mmol/L (3.5-5.1); RBC 5.07 m/uL (3.80-5.40); RDW 13.3 % (11.5-15.5); Total Bilirubin 0.3 mg/dL (0.2-1.3); Total Protein 7.9 g/dL (6.3-8.2); WBC 20.4 k/uL (3.8-10.6)
[2019-11-17 20:51] LABS: HGB 15.3 gm/dL (11.4-16.0)
--- NOTE | 2019-11-17 21:39 | CT ---
EXAMINATION TYPE: CT abdomen pelvis w con DATE OF EXAM: 11/17/2019 COMPARISON: HISTORY: post op abdominal pain CT DLP: 567.6 mGycm Automated exposure control for dose reduction was used. CONTRAST: Performed with IV Contrast, patient injected with 100 mL of Isovue 300. Lung bases are clear. There is no pleural effusion. Heart size is normal. Stomach is large. There are dilated multiple fluid-filled loops of small bowel in the mid and lower abdomen. Appendix is posteri or and appears normal. Gallbladder appears normal. Liver shows no focal defect. The bile ducts are no t dilated. Spleen is intact. There is no pancreatic mass. There is no adrenal mass. Kidneys show satisfactory contrast opacification. There is no hydronephrosi s. Delayed images show normal renal excretion. There is no retroperitoneal adenopathy. Lumbar vertebra have normal alignment. There is mild compression 25% deformity of L2 related to old f racture. There is vertebroplasty of L2. The bony pelvis is intact. Small bowel is dilated up to 4.5 cm. There are a few large bowel fluid levels. Large bowel is not dil ated. Small bowel is dilated up to the ileocecal valve. There is skin meir over the anterior midli ne abdomen. IMPRESSION: Dilated fluid-filled small bowel loops. Dilated stomach. Large bowel mild fluid levels. This probably relates to generalized intestinal ileus and gastroparesis. This appears similar to old exam. No miller sition point seen.
[2019-11-17 22:26] LABS: Appearance,Urine Clear (Clear); Bacteria,Urine Rare /hpf; Bilirubin,Urine Negative (Negative); Blood,Urine Trace (Negative); Color,Urine Yellow; Glucose,Urine (UA) Negative (Negative); Ketones,Urine Negative (Negative); Leukocyte Esterase,Urine Negative (Negative); Mucus,Urine Rare /hpf; Nitrite,Urine Negative (Negative); Protein,Urine 1+ (Negative); RBC,Urine 16 /hpf (0-5); Squamous Epithelial Cell,Urine 5 /hpf (0-4); Urobilinogen,Urine <2.0 mg/dL (<2.0); WBC,Urine 7 /hpf (0-5)
[2019-11-17 22:27] LABS: Specific Gravity,Urine >1.050 (1.001-1.035)
[2019-11-17] MEDS ORDERED: cefTRIAXone IN SWFI 1,000 MG/10 ML SYRINGE IVP STA (22:39)
[2019-11-17] MEDS ORDERED: SODIUM CHLORIDE 0.9% 500 ML 500 ML IV ONE (22:40)
[2019-11-17] MEDS ORDERED: VANCOMYCIN ORAL SOLUTION 250 MG/5 ML BOTTLE PO STA (22:52)
[2019-11-17] MEDS ORDERED: HYDROmorphone 0.5 MG/0.5 ML SYRINGE IVP STA (22:55)
[2019-11-17] MEDS ORDERED: NALOXONE 0.4 MG/ML 1 ML VIAL IV PRN (23:16)
[2019-11-17] MEDS ORDERED: ONDANSETRON 4 MG/2 ML VIAL IVP PRN (23:16)
[2019-11-17] MEDS: CHERRY FLAVOR 60 ML BOTTLE PO SCH ×2 (23:41→23:42)
[2019-11-17] MEDS: VANCOMYCIN ORAL SOLUTION 250 MG/5 ML BOTTLE PO SCH ×2 (23:42→23:43)
[2019-11-18] MEDS: SODIUM CHLORIDE 0.9% 1,000 ML IV SCH ×4 (00:44→19:55)
[2019-11-18] MEDS: VANCOMYCIN ORAL SOLUTION 250 MG/5 ML BOTTLE PO SCH ×5 (00:49→23:46)
[2019-11-18] MEDS: HYDROmorphone 1 MG/ML 1 ML SYRINGE IVP PRN ×4 (06:11→19:52)
[2019-11-18 08:35] LABS: ALT 13 U/L (4-34); AST 35 U/L (14-36); African American GFR (CKD) >90 (>60 ml/min/1.73 sqM); Albumin 3.3 g/dL (3.5-5.0); Alkaline Phosphatase 58 U/L (38-126); Anion Gap 8 mmol/L; Blood Urea Nitrogen 8 mg/dL (7-17); Calcium 9.3 mg/dL (8.4-10.2); Carbon Dioxide 13 mmol/L (22-30); Chloride 114 mmol/L (98-107); Glucose 82 mg/dL (74-99); Non-African American GFR(CKD) >90 (>60 ml/min/1.73 sqM); Potassium 4.8 mmol/L (3.5-5.1); Sodium 135 mmol/L (137-145); Total Bilirubin 0.6 mg/dL (0.2-1.3)
[2019-11-18 08:57] LABS: Basophils # (A) 0.1 k/uL (0-0.2); Basophils % (A) 1 %; Eosinophils # (A) 0.5 k/uL (0-0.7); Eosinophils % (A) 4 %; HCT 42.7 % (34.0-46.0); HGB 12.6 gm/dL (11.4-16.0); Hypochromasia Marked; Lymphocytes # (A) 2.6 k/uL (1.0-4.8); Lymphocytes % (A) 21 %; MCH 30.1 pg (25.0-35.0); MCHC 29.5 g/dL (31.0-37.0); Macrocytosis Slight; Mean Platelet Volume 7.3; Monocytes # (A) 0.7 k/uL (0-1.0); Monocytes % (A) 6 %; Neutrophils # (A) 8.3 k/uL (1.3-7.7); Neutrophils % (A) 67 %; Platelet Count 456 k/uL (150-450); RBC 4.19 m/uL (3.80-5.40); RDW 13.2 % (11.5-15.5); WBC 12.4 k/uL (3.8-10.6)
[2019-11-18] MEDS: CHERRY FLAVOR 60 ML BOTTLE PO SCH ×3 (11:11→23:46)
--- NOTE | 2019-11-18 11:35 | P.GSCN ---
History of Present Illness Consult date: 11/18/19 Reason for Consult: Abdominal pain History of present illness: 59-year-old female known to our service. Patient underwent Viviana fundoplicatio n in September and then she underwent exploratory laparotomy with lysis of adhesions in October. At the time of her recent laparotomy no definitive site of bowel obstruction was seen. Went home week or so ago. Came back to the hospital complaining of nausea vomiting, diarrhea, abdominal pain and cramps. We'll studies are pending. White blood cell count was elevated yesterday at 20 today is down to 12.4. Lactic acid is normal. CAT scan showed ileus pattern with distended stomach, small bowel and nondistended but fluid filled colonic bowel loops. Denies rectal bleeding or melena. No fevers. Review of Systems The patient denies any acute changes in vision or hearing, no dysphagia or odynophagia, no chest pain or shortness of breath, no dysuria or hematuria, no h eadache, no runny nose, no rectal bleeding or melena, no unexplained weight loss Past Medical History Past Medical History: COPD, GERD/Reflux, Osteoarthritis (OA) Additional Past Medical History / Comment(s): Pt recently admitted to [facility] on 10/28/19 for dehydration, acute kidney injury, ileus. Had exploratory laparotomy in October when she was previously here. She is recent post viviana fundoplication and has had other recent admits for dehydration. Other hx: Pt states she has been having diarrhea lately-liquid/watery stools, bronchitis, UTI, nephritis, pt unsure why lopressor was recently prescribed, osteoporosis, past low back fracture, occasional upper back pain, sinus allergies. History of Any Multi-Drug Resistant Organisms: None Reported Past Surgical History: Section, Hernia Repair, Hysterectomy Additional Past Surgical History / Comment(s): 10/07/19 Viviana fundoplication, colonoscopy, hemorrhoidectomy, L shoulder benign tumor removed Past Anesthesia/Blood Transfusion Reactions: Previous Problems w/ Anesthesia Additional Past Anesthesia/Blood Transfusion Reaction / Comm: woke up during sx in past Past Psychological History: Anxiety, Depression Additional Psychological History / Comment(s): Pt reides with her significant other. She has a nebulizer. She is independent. Smoking Status: Current every day smoker Past Alcohol Use History: None Reported Additional Past Alcohol Use History / Comment(s): Pt smokes 1ppd from age 20 (1980) Past Drug Use History: None Reported Additional Drug Use History / Comment(s): currently using a nicotine patch at home - Past Family History Father Family Medical History: Cancer Additional Family Medical History / Comment(s): Esophageal cancer/ulcer. Pt states father of pneumonia at the age of 56yrs. Mother Family Medical History: Diabetes Mellitus Additional Family Medical History / Comment(s): MENS SYNDROME Sister(s) Additional Family Medical History / Comment(s): MENS SYNDROME Medications and Allergies Home Medications Medication Instructions Recorded Confirmed Type Montelukast [Singulair] 10 mg PO HS 09/03/19 11/06/19 History Metoprolol Tartrate 12.5 mg PO BID 09/26/19 11/06/19 History Nicotine 14Mg/24Hr Patch [Habitrol] 1 patch TRANSDERM DAILY 10/28/19 11/06/19 History Potassium Chloride ER [K-Dur 10] 10 meq PO BID #60 tab 10/31/19 11/06/19 Rx Pantoprazole [Protonix] 40 mg PO BID 11/06/19 11/06/19 History Docusate [Colace] 100 mg PO BID #30 capsule 11/12/19 Rx Hydrocodone/Acetaminophen [Benedict 1 tab PO Q6HR PRN 3 Days #12 tab 11/12/19 Rx 5-325] Allergies Allergy/AdvReac Type Severity Reaction Status Date / Time No Known Allergies Allergy Verified 11/17/19 18:16 Surgical - Exam Vital Signs Temp Pulse Resp BP Pulse Ox 98 F 93 18 88/62 97 11/17/19 18:11 11/17/19 18:11 11/17/19 18:11 11/17/19 18:11 11/17/19 18:11 Physical exam: General: Well-developed, well-nourished HEENT: Normocephalic, sclerae nonicteric Abdomen: Mild diffuse tenderness, mild distention Extremities: No edema Neuro: Alert and oriented Results - Labs 11/18/19 07:27 11/18/19 07:27 Abnormal Lab Results - Last 24 Hours (Table) 11/17/19 11/17/19 11/17/19 Range/Units 19:55 19:55 22:00 WBC 20.4 H (3.8-10.6) k/uL Hct 48.4 H (34.0-46.0) % MCV (80.0-100.0) fL MCHC (31.0-37.0) g/dL Plt Count 613 H (150-450) k/uL Neutrophils # 15.8 H (1.3-7.7) k/uL Sodium (137-145) mmol/L Chloride (98-107) mmol/L Carbon Dioxide 21 L (22-30) mmol/L Creatinine 1.05 H (0.52-1.04) mg/dL Glucose 158 H (74-99) mg/dL Calcium 12.1 H (8.4-10.2) mg/dL Total Protein (6.3-8.2) g/dL Albumin (3.5-5.0) g/dL Ur Specific Hensley >1.050 H (1.001-1.035) Urine Protein 1+ H (Negative) Urine Blood Trace H (Negative) Urine RBC 16 H (0-5) /hpf Urine WBC 7 H (0-5) /hpf Ur Squamous Epith Cells 5 H (0-4) /hpf Urine Bacteria Rare H (None) /hpf Urine Mucus Rare H (None) /hpf 11/18/19 11/18/19 Range/Units 07:27 07:27 WBC 12.4 H (3.8-10.6) k/uL Hct (34.0-46.0) % MCV 102.0 H D (80.0-100.0) fL MCHC 29.5 L (31.0-37.0) g/dL Plt Count 456 H (150-450) k/uL Neutrophils # 8.3 H (1.3-7.7) k/uL Sodium 135 L (137-145) mmol/L Chloride 114 H (98-107) mmol/L Carbon Dioxide 13 L (22-30) mmol/L Creatinine (0.52-1.04) mg/dL Glucose (74-99) mg/dL Calcium (8.4-10.2) mg/dL Total Protein 6.0 L (6.3-8.2) g/dL Albumin 3.3 L (3.5-5.0) g/dL Ur Specific Hensley (1.001-1.035) Urine Protein (Negative) Urine Blood (Negative) Urine RBC (0-5) /hpf Urine WBC (0-5) /hpf Ur Squamous Epith Cells (0-4) /hpf Urine Bacteria (None) /hpf Urine Mucus (None) /hpf Diabetes panel 11/17/19 11/18/19 Range/Units 19:55 07:27 Sodium 137 135 L (137-145) mmol/L Potassium 3.9 4.8 (3.5-5.1) mmol/L Chloride 102 114 H (98-107) mmol/L Carbon Dioxide 21 L 13 L (22-30) mmol/L BUN 12 8 (7-17) mg/dL Creatinine 1.05 H 0.58 (0.52-1.04) mg/dL Glucose 158 H 82 (74-99) mg/dL Calcium 12.1 H 9.3 (8.4-10.2) mg/dL AST 23 35 (14-36) U/L ALT 18 13 (4-34) U/L Alkaline Phosphatase 80 58 (38-126) U/L Total Protein 7.9 6.0 L (6.3-8.2) g/dL Albumin 4.8 3.3 L (3.5-5.0) g/dL Calcium panel 11/17/19 11/18/19 Range/Units 19:55 07:27 Calcium 12.1 H 9.3 (8.4-10.2) mg/dL Albumin 4.8 3.3 L (3.5-5.0) g/dL Pituitary panel 11/17/19 11/18/19 Range/Units 19:55 07:27 Sodium 137 135 L (137-145) mmol/L Potassium 3.9 4.8 (3.5-5.1) mmol/L Chloride 102 114 H (98-107) mmol/L Carbon Dioxide 21 L 13 L (22-30) mmol/L BUN 12 8 (7-17) mg/dL Creatinine 1.05 H 0.58 (0.52-1.04) mg/dL Glucose 158 H 82 (74-99) mg/dL Calcium 12.1 H 9.3 (8.4-10.2) mg/dL Adrenal panel 11/17/19 11/18/19 Range/Units 19:55 07:27 Sodium 137 135 L (137-145) mmol/L Potassium 3.9 4.8 (3.5-5.1) mmol/L Chloride 102 114 H (98-107) mmol/L Carbon Dioxide 21 L 13 L (22-30) mmol/L BUN 12 8 (7-17) mg/dL Creatinine 1.05 H 0.58 (0.52-1.04) mg/dL Glucose 158 H 82 (74-99) mg/dL Calcium 12.1 H 9.3 (8.4-10.2) mg/dL Total Bilirubin 0.3 0.6 (0.2-1.3) mg/dL AST 23 35 (14-36) U/L ALT 18 13 (4-34) U/L Alkaline Phosphatase 80 58 (38-126) U/L Total Protein 7.9 6.0 L (6.3-8.2) g/dL Albumin 4.8 3.3 L (3.5-5.0) g/dL Assessment and Plan (1) Ileus Narrative/Plan: 59-year-old female with recurrent nausea vomiting and diarrhea. Check stool studies at this time. Clear liquid diet for now. Dr. Phipps to resume coverage tomorrow. Current Visit: Yes Status: Acute Code(s): K56.7 - ILEUS, UNSPECIFIED SNOMED Code(s): 642843053
[2019-11-18] MEDS ORDERED: FLUTICASONE 50MCG/SPRAY NASAL 16GM EA NOSTRIL PRN (16:02)
[2019-11-18] MEDS ORDERED: ALBUTEROL NEBULIZED 2.5 MG/3 ML INHALATION PRN (16:02)
[2019-11-18] MEDS: METOPROLOL TARTRATE 12.5 MG TAB PO SCH (19:53)
[2019-11-18] MEDS: POTASSIUM CHLORIDE ER 10 MEQ TAB.ER.PRT PO SCH (19:53)
[2019-11-18] MEDS: MONTELUKAST 10 MG TAB PO SCH (19:53)
[2019-11-19] MEDS: HYDROmorphone 1 MG/ML 1 ML SYRINGE IVP PRN ×5 (00:10→21:01)
--- NOTE | 2019-11-19 00:19 | HP ---
HISTORY AND PHYSICAL DATE OF SERVICE: 11/18/2019 CHIEF COMPLAINT: Abdominal pain, diarrhea. HISTORY OF PRESENT ILLNESS: This 59-year-old woman with a past medical history of multiple medical problems including COPD, GERD, DJD, had previous ileus recently admitted with dehydration. Patient also UTI treated the last time. No, the patient is complaining of diarrhea with abdominal pain, watery stools and patient came to [facility] and was admitted for further evaluation and treatment. The white count is 20.4, sodium 137, potassium 3.9, creatinine is 1.05, calcium is 12.1 indicating some dehydration also. There is no history of fever or rigors. No history of headache, loss of consciousness, or seizures. The patient is followed by Dr. Strauss in the outpatient setting. PAST MEDICAL HISTORY: History of COPD, GERD, DJD, history of exploratory laparotomy in October, lysis of adhesions, history of anxiety, depression. MEDICATIONS: Home medications are: 1. Albuterol p.r.n. 2. Zofran. 3. Cetirizine. 4. KCl. 5. Habitrol 14. 6. Fluticasone. 7. Singulair. 8. Metoprolol. 9. Colace. ALLERGIES: None. FAMILY HISTORY: History of esophageal cancer in the family and pneumonia in the family. SOCIAL HISTORY: History of smoking, continued ongoing. No history of alcohol intake. REVIEW OF SYSTEMS: ENT: No diminished hearing or diminished vision. CARDIOVASCULAR SYSTEM: No angina. RESPIRATORY SYSTEM: No cough. GI: As mentioned earlier. : No dysuria. NERVOUS SYSTEM: No numbness or weakness. ALLERGY/IMMUNOLOGY: No asthma. MUSCULOSKELETAL: As mentioned earlier. HEMATOLOGY: No history of anemia. ENDOCRINE: No history of diabetes or hypothyroidism. CONSTITUTIONAL: As mentioned earlier. DERMATOLOGY: Negative. RHEUMATOLOGY: Negative. PSYCHIATRY: As mentioned earlier. PHYSICAL EXAMINATION: The patient is alert and oriented x3. Pulse 69, blood pressure 86/50, respirations 17, temperature 98.2, pulse ox 97% on room air. HEENT: Conjunctivae normal. Oral mucosa moist. NECK: No jugular venous distention. No carotid bruit. No lymph node enlargement. CARDIOVASCULAR: S1, S2 muffled. RESPIRATORY: Breath sounds diminished at the bases. No rhonchi, no crackles. ABDOMEN: Soft. Mild diffuse discomfort. No guarding. No rigidity. No mass palpable. LEGS: No edema NERVOUS SYSTEM: Higher functions as mentioned earlier. Moves all 4 limbs. No focal motor or sensory deficit. LYMPHATICS: No lymphadenopathy of the neck, axillae or groin. SKIN: No ulcer, rash or bleeding. JOINTS: No active deforming arthropathy. LABS: At this time shows WBC 12.4, hemoglobin 12.6, MCV 102, sodium 135, potassium 4.8, CO2 is 13. ASSESSMENT: 1. Abdominal pain, diarrhea, possible infectious diarrhea, rule out Clostridium difficile colitis. 2. Hyponatremia. 3. Possibly ileus. 4. Increased creatinine with mild acute renal failure present on admission with dehydration. 5. Increased WBC, possibly reactive. 6. Rule out recurrent urinary tract infection. 7. History of recent urinary tract infection with persistent Enterobacter cloacae. 8. History of recent small-bowel obstruction with ileus, status post exploratory laparotomy. 9. Chronic obstructive pulmonary disease. 10.Gastroesophageal reflux disease. 11.Degenerative joint disease. 12.History of section. 13.History of anxiety and depression. 14.Continued ongoing nicotine dependence. 15.FULL CODE. RECOMMENDATIONS AND DISCUSSION: This 59-year-old woman who presented with multiple complex medical issues, at this time I recommend continue the current medications and obtain a C difficile because the patient received some antibiotics during the previous admission. Otherwise as mentioned earlier CAT scan of the abdomen and pelvis was reviewed which showed dilated fluid-filled small bowel loops. The possibility of generalized induced ileus and gastroparesis to be considered. The white count is also elevated which could be reactive in nature. The patient also had significant diarrhea. I would recommend cultures and continue to monitor. Follow closely with Surgery. Prognosis guarded because of multiple complex medical issues. Further recommendations to follow. C difficile testing. MMODL / IJN: [id number] /
[2019-11-19] MEDS: CHERRY FLAVOR 60 ML BOTTLE PO SCH ×2 (05:32→14:10)
[2019-11-19] MEDS: VANCOMYCIN ORAL SOLUTION 250 MG/5 ML BOTTLE PO SCH ×2 (05:35→14:10)
[2019-11-19] MEDS: SODIUM CHLORIDE 0.9% 1,000 ML IV SCH ×4 (05:35→20:29)
[2019-11-19] MEDS: LORATADINE 10 MG TAB PO SCH (08:19)
[2019-11-19] MEDS: POTASSIUM CHLORIDE ER 10 MEQ TAB.ER.PRT PO SCH ×2 (08:19→20:27)
[2019-11-19] MEDS: METOPROLOL TARTRATE 12.5 MG TAB PO SCH ×2 (08:19→20:59)
[2019-11-19] MEDS: NICOTINE 14MG/24HR PATCH TRANSDERM SCH (08:19)
--- NOTE | 2019-11-19 14:24 | P.PN ---
Subjective Progress Note Date: 11/19/19 CHIEF COMPLAINT: Abdominal pain HISTORY OF PRESENT ILLNESS: Patient underwent Rosemary fundoplication in September and then she underwent exploratory laparotomy with lysis of adhesions in October. At the time of her recent laparotomy no definitive site of bowel obstruction was seen. Patient complaining of diarrhea for 3 days. Supporting diarrhea after each of her hospitalizations. C. diff negative. White count 20.4 down to 12.4. He is afebrile. PHYSICAL EXAM: VITAL SIGNS: Reviewed. GENERAL: Well-developed in no acute distress. HEENT: No sclera icterus. Extraocular movements grossly intact. Moist buccal mucosa. Head is atraumatic, normocephalic. ABDOMEN: Soft. Nondistended. Nontender. NEUROLOGIC: Alert and oriented. Cranial nerves II through XII grossly intact. ASSESSMENT: 1. Ileus 2. Gastroenteritis 3. Diarrhea PLAN: -Consult GI service for diarrhea -Advance diet to a full liquid diet Physician Calenderer note has been reviewed by physician. Signing provider agrees with the documented findings, assessment, and plan of care. Objective - Vital Signs Vital signs: Vital Signs Temp 98.0 F 11/19/19 07:21 Pulse 83 11/19/19 07:21 Resp 14 11/19/19 07:21 BP 104/66 11/19/19 07:21 Pulse Ox 100 11/19/19 07:21 Intake & Output 11/18/19 11/19/19 11/19/19 18:59 06:59 18:59 Intake Total 480 Balance 480 Intake: Oral 480 Other: # Voids 4 1 - Labs CBC & Chem 7: 11/18/19 07:27 11/18/19 07:27 Labs: Microbiology - Last 24 Hours (Table) 11/17/19 22:58 Blood Culture - Preliminary Blood No Growth after 24 hours
[2019-11-19] MEDS ORDERED: ALPRAZolam 0.25 MG TAB PO STA (14:26)
--- NOTE | 2019-11-19 17:07 | P.PN ---
Subjective 59-year-old female with the recent multiple interventions including additional lysis recently came back with abdominal pain and diarrhea nausea vomiting. Patient had a CAT scan which was suspicious for partial small bowel obstruction although patient's symptom dodges consistent with viral gastroenteritis. Patient has C. diff that was negative. Gastroenterology was consulted. Patient is still complaining of severe pain patient will be started on nonsteroidal anti-Proteus along with the opiates she is receiving for pain. Constitutional: Denied any fatigue denied any fever. Cardio vascular: denied any chest pain, palpitations Gastrointestinal as mentioned in HPI Pulmonary: Denied any shortness of breath cough Neurologic denied any new focal deficits All inpatient medications were reviewed and appropriate changes in these medications as dictated in the interval history and assessment and plan. Objective - Vital Signs Vital signs: Vital Signs Temp 98.0 F 11/19/19 07:21 Pulse 83 11/19/19 07:21 Resp 14 11/19/19 07:21 BP 104/66 11/19/19 07:21 Pulse Ox 100 11/19/19 07:21 Intake & Output 11/18/19 11/19/19 11/19/19 18:59 06:59 18:59 Intake Total 480 Balance 480 Intake: Oral 480 Other: # Voids 4 1 - Exam PHYSICAL EXAMINATION: GENERAL: The patient is alert and oriented x3, not in any acute distress. Well developed, well nourished. HEENT: Pupils are round and equally reacting to light. EOMI. No scleral icterus. No conjunctival pallor. Normocephalic, atraumatic. No pharyngeal erythema. No thyromegaly. CARDIOVASCULAR: S1 and S2 present. No murmurs, rubs, or gallops. PULMONARY: Chest is clear to auscultation, no wheezing or crackles. ABDOMEN: mid line abdominal scar does have active bowel sounds. Minimal diffuse tenderness or rebound or rigidity MUSCULOSKELETAL: No joint swelling or deformity. EXTREMITIES: No cyanosis, clubbing, or pedal edema. NEUROLOGICAL: Gross neurological examination did not reveal any focal deficits. SKIN: No rashes. - Labs CBC & Chem 7: 11/18/19 07:27 11/18/19 07:27 Labs: Microbiology - Last 24 Hours (Table) 11/17/19 22:58 Blood Culture - Preliminary Blood No Growth after 24 hours Assessment and Plan Plan: abdominal pain diarrhea nausea vomiting possibly viral gastroenteritis C. diff was negative -Hypovolemic hyponatremia: Expected to improve with IV fluids -Acute renal failure secondary to dietary improved with IV fluids -COPD without any acute exacerbation -leukocytosis secondary to diarrhea
[2019-11-19] MEDS: KETOROLAC 15 MG/ML 1 ML VIAL IVP SCH ×2 (18:25→23:41)
[2019-11-19] MEDS: MONTELUKAST 10 MG TAB PO SCH (20:27)
[2019-11-20] MEDS: HYDROmorphone 1 MG/ML 1 ML SYRINGE IVP PRN ×6 (02:25→21:48)
[2019-11-20] MEDS: KETOROLAC 15 MG/ML 1 ML VIAL IVP SCH ×4 (06:03→23:37)
[2019-11-20] MEDS: PANTOPRAZOLE 40 MG/10 ML VIAL IVP SCH (08:28)
[2019-11-20] MEDS: NICOTINE 14MG/24HR PATCH TRANSDERM SCH (08:28)
[2019-11-20] MEDS: METOPROLOL TARTRATE 12.5 MG TAB PO SCH ×2 (08:29→20:36)
[2019-11-20] MEDS: LORATADINE 10 MG TAB PO SCH (08:29)
[2019-11-20] MEDS: POTASSIUM CHLORIDE ER 10 MEQ TAB.ER.PRT PO SCH ×2 (08:29→20:36)
[2019-11-20] MEDS: ENOXAPARIN 40 MG/0.4 ML SYRINGE SQ SCH (08:29)
[2019-11-20] MEDS ORDERED: DIPHENOX-ATROP 2.5-0.025 MG 1 EACH TAB PO PRN (10:05)
[2019-11-20 10:26] LABS: ALT 14 U/L (4-34); AST 34 U/L (14-36); African American GFR (CKD) >90 (>60 ml/min/1.73 sqM); Albumin 2.8 g/dL (3.5-5.0); Alkaline Phosphatase 39 U/L (38-126); Anion Gap 4 mmol/L; Blood Urea Nitrogen <2 mg/dL (7-17); Carbon Dioxide 17 mmol/L (22-30); Chloride 117 mmol/L (98-107); Glucose 82 mg/dL (74-99); Non-African American GFR(CKD) >90 (>60 ml/min/1.73 sqM); Sodium 138 mmol/L (137-145); Total Bilirubin 0.4 mg/dL (0.2-1.3); Total Protein 5.3 g/dL (6.3-8.2)
[2019-11-20 10:27] LABS: Potassium 3.9 mmol/L (3.5-5.1)
[2019-11-20 11:12] LABS: Basophils # (A) 0.1 k/uL (0-0.2); Basophils % (A) 1 %; Eosinophils # (A) 0.6 k/uL (0-0.7); Eosinophils % (A) 6 %; HCT 39.5 % (34.0-46.0); HGB 12.1 gm/dL (11.4-16.0); Hypochromasia Slight; Lymphocytes # (A) 3.5 k/uL (1.0-4.8); Lymphocytes % (A) 36 %; MCH 29.7 pg (25.0-35.0); MCHC 30.8 g/dL (31.0-37.0); Mean Platelet Volume 7.7; Monocytes # (A) 0.4 k/uL (0-1.0); Monocytes % (A) 4 %; Neutrophils # (A) 4.9 k/uL (1.3-7.7); Neutrophils % (A) 51 %; Platelet Count 487 k/uL (150-450); RBC 4.09 m/uL (3.80-5.40); RDW 13.5 % (11.5-15.5); WBC 9.7 k/uL (3.8-10.6)
[2019-11-20 11:29] LABS: MCV 96.6 fL (80.0-100.0)
--- NOTE | 2019-11-20 11:45 | P.PN ---
Subjective Progress Note Date: 11/20/19 CHIEF COMPLAINT: Abdominal pain HISTORY OF PRESENT ILLNESS: Patient underwent Rosemary fundoplication in September and then she underwent exploratory laparotomy with lysis of adhesions in October. At the time of her recent laparotomy no definitive site of bowel obstruction was seen. Patient complaining of diarrhea for 3 days. C. diff negative. Patient is still complaining of diarrhea. Lomotil will be added. She is asking for her diet to be increased. She is afebrile. WBC 9.7 hemoglobin 12.1 PHYSICAL EXAM: VITAL SIGNS: Reviewed. GENERAL: Well-developed in no acute distress. HEENT: No sclera icterus. Extraocular movements grossly intact. Moist buccal mucosa. Head is atraumatic, normocephalic. ABDOMEN: Soft. Nondistended. Nontender. Incision site clean dry and intact NEUROLOGIC: Alert and oriented. Cranial nerves II through XII grossly intact. ASSESSMENT: 1. Ileus 2. Gastroenteritis 3. Diarrhea PLAN: -Consult GI service for diarrhea -Advance diet to regular diet -Patient had meir removed and Steri-Strips applied to incision -Add Lomotil Physician Corn Husk Baler note has been reviewed by physician. Signing provider agrees with the documented findings, assessment, and plan of care. Objective - Vital Signs Vital signs: Vital Signs Temp 97.3 F L 11/19/19 23:46 Pulse 72 11/20/19 07:00 Resp 16 11/20/19 07:00 BP 110/66 11/20/19 07:00 Pulse Ox 100 11/20/19 07:00 Intake & Output 11/19/19 11/20/19 11/20/19 18:59 06:59 18:59 Intake Total 480 Balance 480 Intake: Oral 480 Other: Voiding Method Toilet # Voids 1 1 # Bowel Movements 3 1 - Labs CBC & Chem 7: 11/20/19 10:39 11/20/19 09:30 Labs: Abnormal Lab Results - Last 24 Hours (Table) 11/20/19 11/20/19 Range/Units 09:30 10:39 MCHC 30.8 L (31.0-37.0) g/dL Plt Count 487 H (150-450) k/uL Chloride 117 H (98-107) mmol/L Carbon Dioxide 17 L (22-30) mmol/L BUN <2 L (7-17) mg/dL Creatinine 0.41 L (0.52-1.04) mg/dL Total Protein 5.3 L (6.3-8.2) g/dL Albumin 2.8 L (3.5-5.0) g/dL Microbiology - Last 24 Hours (Table) 11/17/19 22:58 Blood Culture - Preliminary Blood No Growth after 48 hours
[2019-11-20] MEDS: SODIUM CHLORIDE 0.9% 1,000 ML IV SCH (15:28)
--- NOTE | 2019-11-20 19:09 | P.PN ---
Subjective Progress Note Date: 11/20/19 Principal diagnosis: 59-year-old female with the recent multiple interventions including additional lysis recently came back with abdominal pain and diarrhea nausea vomiting. Luz ent had a CAT scan which was suspicious for partial small bowel obstruction although patient's symptom dodges consistent with viral gastroenteritis. Patient has C. diff that was negative. Gastroenterology was consulted. Patient is still complaining of severe pain patient will be started on nonsteroidal anti-Proteus along with the opiates she is receiving for pain. Constitutional: Denied any fatigue denied any fever. Cardio vascular: denied any chest pain, palpitations Gastrointestinal as mentioned in HPI Pulmonary: Denied any shortness of breath cough Neurologic denied any new focal deficits All inpatient medications were reviewed and appropriate changes in these medications as dictated in the interval history and assessment and plan. 11/20/2019 Patient is seen and evaluated in follow up and continues to have loose stools at least three episodes today. Patient started on Imodium. Surgery is following closely along with GI and patient had some meir from her mid-abdominal incisi on removed today with steri-strips applied. Patient continues to have some intermittent abdominal discomfort noted. Patient diet was advanced and is tolerating with no vomiting or nausea noted. Patient is afebrile. Patient denies any chest pain or palpitations. Current sodium is 138, potassium is 3.9, and creatinine is 0.41. Patient is up and walking independently. Will continue to monitor closely. Objective - Vital Signs Vital signs: Vital Signs Temp 97.3 F L 11/19/19 23:46 Pulse 72 11/20/19 07:00 Resp 16 11/20/19 07:00 BP 110/66 11/20/19 07:00 Pulse Ox 100 11/20/19 07:00 Intake & Output 11/19/19 11/20/19 11/20/19 18:59 06:59 18:59 Intake Total 480 Balance 480 Intake: Oral 480 Other: Voiding Method Toilet # Voids 1 1 # Bowel Movements 3 1 - Exam GENERAL: The patient is alert and oriented x3, not in any acute distress. Well developed, well nourished. HEENT: Pupils are round and equally reacting to light. EOMI. No scleral icterus. No conjunctival pallor. Normocephalic, atraumatic. No pharyngeal erythema. No thyromegaly. CARDIOVASCULAR: S1 and S2 present. No murmurs, rubs, or gallops. PULMONARY: Chest is clear to auscultation, no wheezing or crackles. ABDOMEN: mid line abdominal scar noted with removed meir and steri-strips that are dry and intact. patint does have active bowel sounds. non-tender on palpation with no guarding or rigidity noted. MUSCULOSKELETAL: No joint swelling or deformity. EXTREMITIES: No cyanosis, clubbing, or pedal edema. NEUROLOGICAL: Gross neurological examination did not reveal any focal deficits. SKIN: No rashes. - Labs CBC & Chem 7: 11/20/19 10:39 11/20/19 09:30 Labs: Abnormal Lab Results - Last 24 Hours (Table) 11/20/19 11/20/19 Range/Units 09:30 10:39 MCHC 30.8 L (31.0-37.0) g/dL Plt Count 487 H (150-450) k/uL Chloride 117 H (98-107) mmol/L Carbon Dioxide 17 L (22-30) mmol/L BUN <2 L (7-17) mg/dL Creatinine 0.41 L (0.52-1.04) mg/dL Total Protein 5.3 L (6.3-8.2) g/dL Albumin 2.8 L (3.5-5.0) g/dL Microbiology - Last 24 Hours (Table) 11/17/19 22:58 Blood Culture - Preliminary Blood No Growth after 48 hours Assessment and Plan Assessment: -abdominal pain with diarrhea possibly viral gastroenteritis, C. diff was negative. Nausea and vomiting resolved and tolerating regular diet -Hypovolemic hyponatremia, improved. current sodium is 138 -Acute renal failure secondary to dietary improved with IV fluids -COPD without any acute exacerbation -leukocytosis secondary to diarrhea -DVT prophylaxis: subcut lovenox -GI prophylaxis: protonix Plan: continue current medications, management, and symptomatic treatment. Diet has been advanced. Tolerating diet. Patient continues to have diarrhea. Lomotil added. GI following and ordered labs and patient will follow up outpatient. Surgery also following and will continue to monitor an additional 24 hours. Further recommendations to follow. Anticipate discharge in 24 hours.
[2019-11-20] MEDS: MONTELUKAST 10 MG TAB PO SCH (20:36)
[2019-11-20] MEDS ORDERED: diphenhydrAMINE 50 MG/ML 1 ML VIAL IVP PRN (23:29)
[2019-11-21] MEDS: SODIUM CHLORIDE 0.9% 1,000 ML IV SCH (02:40)
[2019-11-21] MEDS: HYDROmorphone 1 MG/ML 1 ML SYRINGE IVP PRN ×3 (02:40→10:19)
[2019-11-21] MEDS: KETOROLAC 15 MG/ML 1 ML VIAL IVP SCH (06:17)
[2019-11-21 07:58] LABS: ALT 14 U/L (4-34); AST 22 U/L (14-36); African American GFR (CKD) >90 (>60 ml/min/1.73 sqM); Albumin 3.1 g/dL (3.5-5.0); Alkaline Phosphatase 49 U/L (38-126); Anion Gap 6 mmol/L; Blood Urea Nitrogen <2 mg/dL (7-17); Calcium 9.8 mg/dL (8.4-10.2); Carbon Dioxide 21 mmol/L (22-30); Chloride 114 mmol/L (98-107); Glucose 91 mg/dL (74-99); Non-African American GFR(CKD) >90 (>60 ml/min/1.73 sqM); Potassium 3.9 mmol/L (3.5-5.1); Sodium 141 mmol/L (137-145); Total Bilirubin 0.2 mg/dL (0.2-1.3); Total Protein 5.5 g/dL (6.3-8.2)
[2019-11-21 08:11] LABS: Basophils # (A) 0.1 k/uL (0-0.2); Basophils % (A) 1 %; Eosinophils # (A) 0.6 k/uL (0-0.7); Eosinophils % (A) 10 %; HCT 35.5 % (34.0-46.0); HGB 11.1 gm/dL (11.4-16.0); Hypochromasia Slight; Lymphocytes # (A) 3.3 k/uL (1.0-4.8); Lymphocytes % (A) 51 %; MCH 30.3 pg (25.0-35.0); MCHC 31.4 g/dL (31.0-37.0); MCV 96.5 fL (80.0-100.0); Mean Platelet Volume 7.2; Monocytes # (A) 0.3 k/uL (0-1.0); Monocytes % (A) 5 %; Neutrophils # (A) 2.1 k/uL (1.3-7.7); Neutrophils % (A) 32 %; Platelet Count 431 k/uL (150-450); RBC 3.68 m/uL (3.80-5.40); RDW 13.5 % (11.5-15.5); WBC 6.5 k/uL (3.8-10.6)
[2019-11-21] MEDS: ENOXAPARIN 40 MG/0.4 ML SYRINGE SQ SCH (08:30)
[2019-11-21] MEDS: PANTOPRAZOLE 40 MG/10 ML VIAL IVP SCH (08:30)
[2019-11-21] MEDS: METOPROLOL TARTRATE 12.5 MG TAB PO SCH (08:30)
[2019-11-21] MEDS: NICOTINE 14MG/24HR PATCH TRANSDERM SCH (08:30)
[2019-11-21] MEDS: LORATADINE 10 MG TAB PO SCH (08:31)
[2019-11-21] MEDS: POTASSIUM CHLORIDE ER 10 MEQ TAB.ER.PRT PO SCH (08:31)
[2019-11-21 08:44] VITALS: BP 99/58; PULSE 77; RESP 16; TEMP 98.1
[2019-11-21] MEDS ORDERED: CHOLESTYRAMINE (WITH SUGAR) 4 GM PACKET PO SCH (10:00)
--- NOTE | 2019-11-21 10:43 | P.PN ---
Subjective Progress Note Date: 11/21/19 CHIEF COMPLAINT: Abdominal pain HISTORY OF PRESENT ILLNESS: Patient underwent Rosemary fundoplication in September and then she underwent exploratory laparotomy with lysis of adhesions in October. At the time of her recent laparotomy no definitive site of bowel obstruction was seen. Patient complaining of diarrhea for 3 days. C. diff negative. Patient diarrhea has resolved. Abdominal pain resolved. Denies any nausea vomiting. She is tolerating diet. She is afebrile. WBC 6.5 hemoglobin 11.1 patient seen by GI service. They will do further workup outpatient PHYSICAL EXAM: VITAL SIGNS: Reviewed. GENERAL: Well-developed in no acute distress. HEENT: No sclera icterus. Extraocular movements grossly intact. Moist buccal mucosa. Head is atraumatic, normocephalic. ABDOMEN: Soft. Nondistended. Nontender. Incision site clean dry and intact NEUROLOGIC: Alert and oriented. Cranial nerves II through XII grossly intact. ASSESSMENT: 1. Ileus 2. Gastroenteritis 3. Diarrhea PLAN: -continue regular diet -Patient be discharged from surgical standpoint -Patient to follow-up with Dr. Phipps in 1 week -Recommend patient follow-up GI service regarding her diarrhea Physician Coal Washer Tender note has been reviewed by physician. Signing provider agrees with the documented findings, assessment, and plan of care. Objective - Vital Signs Vital signs: Vital Signs Temp 98.1 F 11/21/19 07:00 Pulse 77 11/21/19 07:00 Resp 16 11/21/19 07:00 BP 99/58 11/21/19 07:00 Pulse Ox 98 11/21/19 07:00 Intake & Output 11/20/19 11/21/19 11/21/19 18:59 06:59 18:59 Intake Total 1480 Balance 1480 Intake: Intake, IV Titration 1000 Amount Sodium Chloride 0.9% 1, 1000 000 ml @ 100 mls/hr IV . Q10H BRIJESH Rx#:[id number] Oral 480 Other: # Voids 2 2 # Bowel Movements 1 - Labs CBC & Chem 7: 11/21/19 07:32 11/21/19 07:32 Labs: Abnormal Lab Results - Last 24 Hours (Table) 11/20/19 11/21/19 11/21/19 Range/Units 10:39 07:32 07:32 RBC 3.68 L (3.80-5.40) m/uL Hgb 11.1 L (11.4-16.0) gm/dL MCHC 30.8 L (31.0-37.0) g/dL Plt Count 487 H (150-450) k/uL Chloride 114 H (98-107) mmol/L Carbon Dioxide 21 L (22-30) mmol/L BUN <2 L (7-17) mg/dL Creatinine 0.42 L (0.52-1.04) mg/dL Total Protein 5.5 L (6.3-8.2) g/dL Albumin 3.1 L (3.5-5.0) g/dL Microbiology - Last 24 Hours (Table) 11/17/19 22:58 Blood Culture - Preliminary Blood No Growth after 72 hours 11/18/19 23:52 Stool Culture - Preliminary Stool Yeast species
[2019-11-21 11:21] VITALS: BMI 20.7
--- NOTE | 2019-11-21 14:06 | P.CONS ---
History of Present Illness - Reason for Consult Consult date: 11/20/19 Diarrhea Requesting physician: Corie Bustos - Chief Complaint Diarrhea - History of Present Illness 59-year-old female who presents to the hospital for evaluation of symptoms of diarrhea. The patient previously underwent Viviana fundoplication in September and reports episodes of recurrent loose stool since that time. Subsequently she has undergone exploratory laparotomy with lysis of adhesions in October. She reports episodes of diarrhea occurring every few days with multiple loose bowel movements with the episodes. She received she had undergone EGD and colonoscopy with the surgical service in 01/2019 with findings of esophagitis, gastritis, small hiatal hernia and diverticulosis. She reports that at baseline she has always been on the constipated side and that her symptoms are new. No prior cholecystectomy. She does report some nausea and vomiting with the episodes. Only medication tried for symptoms has been Pepto-Bismol. No history of diabetes mellitus. She does report a known history of a thyroid nodule which she is scheduled to follow up with imaging in the future. She also reports a history of men syndrome and her mother who is and sister which she believes follows at [facility]. Testing for C. difficile negati ve on presentation with negative stool lactoferrin. Laboratory evaluation significant for WBC 12.4, hemoglobin 12.6, platelet count 456,000. Imaging with computed tomography scan of the abdomen significant for multiple dilated fluid- filled loops of bowel as well as a dilated stomach suggestive of possible ileus. Review of Systems REVIEW OF SYSTEMS: CONSTITUTIONAL: Denies any fevers, chills, weight change or fatigue. CARDIOVASCULAR: Denies any chest pain, palpitations high or low blood pressures RESPIRATORY: Denies any shortness of breath, hemoptysis or cough. GENITOURINARY: No dysuria or hematuria. MUSCULOSKELETAL: No weakness reported. SKIN: Denies any new rashes or lesions, jaundice or pallor. PSYCHIATRIC: Denies any depression or anxiety. NEUROLOGY: Denies headache, denies any new focal deficits. EARS/NOSE/THROAT: No recent hearing change, congestion, nasal discharge or sore throat. EYES: No pain in eyes, discharge or change in vision. GASTROINTESTINAL: As per HPI. Past Medical History Past Medical History: COPD, GERD/Reflux, Osteoarthritis (OA) Additional Past Medical History / Comment(s): Pt recently admitted to [facility] on 10/28/19 for dehydration, acute kidney injury, ileus. Had exploratory laparotomy in October when she was previously here. She is recent post viviana fundoplication and has had other recent admits for dehydration. Other hx: Pt states she has been having diarrhea lately-liquid/watery stools, bronchitis, UTI, nephritis, p t unsure why lopressor was recently prescribed, osteoporosis, past low back fracture, occasional upper back pain, sinus allergies. History of Any Multi-Drug Resistant Organisms: None Reported Past Surgical History: Section, Hernia Repair, Hysterectomy Additional Past Surgical History / Comment(s): 10/07/19 Viviana fundoplication, colonoscopy, hemorrhoidectomy, L shoulder benign tumor removed Past Anesthesia/Blood Transfusion Reactions: Previous Problems w/ Anesthesia Additional Past Anesthesia/Blood Transfusion Reaction / Comm: woke up during sx in past Past Psychological History: Anxiety, Depression Additional Psychological History / Comment(s): Pt reides with her significant other. She has a nebulizer. She is independent. Smoking Status: Current every day smoker Past Alcohol Use History: None Reported Additional Past Alcohol Use History / Comment(s): Pt smokes 1ppd from age 20 (1980) Past Drug Use History: None Reported Additional Drug Use History / Comment(s): currently using a nicotine patch at home - Past Family History Father Family Medical History: Cancer Additional Family Medical History / Comment(s): Esophageal cancer/ulcer. Pt states father of pneumonia at the age of 56yrs. Mother Family Medical History: Diabetes Mellitus Additional Family Medical History / Comment(s): MENS SYNDROME Sister(s) Additional Family Medical History / Comment(s): MENS SYNDROME Medications and Allergies Home Medications Medication Instructions Recorded Confirmed Type Montelukast [Singulair] 10 mg PO HS 09/03/19 11/18/19 History Metoprolol Tartrate 12.5 mg PO BID 09/26/19 11/18/19 History Nicotine 14Mg/24Hr Patch [Habitrol] 1 patch TRANSDERM DAILY 10/28/19 11/18/19 History Potassium Chloride ER [K-Dur 10] 10 meq PO BID #60 tab 10/31/19 11/18/19 Rx Albuterol Inhaler [Ventolin Hfa 2 puff INHALATION RT-QID PRN 11/18/19 11/18/19 History Inhaler] Cetirizine HCl 10 mg PO DAILY 11/18/19 11/18/19 History Fluticasone Nasal [place] [Flonase 1 spray EA NOSTRIL DAILY PRN 11/18/19 11/18/19 History Nasal [place]] Ondansetron [Zofran ODT] 4 mg PO Q8HR PRN 11/18/19 11/18/19 History Diphenox-Atrop 2.5-0.025 mg 1 each PO Q6HR PRN #30 tab 11/20/19 Rx [Lomotil] Allergies Allergy/AdvReac Type Severity Reaction Status Date / Time No Known Allergies Allergy Verified 11/18/19 13:32 Physical Exam Vitals: Vital Signs Temp Pulse Resp BP Pulse Ox 11/20/19 07:00 72 16 110/66 100 11/19/19 23:48 67 18 11/19/19 23:46 97.3 F L 67 18 96/61 99 11/19/19 19:40 98.5 F 80 18 108/72 99 11/19/19 15:00 98.2 F 74 16 94/50 98 Intake and Output 11/19/19 11/20/19 11/20/19 22:59 06:59 14:59 Other: Voiding Method Toilet Toilet # Voids 2 1 # Bowel Movements 1 On physical examination, patient appears comfortable in no apparent distress. HEAD: Normocephalic, atraumatic. EYES: No scleral icterus. No conjunctival injection. MOUTH: No lesions, tongue midline. NECK: Trachea midline, no gross abnormalities. CHEST: Clear to auscultation with no wheezing or rhonchi appreciated. HEART: Regular rate and rhythm. ABDOMEN: Soft, thin with well-healing wounds from prior forthright laparotomy. Bowel sounds are positive. No organomegaly. No guarding or rigidity. EXTREMITIES: No pedal edema. SKIN: No rashes, no jaundice. NEUROLOGIC: Alert and oriented x3. No focal deficits. Results CBC & Chem 7: 11/21/19 07:32 11/21/19 07:32 Labs: Abnormal Lab Results - Last 24 Hours (Table) 11/20/19 11/20/19 Range/Units 09:30 10:39 MCHC 30.8 L (31.0-37.0) g/dL Plt Count 487 H (150-450) k/uL Chloride 117 H (98-107) mmol/L Carbon Dioxide 17 L (22-30) mmol/L BUN <2 L (7-17) mg/dL Creatinine 0.41 L (0.52-1.04) mg/dL Total Protein 5.3 L (6.3-8.2) g/dL Albumin 2.8 L (3.5-5.0) g/dL Microbiology - Last 24 Hours (Table) 11/18/19 23:52 Stool Culture - Preliminary Stool Yeast species 11/17/19 22:58 Blood Culture - Preliminary Blood No Growth after [address] scan - abdomen: report reviewed (Computed tomography scan of the abdomen with findings of dilated fluid-filled small bowel and stomach.) Assessment and Plan (1) Diarrhea Narrative/Plan: 59-year-old female who presents for recurrent episodes of loose watery stool. Previously the patient reported symptoms more consistent with constipation however since Viviana fundoplication she has been having episodes of loose watery bowel movements. Unclear etiology. Unclear if secondary to surgical procedure, functional bowel disorder, postviral IBS, or other etiology. Given patient's family history of men syndrome would also recommend further evaluation outpatient setting with serologic workup for men syndrome. Computed tomography scan of the abdomen showed a fluid-filled small bowel and stomach without any pancreatic lesions noted. Status: Acute Code(s): R19.7 - DIARRHEA, UNSPECIFIED SNOMED Code(s): 93098912 (2) Abdominal pain Status: Acute Code(s): R10.9 - UNSPECIFIED ABDOMINAL PAIN SNOMED Code(s): 92292537 Plan: Supportive care Okay for diet as tolerated Stool studies negative to date Can consider addition of antidiarrheal and/or cholestyramine for symptomatically treatment of diarrhea Follow up with GI after discharge for continued evaluation given family history of men syndrome Surgical service following the patient Thank you for allowing us to participate in the care of the patient
[2019-11-21 17:41] LABS: Gliadin AB IgA, Deaminated NEGATIVE (NEGATIVE); Gliadin AB IgA, Unit 0.2 U/mL; Gliadin AB IgG, Deaminated NEGATIVE (NEGATIVE)
--- NOTE | 2019-11-22 08:20 | P.DS ---
Providers Date of admission: 11/17/19 23:44 Expected date of discharge: 11/21/19 Attending physician: Iker Miranda Consults: 11/17/19 23:17 Consult Physician Routine Consulting Provider: Kurtis Phipps Consult Reason/Comments: Diarrhea; Abd pain; recent surgery Do you want consulting provider notified?: Yes 11/19/19 12:23 Consult Physician Routine Consulting Provider: Brenda Oneal Consult Reason/Comments: Recurrent diarrhea Do you want consulting provider notified?: Yes Primary care physician: Stated None Hospital Course: Final diagnosis -abdominal pain with diarrhea possibly viral gastroenteritis -Hypovolemic hyponatremia, improved -Acute renal failure secondary to dietary -COPD without any acute exacerbation -leukocytosis secondary to diarrhea -DVT prophylaxis -Continued ongoing nicotine dependence -GI prophylaxis Discharge disposition Patient is being discharged in a stable condition with guarded prognosis to home. Patient will follow-up with primary care provider in the outpatient setting upon discharge. Patient also instructed to follow-up with surgery along with GI in the outpatient setting. Patient to continue with Lomotil as needed for diarrhea. Total time taken is greater than 35 minutes. History of present illness This is a 59-year-old female who was recently admitted with abdominal pain and diarrhea with nausea and vomiting and was being closely monitored. Patient recently underwent multiple interventions including lysis of adhesions and is being followed by surgery. GI was also consulted for chronic diarrhea that has been ongoing for the last 2-3 months. Patient continues to have diarrhea although has lessened in severity. Patient will continue with Lomotil as needed in the outpatient setting. Patient to follow-up with surgery in one week along with GI to discuss test results. Patient is maintained on a regular diet and will continue at this time. Patient denies any nausea or vomiting and feels better and would like to go home. Patient was also found to have some hyponatremia which has resolved and current sodium today is 141. Currently no reports of chest pain, shortness of breath, or palpitations. Patient is afebrile. No reports of nausea or vomiting and patient is tolerating diet. Patient will be discharged home today. On exam vital signs are stable. Temp is 98.1F, pulse is 77, respirations are 16, blood pressure is 99/58, oxygen saturation is 98% on room air. Cardio S1, S2 are muffled. Respiratory system shows diminished breath sounds at the bases with no wheezing or rhonchi noted. Abdomen is soft and nontender. Midline abdominal surgical incision is clean dry and intact with Steri-Strips noted. Nervous system shows no focal deficits. Please refer to medication reconciliation sheet for a list of medications. Patient Condition at Discharge: Stable Plan - Discharge Summary Discharge Rx Participant: No New Discharge Prescriptions: New Diphenox-Atrop 2.5-0.025 mg [Lomotil] 1 each PO Q6HR PRN #30 tab PRN Reason: Diarrhea Continue Montelukast [Singulair] 10 mg PO HS Metoprolol Tartrate 12.5 mg PO BID Nicotine 14Mg/24Hr Patch [Habitrol] 1 patch TRANSDERM DAILY Potassium Chloride ER [K-Dur 10] 10 meq PO BID #60 tab Ondansetron [Zofran ODT] 4 mg PO Q8HR PRN PRN Reason: Nausea Fluticasone Nasal [place] [Flonase Nasal [place]] 1 spray EA NOSTRIL DAILY PRN PRN Reason: Allergy Symptoms Cetirizine HCl 10 mg PO DAILY Albuterol Inhaler [Ventolin Hfa Inhaler] 2 puff INHALATION RT-QID PRN PRN Reason: Shortness Of Breath Discontinued Docusate [Colace] 100 mg PO BID PRN PRN Reason: Constipation Discharge Medication List Montelukast [Singulair] 10 mg PO HS 09/03/19 [History] Metoprolol Tartrate 12.5 mg PO BID 09/26/19 [History] Nicotine 14Mg/24Hr Patch [Habitrol] 1 patch TRANSDERM DAILY 10/28/19 [History] Potassium Chloride ER [K-Dur 10] 10 meq PO BID #60 tab 10/31/19 [Rx] Albuterol Inhaler [Ventolin Hfa Inhaler] 2 puff INHALATION RT-QID PRN 11/18/19 [History] Cetirizine HCl 10 mg PO DAILY 11/18/19 [History] Fluticasone Nasal [place] [Flonase Nasal [place]] 1 spray EA NOSTRIL DAILY PRN 11/18/19 [History] Ondansetron [Zofran ODT] 4 mg PO Q8HR PRN 11/18/19 [History] Diphenox-Atrop 2.5-0.025 mg [Lomotil] 1 each PO Q6HR PRN #30 tab 11/20/19 [Rx] Follow up Appointment(s)/Referral(s): None,Stated [Primary Care Provider] - 1-2 days Saurav Coats MD [STAFF PHYSICIAN] - 11/27/19 12:15 pm Kurtis Phipps MD [STAFF PHYSICIAN] - 11/28/19 1:15 pm Activity/Diet/Wound Care/Special Instructions: Activity Limited until follow-up Follow-up with primary care provider upon discharge Follow-up with surgery upon discharge Follow-up with GI in the outpatient setting in 1-2 weeks Discharge Disposition: HOME SELF-CARE
== END 2019-11-21 11:54 | disposition home or self-care (01) | DRG 392 ==
LOC: EC 17:37 → 4SSUR 23:44 → 6PED 11-19 10:29
PROVIDERS: ADMIT Hospitalist; ATTEND Hospitalist
DX: A08.4 Viral intestinal infection, unspecified (principal); E87.1 Hypo-osmolality and hyponatremia; N17.9 Acute kidney failure, unspecified; F32.9 Major depressive disorder, single episode, unspecified; E86.0 Dehydration; F17.210 Nicotine dependence, cigarettes, uncomplicated; K21.9 Gastro-esophageal reflux disease without esophagitis; F41.9 Anxiety disorder, unspecified; J44.9 Chronic obstructive pulmonary disease, unspecified; M19.90 Unspecified osteoarthritis, unspecified site; M81.0 Age-related osteoporosis without current pathological fracture; Z98.890 Other specified postprocedural states; Z90.710 Acquired absence of both cervix and uterus; Z79.51 Long term (current) use of inhaled steroids; Z79.899 Other long term (current) drug therapy; Z87.440 Personal history of urinary (tract) infections; Z87.19 Personal history of other diseases of the digestive system; Z83.6 Family history of other diseases of the respiratory system; Z80.0 Family history of malignant neoplasm of digestive organs; Z83.79 Family history of other diseases of the digestive system; Z83.3 Family history of diabetes mellitus
CPT/HCPCS: 36415; 74177; 80053; 81001; 83516; 83605; 83630; 83690; 84586; 85025; 87040; 87045; 87046; 87324; 87328; 87329; 96361; 96374; 96375; 96376; 99285

== ENCOUNTER 2019-11-25 12:23 | Inpatient (IN) | payer OTHER ==
[2019-11-25] MEDS ORDERED: SODIUM CHLORIDE 0.9% 1,000 ML IV STA (13:05)
[2019-11-25] MEDS ORDERED: HYDROmorphone 0.5 MG/0.5 ML SYRINGE IVP STA ×2 (13:05→15:02)
[2019-11-25] MEDS ORDERED: ONDANSETRON 4 MG/2 ML VIAL IVP STA (13:05)
[2019-11-25 13:45] LABS: Basophils # (A) 0.1 k/uL (0-0.2); Basophils % (A) 1 %; Eosinophils # (A) 0.5 k/uL (0-0.7); Eosinophils % (A) 3 %; HCT 43.1 % (34.0-46.0); HGB 13.8 gm/dL (11.4-16.0); Lymphocytes # (A) 3.3 k/uL (1.0-4.8); Lymphocytes % (A) 22 %; MCH 30.4 pg (25.0-35.0); MCV 95.1 fL (80.0-100.0); Mean Platelet Volume 7.3; Monocytes # (A) 0.7 k/uL (0-1.0); Monocytes % (A) 5 %; Neutrophils # (A) 10.2 k/uL (1.3-7.7); Neutrophils % (A) 68 %; Platelet Count 577 k/uL (150-450); RBC 4.53 m/uL (3.80-5.40); RDW 13.4 % (11.5-15.5)
[2019-11-25 13:53] LABS: ALT 11 U/L (4-34); AST 17 U/L (14-36); African American GFR (CKD) >90 (>60 ml/min/1.73 sqM); Albumin 3.9 g/dL (3.5-5.0); Alkaline Phosphatase 76 U/L (38-126); Amylase 55 U/L (30-110); Anion Gap 7 mmol/L; Blood Urea Nitrogen 6 mg/dL (7-17); Calcium 11.7 mg/dL (8.4-10.2); Carbon Dioxide 22 mmol/L (22-30); Chloride 106 mmol/L (98-107); Glucose 116 mg/dL (74-99); Non-African American GFR(CKD) >90 (>60 ml/min/1.73 sqM); Potassium 4.8 mmol/L (3.5-5.1); Sodium 135 mmol/L (137-145); Total Bilirubin 0.4 mg/dL (0.2-1.3); Total Protein 6.5 g/dL (6.3-8.2)
--- NOTE | 2019-11-25 14:27 | CT ---
EXAMINATION TYPE: CT abdomen pelvis w con DATE OF EXAM: 11/25/2019 HISTORY: continued, increasing, generalized pain, nausea, vomiting, diarrhea post hernia repair CT DLP: 562.3mGycm Automated Exposure Control for Dose Reduction was Utilized. CONTRAST: CT scan of the abdomen and pelvis is performed without oral but with IV Contrast, patient injected wi th 100 mL of Isovue 300. COMPARISON: CT abdomen and pelvis 8 days ago and older studies FINDINGS: LUNG BASES: No significant abnormality is appreciated. LIVER/GB: No significant abnormality is appreciated. PANCREAS: No significant abnormality is seen. SPLEEN: Stable 5 mm calcification in spleen presumed benign. ADRENALS: No significant abnormality is seen. KIDNEYS: Symmetrical medullary uptake and excretion without hydronephrosis seen bilaterally. There is new 5 mm calculus lower pole of the right kidney coronal image 56. Persistent dependent 4 mm calculu s in the left aspect of the bladder. Interval clearance of additional bladder calculi. Accessory left renal artery redemonstrated. BOWEL: Slightly suboptimal evaluation without enteric contrast. Surgical changes at the diaphragmatic hiatus are redemonstrated. Persistent distended stomach with air-fluid level. Persistent distended p roximal duodenal sweep with air-fluid level. Additional scattered prominent and distended fluid-fille d small bowel loops with multiple air-fluid levels. There is air-fluid level in mildly distended rect um. There is additional scattered fluid with air-fluid levels in the right and left colon. Transverse colon shows mild to moderate wall thickening in left distention in the distal one half through the s plenic flexure and proximal left colon on current study. [id number] concentric wall thickening just above the ileocecal valve left aspect of the right colon coronal image 55 is noted. Appendix wit hin normal limits from base of the cecum on coronal images. Terminal ileum is not distended. Nondiste nded small bowel in the central to left abdomen is present. Nondistended small bowel loop in the cent ral upper pelvis is seen. One transition point noted coronal image 23 for reference UTERUS/ADNEXA: Uterus is surgically absent or markedly atrophic. LYMPH NODES: No greater than 1cm abdominal or pelvic lymph nodes are appreciated. OSSEOUS STRUCTURES: Stable mild height loss and vertebroplasty L2 level. OTHER: Surgical clip overlying right iliopsoas muscle redemonstrated. IMPRESSION: Persistent nonspecific bowel gas pattern. Abnormal fluid in colon could reflect colitis a nd/or diarrhea. Abnormal wall thickening involving some small and large bowel loops could reflect acu te enterocolitis. Abnormal dilated stomach along with small enlarged bowel loops with air-fluid level s could reflect persistent severe ileus versus multifocal partial bowel instructions related to adhes ions and/or inflammatory change. The findings are similar to most recent CT.
[2019-11-25] MEDS ORDERED: METOCLOPRAMIDE 5 MG/ML 2 ML VIAL IVP STA (15:02)
[2019-11-25] MEDS ORDERED: diphenhydrAMINE 50 MG/ML 1 ML VIAL IVP STA (15:02)
--- NOTE | 2019-11-25 15:03 | ED ---
General Adult HPI - General Source: patient, EMS, RN notes reviewed Mode of arrival: EMS Limitations: no limitations <Ambrose Price - Last Filed: 11/25/19 15:05> <Naif Romero - Last Filed: 11/25/19 15:50> - General Chief complaint: Abdominal Pain Stated complaint: Diarrhea, Nausea Time Seen by Provider: 11/25/19 12:36 - History of Present Illness Initial comments: 59-year-old female presents to the emergency room for a chief complaint of abdominal pain. Patient reports that she has had abdominal pain since this morning. Patient states this pain keeps coming back. She reports that about 2 weeks ago she had a bowel resection secondary to a bowel obstruction. Patient is also vomiting today. No diarrhea. Unsure if she is passing gas. She denies fevers. She does report she has a follow-up with a nurse wound in 2 days.Patient has no other complaints at this time including shortness of breath, chest pain, nausea or vomiting, headache, or visual changes. (Ambrose Price) - Related Data Home Medications Medication Instructions Recorded Confirmed Montelukast [Singulair] 10 mg PO HS 09/03/19 11/18/19 Metoprolol Tartrate 12.5 mg PO BID 09/26/19 11/18/19 Nicotine 14Mg/24Hr Patch [Habitrol] 1 patch TRANSDERM DAILY 10/28/19 11/18/19 Albuterol Inhaler [Ventolin Hfa 2 puff INHALATION RT-QID PRN 11/18/19 11/18/19 Inhaler] Cetirizine HCl 10 mg PO DAILY 11/18/19 11/18/19 Fluticasone Nasal [place] [Flonase 1 spray EA NOSTRIL DAILY PRN 11/18/19 11/18/19 Nasal [place]] Ondansetron [Zofran ODT] 4 mg PO Q8HR PRN 11/18/19 11/18/19 Previous Rx's Medication Instructions Recorded Potassium Chloride ER [K-Dur 10] 10 meq PO BID #60 tab 10/31/19 Diphenox-Atrop 2.5-0.025 mg 1 each PO Q6HR PRN #30 tab 11/20/19 [Lomotil] Allergies Allergy/AdvReac Type Severity Reaction Status Date / Time No Known Allergies Allergy Verified 11/25/19 12:42 Review of Systems ROS Other: All systems not noted in ROS Statement are negative. <Ambrose Price - Last Filed: 11/25/19 15:05> ROS Other: All systems not noted in ROS Statement are negative. <Naif Romero - Last Filed: 11/25/19 15:50> ROS Statement: Those systems with pertinent positive or pertinent negative responses have been documented in the HPI. Past Medical History Past Medical History: COPD, GERD/Reflux, Osteoarthritis (OA) Additional Past Medical History / Comment(s): Pt recently admitted to [facility] on 10/28/19 for dehydration, acute kidney injury, ileus. Had exploratory laparotomy in October when she was previously here. She is recent post rosemary fundoplication and has had other recent admits for dehydration. Other hx: Pt states she has been having diarrhea lately-liquid/watery stools, bronchitis, UTI, nephritis, pt unsure why lopressor was recently prescribed, osteoporosis, past low back fracture, occasional upper back pain, sinus allergies. History of Any Multi-Drug Resistant Organisms: None Reported Past Surgical History: Section, Hernia Repair, Hysterectomy Additional Past Surgical History / Comment(s): 10/07/19 Rosemary fundoplication, colonoscopy, hemorrhoidectomy, L shoulder benign tumor removed Past Anesthesia/Blood Transfusion Reactions: Previous Problems w/ Anesthesia Additional Past Anesthesia/Blood Transfusion Reaction / Comment(s): woke up during sx in past Past Psychological History: Anxiety, Depression Smoking Status: Current every day smoker Past Alcohol Use History: None Reported Past Drug Use History: None Reported - Past Family History Father Family Medical History: Cancer Additional Family Medical History / Comment(s): Esophageal cancer/ulcer. Pt states father of pneumonia at the age of 56yrs. Mother Family Medical History: Diabetes Mellitus Additional Family Medical History / Comment(s): MENS SYNDROME Sister(s) Additional Family Medical History / Comment(s): MENS SYNDROME <Ambrose Price - Last Filed: 11/25/19 15:05> General Exam Limitations: no limitations General appearance: alert, in no apparent distress Head exam: Present: atraumatic, normocephalic, normal inspection Eye exam: Present: normal appearance, PERRL, EOMI. Absent: scleral icterus, conjunctival injection, periorbital swelling ENT exam: Present: normal exam, mucous membranes moist Neck exam: Present: normal inspection, full ROM. Absent: tenderness, meningismus, lymphadenopathy Respiratory exam: Present: normal lung sounds bilaterally. Absent: respiratory distress, wheezes, rales, rhonchi, stridor Cardiovascular Exam: Present: regular rate, normal rhythm, normal heart sounds. Absent: systolic murmur, diastolic murmur, rubs, gallop, clicks GI/Abdominal exam: Present: soft, normal bowel sounds. Absent: distended, tenderness, guarding, rebound, rigid <Ambrose Price - Last Filed: 11/25/19 15:05> Course Vital Signs 11/25/19 11/25/19 11/25/19 12:39 13:51 15:00 Temperature 98.7 F 98.3 F 98.3 F Pulse Rate 89 62 91 Respiratory 18 18 16 Rate Blood Pressure 107/86 102/66 117/66 O2 Sat by Pulse 99 99 100 Oximetry Medical Decision Making - Lab Data Result diagrams: 11/25/19 13:30 11/25/19 13:30 <Ambrose Price - Last Filed: 11/25/19 15:05> - Lab Data Result diagrams: 11/25/19 13:30 11/25/19 13:30 <Naif Romero - Last Filed: 11/25/19 15:50> - Medical Decision Making Vitals are stable. Patient does have slight leukocytosis. CMP is unremarkable. CT abdomen and pelvis with contrast shows persistent nonspecific bowel gas pattern. There is abnormal fluid in the colon that could reflect colitis and/or diarrhea. There is also abnormal wall thickening involving some small and large bowel loops that could reflect acute enterocolitis. Abnormal dilated stomach along the small and large bowel loops with air-fluid levels could reflect persistent severe ileus versus multifocal partial bowel obstructions related to adhesions and/or inflammatory changes. Findings are similar to most recent CT. According to previous surgical note she underwent Rosemary fundoplication in September and underwent exploratory laparotomy with lysis of adhesions in October. (Ambrose Price) Patient reevaluated and reexamined by myself, Dr. Romero. Patient does appear uncomfortable in bed. Additional medications are currently being provided. Patient updated. Case was discussed with Dr. Phipps who would like his patient to be admitted and recommends computed tomography scan with oral contrast. (Naif Romero) - Lab Data Lab Results 11/25/19 11/25/19 11/25/19 Range/Units 13:30 13:30 13:30 WBC 15.0 H (3.8-10.6) k/uL RBC 4.53 (3.80-5.40) m/uL Hgb 13.8 (11.4-16.0) gm/dL Hct 43.1 (34.0-46.0) % MCV 95.1 (80.0-100.0) fL MCH 30.4 (25.0-35.0) pg MCHC 32.0 (31.0-37.0) g/dL RDW 13.4 (11.5-15.5) % Plt Count 577 H (150-450) k/uL Neutrophils % 68 % Lymphocytes % 22 % Monocytes % 5 % Eosinophils % 3 % Basophils % 1 % Neutrophils # 10.2 H (1.3-7.7) k/uL Lymphocytes # 3.3 (1.0-4.8) k/uL Monocytes # 0.7 (0-1.0) k/uL Eosinophils # 0.5 (0-0.7) k/uL Basophils # 0.1 (0-0.2) k/uL Sodium 135 L (137-145) mmol/L Potassium 4.8 (3.5-5.1) mmol/L Chloride 106 (98-107) mmol/L Carbon Dioxide 22 (22-30) mmol/L Anion Gap 7 mmol/L BUN 6 L (7-17) mg/dL Creatinine 0.52 (0.52-1.04) mg/dL Est GFR (CKD-EPI)AfAm >90 (>60 ml/min/1.73 sqM) Est GFR (CKD-EPI)NonAf >90 (>60 ml/min/1.73 sqM) Glucose 116 H (74-99) mg/dL Plasma Lactic Acid [place] 1.0 (0.7-2.0) mmol/L Calcium 11.7 H (8.4-10.2) mg/dL Total Bilirubin 0.4 (0.2-1.3) mg/dL AST 17 (14-36) U/L ALT 11 (4-34) U/L Alkaline Phosphatase 76 (38-126) U/L Total Protein 6.5 (6.3-8.2) g/dL Albumin 3.9 (3.5-5.0) g/dL Amylase 55 (30-110) U/L Lipase 47 (23-300) U/L Urine Color Urine Appearance (Clear) Urine pH (5.0-8.0) Ur Specific [place] (1.001-1.035) Urine Protein (Negative) Urine Glucose (UA) (Negative) Urine Ketones (Negative) Urine Blood (Negative) Urine Nitrite (Negative) Urine Bilirubin (Negative) Urine Urobilinogen (<2.0) mg/dL Ur Leukocyte Esterase (Negative) 11/25/19 Range/Units 15:01 WBC (3.8-10.6) k/uL RBC (3.80-5.40) m/uL Hgb (11.4-16.0) gm/dL Hct (34.0-46.0) % MCV (80.0-100.0) fL MCH (25.0-35.0) pg MCHC (31.0-37.0) g/dL RDW (11.5-15.5) % Plt Count (150-450) k/uL Neutrophils % % Lymphocytes % % Monocytes % % Eosinophils % % Basophils % % Neutrophils # (1.3-7.7) k/uL Lymphocytes # (1.0-4.8) k/uL Monocytes # (0-1.0) k/uL Eosinophils # (0-0.7) k/uL Basophils # (0-0.2) k/uL Sodium (137-145) mmol/L Potassium (3.5-5.1) mmol/L Chloride (98-107) mmol/L Carbon Dioxide (22-30) mmol/L Anion Gap mmol/L BUN (7-17) mg/dL Creatinine (0.52-1.04) mg/dL Est GFR (CKD-EPI)AfAm (>60 ml/min/1.73 sqM) Est GFR (CKD-EPI)NonAf (>60 ml/min/1.73 sqM) Glucose (74-99) mg/dL Plasma Lactic Acid [place] (0.7-2.0) mmol/L Calcium (8.4-10.2) mg/dL Total Bilirubin (0.2-1.3) mg/dL AST (14-36) U/L ALT (4-34) U/L Alkaline Phosphatase (38-126) U/L Total Protein (6.3-8.2) g/dL Albumin (3.5-5.0) g/dL Amylase (30-110) U/L Lipase (23-300) U/L Urine Color Light Yellow Urine Appearance Clear (Clear) Urine pH 5.5 (5.0-8.0) Ur Specific [place] 1.036 H (1.001-1.035) Urine Protein Negative (Negative) Urine Glucose (UA) Negative (Negative) Urine Ketones Negative (Negative) Urine Blood Negative (Negative) Urine Nitrite Negative (Negative) Urine Bilirubin Negative (Negative) Urine Urobilinogen <2.0 (<2.0) mg/dL Ur Leukocyte Esterase Negative (Negative) Disposition <Ambrose Price - Last Filed: 11/25/19 15:05> Is patient prescribed a controlled substance at d/c from ED?: No Decision Time: 15:50 <Naif Romero - Last Filed: 11/25/19 15:50> Clinical Impression: Small bowel obstruction, Ileus Disposition: ADMITTED IP TO THIS HOSP Referrals: None,Stated [Primary Care Provider] - 1-2 days
[2019-11-25 15:19] LABS: Appearance,Urine Clear (Clear); Bilirubin,Urine Negative (Negative); Blood,Urine Negative (Negative); Color,Urine Light Yellow; Glucose,Urine (UA) Negative (Negative); Ketones,Urine Negative (Negative); Leukocyte Esterase,Urine Negative (Negative); Nitrite,Urine Negative (Negative); PH, Urine 5.5 (5.0-8.0); Protein,Urine Negative (Negative); Specific Gravity,Urine 1.036 (1.001-1.035); Urobilinogen,Urine <2.0 mg/dL (<2.0)
[2019-11-25] MEDS ORDERED: IOPAMIDOL CONTRAST (ORAL USE) VIAL PO PRN (15:52)
[2019-11-25] MEDS ORDERED: NALOXONE 0.4 MG/ML 1 ML VIAL IV PRN (15:53)
[2019-11-25] MEDS ORDERED: ONDANSETRON 4 MG/2 ML VIAL IVP PRN (15:53)
[2019-11-25] MEDS ORDERED: HYDROmorphone 0.5 MG/0.5 ML SYRINGE IVP PRN (15:53)
[2019-11-25] MEDS: PANTOPRAZOLE 40 MG/10 ML VIAL IV SCH (16:13)
[2019-11-25] MEDS: SODIUM CHLORIDE 0.9% 1,000 ML IV SCH ×2 (16:13→23:59)
--- NOTE | 2019-11-25 17:45 | CT ---
EXAMINATION TYPE: CT abdomen pelvis wo con DATE OF EXAM: 11/25/2019 COMPARISON: None HISTORY: continued, increasing, generalized pain, nausea, vomiting, diarrhea post hernia repair CT DLP: 340.8 mGycm Automated exposure control for dose reduction was used. Lung bases are clear. There is no pleural effusion. Heart size is normal. There is no pericardial eff usion. Liver spleen stomach pancreas gallbladder appear normal. Bile ducts are not dilated. There is contras t in the kidneys from CT scan earlier today. Kidneys show no hydronephrosis. Ureters are not dilated. There is no retroperitoneal adenopathy. There is some oral contrast in the stomach and the small bow el. There are distended fluid-filled loops of distal small bowel. Small bowel measures up to 2.7 cm. I do not see an obstructive type pattern. There is fluid also in the right colon. There are fluid lev els in the transverse colon without significant dilation. There is distended contrast filled urinary bladder. There is no inguinal hernia. There is no free fluid in the pelvis. Appendix is posterior and appears normal. Bony pelvis is intact. Lumbar spine shows compression fracture of L2 and T11 vertebra. There is verte broplasty of L2. T11 shows 25% loss of height. IMPRESSION: Distended fluid-filled small bowel loops consistent with ileus. This appears slightly improved compar ed to the exam 3 hours ago. I do not suspect a mechanical bowel obstruction. Right colon and transver se colon fluid levels consistent with large bowel mild ileus unchanged. No free air.
[2019-11-25] MEDS ORDERED: SODIUM CHLORIDE 0.9% 2,000 ML IV ONE (19:56)
[2019-11-25] MEDS: HYDROmorphone 1 MG/ML 1 ML SYRINGE IVP PRN (23:55)
[2019-11-26] MEDS: SODIUM CHLORIDE 0.9% 1,000 ML IV SCH ×3 (05:56→21:24)
[2019-11-26] MEDS: HYDROmorphone 1 MG/ML 1 ML SYRINGE IVP PRN ×5 (05:57→21:24)
[2019-11-26] MEDS: PANTOPRAZOLE 40 MG/10 ML VIAL IV SCH (08:55)
[2019-11-26] MEDS ORDERED: ALBUTEROL NEBULIZED 2.5 MG/3 ML INHALATION PRN (11:25)
[2019-11-26] MEDS ORDERED: FLUTICASONE 50MCG/SPRAY NASAL 16GM EA NOSTRIL PRN (11:25)
[2019-11-26 11:30] VITALS: BMI 20.7
--- NOTE | 2019-11-26 12:51 | P.CONS ---
History of Present Illness - Reason for Consult Enteritis, leukocytosis - History of Present Illness 59-year-old female came in with compensative abdominal pain moderate severity diffuse. Patient had recent abdominal surgeries including fundoplication followed by small bowel resection secondary to bowel obstruction. Patient was also nauseous and had vomiting as well. Patient had a computed regina ography scan of the abdomen which showed multiple areas of bowel obstruction and there are multiple areas of small wall thickening consistent with the inflammation of the small bowel. Patient pain ranges from sharp to dull. Patient is supposed to see philosophy and religion instructor as outpatient Review of Systems REVIEW OF SYSTEMS: CONSTITUTIONAL: No fever, no malaise, no fatigue. HEENT: No recent visual problems or hearing problems. Denied any sore throat. CARDIOVASCULAR: No chest pain, orthopnea, PND, no palpitations, no syncope. PULMONARY: No shortness of breath, no cough, no hemoptysis. GASTROINTESTINAL: As mentioned in HPI NEUROLOGICAL: No headaches, no weakness, no numbness. HEMATOLOGICAL: Denies any bleeding or petechiae. GENITOURINARY: Denies any burning micturition, frequency, or urgency. MUSCULOSKELETAL/RHEUMATOLOGICAL: Denies any joint pain, swelling, or any muscle pain. ENDOCRINE: Denies any polyuria or polydipsia. The rest of the 14-point review of systems is negative. Past Medical History Past Medical History: COPD, GERD/Reflux, Osteoarthritis (OA) Additional Past Medical History / Comment(s): Pt recently admitted to [facility] on 10/28/19 for dehydration, acute kidney injury, ileus. Had exploratory laparotomy in October when she was previously here. She is recent post viviana fundoplication and has had other recent admits for dehydration. Other hx: Pt states she has been having diarrhea lately-liquid/watery stools, bronchitis, UTI, nephritis, pt unsure why lopressor was recently prescribed, osteoporosis, past low back fracture, occasional upper back pain, sinus allergies. History of Any Multi-Drug Resistant Organisms: None Reported Past Surgical History: Section, Hernia Repair, Hysterectomy Additional Past Surgical History / Comment(s): 10/07/19 Viviana fundoplication, colonoscopy, hemorrhoidectomy, L shoulder benign tumor removed Past Anesthesia/Blood Transfusion Reactions: Previous Problems w/ Anesthesia Additional Past Anesthesia/Blood Transfusion Reaction / Comm: woke up during sx in past Past Psychological History: Anxiety, Depression Smoking Status: Current every day smoker Past Alcohol Use History: None Reported Additional Past Alcohol Use History / Comment(s): Pt smokes 1ppd Past Drug Use History: None Reported Additional Drug Use History / Comment(s): currently using a nicotine patch at home - Past Family History Father Family Medical History: Cancer Additional Family Medical History / Comment(s): Esophageal cancer/ulcer. Pt states father of pneumonia at the age of 56yrs. Mother Family Medical History: Diabetes Mellitus Additional Family Medical History / Comment(s): MENS SYNDROME Sister(s) Additional Family Medical History / Comment(s): MENS SYNDROME Medications and Allergies Home Medications Medication Instructions Recorded Confirmed Type Montelukast [Singulair] 10 mg PO HS 09/03/19 11/25/19 History Metoprolol Tartrate 12.5 mg PO BID 09/26/19 11/25/19 History Nicotine 14Mg/24Hr Patch [Habitrol] 1 patch TRANSDERM DAILY 10/28/19 11/25/19 History Potassium Chloride ER [K-Dur 10] 10 meq PO BID #60 tab 10/31/19 11/25/19 Rx Albuterol Inhaler [Ventolin Hfa 2 puff INHALATION RT-QID PRN 11/18/19 11/25/19 History Inhaler] Cetirizine HCl 10 mg PO DAILY 11/18/19 11/25/19 History Fluticasone Nasal [place] [Flonase 1 spray EA NOSTRIL DAILY PRN 11/18/19 11/25/19 History Nasal [place]] Ondansetron [Zofran ODT] 4 mg PO Q8HR PRN 11/18/19 11/25/19 History Diphenox-Atrop 2.5-0.025 mg 1 tab PO Q6HR PRN 11/25/19 11/25/19 History [Lomotil] Allergies Allergy/AdvReac Type Severity Reaction Status Date / Time No Known Allergies Allergy Verified 11/25/19 22:46 Physical Exam Vitals: Vital Signs Temp Pulse Pulse Resp BP BP Pulse Ox 11/26/19 08:14 98.2 F 69 12 104/69 98 11/26/19 02:58 98.3 F 67 18 93/56 100 11/25/19 23:06 98.3 F 71 18 101/66 94 L 11/25/19 21:58 98.1 F 79 16 100/65 98 11/25/19 21:00 80 16 99/68 99 11/25/19 20:32 77 16 102/72 99 11/25/19 20:19 98.6 F 67 16 97/66 99 11/25/19 19:53 87/53 11/25/19 19:45 77 16 98/67 97 11/25/19 19:35 93/56 11/25/19 19:00 73 16 97/56 99 11/25/19 17:34 77 16 98/69 98 11/25/19 16:16 81 16 106/76 100 11/25/19 15:00 98.3 F 91 16 117/66 100 11/25/19 13:51 98.3 F 62 18 102/66 99 Intake and Output 11/25/19 11/26/19 11/26/19 22:59 06:59 14:59 Intake Total 2500 Balance 2500 Intake: Amount of Fluid Infused ( 2500 ml) Other: Voiding Method Toilet # Voids 2 Weight 49.895 kg PHYSICAL EXAMINATION: GENERAL: The patient is alert and oriented x3, not in any acute distress. Well developed, well nourished. HEENT: Pupils are round and equally reacting to light. EOMI. No scleral icterus. No conjunctival pallor. Normocephalic, atraumatic. No pharyngeal erythema. No thyromegaly. CARDIOVASCULAR: S1 and S2 present. No murmurs, rubs, or gallops. PULMONARY: Chest is clear to auscultation, no wheezing or crackles. ABDOMEN: Soft, milder tenderness nondistended midline surgical scar appears to be clean bowel sounds are present MUSCULOSKELETAL: No joint swelling or deformity. EXTREMITIES: No cyanosis, clubbing, or pedal edema. NEUROLOGICAL: Gross neurological examination did not reveal any focal deficits. SKIN: No rashes. Results CBC & Chem 7: 11/25/19 13:30 11/25/19 13:30 Labs: Abnormal Lab Results - Last 24 Hours (Table) 11/25/19 11/25/19 11/25/19 Range/Units 13:30 13:30 15:01 WBC 15.0 H (3.8-10.6) k/uL Plt Count 577 H (150-450) k/uL Neutrophils # 10.2 H (1.3-7.7) k/uL Sodium 135 L (137-145) mmol/L BUN 6 L (7-17) mg/dL Glucose 116 H (74-99) mg/dL Calcium 11.7 H (8.4-10.2) mg/dL Ur Specific [place] 1.036 H (1.001-1.035) Assessment and Plan Plan: -Abdominal pain nausea vomiting: Possibly of enteritis and there is a possibility of small bowel obstruction as well as general surgery and gastric volume evaluating the patient. Patient is undergoing upper GI and barium swallow. Continue with IV fluids Hyperleukocytosis: Secondary to enteritis. COPD without any acute exacerbation Have him continued nicotine use: Counseling was provided -Depression For above-mentioned chronic medical problems patient will resume appropriate home medications. We'll continue to follow the patient
--- NOTE | 2019-11-26 12:59 | P.GSHP ---
History of Present Illness H&P Date: 11/26/19 CHIEF COMPLAINT: Abdominal pain with nausea and diarrhea HISTORY OF PRESENT ILLNESS: This is a 59-year-old female who had undergone Viviana publication in September and exploratory laparotomy with lysis of adhesions in October. At the time of her recent laparotomy there is noted definite site of bowel obstruction seen. Patient has had recurrent hospitalizations for vomiting and diarrhea. She was just recently discharged on 11/21/2019 from the hospital and at that time was treated for possible ileus and gastroenteritis. Patient was given IV fluids. She was tolerating diet. Her diarrhea had improved. She was given Lomotil to go home with. Patient reports she's been taking her Lomotil. However again the vomiting and diarrhea has brought her back to the hospital. She reports that she feels dehydrated. She had a computed tomography scan completed that showed an ileus. Therefore she was admitted to surgical service. Patient denies any fever, chills or sweats. She is asking to be seen by GI service she has an appointment with them that was initially scheduled outpatient within the next couple a days. PAST MEDICAL HISTORY: See list. PAST SURGICAL HISTORY: See list. MEDICATIONS: See list. ALLERGIES: See list. SOCIAL HISTORY: No illicit drug use. REVIEW OF SYSTEMS: CONSTITUTIONAL: Denies fever or chills. HEENT: Denies blurred vision, vision changes, or eye pain. Denies hemoptysis CARDIOVASCULAR: Denies chest pain or pressure. RESPIRATORY: No shortness of breath. GASTROINTESTINAL: See HPI for pertinent findings HEMATOLOGIC: Denies bleeding disorders. GENITOURINARY: Denies any blood in urine or increased urinary frequency. SKIN: Denies pruitis. Denies rash. PHYSICAL EXAM: VITAL SIGNS: Reviewed GENERAL: Well-developed in no acute distress. HEENT: No sclera icterus. Extraocular movements grossly intact. Moist buccal mucosa. Head is atraumatic, normocephalic. No nasal drainage. ABDOMEN: Soft. Nondistended. Tenderness with palpation of the upper abdomen NEUROLOGIC: Alert and oriented. Cranial nerves II through XII grossly intact. LABORATORY DATA: WBC 15 lipase 47 AST 17 ALT 11 UA negative for infection IMAGING: First Computed tomography scan abdomen and pelvis persistent nonspecific bowel gas pattern. Abnormal fluid in: Could reflect colitis and/or diarrhea. Abnormal wall thickening involving some small and large bowel loops could re flect acute enterocolitis. Abnormal dilated stomach along with small and large bowel loops with air-fluid could reflect persistent severe ileus versus multifocal partial bowel obstruction. Second computed tomography scan of abdomen without contrast shows distended fluid-filled small bowel loops consistent with ileus. This appears slightly improved compared to the exam 3 hours ago. I do not suspect a mechanical bowel obstruction. Right colon and transverse colon fluid levels consistent with l arge bowel mild ileus unchanged. No free air. ASSESSMENT: 1. Recurrent episodes of nausea vomiting and diarrhea 2. Ileus 3. Recent Viviana fundoplication in September 2019 4. Recent exploratory laparotomy with lysis of adhesions in October 2019 PLAN: -Esophagram ordered -Consult GI service for recurrent diarrhea and patient was to see GI service outpatient within the next day or 2 -Keep patient nothing by mouth -Continue with IV fluid hydration -Continue IV Protonix -Continue Zofran as needed for nausea -Consult medicine for medical management Physician Managing Member note has been reviewed by physician. Signing provider agrees with the documented findings, assessment, and plan of care. Past Medical History Past Medical History: COPD, GERD/Reflux, Osteoarthritis (OA) Additional Past Medical History / Comment(s): Pt recently admitted to [facility] on 10/28/19 for dehydration, acute kidney injury, ileus. Had exploratory laparotomy in October when she was previously here. She is recent post viviana fundoplication and has had other recent admits for dehydration. Other hx: Pt states she has been having diarrhea lately-liquid/watery stools, bronchitis, UTI, nephritis, pt unsure why lopressor was recently prescribed, osteoporosis, past low back fracture, occasional upper back pain, sinus allergies. History of Any Multi-Drug Resistant Organisms: None Reported Past Surgical History: Section, Hernia Repair, Hysterectomy Additional Past Surgical History / Comment(s): 10/07/19 Viviana fundoplication, colonoscopy, hemorrhoidectomy, L shoulder benign tumor removed Past Anesthesia/Blood Transfusion Reactions: Previous Problems w/ Anesthesia Additional Past Anesthesia/Blood Transfusion Reaction / Comment(s): woke up during sx in past Past Psychological History: Anxiety, Depression Smoking Status: Current every day smoker Past Alcohol Use History: None Reported Additional Past Alcohol Use History / Comment(s): Pt smokes 1ppd Past Drug Use History: None Reported Additional Drug Use History / Comment(s): currently using a nicotine patch at [facility] - Past Family History Father Family Medical History: Cancer Additional Family Medical History / Comment(s): Esophageal cancer/ulcer. Pt states father of pneumonia at the age of 56yrs. Mother Family Medical History: Diabetes Mellitus Additional Family Medical History / Comment(s): MENS SYNDROME Sister(s) Additional Family Medical History / Comment(s): MENS SYNDROME Medications and Allergies Home Medications Medication Instructions Recorded Confirmed Type Montelukast [Singulair] 10 mg PO HS 09/03/19 11/25/19 History Metoprolol Tartrate 12.5 mg PO BID 09/26/19 11/25/19 History Nicotine 14Mg/24Hr Patch [Habitrol] 1 patch TRANSDERM DAILY 10/28/19 11/25/19 History Potassium Chloride ER [K-Dur 10] 10 meq PO BID #60 tab 10/31/19 11/25/19 Rx Albuterol Inhaler [Ventolin Hfa 2 puff INHALATION RT-QID PRN 11/18/19 11/25/19 History Inhaler] Cetirizine HCl 10 mg PO DAILY 11/18/19 11/25/19 History Fluticasone Nasal [place] [Flonase 1 spray EA NOSTRIL DAILY PRN 11/18/19 11/25/19 History Nasal [place]] Ondansetron [Zofran ODT] 4 mg PO Q8HR PRN 11/18/19 11/25/19 History Diphenox-Atrop 2.5-0.025 mg 1 tab PO Q6HR PRN 11/25/19 11/25/19 History [Lomotil] Allergies Allergy/AdvReac Type Severity Reaction Status Date / Time No Known Allergies Allergy Verified 11/25/19 22:46 Surgical - Exam Vital Signs Temp Pulse Resp BP Pulse Ox 98.7 F 89 18 107/86 99 11/25/19 12:39 11/25/19 12:39 11/25/19 12:39 11/25/19 12:39 11/25/19 12:39 Results - Labs 11/25/19 13:30 11/25/19 13:30 Abnormal Lab Results - Last 24 Hours (Table) 11/25/19 11/25/19 11/25/19 Range/Units 13:30 13:30 15:01 WBC 15.0 H (3.8-10.6) k/uL Plt Count 577 H (150-450) k/uL Neutrophils # 10.2 H (1.3-7.7) k/uL Sodium 135 L (137-145) mmol/L BUN 6 L (7-17) mg/dL Glucose 116 H (74-99) mg/dL Calcium 11.7 H (8.4-10.2) mg/dL Ur Specific [place] 1.036 H (1.001-1.035) Diabetes panel 11/25/19 Range/Units 13:30 Sodium 135 L (137-145) mmol/L Potassium 4.8 (3.5-5.1) mmol/L Chloride 106 (98-107) mmol/L Carbon Dioxide 22 (22-30) mmol/L BUN 6 L (7-17) mg/dL Creatinine 0.52 (0.52-1.04) mg/dL Glucose 116 H (74-99) mg/dL Calcium 11.7 H (8.4-10.2) mg/dL AST 17 (14-36) U/L ALT 11 (4-34) U/L Alkaline Phosphatase 76 (38-126) U/L Total Protein 6.5 (6.3-8.2) g/dL Albumin 3.9 (3.5-5.0) g/dL Calcium panel 11/25/19 Range/Units 13:30 Calcium 11.7 H (8.4-10.2) mg/dL Albumin 3.9 (3.5-5.0) g/dL Pituitary panel 11/25/19 Range/Units 13:30 Sodium 135 L (137-145) mmol/L Potassium 4.8 (3.5-5.1) mmol/L Chloride 106 (98-107) mmol/L Carbon Dioxide 22 (22-30) mmol/L BUN 6 L (7-17) mg/dL Creatinine 0.52 (0.52-1.04) mg/dL Glucose 116 H (74-99) mg/dL Calcium 11.7 H (8.4-10.2) mg/dL Adrenal panel 11/25/19 Range/Units 13:30 Sodium 135 L (137-145) mmol/L Potassium 4.8 (3.5-5.1) mmol/L Chloride 106 (98-107) mmol/L Carbon Dioxide 22 (22-30) mmol/L BUN 6 L (7-17) mg/dL Creatinine 0.52 (0.52-1.04) mg/dL Glucose 116 H (74-99) mg/dL Calcium 11.7 H (8.4-10.2) mg/dL Total Bilirubin 0.4 (0.2-1.3) mg/dL AST 17 (14-36) U/L ALT 11 (4-34) U/L Alkaline Phosphatase 76 (38-126) U/L Total Protein 6.5 (6.3-8.2) g/dL Albumin 3.9 (3.5-5.0) g/dL
--- NOTE | 2019-11-26 14:36 | FL ---
EXAMINATION TYPE: FL UGI w esophagus DATE OF EXAM: 11/26/2019 COMPARISON: Correlation CT 11/25/2019 HISTORY: 59-year-old female is a fundoplication September 2019 and surgery for small bowel obstruction 2 w eeks ago. Vomiting, abdominal pain, diarrhea. TECHNIQUE: A single contrast UGI and esophagram study is performed. Total fluoroscopy time: 4 minutes 30 seconds. Total images: 63. FINDINGS: [employer] image of the abdomen shows improving bowel gas pattern, overall nonobstructive. Surgical clips lower abdomen and pelvis. L2 vertebroplasty change. Swallowing mechanism appears normal and hypopharyngeal anatomy is maintained. The thoracic esophagus has normal course and caliber. No suspicious filling defect is encountered all owing for single contrast technique. There is mild narrowing at the GE junction status post Rosemary fu ndoplication with a some gradual pooling of contrast and a few episodes of intraesophageal reflux and ensuing [id number] tertiary peristalsis. Post surgical changes of Rosemary fundoplication. No recurrent hernia is seen. The patient ingested a total of only 2 ounces of thin barium very slowly. This limits evaluation of t he stomach. There seems to be some mild diffuse gastric fold thickening. There is also very slow empt argelia into the duodenum likely due to the limited ingested contrast. There is some slight tortuosity of the first portion of the duodenum and relative narrowing likely du e to suboptimal distention. We cannot get the third or fourth portions of the duodenum to opacify. IMPRESSION: 1. The exam is limited as the patient ingested only 2 ounces of thin barium with small and slow swall ows. There may be a mild relative narrowing at the GE junction status post Rosemary fundoplication as s ome pooling is noted within the distal esophagus with a couple episodes of intraesophageal reflux. 2. Again, limited assessment of the stomach due to the small volume of ingested contrast. Mild diffus e gastric fold thickening may be seen with chronic gastritis. 3. First portion of the duodenum is tortuous. There was slow emptying into the duodenum likely second donna to the small volume of ingested contrast. We were unable to opacify the third or fourth portions of the duodenum. Three-month follow-up CT is recommended to reassess the mildly enlarged lymph node l ocated anterior to the third portion of the duodenum measuring up to 3.2 x 1.4 cm (refer to contrast- enhanced CT from 11/25/2019 coronal image 37).
[2019-11-26] MEDS: CHOLESTYRAMINE (WITH SUGAR) 4 GM PACKET PO SCH (17:02)
--- NOTE | 2019-11-26 20:43 | CONS ---
CONSULTATION DATE OF DICTATION: 11/26/2019 REASON FOR CONSULTATION: Abdominal pain, nausea, vomiting and diarrhea. HISTORY OF PRESENT ILLNESS: The patient is a 59-year-old white female who recently underwent Rosemary fundoplication by Dr. Phipps on October 06 of this year, following which she started developing intermittent episodes of abdominal pain associated with nausea, vomiting and diarrhea. She was admitted to the hospital two weeks ago with small bowel obstruction and underwent exploratory laparotomy with lysis of adhesions and was just discharged home 5 days ago. She returned to the emergency room complaining of worsening abdominal pain with diarrhea with bowel movements anywhere from 3-4 a day which are loose to watery in consistency with no blood or mucus in the stool. Abdominal pain is mostly in the lower abdominal area, occasionally in the epigastric area. She has been having intense nausea. She feels extremely dehydrated. She came to the emergency room, had a CT of the abdomen and pelvis done that was unremarkable. During her last hospitalization she was seen by Dr. Coats. She is feeling better today. She had about 3 loose bowel movements this morning. She continues to have persistent nausea. Denies any fever, chills or night sweats. PAST MEDICAL HISTORY: Her past medical history is significant for gastroesophageal reflux disease, COPD, degenerative joint disease. PAST SURGICAL HISTORY: Rosemary fundoplication in September of this year, exploratory laparotomy for small bowel obstruction in October, hysterectomy, , hernia repair, hemorrhoidectomy, left shoulder surgery. SOCIAL HISTORY: Chronic smoker. No alcohol use. FAMILY HISTORY: Father had esophageal cancer. Mother had diabetes mellitus and MEN syndrome. Sister also has MEN syndrome. MEDICATIONS: Medications at home include metoprolol, nicotine patch, albuterol inhaler, cetirizine, Flonase, Zofran p.r.n. and Singulair. ALLERGIES: NONE. REVIEW OF SYSTEMS: CARDIOPULMONARY: She denies any chest pain or shortness of breath. GENITOURINARY: No dysuria or hematuria. MUSCULOSKELETAL: Unremarkable. SKIN: Unremarkable. ENDOCRINE: Unremarkable. PSYCHIATRIC: Anxiety, depression. ENT/VISION: Unremarkable. CONSTITUTIONAL: No recent weight loss. No fever, chills, night sweats. PHYSICAL EXAMINATION: She appears comfortable. No apparent distress. VITAL SIGNS: Stable. Blood pressure is 107/76, pulse rate 79, temperature 98.3. HEENT examination unremarkable. Conjunctivae pink. Sclerae anicteric. Oral cavity no lesions. NECK: No JVD or lymph node enlargement. CHEST: Clear to auscultation. HEART: Regular rate and rhythm. ABDOMEN: Soft. Bowel sounds are positive. There was mild tenderness in the lower abdominal area and some in the epigastric area. Midline scar noted with meir in the lower abdomen. EXTREMITIES: No pedal edema. NEUROLOGIC: Alert and oriented x3. No focal deficits. CT of the abdomen and pelvis showed distended fluid-filled small bowel loops consistent with ileus, which appeared to be improved from the prior done a week ago. No free air noted. LABS: Labs done at the time of admission to the hospital showed WBC 15, hemoglobin 13.8, platelets normal. Basic metabolic panel was within normal limits. BUN and creatinine of 6 and 0.52. AST, ALT, T-bilirubin and alkaline phosphatase are within normal limits. Amylase and lipase are normal. Urinalysis is negative. IMPRESSION: This is a lady admitted to the hospital with abdominal pain and diarrhea for the last 3 months' duration. Her symptoms began after Rosemary fundoplication that was done 3 months ago for history of gastroesophageal reflux disease. Subsequently, 2 weeks ago she was admitted to the hospital with small bowel obstruction and underwent exploratory laparotomy by Dr. Phipps. Now continues to have persistent symptoms with intermittent abdominal pain, nausea, vomiting and diarrhea that have been going on for the last two months' duration. Stool studies for C difficile toxin was negative. Cultures are pending. During her last hospitalization she was treated with Lomotil and her symptoms somewhat improved. She was scheduled for an upper GI small-bowel series that was done this afternoon, the results of which are still pending at the time of this dictation. A CT of the abdomen and pelvis done at the time of admission to the hospital showed slightly dilated loops of small bowel but no evidence of bowel obstruction noted; and compared to the prior CT scan done last week, there is some improvement noted in the small bowel dilation. Likely we are dealing with ileus at the present time secondary to electrolyte abnormalities. RECOMMENDATIONS: 1. Continue with Protonix 40 mg daily. 2. Antiemetics as needed. 3. Will start her on a clear liquid diet and advance as tolerated. 4. Await results of upper GI small bowel series. 5. No plans on any endoscopic intervention at the present time. 6. Continue with symptomatic and supportive care. Will follow with you closely. Thank you for this consultation. MMODL / IJN: [id number] /
[2019-11-27] MEDS: HYDROmorphone 1 MG/ML 1 ML SYRINGE IVP PRN ×6 (01:35→19:42)
[2019-11-27] MEDS: SODIUM CHLORIDE 0.9% 1,000 ML IV SCH ×3 (03:30→21:45)
[2019-11-27] MEDS: PANTOPRAZOLE 40 MG/10 ML VIAL IV SCH (08:12)
[2019-11-27] MEDS: CHOLESTYRAMINE (WITH SUGAR) 4 GM PACKET PO SCH ×2 (08:13→17:33)
--- NOTE | 2019-11-27 10:20 | P.PN ---
Subjective Progress Note Date: 11/27/19 CHIEF COMPLAINT: Abdominal pain with nausea and diarrhea HISTORY OF PRESENT ILLNESS: Patient seen and examined with Dr. Phipps. Patient is being followed for possible ileus. She is reporting improvement in her pain. She is afebrile. Patient seen by GI service and no plans for endoscopies. Patient had esophagram completed yesterday but she was unable to drink enough contrast for a good study. PHYSICAL EXAM: VITAL SIGNS: Reviewed. GENERAL: Well-developed in no acute distress. HEENT: No sclera icterus. Extraocular movements grossly intact. Moist buccal mucosa. Head is atraumatic, normocephalic. ABDOMEN: Soft. Nondistended. Nontender. NEUROLOGIC: Alert and oriented. Cranial nerves II through XII grossly intact. ASSESSMENT: 1. Recurrent episodes of nausea vomiting and diarrhea 2. Ileus 3. Recent Rosemary fundoplication in September 2019 4. Recent exploratory laparotomy with lysis of adhesions in October 2019 PLAN: -Continue patient on a clear liquid diet -Recommend repeat esophagram tomorrow Physician Hazardous Substances Scientist note has been reviewed by physician. Signing provider agrees with the documented findings, assessment, and plan of care. Objective - Vital Signs Vital signs: Vital Signs Temp 98.0 F 11/27/19 07:14 Pulse 67 11/27/19 07:14 Resp 16 11/27/19 07:14 BP 107/68 11/27/19 07:14 Pulse Ox 99 11/27/19 07:14 Intake & Output 11/26/19 11/27/19 11/27/19 18:59 06:59 18:59 Intake Total 1308 Balance 1308 Weight 49.895 kg Intake: Intake, IV Titration 1308 Amount Sodium Chloride 0.9% 1, 1308 000 ml @ 130 mls/hr IV . Q7H42M [facility] Rx#:[id number] Other: Voiding Method Toilet # Voids 1 - Labs CBC & Chem 7: 11/25/19 13:30 11/25/19 13:30
--- NOTE | 2019-11-27 11:55 | P.PN ---
Subjective 59-year-old female came in with compensative abdominal pain moderate severity diffuse. Patient had recent abdominal surgeries including fu ndoplication followed by small bowel resection secondary to bowel obstruction. Patient was also nauseous and had vomiting as well. Patient had a computed tomography scan of the abdomen which showed multiple areas of bowel obstruction and there are multiple areas of small wall thickening consistent with the inflammation of the small bowel. Patient pain ranges from sharp to dull. Patient is supposed to see pipe maker as outpatient 11/27/2019 Patient did have improvement in pain, nausea vomiting improved patient is able to tolerate a liquid diet well and the wishing this to be advanced. The esophagogram was only completed partially as she was unable to drink the contrast. Constitutional: Denied any fatigue denied any fever. Cardio vascular: denied any chest pain, palpitations Gastrointestinal denied any nausea vomiting, does have abdominal pain which although did improve Pulmonary: Denied any shortness of breath cough Neurologic denied any new focal deficits All inpatient medications were reviewed and appropriate changes in these medications as dictated in the interval history and assessment and plan. Objective - Vital Signs Vital signs: Vital Signs Temp 98.0 F 11/27/19 07:14 Pulse 67 11/27/19 07:14 Resp 16 11/27/19 07:14 BP 107/68 11/27/19 07:14 Pulse Ox 99 11/27/19 07:14 Intake & Output 11/26/19 11/27/19 11/27/19 18:59 06:59 18:59 Intake Total 1308 1040 Balance 1308 1040 Weight 49.895 kg Intake: IV 1040 Sodium Chloride 0.9% 1, 1040 000 ml @ 130 mls/hr IV . Q7H42M [facility] Rx#:[id number] Intake, IV Titration 1308 Amount Sodium Chloride 0.9% 1, 1308 000 ml @ 130 mls/hr IV . Q7H42M [facility] Rx#:[id number] Other: Voiding Method Toilet # Voids 1 - Exam PHYSICAL EXAMINATION: GENERAL: The patient is alert and oriented x3, not in any acute distress. Well developed, well nourished. HEENT: Pupils are round and equally reacting to light. EOMI. No scleral icterus. No conjunctival pallor. Normocephalic, atraumatic. No pharyngeal erythema. No thyromegaly. CARDIOVASCULAR: S1 and S2 present. No murmurs, rubs, or gallops. PULMONARY: Chest is clear to auscultation, no wheezing or crackles. ABDOMEN: Soft, milder tenderness nondistended midline surgical scar appears to be clean bowel sounds are present MUSCULOSKELETAL: No joint swelling or deformity. EXTREMITIES: No cyanosis, clubbing, or pedal edema. NEUROLOGICAL: Gross neurological examination did not reveal any focal deficits. SKIN: No rashes. - Labs CBC & Chem 7: 11/25/19 13:30 11/25/19 13:30 Assessment and Plan Plan: -Abdominal pain nausea vomiting: Patient appears to have ileus symptoms did improve. Patient currently liquid diet and patient the will undergo very me esophagram tomorrow -leukocytosis: Secondary to ileus, reactive no evidence of sepsis or infection at this time COPD without any acute exacerbation continued nicotine use: Counseling was provided, patient does have some rhonchi in the mild wheezing patient is already in albuterol patient was started on inhaled steroid -Depression For above-mentioned chronic medical problems patient will resume appropriate home medications. We'll continue to follow the patient
--- NOTE | 2019-11-27 13:41 | P.PN ---
Subjective Progress Note Date: 11/27/19 Principal diagnosis: Abdominal pain, nausea, vomiting and diarrhea 39-year-old female who recently underwent a second Endoloop application by Dr. Vallejo on October 06 of this year followed by which he started developing intermittent episodes of abdominal pain associated with nausea vomiting and diarrhea. She was admitted to the hospital approximately 2 weeks ago with a small bowel obstruction and underwent exploratory laparotomy with lysis of adhesions. She was having about 3-4 loose bowel movements a day since she underwent her procedure. Today she states she has not had any diarrhea. She states she still has some abdominal pain, however no nausea or vomiting today. She has been tolerating a clear liquid. She underwent an esophagram yesterday which was a limited exam as the patient only ingested 2 ounces of barium, thus study was poor. The impression showed there may be mild relative narrowing at the GE junction status post recent fundoplication has some pooling is noted within the distal esophagus with a couple episodes of intraesophageal flux. There is mild diffuse gastric fold thickening that may be seen with chronic gastritis, the first portion of the duodenum is tortuous. There was slow emptying into the duodenum likely secondary to the small volume of ingested contrast. Surgical services has ordered a repeat study. Objective - Vital Signs Vital signs: Vital Signs Temp 98.0 F 11/27/19 07:14 Pulse 67 11/27/19 07:14 Resp 16 11/27/19 07:14 BP 107/68 11/27/19 07:14 Pulse Ox 99 11/27/19 07:14 Intake & Output 11/26/19 11/27/19 11/27/19 18:59 06:59 18:59 Intake Total 1308 1040 Balance 1308 1040 Weight 49.895 kg Intake: IV 1040 Sodium Chloride 0.9% 1, 1040 000 ml @ 130 mls/hr IV . Q7H42M [facility] Rx#:[id number] Intake, IV Titration 1308 Amount Sodium Chloride 0.9% 1, 1308 000 ml @ 130 mls/hr IV . Q7H42M [facility] Rx#:[id number] Other: Voiding Method Toilet # Voids 1 - Exam General appearance: The patient is alert, oriented, in no acute distress. HET: Head is normocephalic and atraumatic. Conjunctiva pink. Sclera anicteric. Neck: Supple without lymphadenopathy. Trachea midline. Heart: S1 S2. Regular rate and rhythm. Lungs: No crackles or wheezes are heard. Abdomen: Soft, very thin, use tenderness, nondistended with bowel sounds. No palpable organomegaly or masses. No guarding or rigidity Extremities: Normal skin color and turgor. No pedal edema. Neurological: No focal deficits. Alert and oriented 3. - Labs CBC & Chem 7: 11/25/19 13:30 11/25/19 13:30 Assessment and Plan (1) Abdominal pain Narrative/Plan: This is a female patient who was admitted to the hospital with abdominal pain and diarrhea for the last 3 months duration. Her symptoms began after Jered fundoplication that was done 3 months ago for history of gastro-esophageal reflux disease. Subsequently 2 weeks ago she was admitted to the hospital with small bowel obstruction and underwent exploratory laparotomy with Dr. Pierce. Now continues to have persistent symptoms with intermittent abdominal pain, nausea, vomiting, and diarrhea that have been ongoing for the last 2 months duration. Stool studies for C. diff and stool cultures were both negative. During her last hospitalization she was treated with Lomotil and her symptoms somewhat improved. She was scheduled to have an upper GI small bowel series however it was a poor study due to the patient's inability to drink her contrast. A CT of the abdomen and pelvis done at the last admission shows slightly dilated loops of small bowel but no evidence of bowel obstruction noted compared to the prior CT done last week there was some improvement noted in the small bowel dilation. Likely dealing with ileus at the present time secondary to electrolyte abnormalities. Current Visit: No Status: Acute Code(s): R10.9 - UNSPECIFIED ABDOMINAL PAIN SNOMED Code(s): 42725626 (2) Diarrhea Current Visit: No Status: Acute Code(s): R19.7 - DIARRHEA, UNSPECIFIED SNOMED Code(s): 47146253 Plan: 1. Continue Protonix 40 mg daily 2. Antiemetics as needed, Questran was added 3. Clear liquid diet and advance per surgical services 4. Await results of repeat upper GI bowels series 5. No plans on endoscopic intervention at the present time. 6. Continue with symptomatic and supportive care. We will follow you closely. Thank you for this consultation. The impression and plan of care has been dictated as directed. Dr. Hussein Oneal I performed a history and examination of this patient, discussed the same with the dictator. I agree with the dictator's note ,documented as a scribe. Any additional findings or plans will be noted.
[2019-11-27] MEDS: ALPRAZolam 0.25 MG TAB PO PRN (14:16)
[2019-11-27] MEDS: BUDESONIDE 0.5 MG/2 ML NEBU INHALATION SCH (20:05)
[2019-11-28] MEDS: ALPRAZolam 0.25 MG TAB PO PRN ×3 (00:38→21:33)
[2019-11-28] MEDS: HYDROmorphone 1 MG/ML 1 ML SYRINGE IVP PRN ×5 (00:38→21:30)
[2019-11-28] MEDS: SODIUM CHLORIDE 0.9% 1,000 ML IV SCH ×2 (05:50→08:15)
[2019-11-28] MEDS: BUDESONIDE 0.5 MG/2 ML NEBU INHALATION SCH ×2 (08:05→20:55)
[2019-11-28] MEDS: CHOLESTYRAMINE (WITH SUGAR) 4 GM PACKET PO SCH ×2 (08:10→17:08)
[2019-11-28] MEDS: PANTOPRAZOLE 40 MG/10 ML VIAL IV SCH (08:10)
[2019-11-28 09:35] LABS: Basophils # (A) 0.1 k/uL (0-0.2); Basophils % (A) 1 %; Eosinophils # (A) 0.4 k/uL (0-0.7); Eosinophils % (A) 9 %; HCT 34.2 % (34.0-46.0); Hypochromasia Slight; Lymphocytes # (A) 2.8 k/uL (1.0-4.8); Lymphocytes % (A) 55 %; MCH 29.9 pg (25.0-35.0); MCHC 31.1 g/dL (31.0-37.0); Mean Platelet Volume 7.4; Monocytes # (A) 0.3 k/uL (0-1.0); Monocytes % (A) 6 %; Neutrophils # (A) 1.4 k/uL (1.3-7.7); Neutrophils % (A) 28 %; Platelet Count 377 k/uL (150-450); RBC 3.56 m/uL (3.80-5.40); RDW 13.3 % (11.5-15.5)
[2019-11-28 09:37] LABS: ALT 8 U/L (4-34); AST 17 U/L (14-36); African American GFR (CKD) >90 (>60 ml/min/1.73 sqM); Albumin 2.8 g/dL (3.5-5.0); Albumin/Globulin Ratio 1.3; Alkaline Phosphatase 54 U/L (38-126); Anion Gap 4 mmol/L; Blood Urea Nitrogen <2 mg/dL (7-17); Calcium 9.5 mg/dL (8.4-10.2); Carbon Dioxide 25 mmol/L (22-30); Chloride 112 mmol/L (98-107); Globulin 2.2 g/dL; Glucose 86 mg/dL (74-99); Non-African American GFR(CKD) >90 (>60 ml/min/1.73 sqM); Potassium 3.3 mmol/L (3.5-5.1); Sodium 141 mmol/L (137-145); Total Bilirubin 0.3 mg/dL (0.2-1.3)
[2019-11-28 09:42] LABS: HGB 10.7 gm/dL (11.4-16.0)
[2019-11-28] MEDS: POTASSIUM CHLORIDE ER 10 MEQ TAB.ER.PRT PO SCH ×2 (11:21→11:52)
--- NOTE | 2019-11-28 12:12 | FL ---
EXAMINATION TYPE: FL UGI w esophagus DATE OF EXAM: 11/28/2019 COMPARISON: 11/26/19 HISTORY: Abdominal pain TECHNIQUE: A single contrast UGI study is performed. Current examination is limited by overlying con trast within the colon. FINDINGS: Allocations Clerk image of the abdomen shows no gross abnormality. The esophagus shows normal motility and emptying into the stomach. No evidence of hiatal hernia or s tricture noted. The stomach shows normal distensibility, peristalsis, and mucosal folds. No evidence of any mass or ulcer disease. No significant gastroesophageal reflux was seen during real time performance of this study. The duodenal bulb, sweep, and proximal small bowel loops are unremarkable. IMPRESSION: No distinct abnormality seen.
--- NOTE | 2019-11-28 13:23 | P.PN ---
Subjective Progress Note Date: 11/28/19 CHIEF COMPLAINT: Abdominal pain with nausea and diarrhea HISTORY OF PRESENT ILLNESS: Patient seen and examined with Dr. Phipps. Patient is being followed for possible ileus. She is reporting improvement in her pain. Patient seen by GI service and no plans for endoscopies. Upper GI shows no distinct abnormality. Patient is afebrile. She denies any diarrhea. Denies any nausea vomiting. Tolerating clear liquids. WBC 5 potassium 3.3 minus replace potassium PHYSICAL EXAM: VITAL SIGNS: Reviewed. GENERAL: Well-developed in no acute distress. HEENT: No sclera icterus. Extraocular movements grossly intact. Moist buccal mucosa. Head is atraumatic, normocephalic. ABDOMEN: Soft. Nondistended. Nontender. NEUROLOGIC: Alert and oriented. Cranial nerves II through XII grossly intact. ASSESSMENT: 1. Recurrent episodes of nausea vomiting and diarrhea 2. Ileus 3. Recent Rosemary fundoplication in September 2019 4. Recent exploratory laparotomy with lysis of adhesions in October 2019 PLAN: -Advanced to regular diet -If patient tolerating diet possible discharge tomorrow Physician Emission Technician note has been reviewed by physician. Signing provider agrees with the documented findings, assessment, and plan of care. Objective - Vital Signs Vital signs: Vital Signs Temp 98.0 F 11/28/19 07:21 Pulse 61 11/28/19 07:21 Resp 16 11/28/19 07:21 BP 105/67 11/28/19 07:21 Pulse Ox 97 11/28/19 07:21 Intake & Output 11/27/19 11/28/19 11/28/19 18:59 06:59 18:59 Intake Total 5640 118 5158 Balance 4616 625 0892 Intake: IV 1040 1040 Sodium Chloride 0.9% 1, 1040 1040 000 ml @ 130 mls/hr IV . Q7H42M [facility]ES [facility] Rx#:[id number] Oral 120 450 Other: Voiding Method Toilet # Voids 2 1 - Labs CBC & Chem 7: 11/28/19 08:50 11/28/19 08:50 Labs: Abnormal Lab Results - Last 24 Hours (Table) 11/28/19 11/28/19 Range/Units 08:50 08:50 RBC 3.56 L (3.80-5.40) m/uL Hgb 10.7 L D (11.4-16.0) gm/dL Potassium 3.3 L (3.5-5.1) mmol/L Chloride 112 H (98-107) mmol/L BUN <2 L (7-17) mg/dL Creatinine 0.44 L (0.52-1.04) mg/dL Total Protein 5.0 L (6.3-8.2) g/dL Albumin 2.8 L (3.5-5.0) g/dL
[2019-11-28] MEDS ORDERED: POTASSIUM CHLORIDE ER 20 MEQ TAB.ER PO STA (13:30)
--- NOTE | 2019-11-28 13:32 | P.PN ---
Subjective 59-year-old female came in with compensative abdominal pain moderate severity diffuse. Patient had recent abdominal surgeries including fu ndoplication followed by small bowel resection secondary to bowel obstruction. Patient was also nauseous and had vomiting as well. Patient had a computed tomography scan of the abdomen which showed multiple areas of bowel obstruction and there are multiple areas of small wall thickening consistent with the inflammation of the small bowel. Patient pain ranges from sharp to dull. Patient is supposed to see structural engineering technician as outpatient 11/27/2019 Patient did have improvement in pain, nausea vomiting improved patient is able to tolerate a liquid diet well and the wishing this to be advanced. The esophagogram was only completed partially as she was unable to drink the contrast. 11/28/2019 Patient had a barium swallow did not show any significant abnormality patient does have bowel sounds. Patient is not nauseous patient is presently a liquid diet which probably will be advanced today to probably regular diet Constitutional: Denied any fatigue denied any fever. Cardio vascular: denied any chest pain, palpitations Gastrointestinal denied any nausea vomiting, does have abdominal pain which although did improve Pulmonary: Denied any shortness of breath cough Neurologic denied any new focal deficits All inpatient medications were reviewed and appropriate changes in these medi cations as dictated in the interval history and assessment and plan. Objective - Vital Signs Vital signs: Vital Signs Temp 98.0 F 11/28/19 07:21 Pulse 61 11/28/19 07:21 Resp 16 11/28/19 07:21 BP 105/67 11/28/19 07:21 Pulse Ox 97 11/28/19 07:21 Intake & Output 11/27/19 11/28/19 11/28/19 18:59 06:59 18:59 Intake Total 2041 743 5138 Balance 4103 435 4715 Intake: IV 1040 1040 Sodium Chloride 0.9% 1, 1040 1040 000 ml @ 130 mls/hr IV . Q7H42M [facility] Rx#:[id number] Oral 120 450 Other: Voiding Method Toilet # Voids 2 1 - Exam PHYSICAL EXAMINATION: GENERAL: The patient is alert and oriented x3, not in any acute distress. Well developed, well nourished. HEENT: Pupils are round and equally reacting to light. EOMI. No scleral icterus. No conjunctival pallor. Normocephalic, atraumatic. No pharyngeal erythema. No thyromegaly. CARDIOVASCULAR: S1 and S2 present. No murmurs, rubs, or gallops. PULMONARY: Chest is clear to auscultation, no wheezing or crackles. ABDOMEN: Soft, milder tenderness nondistended midline surgical scar appears to be clean bowel sounds are present MUSCULOSKELETAL: No joint swelling or deformity. EXTREMITIES: No cyanosis, clubbing, or pedal edema. NEUROLOGICAL: Gross neurological examination did not reveal any focal deficits. SKIN: No rashes. - Labs CBC & Chem 7: 11/28/19 08:50 11/28/19 08:50 Labs: Abnormal Lab Results - Last 24 Hours (Table) 11/28/19 11/28/19 Range/Units 08:50 08:50 RBC 3.56 L (3.80-5.40) m/uL Hgb 10.7 L D (11.4-16.0) gm/dL Potassium 3.3 L (3.5-5.1) mmol/L Chloride 112 H (98-107) mmol/L BUN <2 L (7-17) mg/dL Creatinine 0.44 L (0.52-1.04) mg/dL Total Protein 5.0 L (6.3-8.2) g/dL Albumin 2.8 L (3.5-5.0) g/dL Assessment and Plan Plan: -Abdominal pain nausea vomiting: Patient appears to have ileus symptoms did improve. Patient currently liquid diet and patient had a barium esophagram which was within normal limits and patient clinically doing well that is being advanced. -Hypokalemia natriuretic hypokalemia secondary to IV fluids which were discontinued and patient's potassium will be replaced patient is tolerating diet well -leukocytosis: Secondary to ileus, reactive no evidence of sepsis or infection at this time COPD without any acute exacerbation continued nicotine use: Counseling was provided, patient does have some rhonchi in the mild wheezing patient is already in albuterol patient was started on inhaled steroid -Depression
--- NOTE | 2019-11-28 15:37 | P.PN ---
Subjective Progress Note Date: 11/28/19 Principal diagnosis: Abdominal pain, nausea, vomiting and diarrhea 39-year-old female who recently underwent a second Endoloop application by Dr. Vallejo on October 06 of this year followed by which he started developing intermittent episodes of abdominal pain associated with nausea vomiting and diarrhea. She was admitted to the hospital approximately 2 weeks ago with a small bowel obstruction and underwent exploratory laparotomy with lysis of adhesions. She was having about 3-4 loose bowel movements a day since she underwent her procedure. Today she states she has not had any diarrhea. She states she still has some abdominal pain but that has improved. She has no nausea or vomiting today. She underwent an esophagram yesterday which was a limited due to the patient ability to swallow barium. Repeat was done today which showed no distinct abnormality. Her diet as being advanced per surgical services. Objective - Vital Signs Vital signs: Vital Signs Temp 98.0 F 11/28/19 07:21 Pulse 61 11/28/19 07:21 Resp 16 11/28/19 07:21 BP 105/67 11/28/19 07:21 Pulse Ox 97 11/28/19 07:21 Intake & Output 11/27/19 11/28/19 11/28/19 18:59 06:59 18:59 Intake Total 7569 071 2208 Balance 7922 540 1368 Intake: IV 1040 1040 Sodium Chloride 0.9% 1, 1040 1040 000 ml @ 130 mls/hr IV . Q7H42M [facility] Rx#:[id number] Oral 120 450 320 Other: Voiding Method Toilet # Voids 2 1 - Exam General appearance: The patient is alert, oriented, in no acute distress. HET: Head is normocephalic and atraumatic. Conjunctiva pink. Sclera anicteric. Neck: Supple without lymphadenopathy. Trachea midline. Heart: S1 S2. Regular rate and rhythm. Lungs: No crackles or wheezes are heard. Abdomen: Soft, very thin, use tenderness, nondistended with bowel sounds. No palpable organomegaly or masses. No guarding or rigidity Extremities: Normal skin color and turgor. No pedal edema. Neurological: No focal deficits. Alert and oriented 3. - Labs CBC & Chem 7: 11/28/19 08:50 11/28/19 08:50 Labs: Abnormal Lab Results - Last 24 Hours (Table) 11/28/19 11/28/19 Range/Units 08:50 08:50 RBC 3.56 L (3.80-5.40) m/uL Hgb 10.7 L D (11.4-16.0) gm/dL Potassium 3.3 L (3.5-5.1) mmol/L Chloride 112 H (98-107) mmol/L BUN <2 L (7-17) mg/dL Creatinine 0.44 L (0.52-1.04) mg/dL Total Protein 5.0 L (6.3-8.2) g/dL Albumin 2.8 L (3.5-5.0) g/dL Assessment and Plan Assessment: This is a female patient who was admitted to the hospital with abdominal pain and diarrhea for the last 3 months duration. Her symptoms began after Jered fundoplication that was done 3 months ago for history of gastro-esophageal reflux disease. Subsequently 2 weeks ago she was admitted to the hospital with small bowel obstruction and underwent exploratory laparotomy with Dr. Pierce. Now continues to have persistent symptoms with intermittent abdominal pain, nausea, vomiting, and diarrhea that have been ongoing for the last 2 months duration. Stool studies for C. diff and stool cultures were both negative. During her last hospitalization she was treated with Lomotil and her symptoms somewhat improved. She was scheduled to have an upper GI small bowel series how ever it was a poor study due to the patient's inability to drink her contrast. A CT of the abdomen and pelvis done at the last admission shows slightly dilated loops of small bowel but no evidence of bowel obstruction noted compared to the prior CT done last week there was some improvement noted in the small bowel dilation. Likely dealing with ileus at the present time secondary to electrolyte abnormalities. (1) Abdominal pain Narrative/Plan: This is a female patient who was admitted to the hospital with abdominal pain and diarrhea for the last 3 months duration. Her symptoms began after Jered fundoplication that was done 3 months ago for history of gastro-esophageal reflux disease. Subsequently 2 weeks ago she was admitted to the hospital with small bowel obstruction and underwent exploratory laparotomy with Dr. Pierce. Now continues to have persistent symptoms with intermittent abdominal pain, nausea, vomiting, and diarrhea that have been ongoing for the last 2 months duration. Stool studies for C. diff and stool cultures were both negative. During her last hospitalization she was treated with Lomotil and her symptoms somewhat improved. She was scheduled to have an upper GI small bowel series however it was a poor study due to the patient's inability to drink her contrast. A CT of the abdomen and pelvis done at the last admission shows slightly dilated loops of small bowel but no evidence of bowel obstruction noted compared to the prior CT done last week there was some improvement noted in the small bowel dilation. Likely dealing with ileus at the present time secondary to electrolyte abnormalities. Current Visit: No Status: Acute Code(s): R10.9 - UNSPECIFIED ABDOMINAL PAIN SNOMED Code(s): 01598106 (2) Diarrhea Current Visit: No Status: Acute Code(s): R19.7 - DIARRHEA, UNSPECIFIED SNOMED Code(s): 05491811 Plan: 1. Continue Protonix 40 mg daily 2. Antiemetics as needed, Questran was added 3. Diet advanced per surgical services 4. Upper GI bowel series reviewed no abnormality seen 5. No plans on endoscopic intervention at the present time. 6. Continue with symptomatic and supportive care. We will follow you closely. Thank you for this consultation. The impression and plan of care has been dictated as directed. Dr. Hussein Oneal I performed a history and examination of this patient, discussed the same with the dictator. I agree with the dictator's note ,documented as a scribe. Any additional findings or plans will be noted.
[2019-11-29] MEDS: HYDROmorphone 1 MG/ML 1 ML SYRINGE IVP PRN (03:36)
[2019-11-29] MEDS: BUDESONIDE 0.5 MG/2 ML NEBU INHALATION SCH (08:41)
[2019-11-29] MEDS: PANTOPRAZOLE 40 MG/10 ML VIAL IV SCH (08:54)
[2019-11-29] MEDS: CHOLESTYRAMINE (WITH SUGAR) 4 GM PACKET PO SCH (09:07)
[2019-11-29 10:40] LABS: ALT 12 U/L (8-44); AST 14 U/L (13-35); Albumin/Globulin Ratio 1.94 (1.60-3.17); Alkaline Phosphatase 62 U/L (41-126); Blood Urea Nitrogen <5.0 mg/dL (9.0-27.0); Calcium 10.2 mg/dL (8.7-10.3); Carbon Dioxide 26.3 mmol/L (21.6-31.8); Chloride 110 mmol/L (96-109); Globulin 1.8 g/dL (1.6-3.3); Glucose 89 mg/dL (70-110); Non-African American GFR(CKD) 115.6 (60.0-200.0); Potassium 4.2 mmol/L (3.5-5.5); Sodium 142 mmol/L (135-145); Total Bilirubin 0.2 mg/dL (0.3-1.2); Total Protein 5.3 g/dL (6.2-8.2)
--- NOTE | 2019-11-29 14:30 | P.PN ---
Subjective 59-year-old female came in with compensative abdominal pain moderate severity diffuse. Patient had recent abdominal surgeries including fu ndoplication followed by small bowel resection secondary to bowel obstruction. Patient was also nauseous and had vomiting as well. Patient had a computed tomography scan of the abdomen which showed multiple areas of bowel obstruction and there are multiple areas of small wall thickening consistent with the inflammation of the small bowel. Patient pain ranges from sharp to dull. Patient is supposed to see veneer grader as outpatient 11/27/2019 Patient did have improvement in pain, nausea vomiting improved patient is able to tolerate a liquid diet well and the wishing this to be advanced. The esophagogram was only completed partially as she was unable to drink the contrast. 11/28/2019 Patient had a barium swallow did not show any significant abnormality patient does have bowel sounds. Patient is not nauseous patient is presently a liquid diet which probably will be advanced today to probably regular diet 11/29/2019 Patient's symptoms resolved counseled that patient should small and frequent meals and soft meals to avoid further episodes of for bowel obstruction or ileus. [facility] is being discharged today. I discontinued the Lomotil was can cause ileus and constipation Constitutional: Denied any fatigue denied any fever. Cardio vascular: denied any chest pain, palpitations Gastrointestinal denied any nausea vomiting Pulmonary: Denied any shortness of breath cough Neurologic denied any new focal deficits All inpatient medications were reviewed and appropriate changes in these medications as dictated in the interval history and assessment and plan. Objective - Vital Signs Vital signs: Vital Signs Temp 98.3 F 11/29/19 07:00 Pulse 87 11/29/19 07:00 Resp 16 11/29/19 07:00 BP 112/69 11/29/19 07:00 Pulse Ox 90 L 11/29/19 07:00 Intake & Output 11/28/19 11/29/19 11/29/19 18:59 06:59 18:59 Intake Total 1360 200 Balance 1360 200 Weight 49.895 kg Intake: IV 1040 Sodium Chloride 0.9% 1, 1040 000 ml @ 130 mls/hr IV . Q7H42M [facility] Rx#:[id number] Oral 320 200 Other: Voiding Method Toilet # Voids 1 2 - Exam PHYSICAL EXAMINATION: GENERAL: The patient is alert and oriented x3, not in any acute distress. Well developed, well nourished. HEENT: Pupils are round and equally reacting to light. EOMI. No scleral icterus. No conjunctival pallor. Normocephalic, atraumatic. No pharyngeal erythema. No thyromegaly. CARDIOVASCULAR: S1 and S2 present. No murmurs, rubs, or gallops. PULMONARY: Chest is clear to auscultation, no wheezing or crackles. ABDOMEN: Soft, milder tenderness nondistended midline surgical scar appears to be clean bowel sounds are present MUSCULOSKELETAL: No joint swelling or deformity. EXTREMITIES: No cyanosis, clubbing, or pedal edema. NEUROLOGICAL: Gross neurological examination did not reveal any focal deficits. SKIN: No rashes. - Labs CBC & Chem 7: 11/28/19 08:50 11/29/19 06:24 Labs: Abnormal Lab Results - Last 24 Hours (Table) 11/29/19 Range/Units 06:24 Chloride 110 H (96-109) mmol/L BUN <5.0 L (9.0-27.0) mg/dL Creatinine 0.4 L (0.6-1.5) mg/dL Total Bilirubin 0.2 L (0.3-1.2) mg/dL Total Protein 5.3 L (6.2-8.2) g/dL Albumin 3.50 L (3.80-4.90) g/dL Assessment and Plan Plan: -Abdominal pain nausea vomiting: Patient appears to have ileus symptoms did improve. She can be discharged from my perspective -Hypokalemia natriuretic hypokalemia improved now after replacement -leukocytosis: Secondary to ileus, reactive no evidence of sepsis or infection at this time, improved COPD without any acute exacerbation continued nicotine use: Counseling was provided -Depression
--- NOTE | 2019-11-29 14:34 | P.DS ---
Providers Date of admission: 11/26/19 11:24 Expected date of discharge: 11/29/19 Attending physician: Kurtis Phipps Consults: 11/26/19 09:33 Consult Physician Routine Consulting Provider: Iker Miranda Consult Reason/Comments: medical management Do you want consulting provider notified?: Yes Consult Physician Routine Consulting Provider: Saurav Coats Consult Reason/Comments: diarrhea Do you want consulting provider notified?: Yes Primary care physician: Stated None Hospital Course: Discharge diagnosis 1. Recurrent episodes of nausea vomiting and diarrhea 2. Ileus resolved 3. Recent Rosemary fundoplication in September 2019 4. Recent exploratory laparotomy with lysis of adhesions in October 2019 5. Hypokalemia resolved Hospital course This is a 59-year-old female who had undergone Rosemary publication in September and exploratory laparotomy with lysis of adhesions in October. At the time of her recent laparotomy there is noted definite site of bowel obstruction seen. Patient has had recurrent hospitalizations for vomiting and diarrhea. Upper GI shows no distinct abnormality. Patient seen by GI service and they have added Questran. Patient started on regular diet. She is only eating a few bites of the diet. She had a loose bowel movement. She is complaining of some diffuse abdominal pain. Patient encouraged to stay in the hospital for 1 more day to mo nitor her food intake and to make sure she is tolerating diet. Patient was adamant about being discharged today. She is afebrile. She is up and ambulating. White count normal at 5.0. Physician Wad Compressor Operator Adjuster note has been reviewed by physician. Signing provider agrees with the documented findings, assessment, and plan of care. Patient Condition at Discharge: Stable Plan - Discharge Summary Discharge Rx Participant: Yes New Discharge Prescriptions: New Cholestyramine (with Sugar) [Questran Packet] 4 gm PO BID@1000,1800 #14 packet Continue Montelukast [Singulair] 10 mg PO HS Metoprolol Tartrate 12.5 mg PO BID Nicotine 14Mg/24Hr Patch [Habitrol] 1 patch TRANSDERM DAILY Potassium Chloride ER [K-Dur 10] 10 meq PO BID #60 tab Ondansetron [Zofran ODT] 4 mg PO Q8HR PRN PRN Reason: Nausea Fluticasone Nasal [place] [Flonase Nasal [place]] 1 spray EA NOSTRIL DAILY PRN PRN Reason: Allergy Symptoms Cetirizine HCl 10 mg PO DAILY Albuterol Inhaler [Ventolin Hfa Inhaler] 2 puff INHALATION RT-QID PRN PRN Reason: Shortness Of Breath Discontinued Diphenox-Atrop 2.5-0.025 mg [Lomotil] 1 tab PO Q6HR PRN PRN Reason: Diarrhea Discharge Medication List Montelukast [Singulair] 10 mg PO HS 09/03/19 [History] Metoprolol Tartrate 12.5 mg PO BID 09/26/19 [History] Nicotine 14Mg/24Hr Patch [Habitrol] 1 patch TRANSDERM DAILY 10/28/19 [History] Potassium Chloride ER [K-Dur 10] 10 meq PO BID #60 tab 10/31/19 [Rx] Albuterol Inhaler [Ventolin Hfa Inhaler] 2 puff INHALATION RT-QID PRN 11/18/19 [History] Cetirizine HCl 10 mg PO DAILY 11/18/19 [History] Fluticasone Nasal [place] [Flonase Nasal [place]] 1 spray EA NOSTRIL DAILY PRN 11/18/19 [History] Ondansetron [Zofran ODT] 4 mg PO Q8HR PRN 11/18/19 [History] Cholestyramine (with Sugar) [Questran Packet] 4 gm PO BID@1000,1800 #14 packet 11/29/19 [Rx] Follow up Appointment(s)/Referral(s): Massiel Olguin PAC [REFERRING] - 2 Weeks [facility], [NON-STAFF] - (Home care nurse will be able to make first visit after your appointment on Monday to become established with Dr Ahn's office. Please call them after your appointment. ) Anabelle Martinez MD [STAFF PHYSICIAN] - 12/02/19 2:00 pm (Appointment is with the Nurse Practioner. Must bring drivers license and insurance cards. Only Patient allowed in office and mask must be worn, if you do not have one they will provide it for you. ) Kurtis Phipps MD [STAFF PHYSICIAN] - 12/03/19 Activity/Diet/Wound Care/Special Instructions: Diet: Continue a full liquid diet until seen by Dr. Phipps on Monday in the office Activity as tolerated Discharge Disposition: HOME WITH HOME HEALTH SERVICES
[2019-11-29 15:42] VITALS: BP 114/76; PULSE 80; RESP 20; TEMP 98.1
--- NOTE | 2019-11-29 16:04 | P.PN ---
Subjective Progress Note Date: 11/29/19 Principal diagnosis: Abdominal pain, nausea, vomiting and diarrhea 39-year-old female who recently underwent a second Endoloop application by Dr. Vallejo on October 06 of this year followed by which he started developing intermittent episodes of abdominal pain associated with nausea vomiting and diarrhea. She was admitted to the hospital approximately 2 weeks ago with a small bowel obstruction and underwent exploratory laparotomy with lysis of adhesions. She was having about 3-4 loose bowel movements a day since she underwent her procedure. She underwent an esophagram which was a limited due to the patient ability to swallow barium. Repeat was done today which showed no distinct abnormality. Her diet was advanced per surgical services and she states she ate without any vomiting or abdominal pain. She states her abdominal pain is more like gas pain. Today she states she has not had any diarrhea. She has no nausea or vomiting today. States she wants to go home. Objective - Vital Signs Vital signs: Vital Signs Temp 98.1 F 11/29/19 15:00 Pulse 80 11/29/19 15:00 Resp 20 11/29/19 15:00 BP 114/76 11/29/19 15:00 Pulse Ox 99 11/29/19 15:00 Intake & Output 11/28/19 11/29/19 11/29/19 18:59 06:59 18:59 Intake Total 1360 400 Balance 1360 400 Weight 49.895 kg Intake: IV 1040 Sodium Chloride 0.9% 1, 1040 000 ml @ 130 mls/hr IV . Q7H42M [facility] Rx#:[id number] Oral 320 400 Other: Voiding Method Toilet # Voids 1 2 3 - Exam General appearance: The patient is alert, oriented, in no acute distress. HET: Head is normocephalic and atraumatic. Conjunctiva pink. Sclera anicteric. Neck: Supple without lymphadenopathy. Trachea midline. Heart: S1 S2. Regular rate and rhythm. Lungs: No crackles or wheezes are heard. Abdomen: Soft, very thin, diffuse mild tenderness, nondistended with bowel sounds. No palpable organomegaly or masses. No guarding or rigidity Extremities: Normal skin color and turgor. No pedal edema. Neurological: No focal deficits. Alert and oriented 3. - Labs CBC & Chem 7: 11/28/19 08:50 11/29/19 06:24 Labs: Abnormal Lab Results - Last 24 Hours (Table) 11/29/19 Range/Units 06:24 Chloride 110 H (96-109) mmol/L BUN <5.0 L (9.0-27.0) mg/dL Creatinine 0.4 L (0.6-1.5) mg/dL Total Bilirubin 0.2 L (0.3-1.2) mg/dL Total Protein 5.3 L (6.2-8.2) g/dL Albumin 3.50 L (3.80-4.90) g/dL Assessment and Plan (1) Abdominal pain Narrative/Plan: This is a female patient who was admitted to the hospital with abdominal pain and diarrhea for the last 3 months duration. Her symptoms began after Jered fundoplication that was done 3 months ago for history of gastro-esophageal reflux disease. Subsequently 2 weeks ago she was admitted to the hospital with small bowel obstruction and underwent exploratory laparotomy with Dr. Pierce. Now continues to have persistent symptoms with intermittent abdominal pain, nausea, vomiting, and diarrhea that have been ongoing for the last 2 months duration. Stool studies for C. diff and stool cultures were both negative. During her last hospitalization she was treated with Lomotil and her symptoms somewhat improved. She was scheduled to have an upper GI small bowel series however it was a poor study due to the patient's inability to drink her co ntrast. A CT of the abdomen and pelvis done at the last admission shows slightly dilated loops of small bowel but no evidence of bowel obstruction noted compared to the prior CT done last week there was some improvement noted in the small bowel dilation. Likely dealing with ileus at the present time secondary to electrolyte abnormalities. Current Visit: No Status: Acute Code(s): R10.9 - UNSPECIFIED ABDOMINAL PAIN SNOMED Code(s): 56523166 (2) Diarrhea Current Visit: No Status: Acute Code(s): R19.7 - DIARRHEA, UNSPECIFIED SNOMED Code(s): 08487808 Plan: 1. Continue Protonix 40 mg daily 2. Antiemetics as needed, Questran was added 3. Diet advanced per surgical services 4. Upper GI bowel series reviewed no abnormality seen 5. No plans on endoscopic intervention at the present time. 6. Continue with symptomatic and supportive care. We will follow you closely. Thank you for this consultation. The impression and plan of care has been dictated as directed. Dr. Hussein Oneal I performed a history and examination of this patient, discussed the same with the dictator. I agree with the dictator's note ,documented as a scribe. Any additional findings or plans will be noted.
[2019-11-30] MEDS ORDERED: PANTOPRAZOLE 40 MG TABLET PO SCH (07:30)
== END 2019-11-29 16:48 | disposition home health service (06) | DRG 390 ==
LOC: EC 12:23 → 1SOBS 15:53 → OBSVTOIN 11-26 11:24 → 4SSUR 11-26 21:35
PROVIDERS: ADMIT Surgery; ATTEND Surgery
DX: K56.7 Ileus, unspecified (principal); E86.0 Dehydration; E87.6 Hypokalemia; F17.210 Nicotine dependence, cigarettes, uncomplicated; F32.9 Major depressive disorder, single episode, unspecified; F41.9 Anxiety disorder, unspecified; J44.9 Chronic obstructive pulmonary disease, unspecified; M81.0 Age-related osteoporosis without current pathological fracture; Z79.899 Other long term (current) drug therapy; Z80.0 Family history of malignant neoplasm of digestive organs; Z83.3 Family history of diabetes mellitus; Z90.710 Acquired absence of both cervix and uterus; Z98.890 Other specified postprocedural states; Z83.41 Family history of multiple endocrine neoplasia [MEN] syndrome; R11.0 Nausea; Z87.440 Personal history of urinary (tract) infections; M19.90 Unspecified osteoarthritis, unspecified site; K21.9 Gastro-esophageal reflux disease without esophagitis; Z83.6 Family history of other diseases of the respiratory system
CPT/HCPCS: 36415; 74176; 74177; 74240; 80053; 81003; 82150; 83605; 83690; 85025; 96361; 96374; 96375; 96376; 99285

== ENCOUNTER 2019-12-04 17:33 | Observation (INO) | payer OTHER ==
[2019-12-04] MEDS ORDERED: SODIUM CHLORIDE 0.9% 1,000 ML IV STA (18:57)
[2019-12-04 19:21] LABS: Basophils # (A) 0.1 k/uL (0-0.2); Basophils % (A) 0 %; Eosinophils # (A) 0.2 k/uL (0-0.7); Eosinophils % (A) 1 %; HCT 49.5 % (34.0-46.0); Lymphocytes # (A) 2.6 k/uL (1.0-4.8); Lymphocytes % (A) 13 %; MCH 29.6 pg (25.0-35.0); MCHC 31.5 g/dL (31.0-37.0); Mean Platelet Volume 7.7; Monocytes # (A) 0.9 k/uL (0-1.0); Monocytes % (A) 4 %; Neutrophils # (A) 16.9 k/uL (1.3-7.7); Neutrophils % (A) 81 %; Platelet Count 467 k/uL (150-450); RBC 5.27 m/uL (3.80-5.40); WBC 20.9 k/uL (3.8-10.6)
[2019-12-04 19:23] LABS: HGB 15.6 gm/dL (11.4-16.0)
[2019-12-04 19:26] LABS: ALT 13 U/L (4-34); AST 27 U/L (14-36); African American GFR (CKD) >90 (>60 ml/min/1.73 sqM); Albumin 4.3 g/dL (3.5-5.0); Alkaline Phosphatase 85 U/L (38-126); Anion Gap 10 mmol/L; Blood Urea Nitrogen 13 mg/dL (7-17); Calcium 12.4 mg/dL (8.4-10.2); Carbon Dioxide 24 mmol/L (22-30); Chloride 101 mmol/L (98-107); Glucose 218 mg/dL (74-99); Non-African American GFR(CKD) 89 (>60 ml/min/1.73 sqM); Potassium 5.2 mmol/L (3.5-5.1); Sodium 135 mmol/L (137-145); Total Bilirubin 0.5 mg/dL (0.2-1.3)
[2019-12-04] MEDS ORDERED: ONDANSETRON 4 MG/2 ML VIAL IVP STA (19:29)
[2019-12-04] MEDS ORDERED: HYDROmorphone 1 MG/ML 1 ML SYRINGE IVP STA (19:29)
--- NOTE | 2019-12-04 20:52 | XR ---
EXAMINATION TYPE: XR KUB DATE OF EXAM: 12/04/2019 COMPARISON: 11/07/2019 INDICATION: Abdomen pain TECHNIQUE: Single view abdomen supine view FINDINGS: There are dilated small bowel loops throughout the abdomen. Some colonic bowel gas may be present as well. Findings are suggestive for partial small bowel obstruction or ileus. Findings have worsened fr om 11/07/2019. Psoas margins are normal No organomegaly is present. Prior vertebral plasty at L2 is present IMPRESSION: 1. No dilated small bowel loops with some air within the colon. Correlate for ileus. Partial small chel[place] wel obstruction should be considered. Follow-up is recommended.
[2019-12-04] MEDS ORDERED: PIPERACILLIN-TAZOBACTAM 3.375 GM in SODIUM CHLORIDE 0.9% 100 ML IVPB STA (21:09)
[2019-12-04] MEDS ORDERED: NALOXONE 0.4 MG/ML 1 ML VIAL IV PRN (21:37)
[2019-12-04] MEDS ORDERED: ONDANSETRON 4 MG/2 ML VIAL IVP PRN (21:37)
--- NOTE | 2019-12-04 21:39 | ED ---
Abdominal Pain HPI - General Chief Complaint: Abdominal Pain Stated Complaint: ABD PAIN Time Seen by Provider: 12/04/19 17:45 Source: patient, EMS Mode of arrival: EMS Limitations: no limitations - History of Present Illness Initial Comments: Patient is a 59-year-old female who presents emergency Department reported nausea, vomiting and diarrhea. Patient has been seen in the emergency room and for similar complaint. She was just discharged on the . She had a Viviana fundoplication in September followed by a lysis of adhesions in October. States that ever since her surgery she has had intractable abdominal pain and issues with nausea and vomiting. Patient presents today reporting any symptoms which were exacerbated today. States she's been trying to drink protein shakes however this is the only thing that she can hold down. Reports 10 out of 10 abdominal pain. Also has had multiple episodes of nonbloody diarrhea. Denies any fevers or chills. No issues with her urination. No other alleviating, precipitating or modifying factors - Related Data Home Medications Medication Instructions Recorded Confirmed Montelukast [Singulair] 10 mg PO HS 09/03/19 12/09/19 Metoprolol Tartrate 12.5 mg PO BID 09/26/19 12/09/19 Nicotine 14Mg/24Hr Patch [Habitrol] 1 patch TRANSDERM DAILY 10/28/19 12/09/19 Albuterol Inhaler [Ventolin Hfa 2 puff INHALATION RT-QID PRN 11/18/19 12/09/19 Inhaler] Cetirizine HCl 10 mg PO DAILY 11/18/19 12/09/19 Fluticasone Nasal [place] [Flonase 1 spray EA NOSTRIL DAILY PRN 11/18/19 12/09/19 Nasal [place]] Ondansetron [Zofran ODT] 4 mg PO Q8HR PRN 11/18/19 12/09/19 Pantoprazole Sodium 40 mg PO AC-BID 12/09/19 12/09/19 Previous Rx's Medication Instructions Recorded Potassium Chloride ER [K-Dur 10] 10 meq PO BID #60 tab 10/31/19 Dicyclomine [Bentyl] 20 mg PO TID #30 tablet 12/09/19 Omeprazole [PriLOSEC] 20 mg PO AC-BRKFST #14 cap 12/09/19 Allergies Allergy/AdvReac Type Severity Reaction Status Date / Time No Known Allergies Allergy Verified 12/09/19 08:05 Review of Systems ROS Statement: Those systems with pertinent positive or pertinent negative responses have been documented in the HPI. ROS Other: All systems not noted in ROS Statement are negative. Past Medical History Past Medical History: COPD, GERD/Reflux, Osteoarthritis (OA) Additional Past Medical History / Comment(s): Pt recently admitted to [facility] on 10/28/19 for dehydration, acute kidney injury, ileus. Had exploratory laparotomy in October when she was previously here. She is recent post viviana fundoplication and has had other recent admits for dehydration. Other hx: Pt states she has been having diarrhea lately-liquid/watery stools, bronchitis, UTI, nephritis, pt unsure why lopressor was recently prescribed, osteoporosis, past low back fracture, occasional upper back pain, sinus allergies. History of Any Multi-Drug Resistant Organisms: None Reported Past Surgical History: Section, Hernia Repair, Hysterectomy Additional Past Surgical History / Comment(s): 10/07/19 Viviana fundoplication, colonoscopy, hemorrhoidectomy, L shoulder benign tumor removed Past Anesthesia/Blood Transfusion Reactions: Previous Problems w/ Anesthesia Additional Past Anesthesia/Blood Transfusion Reaction / Comment(s): woke up during sx in past Past Psychological History: Anxiety, Depression Smoking Status: Current every day smoker Past Alcohol Use History: None Reported Past Drug Use History: None Reported - Past Family History Father Family Medical History: Cancer Additional Family Medical History / Comment(s): Esophageal cancer/ulcer. Pt states father of pneumonia at the age of 56yrs. Mother Family Medical History: Diabetes Mellitus Additional Family Medical History / Comment(s): MENS SYNDROME Sister(s) Additional Family Medical History / Comment(s): MENS SYNDROME General Exam Limitations: no limitations General appearance: alert, in distress Eye exam: Present: normal appearance, PERRL, EOMI. Absent: scleral icterus, conjunctival injection, periorbital swelling ENT exam: Present: normal exam, mucous membranes dry Neck exam: Present: normal inspection. Absent: tenderness, meningismus, lymphadenopathy Respiratory exam: Present: normal lung sounds bilaterally. Absent: respiratory distress, wheezes, rales, rhonchi, stridor Cardiovascular Exam: Present: regular rate, normal rhythm, normal heart sounds. Absent: systolic murmur, diastolic murmur, rubs, gallop, clicks GI/Abdominal exam: Present: distended, tenderness, guarding, diminished bowel sounds Rectal exam: Present: deferred Extremities exam: Present: normal inspection, full ROM, normal capillary refill. Absent: tenderness, pedal edema, joint swelling, calf tenderness Neurological exam: Present: alert, oriented X3, CN II-XII intact Psychiatric exam: Present: anxious Skin exam: Present: warm, dry, intact, normal color. Absent: rash Course Vital Signs 12/04/19 12/04/19 17:41 22:36 Temperature 97.3 F L 98 F Pulse Rate 81 83 Respiratory 18 16 Rate Blood Pressure 102/61 95/69 O2 Sat by Pulse 99 97 Oximetry Medical Decision Making - Medical Decision Making Upon arrival patient is placed into room 15. A thorough history and physical exam was performed. Peripheral IV is established. Pain medications and antiemetics are ordered. The patient is given a liter bolus of normal saline. Laboratory studies are conducted. Patient has a KUB performed. Laboratory studies are remarkable for a white count of 20.9. Platelets 467. Sodium 135. Potassium 5.2. KUB is remarkable for multiple dilated small bowel loops with some air. Correlate for ileus versus partial small bowel obstruction. I did recommend placement of an NG tube however the patient refused. I did recommend hospital admission. I discussed case with Dr. Wolff who did accept admission for the patient. Patient will be admitted to Dr. Phipps. Patient is made aware of the treatment plan. She remained in stable condition and was transported to the floor - Lab Data Result diagrams: 12/05/19 04:52 12/05/19 04:52 Lab Results 12/04/19 12/04/19 12/04/19 Range/Units 19:10 19:10 19:10 WBC 20.9 H (3.8-10.6) k/uL RBC 5.27 (3.80-5.40) m/uL Hgb 15.6 D (11.4-16.0) gm/dL Hct 49.5 H (34.0-46.0) % MCV 94.0 (80.0-100.0) fL MCH 29.6 (25.0-35.0) pg MCHC 31.5 (31.0-37.0) g/dL RDW 13.0 (11.5-15.5) % Plt Count 467 H (150-450) k/uL Neutrophils % 81 % Lymphocytes % 13 % Monocytes % 4 % Eosinophils % 1 % Basophils % 0 % Neutrophils # 16.9 H (1.3-7.7) k/uL Lymphocytes # 2.6 (1.0-4.8) k/uL Monocytes # 0.9 (0-1.0) k/uL Eosinophils # 0.2 (0-0.7) k/uL Basophils # 0.1 (0-0.2) k/uL Sodium 135 L (137-145) mmol/L Potassium 5.2 H (3.5-5.1) mmol/L Chloride 101 (98-107) mmol/L Carbon Dioxide 24 (22-30) mmol/L Anion Gap 10 mmol/L BUN 13 (7-17) mg/dL Creatinine 0.75 (0.52-1.04) mg/dL Est GFR (CKD-EPI)AfAm >90 (>60 ml/min/1.73 sqM) Est GFR (CKD-EPI)NonAf 89 (>60 ml/min/1.73 sqM) Glucose 218 H (74-99) mg/dL Plasma Lactic Acid Héctor 1.9 (0.7-2.0) mmol/L Calcium 12.4 H (8.4-10.2) mg/dL Total Bilirubin 0.5 (0.2-1.3) mg/dL AST 27 (14-36) U/L ALT 13 (4-34) U/L Alkaline Phosphatase 85 (38-126) U/L Total Protein 7.0 (6.3-8.2) g/dL Albumin 4.3 (3.5-5.0) g/dL Lipase 331 H (23-300) U/L Disposition Clinical Impression: Nausea and vomiting, Small bowel obstruction Disposition: ADMITTED IP TO [facility] Condition: Stable Is patient prescribed a controlled substance at d/c from ED?: No Decision to Admit Reason: Admit from EC Decision Date: 12/04/19 Decision Time: 21:37
[2019-12-04] MEDS: HYDROmorphone 1 MG/ML 1 ML SYRINGE IVP PRN (22:04)
[2019-12-04] MEDS: SODIUM CHLORIDE 0.9% 1,000 ML IV SCH (23:45)
[2019-12-05] MEDS: HYDROmorphone 1 MG/ML 1 ML SYRINGE IVP PRN ×4 (00:54→14:28)
[2019-12-05 05:33] LABS: Basophils % (A) 0 %; Eosinophils # (A) 0.4 k/uL (0-0.7); Eosinophils % (A) 3 %; HCT 36.7 % (34.0-46.0); Hypochromasia Slight; Lymphocytes # (A) 2.8 k/uL (1.0-4.8); Lymphocytes % (A) 19 %; MCHC 32.3 g/dL (31.0-37.0); Mean Platelet Volume 7.3; Monocytes # (A) 0.6 k/uL (0-1.0); Monocytes % (A) 4 %; Neutrophils # (A) 11.3 k/uL (1.3-7.7); Neutrophils % (A) 74 %; Platelet Count 356 k/uL (150-450); RBC 3.82 m/uL (3.80-5.40); RDW 13.2 % (11.5-15.5); WBC 15.3 k/uL (3.8-10.6)
[2019-12-05 05:42] LABS: African American GFR (CKD) >90 (>60 ml/min/1.73 sqM); Anion Gap 3 mmol/L; Blood Urea Nitrogen 12 mg/dL (7-17); Calcium 9.5 mg/dL (8.4-10.2); Carbon Dioxide 20 mmol/L (22-30); Chloride 111 mmol/L (98-107); Glucose 78 mg/dL (74-99); Non-African American GFR(CKD) >90 (>60 ml/min/1.73 sqM); Potassium 4.8 mmol/L (3.5-5.1); Sodium 134 mmol/L (137-145)
[2019-12-05 05:43] LABS: Appearance,Urine Cloudy (Clear); Bilirubin,Urine Negative (Negative); Blood,Urine Negative (Negative); Budding Yeast,Urine Rare /hpf; Color,Urine Yellow; Glucose,Urine (UA) Negative (Negative); Granular Casts,Urine 4 /lpf (0); Hyaline Casts,Urine 21 /lpf (0-2); Ketones,Urine Negative (Negative); Leukocyte Esterase,Urine Negative (Negative); Mucus,Urine Rare /hpf; Nitrite,Urine Negative (Negative); Protein,Urine Negative (Negative); RBC,Urine 60 /hpf (0-5); Specific Gravity,Urine 1.018 (1.001-1.035); Squamous Epithelial Cell,Urine 1 /hpf (0-4); Urobilinogen,Urine <2.0 mg/dL (<2.0); WBC,Urine 47 /hpf (0-5)
[2019-12-05 05:45] LABS: HGB 11.9 gm/dL (11.4-16.0)
[2019-12-05] MEDS: SODIUM CHLORIDE 0.9% 1,000 ML IV SCH ×2 (06:21→14:30)
[2019-12-05] MEDS ORDERED: LORazepam 2 MG/ML INJ IV STA (08:43)
[2019-12-05] MEDS ORDERED: ALBUTEROL NEBULIZED 2.5 MG/3 ML INHALATION PRN (10:30)
[2019-12-05] MEDS ORDERED: FLUTICASONE 50MCG/SPRAY NASAL 16GM EA NOSTRIL PRN (10:30)
[2019-12-05 12:03] VITALS: BP 104/69; PULSE 76; RESP 18; TEMP 97.9
[2019-12-05 14:06] VITALS: BMI 18.1
--- NOTE | 2019-12-05 15:16 | P.DS ---
Providers Date of admission: 12/04/19 21:37 Expected date of discharge: 12/05/19 Attending physician: Kurtis Phipps Consults: 12/04/19 21:38 Consult Physician Urgent Consulting Provider: Corie Bustos Consult Reason/Comments: medical management Do you want consulting provider notified?: Yes Primary care physician: Helen Newberry Joy Hospital Course: Discharge diagnosis 1. Ileus versus partial small bowel obstruction Hospital course This is a 59-year-old female who had undergone Rosemary fundal the location in September and exploratory laparotomy with lysis of adhesions in October. At that time of her recent laparotomy there was noted no definite bowel obstruction seen. Patient has had recurrent hospitalizations for vomiting and diarrhea. She was just discharged on 11/29/2023 similar symptoms and resolving ileus. Patient had esophagram completed with no evidence of obstruction. Patient received IV fluids and has advancement of diet and tolerates this prior to discharge. Patient presents again with complaints of abdominal pain with vomiting and diarrhea. Patient is frustrated. She is afebrile. She does have an elevated white count. X-ray shows ileus versus partial small bowel obstruction. Recommended observation but patient wants to be discharged to [facility]. Patient was able to eat clear liquids without vomiting. She did report some abdominal pain. Discharge orders have been placed. Family member will be transporting patient to [facility]. White count at discharge is 15.3. She is afebrile. Physician Coal Cager note has been reviewed by physician. Signing provider agrees with the documented findings, assessment, and plan of care. Patient Condition at Discharge: Stable Plan - Discharge Summary Discharge Rx Participant: No New Discharge Prescriptions: Continue Montelukast [Singulair] 10 mg PO HS Metoprolol Tartrate 12.5 mg PO BID Nicotine 14Mg/24Hr Patch [Habitrol] 1 patch TRANSDERM DAILY Potassium Chloride ER [K-Dur 10] 10 meq PO BID #60 tab Ondansetron [Zofran ODT] 4 mg PO Q8HR PRN PRN Reason: Nausea Fluticasone Nasal [place] [Flonase Nasal [place]] 1 spray EA NOSTRIL DAILY PRN PRN Reason: Allergy Symptoms Cetirizine HCl 10 mg PO DAILY Albuterol Inhaler [Ventolin Hfa Inhaler] 2 puff INHALATION RT-QID PRN PRN Reason: Shortness Of Breath Cholestyramine (with Sugar) [Questran Packet] 4 gm PO BID@1000,1800 #14 packet Discharge Medication List Montelukast [Singulair] 10 mg PO HS 09/03/19 [History] Metoprolol Tartrate 12.5 mg PO BID 09/26/19 [History] Nicotine 14Mg/24Hr Patch [Habitrol] 1 patch TRANSDERM DAILY 10/28/19 [History] Potassium Chloride ER [K-Dur 10] 10 meq PO BID #60 tab 10/31/19 [Rx] Albuterol Inhaler [Ventolin Hfa Inhaler] 2 puff INHALATION RT-QID PRN 11/18/19 [History] Cetirizine HCl 10 mg PO DAILY 11/18/19 [History] Fluticasone Nasal [place] [Flonase Nasal [place]] 1 spray EA NOSTRIL DAILY PRN 11/18/19 [History] Ondansetron [Zofran ODT] 4 mg PO Q8HR PRN 11/18/19 [History] Cholestyramine (with Sugar) [Questran Packet] 4 gm PO BID@1000,1800 #14 packet 11/29/19 [Rx] Follow up Appointment(s)/Referral(s): [facility], [NON-STAFF] - 1 Week Anabelle Martinez MD [Primary Care Provider] - 12/10/19 1:00 pm Kurtis Phipps MD [STAFF PHYSICIAN] - 12/12/19 2:45 pm Discharge Disposition: HOME SELF-CARE
--- NOTE | 2019-12-05 15:27 | P.GSHP ---
History of Present Illness H&P Date: 12/05/19 CHIEF COMPLAINT: Nausea vomiting and diarrhea with abdominal pain HISTORY OF PRESENT ILLNESS: This is a 59-year-old female who had undergone Viviana fundal the location in September and exploratory laparotomy with lysis of adhesions in October. At that time of her recent laparotomy there was noted no definite bowel obstruction seen. Patient has had recurrent hospitalizations for vomiting and diarrhea. She was just discharged on 11/29/2023 similar symptoms and resolving ileus. Patient had esophagram completed with no evidence of obstruction. Patient received IV fluids and has advancement of diet and tolerates this prior to discharge. Patient presents again with complaints of abdominal pain with vomiting and diarrhea. Patient is frustrated. She is afebrile. She does have an elevated white count. X-ray shows ileus versus partial small bowel obstruction. PAST MEDICAL HISTORY: See list. PAST SURGICAL HISTORY: See list. MEDICATIONS: See list. ALLERGIES: See list. SOCIAL HISTORY: No illicit drug use. REVIEW OF SYSTEMS: CONSTITUTIONAL: Denies fever or chills. HEENT: Denies blurred vision, vision changes, or eye pain. Denies hemoptysis CARDIOVASCULAR: Denies chest pain or pressure. RESPIRATORY: No shortness of breath. GASTROINTESTINAL: See HPI for pertinent findings HEMATOLOGIC: Denies bleeding disorders. GENITOURINARY: Denies any blood in urine or increased urinary frequency. SKIN: Denies pruitis. Denies rash. PHYSICAL EXAM: VITAL SIGNS: Reviewed GENERAL: Well-developed in no acute distress. HEENT: No sclera icterus. Extraocular movements grossly intact. Moist buccal mucosa. Head is atraumatic, normocephalic. No nasal drainage. ABDOMEN: Soft. Mild tenderness with palpation NEUROLOGIC: Alert and oriented. Cranial nerves II through XII grossly intact. LABORATORY DATA: WBC 20.9 down to 15.3 hemoglobin 11.9 potassium 5.2 down to 4.8 lipase 331 IMAGING: KUB shows dilated small bowel loops with some air within the colon. Correlate for ileus versus partial small bowel obstruction. ASSESSMENT: 1. Ileus versus partial small bowel obstruction PLAN: -Start clear liquid diet -Continue conservative management Physician [employer] Therapist note has been reviewed by physician. Signing provider agrees with the documented findings, assessment, and plan of care. Past Medical History Past Medical History: COPD, GERD/Reflux, Osteoarthritis (OA) Additional Past Medical History / Comment(s): Pt recently admitted to [facility] on 10/28/19 for dehydration, acute kidney injury, ileus. Had exploratory laparotomy in October when she was previously here. She is recent post viviana fundoplication and has had other recent admits for dehydration. Other hx: Pt states she has been having diarrhea lately-liquid/watery stools, bronchitis, UTI, nephritis, pt unsure why lopressor was recently prescribed, osteoporosis, past low back fracture, occasional upper back pain, sinus allergies. History of Any Multi-Drug Resistant Organisms: None Reported Past Surgical History: Section, Hernia Repair, Hysterectomy Additional Past Surgical History / Comment(s): 10/07/19 Viviana fundoplication, colonoscopy, hemorrhoidectomy, L shoulder benign tumor removed Past Anesthesia/Blood Transfusion Reactions: Previous Problems w/ Anesthesia Additional Past Anesthesia/Blood Transfusion Reaction / Comment(s): woke up during sx in past Past Psychological History: Anxiety, Depression Smoking Status: Current every day smoker Past Alcohol Use History: None Reported Past Drug Use History: None Reported - Past Family History Father Family Medical History: Cancer Additional Family Medical History / Comment(s): Esophageal cancer/ulcer. Pt states father of pneumonia at the age of 56yrs. Mother Family Medical History: Diabetes Mellitus Additional Family Medical History / Comment(s): MENS SYNDROME Sister(s) Additional Family Medical History / Comment(s): MENS SYNDROME Medications and Allergies Home Medications Medication Instructions Recorded Confirmed Type Montelukast [Singulair] 10 mg PO HS 09/03/19 12/04/19 History Metoprolol Tartrate 12.5 mg PO BID 09/26/19 12/04/19 History Nicotine 14Mg/24Hr Patch [Habitrol] 1 patch TRANSDERM DAILY 10/28/19 12/04/19 History Potassium Chloride ER [K-Dur 10] 10 meq PO BID #60 tab 10/31/19 12/04/19 Rx Albuterol Inhaler [Ventolin Hfa 2 puff INHALATION RT-QID PRN 11/18/19 12/04/19 History Inhaler] Cetirizine HCl 10 mg PO DAILY 11/18/19 12/04/19 History Fluticasone Nasal [place] [Flonase 1 spray EA NOSTRIL DAILY PRN 11/18/19 12/04/19 History Nasal [place]] Ondansetron [Zofran ODT] 4 mg PO Q8HR PRN 11/18/19 12/04/19 History Cholestyramine (with Sugar) 4 gm PO BID@1000,1800 #14 packet 11/29/19 12/04/19 Rx [Questran Packet] Allergies Allergy/AdvReac Type Severity Reaction Status Date / Time No Known Allergies Allergy Verified 12/04/19 22:20 Surgical - Exam Vital Signs Temp Pulse Resp BP Pulse Ox 97.3 F L 81 18 102/61 99 12/04/19 17:41 12/04/19 17:41 12/04/19 17:41 12/04/19 17:41 12/04/19 17:41 Results - Labs 12/05/19 04:52 12/05/19 04:52 Abnormal Lab Results - Last 24 Hours (Table) 12/04/19 12/04/19 12/05/19 Range/Units 19:10 19:10 04:52 WBC 20.9 H 15.3 H (3.8-10.6) k/uL Hct 49.5 H (34.0-46.0) % Plt Count 467 H (150-450) k/uL Neutrophils # 16.9 H 11.3 H (1.3-7.7) k/uL Sodium 135 L (137-145) mmol/L Potassium 5.2 H (3.5-5.1) mmol/L Chloride (98-107) mmol/L Carbon Dioxide (22-30) mmol/L Glucose 218 H (74-99) mg/dL Calcium 12.4 H (8.4-10.2) mg/dL Lipase 331 H (23-300) U/L Urine Appearance (Clear) Urine RBC (0-5) /hpf Urine WBC (0-5) /hpf Hyaline Casts (0-2) /lpf Urine Mucus (None) /hpf Urine Yeast (Budding) (None) /hpf 12/05/19 12/05/19 Range/Units 04:52 05:25 WBC (3.8-10.6) k/uL Hct (34.0-46.0) % Plt Count (150-450) k/uL Neutrophils # (1.3-7.7) k/uL Sodium 134 L (137-145) mmol/L Potassium (3.5-5.1) mmol/L Chloride 111 H (98-107) mmol/L Carbon Dioxide 20 L (22-30) mmol/L Glucose (74-99) mg/dL Calcium (8.4-10.2) mg/dL Lipase (23-300) U/L Urine Appearance Cloudy H (Clear) Urine RBC 60 H (0-5) /hpf Urine WBC 47 H (0-5) /hpf Hyaline Casts 21 H (0-2) /lpf Urine Mucus Rare H (None) /hpf Urine Yeast (Budding) Rare H (None) /hpf Microbiology - Last 24 Hours (Table) 12/05/19 05:25 Urine Culture - Preliminary Urine,Catheterized Diabetes panel 12/04/19 12/05/19 Range/Units 19:10 04:52 Sodium 135 L 134 L (137-145) mmol/L Potassium 5.2 H 4.8 (3.5-5.1) mmol/L Chloride 101 111 H (98-107) mmol/L Carbon Dioxide 24 20 L (22-30) mmol/L BUN 13 12 (7-17) mg/dL Creatinine 0.75 0.64 (0.52-1.04) mg/dL Glucose 218 H 78 (74-99) mg/dL Calcium 12.4 H 9.5 (8.4-10.2) mg/dL AST 27 (14-36) U/L ALT 13 (4-34) U/L Alkaline Phosphatase 85 (38-126) U/L Total Protein 7.0 (6.3-8.2) g/dL Albumin 4.3 (3.5-5.0) g/dL Calcium panel 12/04/19 12/05/19 Range/Units 19:10 04:52 Calcium 12.4 H 9.5 (8.4-10.2) mg/dL Albumin 4.3 (3.5-5.0) g/dL Pituitary panel 12/04/19 12/05/19 Range/Units 19:10 04:52 Sodium 135 L 134 L (137-145) mmol/L Potassium 5.2 H 4.8 (3.5-5.1) mmol/L Chloride 101 111 H (98-107) mmol/L Carbon Dioxide 24 20 L (22-30) mmol/L BUN 13 12 (7-17) mg/dL Creatinine 0.75 0.64 (0.52-1.04) mg/dL Glucose 218 H 78 (74-99) mg/dL Calcium 12.4 H 9.5 (8.4-10.2) mg/dL Adrenal panel 12/04/19 12/05/19 Range/Units 19:10 04:52 Sodium 135 L 134 L (137-145) mmol/L Potassium 5.2 H 4.8 (3.5-5.1) mmol/L Chloride 101 111 H (98-107) mmol/L Carbon Dioxide 24 20 L (22-30) mmol/L BUN 13 12 (7-17) mg/dL Creatinine 0.75 0.64 (0.52-1.04) mg/dL Glucose 218 H 78 (74-99) mg/dL Calcium 12.4 H 9.5 (8.4-10.2) mg/dL Total Bilirubin 0.5 (0.2-1.3) mg/dL AST 27 (14-36) U/L ALT 13 (4-34) U/L Alkaline Phosphatase 85 (38-126) U/L Total Protein 7.0 (6.3-8.2) g/dL Albumin 4.3 (3.5-5.0) g/dL
[2019-12-05] MEDS ORDERED: MONTELUKAST 10 MG TAB PO SCH (21:00)
[2019-12-05] MEDS ORDERED: HEPARIN SODIUM,PORCINE 5,000 UNIT/ML 1 ML VIAL SQ SCH (21:00)
--- NOTE | 2019-12-19 12:54 | P.CONS ---
History of Present Illness - Reason for Consult Consult date: 12/05/19 Medical Management - Chief Complaint N/V - History of Present Illness Patient is a 59-year-old female with a known history of COPD, GERD and recent history of hiatal hernia with a recent history of fundoplication surgery about a month ago came to ER with complaints of nausea vomiting and diarrhea and abdominal pain mainly in the epigastric region. abdominal pain is nonradiating. No complaints of fever or chills. Patient presented to ER with similar complaints recently as well. Patient states that ever since her surgery she has had intractable abdominal pain and issues with nausea and vomiting. Patient did have upper GI series on 917 showed no distinct abnormality seen. However patie nt denied any complaints of chest pain or shortness of breath. Diarrhea is mainly nonbloody. No headache or dizziness or lightheadedness. Lab data showed WBC 20.9, hemoglobin 15.6 and platelets 467 Potassium 5.2 BUN 13 and creatinine 0.75 Lactic acid 1.9 and calcium level 12.4 on admission lipase is 331 Review of Systems Constitutional: Patient denies any fever or chills . No generalized weakness or weight loss. Abdomen: Patient does have vomiting and diarrhea and abdominal pain. Cardiovascular: Patient denies any chest pain or short of breath no palpitations. Respiratory: patient denied any cough or sputum production. No shortness of breath Neurologic: Patient denied any numbness or tingling headache. Musculoskeletal: Patient denies any complaints of joint swelling or deformity. Skin: Negative Psychiatric: Negative Endocrine: No heat or cold intolerance. No recent weight gain. Genitourinary: No dysuria or hematuria. All other 14 point ROS negative except the above Past Medical History Past Medical History: COPD, GERD/Reflux, Osteoarthritis (OA) Additional Past Medical History / Comment(s): Pt recently admitted to [facility] on 10/28/19 for dehydration, acute kidney injury, ileus. Had exploratory laparotomy in October when she was previously here. She is recent post viviana fundoplication and has had other recent admits for dehydration. Other hx: Pt states she has been having diarrhea lately-liquid/watery stools, bronchitis, UTI, nephritis, pt unsure why lopressor was recently prescribed, osteoporosis, past low back fracture, occasional upper back pain, sinus allergies. History of Any Multi-Drug Resistant Organisms: None Reported Past Surgical History: Section, Hernia Repair, Hysterectomy Additional Past Surgical History / Comment(s): 10/07/19 Viviana fundoplication, colonoscopy, hemorrhoidectomy, L shoulder benign tumor removed Past Anesthesia/Blood Transfusion Reactions: Previous Problems w/ Anesthesia Additional Past Anesthesia/Blood Transfusion Reaction / Comm: woke up during sx in past Past Psychological History: Anxiety, Depression Smoking Status: Current every day smoker Past Alcohol Use History: None Reported Past Drug Use History: None Reported - Past Family History Father Family Medical History: Cancer Additional Family Medical History / Comment(s): Esophageal cancer/ulcer. Pt states father of pneumonia at the age of 56yrs. Mother Family Medical History: Diabetes Mellitus Additional Family Medical History / Comment(s): MENS SYNDROME Sister(s) Additional Family Medical History / Comment(s): MENS SYNDROME Medications and Allergies Home Medications Medication Instructions Recorded Confirmed Type Montelukast [Singulair] 10 mg PO HS 09/03/19 12/09/19 History Metoprolol Tartrate 12.5 mg PO BID 09/26/19 12/09/19 History Nicotine 14Mg/24Hr Patch [Habitrol] 1 patch TRANSDERM DAILY 10/28/19 12/09/19 History Potassium Chloride ER [K-Dur 10] 10 meq PO BID #60 tab 10/31/19 12/09/19 Rx Albuterol Inhaler [Ventolin Hfa 2 puff INHALATION RT-QID PRN 11/18/19 12/09/19 History Inhaler] Cetirizine HCl 10 mg PO DAILY 11/18/19 12/09/19 History Fluticasone Nasal [place] [Flonase 1 spray EA NOSTRIL DAILY PRN 11/18/19 12/09/19 History Nasal [place]] Ondansetron [Zofran ODT] 4 mg PO Q8HR PRN 11/18/19 12/09/19 History Dicyclomine [Bentyl] 20 mg PO TID #30 tablet 12/09/19 Rx Omeprazole [PriLOSEC] 20 mg PO AC-BRKFST #14 cap 12/09/19 Rx Pantoprazole Sodium 40 mg PO AC-BID 12/09/19 12/09/19 History Allergies Allergy/AdvReac Type Severity Reaction Status Date / Time No Known Allergies Allergy Verified 12/09/19 08:05 Physical Exam Vitals: Vital Signs Temp Pulse Pulse Resp BP BP Pulse Ox 12/05/19 05:11 98.4 F 82 16 94/60 97 12/04/19 23:13 98.1 F 88 16 95/67 92 L 12/04/19 22:36 98 F 83 16 95/69 97 12/04/19 17:41 97.3 F L 81 18 102/61 99 Intake and Output 12/04/19 12/05/19 12/05/19 22:59 06:59 14:59 Other: # Voids 1 1 Weight 43.545 kg 43.545 kg PHYSICAL EXAMINATION: Patient is lying in the bed comfortably, no acute distress, awake alert and oriented.. HEENT: Normocephalic. Neck is supple. Pupils reactive. Nostrils clear. Oral cavity is moist. Ears reveal no drainage. Neck reveals no JVD, carotid bruits, or thyromegaly. CHEST EXAMINATION: Trachea is central. Symmetrical expansion. Lung haddad clear to auscultation and percussion. CARDIAC: Normal S1, S2 with no gallops. No murmurs ABDOMEN: Soft. mild epigastric tenderness, Bowel sounds normal. No organomegaly. No abdominal bruits. Extremities: reveal no edema. No clubbing or cyanosis Neurologically awake, alert, oriented x3 with well-coordinated movements. No focal deficits noted Skin: No rash or skin lesions. Psychiatric: Coperative. Nonsuicidal, anxious Musculoskeletal: No joint swelling or deformity. Normal range of motion. Results CBC & Chem 7: 12/05/19 04:52 12/05/19 04:52 Labs: Abnormal Lab Results - Last 24 Hours (Table) 12/04/19 12/04/19 12/05/19 Range/Units 19:10 19:10 04:52 WBC 20.9 H 15.3 H (3.8-10.6) k/uL Hct 49.5 H (34.0-46.0) % Plt Count 467 H (150-450) k/uL Neutrophils # 16.9 H 11.3 H (1.3-7.7) k/uL Sodium 135 L (137-145) mmol/L Potassium 5.2 H (3.5-5.1) mmol/L Chloride (98-107) mmol/L Carbon Dioxide (22-30) mmol/L Glucose 218 H (74-99) mg/dL Calcium 12.4 H (8.4-10.2) mg/dL Lipase 331 H (23-300) U/L Urine Appearance (Clear) Urine RBC (0-5) /hpf Urine WBC (0-5) /hpf Hyaline Casts (0-2) /lpf Urine Mucus (None) /hpf Urine Yeast (Budding) (None) /hpf 12/05/19 12/05/19 Range/Units 04:52 05:25 WBC (3.8-10.6) k/uL Hct (34.0-46.0) % Plt Count (150-450) k/uL Neutrophils # (1.3-7.7) k/uL Sodium 134 L (137-145) mmol/L Potassium (3.5-5.1) mmol/L Chloride 111 H (98-107) mmol/L Carbon Dioxide 20 L (22-30) mmol/L Glucose (74-99) mg/dL Calcium (8.4-10.2) mg/dL Lipase (23-300) U/L Urine Appearance Cloudy H (Clear) Urine RBC 60 H (0-5) /hpf Urine WBC 47 H (0-5) /hpf Hyaline Casts 21 H (0-2) /lpf Urine Mucus Rare H (None) /hpf Urine Yeast (Budding) Rare H (None) /hpf Assessment and Plan Assessment: Intractable nausea vomiting possible gastritis and rule out obstruction. Recent history of Viviana fundoplication surgery COPD stable GERD Leukocytosis likely reactive improving Mild hyperkalemia improved Hypercalcemia 12.4 improved to 9.5 likely due to dehydration and volume depletion Hypovolemic hyponatremia Elevated lipase level mild acute pancreatitis Plan: Patient will be continued on IV hydration and nothing by mouth currently. Diana nue with symptomatic management for nausea and vomiting. Continue with PPI and follow-up closely. General surgery is not planning for any intervention at this time. Continue with conservative management. We will continue to follow and further recommendations based on clinical course. Thank you for your consult.
== END 2019-12-05 16:10 | disposition home or self-care (01) ==
LOC: EC 17:33 → INTOOBSV 21:37 → 6NMEDSUR 21:37 → UNDODISIN 12-05 16:10
PROVIDERS: ADMIT Surgery; ATTEND Surgery
DX: K56.609 Unspecified intestinal obstruction, unspecified as to partial versus complete obstruction (principal); E87.5 Hyperkalemia; E83.52 Hypercalcemia; E87.1 Hypo-osmolality and hyponatremia; E86.1 Hypovolemia; K85.90 Acute pancreatitis without necrosis or infection, unspecified; J44.9 Chronic obstructive pulmonary disease, unspecified; K21.9 Gastro-esophageal reflux disease without esophagitis; M19.90 Unspecified osteoarthritis, unspecified site; F17.200 Nicotine dependence, unspecified, uncomplicated; Z87.09 Personal history of other diseases of the respiratory system; Z87.440 Personal history of urinary (tract) infections; Z87.448 Personal history of other diseases of urinary system; M81.0 Age-related osteoporosis without current pathological fracture; Z98.891 History of uterine scar from previous surgery; Z90.710 Acquired absence of both cervix and uterus; Z98.890 Other specified postprocedural states; F41.9 Anxiety disorder, unspecified; F32.9 Major depressive disorder, single episode, unspecified; F17.290 Nicotine dependence, other tobacco product, uncomplicated; Z80.0 Family history of malignant neoplasm of digestive organs; Z83.6 Family history of other diseases of the respiratory system; Z83.41 Family history of multiple endocrine neoplasia [MEN] syndrome; Z83.3 Family history of diabetes mellitus; Z79.899 Other long term (current) drug therapy
CPT/HCPCS: 96376 ×2; 96375 ×2; 96361; 96365; 99285; 36415; 80053; 80048; 83605; 83690; 85025 ×2; 81001; 87040; 87086; 74018; G0378 ×2; J2543; J2060; J2405; J1170 ×2

== ENCOUNTER 2019-12-09 06:18 | Emergency (ER) | payer OTHER ==
[2019-12-09] MEDS ORDERED: SODIUM CHLORIDE 0.9% 1,000 ML IV STA (06:28)
[2019-12-09] MEDS ORDERED: ONDANSETRON 4 MG/2 ML VIAL IVP STA (06:28)
[2019-12-09] MEDS ORDERED: DICYCLOMINE 10 MG/ML 2 ML AMP IM STA (06:28)
--- NOTE | 2019-12-09 07:16 | ED ---
Abdominal Pain HPI - General Chief Complaint: Abdominal Pain Stated Complaint: abd pain Time Seen by Provider: 12/09/19 06:20 Source: patient, RN notes reviewed Mode of arrival: ambulatory Limitations: no limitations - History of Present Illness Initial Comments: 59-year-old female presents emergency Department chief complaint of ongoing abdominal pain. Patient had multiple ER visits and hospitalizations with her surgeon. Patient states that she does not have an obstruction. Patient states she was discharged on Monday and states that she drove [facility] was admitted and discharged yesterday. Patient states that she did not have any other acute findings. Patient states that she needs pain meds at home. Patient states that she's not been discharged with any pain meds. Patient states she's had some diarrhea today slight nausea no vomiting states she's has diffuse abdominal pain. Patient's had several CAT scans in the last month. - Related Data Home Medications Medication Instructions Recorded Confirmed Montelukast [Singulair] 10 mg PO HS 09/03/19 12/09/19 Metoprolol Tartrate 12.5 mg PO BID 09/26/19 12/09/19 Nicotine 14Mg/24Hr Patch [Habitrol] 1 patch TRANSDERM DAILY 10/28/19 12/09/19 Albuterol Inhaler [Ventolin Hfa 2 puff INHALATION RT-QID PRN 11/18/19 12/09/19 Inhaler] Cetirizine HCl 10 mg PO DAILY 11/18/19 12/09/19 Fluticasone Nasal [place] [Flonase 1 spray EA NOSTRIL DAILY PRN 11/18/19 12/09/19 Nasal [place]] Ondansetron [Zofran ODT] 4 mg PO Q8HR PRN 11/18/19 12/09/19 Pantoprazole Sodium 40 mg PO AC-BID 12/09/19 12/09/19 Previous Rx's Medication Instructions Recorded Potassium Chloride ER [K-Dur 10] 10 meq PO BID #60 tab 10/31/19 Dicyclomine [Bentyl] 20 mg PO TID #30 tablet 12/09/19 Omeprazole [PriLOSEC] 20 mg PO AC-BRKFST #14 cap 12/09/19 Allergies Allergy/AdvReac Type Severity Reaction Status Date / Time No Known Allergies Allergy Verified 12/09/19 08:05 Review of Systems ROS Statement: Those systems with pertinent positive or pertinent negative responses have been documented in the HPI. ROS Other: All systems not noted in ROS Statement are negative. Past Medical History Past Medical History: COPD, GERD/Reflux, Osteoarthritis (OA) Additional Past Medical History / Comment(s): Pt recently admitted to [facility] on 10/28/19 for dehydration, acute kidney injury, ileus. Had exploratory laparotomy in October when she was previously here. She is recent post viviana fundoplication and has had other recent admits for dehydration. Other hx: Pt states she has been having diarrhea lately-liquid/watery stools, bronchitis, UTI, nephritis, pt unsure why lopressor was recently prescribed, osteoporosis, past low back fracture, occasional upper back pain, sinus allergies. History of Any Multi-Drug Resistant Organisms: None Reported Past Surgical History: Section, Hernia Repair, Hysterectomy Additional Past Surgical History / Comment(s): 10/07/19 Viviana fundoplication, colonoscopy, hemorrhoidectomy, L shoulder benign tumor removed Past Anesthesia/Blood Transfusion Reactions: Previous Problems w/ Anesthesia Additional Past Anesthesia/Blood Transfusion Reaction / Comment(s): woke up during sx in past Past Psychological History: Anxiety, Depression Smoking Status: Current every day smoker Past Alcohol Use History: None Reported Past Drug Use History: None Reported - Past Family History Father Family Medical History: Cancer Additional Family Medical History / Comment(s): Esophageal cancer/ulcer. Pt states father of pneumonia at the age of 56yrs. Mother Family Medical History: Diabetes Mellitus Additional Family Medical History / Comment(s): MENS SYNDROME Sister(s) Additional Family Medical History / Comment(s): MENS SYNDROME General Exam Limitations: no limitations General appearance: alert, in no apparent distress Head exam: Present: atraumatic, normocephalic, normal inspection Eye exam: Present: normal appearance, PERRL, EOMI. Absent: scleral icterus, conjunctival injection, periorbital swelling ENT exam: Present: normal exam, mucous membranes moist Neck exam: Present: normal inspection, full ROM. Absent: tenderness, meningismus, lymphadenopathy Respiratory exam: Present: normal lung sounds bilaterally. Absent: respiratory distress, wheezes, rales, rhonchi, stridor Cardiovascular Exam: Present: normal rhythm, tachycardia, normal heart sounds. Absent: systolic murmur, diastolic murmur, rubs, gallop, clicks GI/Abdominal exam: Present: soft, tenderness (Mild diffuse), normal bowel sounds. Absent: distended, guarding, rebound, rigid Back exam: Absent: CVA tenderness (R), CVA tenderness (L) Neurological exam: Present: alert, oriented X3 Skin exam: Present: warm, dry, intact, normal color. Absent: rash Course Vital Signs 12/09/19 06:21 Temperature 98.1 F Pulse Rate 111 H Respiratory 18 Rate Blood Pressure 108/69 O2 Sat by Pulse 97 Oximetry - Reevaluation(s) Reevaluation #1: 12/09/19 08:44 Patient reevaluated resting comfortably no signs of distress. Updated on results. Medical Decision Making - Medical Decision Making Labs x-ray reviewed. Patient had ongoing stomach issues. Patient ileus is resolving. She does have gas throughout abdomen. Patient is passing gas and stool there is no concern about obstruction. Patient be discharged in stable condition. Patient is chronic abdominal issues. Patient advised to follow with pain management, GI physician. - Lab Data Result diagrams: 12/09/19 06:49 12/09/19 06:49 Lab Results 12/09/19 12/09/19 12/09/19 Range/Units 06:49 06:49 06:49 WBC 11.5 H (3.8-10.6) k/uL RBC 4.53 (3.80-5.40) m/uL Hgb 13.3 (11.4-16.0) gm/dL Hct 42.1 (34.0-46.0) % MCV 92.8 (80.0-100.0) fL MCH 29.3 (25.0-35.0) pg MCHC 31.6 (31.0-37.0) g/dL RDW 13.0 (11.5-15.5) % Plt Count 384 (150-450) k/uL Neutrophils % 69 % Lymphocytes % 22 % Monocytes % 5 % Eosinophils % 3 % Basophils % 0 % Neutrophils # 7.9 H (1.3-7.7) k/uL Lymphocytes # 2.5 (1.0-4.8) k/uL Monocytes # 0.5 (0-1.0) k/uL Eosinophils # 0.3 (0-0.7) k/uL Basophils # 0.0 (0-0.2) k/uL Sodium 136 L (137-145) mmol/L Potassium 4.3 (3.5-5.1) mmol/L Chloride 106 (98-107) mmol/L Carbon Dioxide 26 (22-30) mmol/L Anion Gap 4 mmol/L BUN 4 L (7-17) mg/dL Creatinine 0.48 L (0.52-1.04) mg/dL Est GFR (CKD-EPI)AfAm >90 (>60 ml/min/1.73 sqM) Est GFR (CKD-EPI)NonAf >90 (>60 ml/min/1.73 sqM) Glucose 132 H (74-99) mg/dL Plasma Lactic Acid [place] (0.7-2.0) mmol/L Calcium 10.6 H (8.4-10.2) mg/dL Total Bilirubin 0.5 (0.2-1.3) mg/dL AST 24 (14-36) U/L ALT 9 (4-34) U/L Alkaline Phosphatase 63 (38-126) U/L Total Protein 5.8 L (6.3-8.2) g/dL Albumin 3.4 L (3.5-5.0) g/dL Amylase 42 (30-110) U/L Lipase 41 (23-300) U/L Urine Color Light Yellow Urine Appearance Cloudy H (Clear) Urine pH 7.5 (5.0-8.0) Ur Specific [place] 1.008 (1.001-1.035) Urine Protein Negative (Negative) Urine Glucose (UA) Negative (Negative) Urine Ketones Negative (Negative) Urine Blood Negative (Negative) Urine Nitrite Negative (Negative) Urine Bilirubin Negative (Negative) Urine Urobilinogen <2.0 (<2.0) mg/dL Ur Leukocyte Esterase Negative (Negative) Urine RBC 7 H (0-5) /hpf Urine WBC 4 (0-5) /hpf Ur Squamous Epith Cells <1 (0-4) /hpf Amorphous Sediment Moderate H (None) /hpf Urine Bacteria Rare H (None) /hpf Hyaline Casts 49 H (0-2) /lpf Urine Mucus Occasional H (None) /hpf 12/08/ Range/Units 06:49 WBC (3.8-10.6) k/uL RBC (3.80-5.40) m/uL Hgb (11.4-16.0) gm/dL Hct (34.0-46.0) % MCV (80.0-100.0) fL MCH (25.0-35.0) pg MCHC (31.0-37.0) g/dL RDW (11.5-15.5) % Plt Count (150-450) k/uL Neutrophils % % Lymphocytes % % Monocytes % % Eosinophils % % Basophils % % Neutrophils # (1.3-7.7) k/uL Lymphocytes # (1.0-4.8) k/uL Monocytes # (0-1.0) k/uL Eosinophils # (0-0.7) k/uL Basophils # (0-0.2) k/uL Sodium (137-145) mmol/L Potassium (3.5-5.1) mmol/L Chloride (98-107) mmol/L Carbon Dioxide (22-30) mmol/L Anion Gap mmol/L BUN (7-17) mg/dL Creatinine (0.52-1.04) mg/dL Est GFR (CKD-EPI)AfAm (>60 ml/min/1.73 sqM) Est GFR (CKD-EPI)NonAf (>60 ml/min/1.73 sqM) Glucose (74-99) mg/dL Plasma Lactic Acid [place] 1.2 (0.7-2.0) mmol/L Calcium (8.4-10.2) mg/dL Total Bilirubin (0.2-1.3) mg/dL AST (14-36) U/L ALT (4-34) U/L Alkaline Phosphatase (38-126) U/L Total Protein (6.3-8.2) g/dL Albumin (3.5-5.0) g/dL Amylase (30-110) U/L Lipase (23-300) U/L Urine Color Urine Appearance (Clear) Urine pH (5.0-8.0) Ur Specific [place] (1.001-1.035) Urine Protein (Negative) Urine Glucose (UA) (Negative) Urine Ketones (Negative) Urine Blood (Negative) Urine Nitrite (Negative) Urine Bilirubin (Negative) Urine Urobilinogen (<2.0) mg/dL Ur Leukocyte Esterase (Negative) Urine RBC (0-5) /hpf Urine WBC (0-5) /hpf Ur Squamous Epith Cells (0-4) /hpf Amorphous Sediment (None) /hpf Urine Bacteria (None) /hpf Hyaline Casts (0-2) /lpf Urine Mucus (None) /hpf Disposition Clinical Impression: Abdominal pain, Ileus Disposition: HOME SELF-CARE Condition: Stable Instructions (If sedation given, give patient instructions): Abdominal Pain (ED) Additional Instructions: Please return to the Emergency Department if symptoms worsen or any other concerns. Prescriptions: Dicyclomine [Bentyl] 20 mg PO TID #30 tablet Omeprazole [PriLOSEC] 20 mg PO AC-BRKFST #14 cap Is patient prescribed a controlled substance at d/c from ED?: No Referrals: Anabelle Martinez MD [Primary Care Provider] - 1-2 days Time of Disposition: 08:45
[2019-12-09 07:27] LABS: Basophils % (A) 0 %; Eosinophils # (A) 0.3 k/uL (0-0.7); Eosinophils % (A) 3 %; HCT 42.1 % (34.0-46.0); HGB 13.3 gm/dL (11.4-16.0); Lymphocytes # (A) 2.5 k/uL (1.0-4.8); Lymphocytes % (A) 22 %; MCH 29.3 pg (25.0-35.0); MCHC 31.6 g/dL (31.0-37.0); MCV 92.8 fL (80.0-100.0); Mean Platelet Volume 7.4; Monocytes # (A) 0.5 k/uL (0-1.0); Monocytes % (A) 5 %; Neutrophils # (A) 7.9 k/uL (1.3-7.7); Neutrophils % (A) 69 %; Platelet Count 384 k/uL (150-450); RBC 4.53 m/uL (3.80-5.40); WBC 11.5 k/uL (3.8-10.6)
[2019-12-09 07:32] LABS: Amorphous Sediment,Urine Moderate /hpf; Appearance,Urine Cloudy (Clear); Bacteria,Urine Rare /hpf; Bilirubin,Urine Negative (Negative); Blood,Urine Negative (Negative); Color,Urine Light Yellow; Glucose,Urine (UA) Negative (Negative); Hyaline Casts,Urine 49 /lpf (0-2); Ketones,Urine Negative (Negative); Leukocyte Esterase,Urine Negative (Negative); Mucus,Urine Occasional /hpf; Nitrite,Urine Negative (Negative); PH, Urine 7.5 (5.0-8.0); Protein,Urine Negative (Negative); RBC,Urine 7 /hpf (0-5); Specific Gravity,Urine 1.008 (1.001-1.035); Squamous Epithelial Cell,Urine <1 /hpf (0-4); Urobilinogen,Urine <2.0 mg/dL (<2.0); WBC,Urine 4 /hpf (0-5)
[2019-12-09 07:36] LABS: ALT 9 U/L (4-34); AST 24 U/L (14-36); African American GFR (CKD) >90 (>60 ml/min/1.73 sqM); Albumin 3.4 g/dL (3.5-5.0); Alkaline Phosphatase 63 U/L (38-126); Amylase 42 U/L (30-110); Anion Gap 4 mmol/L; Blood Urea Nitrogen 4 mg/dL (7-17); Calcium 10.6 mg/dL (8.4-10.2); Carbon Dioxide 26 mmol/L (22-30); Chloride 106 mmol/L (98-107); Glucose 132 mg/dL (74-99); Non-African American GFR(CKD) >90 (>60 ml/min/1.73 sqM); Potassium 4.3 mmol/L (3.5-5.1); Sodium 136 mmol/L (137-145); Total Bilirubin 0.5 mg/dL (0.2-1.3); Total Protein 5.8 g/dL (6.3-8.2)
--- NOTE | 2019-12-09 07:44 | XR ---
EXAMINATION TYPE: XR KUB DATE OF EXAM: 12/09/2019 COMPARISON: 12/04/2019 INDICATION: Abdominal pain diarrhea, recent ileus TECHNIQUE: Single view abdomen upright view FINDINGS: There are multiple air-fluid levels present. Air is within the colon with some air-fluid levels withi n the colon. Small bowel dilatation is diminished somewhat over the interval. Psoas margins are normal. No organomegaly is present. IMPRESSION: 1. Improving ileus. Findings which can be compatible with partial small bowel obstruction in the prop er clinical setting. Gastroenteritis could be considered within the differential. Findings appear to be improving from comparison.
[2019-12-09 08:53] VITALS: BP 99/70; PULSE 86; RESP 16; TEMP 98.3
== END 2019-12-09 08:48 | disposition home or self-care (01) ==
LOC: EC 06:18
DX: K56.7 Ileus, unspecified (principal); J44.9 Chronic obstructive pulmonary disease, unspecified; K21.9 Gastro-esophageal reflux disease without esophagitis; F17.200 Nicotine dependence, unspecified, uncomplicated; Z79.51 Long term (current) use of inhaled steroids; Z79.899 Other long term (current) drug therapy
CPT/HCPCS: 36415; 80053; 82150; 83605; 83690; 85025; 81001; 74018; 99284; 96374; 96361; 96372; J0500; J2405

== ENCOUNTER 2020-01-13 22:11 | Inpatient (IN) | payer OTHER ==
[2020-01-13] MEDS: SODIUM CHLORIDE 0.9% 500 ML 500 ML IV SCH ×2 (22:35→22:52)
[2020-01-13 23:17] LABS: ALT 13 U/L (4-34); AST 23 U/L (14-36); African American GFR (CKD) >90 (>60 ml/min/1.73 sqM); Alkaline Phosphatase 78 U/L (38-126); Anion Gap 7 mmol/L; Blood Urea Nitrogen 13 mg/dL (7-17); C Reactive Protein <5.0 mg/L (<10.0); Calcium 12.6 mg/dL (8.4-10.2); Carbon Dioxide 29 mmol/L (22-30); Chloride 97 mmol/L (98-107); Glucose 215 mg/dL (74-99); LDH 534 U/L (313-618); Lipase 216 U/L (23-300); Magnesium 1.9 mg/dL (1.6-2.3); Non-African American GFR(CKD) 88 (>60 ml/min/1.73 sqM); Potassium 4.5 mmol/L (3.5-5.1); Sodium 133 mmol/L (137-145); Total Bilirubin 0.6 mg/dL (0.2-1.3)
[2020-01-13 23:23] LABS: INR 0.9 (<1.2); Prothrombin Time 9.8 sec (9.0-12.0)
[2020-01-13 23:25] LABS: Basophils # (A) 0.3 k/uL (0-0.2); Basophils % (A) 1 %; Eosinophils # (A) 0.3 k/uL (0-0.7); Eosinophils % (A) 2 %; HGB 14.8 gm/dL (11.4-16.0); Lymphocytes # (A) 3.4 k/uL (1.0-4.8); Lymphocytes % (A) 19 %; MCH 30.2 pg (25.0-35.0); MCHC 32.2 g/dL (31.0-37.0); MCV 93.6 fL (80.0-100.0); Mean Platelet Volume 7.6; Monocytes % (A) 6 %; Neutrophils # (A) 12.6 k/uL (1.3-7.7); Neutrophils % (A) 71 %; Platelet Count 513 k/uL (150-450); RBC 4.92 m/uL (3.80-5.40); RDW 12.5 % (11.5-15.5); WBC 17.7 k/uL (3.8-10.6)
[2020-01-13 23:32] LABS: Amorphous Sediment,Urine Occasional /hpf; Appearance,Urine Cloudy (Clear); Bacteria,Urine Rare /hpf; Bilirubin,Urine Negative (Negative); Blood,Urine Negative (Negative); Color,Urine Light Red; Glucose,Urine (UA) Negative (Negative); Hyaline Casts,Urine 248 /lpf (0-2); Ketones,Urine Trace (Negative); Leukocyte Esterase,Urine Small (Negative); Mucus,Urine Many /hpf; Nitrite,Urine Negative (Negative); PH, Urine 5.5 (5.0-8.0); Protein,Urine 1+ (Negative); RBC,Urine 28 /hpf (0-5); Specific Gravity,Urine 1.022 (1.001-1.035); Squamous Epithelial Cell,Urine <1 /hpf (0-4); Urobilinogen,Urine <2.0 mg/dL (<2.0); WBC,Urine 22 /hpf (0-5)
[2020-01-13] MEDS ORDERED: FAMOTIDINE 20 MG/2 ML VIAL IV STA (23:32)
[2020-01-13] MEDS ORDERED: ONDANSETRON 4 MG/2 ML VIAL IVP STA (23:32)
[2020-01-13] MEDS ORDERED: MORPHINE SULFATE 4 MG/ML SYRINGE IVP STA (23:32)
[2020-01-13] MEDS: SODIUM CHLORIDE 0.9% 1,000 ML IV SCH (23:40)
[2020-01-13 23:43] LABS: Partial Thromboplastin Time 21.6 sec (22.0-30.0)
--- NOTE | 2020-01-14 00:38 | XR ---
EXAM: XR Abdomen, 2 Views and XR Chest, 1 View CLINICAL HISTORY: ITS.REASON XR Reason: abdominal pain, hx of SBO/ileus TECHNIQUE: Frontal view of the chest, frontal view of the abdomen/pelvis and upright or decubitus view of the abdomen. COMPARISON: 12/01/2019. FINDINGS: Lungs: The lungs are well aerated. Pleural space: Unremarkable. No pneumothorax. Heart: Cardiomediastinal silhouette unremarkable. Mediastinum: See above. Intraperitoneal space: No free air. Air-fluid levels are noted scattered throughout the abdomen are pending slightly improved since the previous study appeared Gastrointestinal tract: Unremarkable. No dilation. Bones/joints: Post vertebroplasty changes L2 vertebral body appeared Osteopenia. Other findings: Findings are most suggestive of diffuse ileus. Postsurgical changes. IMPRESSION: 1. Findings most suggestive of generalized are ileus which is slightly improved since the previous study. 2. Again, partial small bowel obstruction cannot be entirely excluded but is felt to be less likely. 3. Osteopenia. 4. No free air.
[2020-01-14] MEDS: SODIUM CHLORIDE 0.9% 500 ML 500 ML IV SCH (00:55)
[2020-01-14] MEDS ORDERED: ONDANSETRON 4 MG/2 ML VIAL IVP PRN (01:13)
[2020-01-14] MEDS ORDERED: MORPHINE SULFATE 4 MG/ML SYRINGE IV PRN (01:13)
[2020-01-14] MEDS ORDERED: NALOXONE 0.4 MG/ML 1 ML VIAL IV PRN (01:13)
--- NOTE | 2020-01-14 01:44 | ED ---
General Adult HPI - General Chief complaint: Abdominal Pain Stated complaint: NVD Time Seen by Provider: 01/13/20 22:32 Source: patient Mode of arrival: ambulatory Limitations: no limitations - History of Present Illness Initial comments: Mariaa is a pleasant 59 yo female who presents to the ER today for evaluation of nausea, vomiting, and diarrhea. Patient reports she has been suffering with episodes of this intermittently since September, she has recently undergone a rosemary fundoplicationwith no improvement of her chronic nausea, episodic vomiting. Patient states she's had 3 days of diarrhea, she has no history of C. diff. She states she can't tolerate any oral intake she feels nauseated all times. She is concerned she is dehydrated his a history of recurrent admissions for dehydration and acute kidney injury. - Related Data Home Medications Medication Instructions Recorded Confirmed Montelukast [Singulair] 10 mg PO HS 09/03/19 12/09/19 Metoprolol Tartrate 12.5 mg PO BID 09/26/19 12/09/19 Nicotine 14Mg/24Hr Patch [Habitrol] 1 patch TRANSDERM DAILY 10/28/19 12/09/19 Albuterol Inhaler [Ventolin Hfa 2 puff INHALATION RT-QID PRN 11/18/19 12/09/19 Inhaler] Cetirizine HCl 10 mg PO DAILY 11/18/19 12/09/19 Fluticasone Nasal [place] [Flonase 1 spray EA NOSTRIL DAILY PRN 11/18/19 12/09/19 Nasal [place]] Ondansetron [Zofran ODT] 4 mg PO Q8HR PRN 11/18/19 12/09/19 Pantoprazole Sodium 40 mg PO AC-BID 12/09/19 12/09/19 Previous Rx's Medication Instructions Recorded Potassium Chloride ER [K-Dur 10] 10 meq PO BID #60 tab 10/31/19 Dicyclomine [Bentyl] 20 mg PO TID #30 tablet 12/09/19 Omeprazole [PriLOSEC] 20 mg PO AC-BRKFST #14 cap 12/09/19 Allergies Allergy/AdvReac Type Severity Reaction Status Date / Time No Known Allergies Allergy Verified 01/13/20 22:20 Review of Systems ROS Statement: Those systems with pertinent positive or pertinent negative responses have been documented in the HPI. ROS Other: All systems not noted in ROS Statement are negative. Past Medical History Past Medical History: COPD, GERD/Reflux, Osteoarthritis (OA) Additional Past Medical History / Comment(s): Pt recently admitted to [facility] on 10/28/19 for dehydration, acute kidney injury, ileus. Had exploratory laparotomy in October when she was previously here. She is recent post rosemary fundoplication and has had other recent admits for dehydration. Other hx: Pt states she has been having diarrhea lately-liquid/watery stools, bronchitis, UTI, nephritis, pt unsure why lopressor was recently prescribed, osteoporosis, past low back fracture, occasional upper back pain, sinus allergies. History of Any Multi-Drug Resistant Organisms: None Reported Past Surgical History: Section, Hernia Repair, Hysterectomy Additional Past Surgical History / Comment(s): 10/07/19 Rosemary fundoplication, colonoscopy, hemorrhoidectomy, L shoulder benign tumor removed Past Anesthesia/Blood Transfusion Reactions: Previous Problems w/ Anesthesia Additional Past Anesthesia/Blood Transfusion Reaction / Comment(s): woke up during sx in past Past Psychological History: Anxiety, Depression Smoking Status: Current every day smoker Past Alcohol Use History: None Reported Past Drug Use History: None Reported - Past Family History Father Family Medical History: Cancer Additional Family Medical History / Comment(s): Esophageal cancer/ulcer. Pt states father of pneumonia at the age of 56yrs. Mother Family Medical History: Diabetes Mellitus Additional Family Medical History / Comment(s): MENS SYNDROME Sister(s) Additional Family Medical History / Comment(s): MENS SYNDROME General Exam - General Exam Comments Initial Comments: Physical Exam GENERAL: Chronically ill appearing HENT: Normocephalic, Atraumatic. EYES: PERRL, EOMI PULMONARY: Unlabored respirations. No audible rales rhonchi or wheezing was noted. CARDIOVASCULAR: Tachycardic, regular ABDOMEN: Soft and nontender with normal bowel sounds. SKIN: Dry, skin tenting noted : Deferred NEUROLOGIC: Patient is alert and oriented x3. Moving all extremities spontaneously MUSCULOSKELETAL: Normal extremities with adequate strength and full range of motion. No lower extremity swelling or edema. No calf tenderness. PSYCHIATRIC: Normal psychiatric evaluation. Limitations: no limitations Course Vital Signs 01/13/20 22:13 Temperature 97.9 F Pulse Rate 122 H Respiratory 30 H Rate Blood Pressure 96/66 O2 Sat by Pulse 98 Oximetry EKG Findings - EKG Comments: EKG Findings:: EKG obtained due to tachycardia, EKG obtained at 2030, rate is 105 rhythm is sinus tach normal axis, normal intervals, OR 122, QRS 82, QTc 441 elevations or depressions evidence of acute ischemia or infarction Medical Decision Making - Medical Decision Making the patient was seen and evaluated history was obtained from the patient and review of medical record 59-year-old female with nausea and diarrhea, decreased oral intake, on exam she is very dehydrated Labs were obtained, 30 mL/kg bolus was ordered Labs with leukocytosis, no significant electrolyte abnormalities Urinalysis with gross skin contamination no signs of infection, noted to have a significant amount of hyaline casts consistent with dehydration X-rays with persistent evidence of ileus versus early small bowel obstruction, improved from previous Patient care was discussed with her surgeon Dr. Pierce who recommends patient be placed in observation for IV fluid rehydration and medical management. He does not feel further testing for c diff is indicated at this time as she has persistent leukocytosis with dehydration. - Lab Data Result diagrams: 01/13/20 22:43 01/13/20 22:43 Lab Results 01/13/20 01/13/20 01/13/20 Range/Units 22:43 22:43 22:43 WBC 17.7 H (3.8-10.6) k/uL RBC 4.92 (3.80-5.40) m/uL Hgb 14.8 (11.4-16.0) gm/dL Hct 46.0 (34.0-46.0) % MCV 93.6 (80.0-100.0) fL MCH 30.2 (25.0-35.0) pg MCHC 32.2 (31.0-37.0) g/dL RDW 12.5 (11.5-15.5) % Plt Count 513 H (150-450) k/uL Neutrophils % 71 % Lymphocytes % 19 % Monocytes % 6 % Eosinophils % 2 % Basophils % 1 % Neutrophils # 12.6 H (1.3-7.7) k/uL Lymphocytes # 3.4 (1.0-4.8) k/uL Monocytes # 1.0 (0-1.0) k/uL Eosinophils # 0.3 (0-0.7) k/uL Basophils # 0.3 H (0-0.2) k/uL PT 9.8 (9.0-12.0) sec INR 0.9 (<1.2) APTT 21.6 L (22.0-30.0) sec Sodium (137-145) mmol/L Potassium (3.5-5.1) mmol/L Chloride (98-107) mmol/L Carbon Dioxide (22-30) mmol/L Anion Gap mmol/L BUN (7-17) mg/dL Creatinine (0.52-1.04) mg/dL Est GFR (CKD-EPI)AfAm (>60 ml/min/1.73 sqM) Est GFR (CKD-EPI)NonAf (>60 ml/min/1.73 sqM) Glucose (74-99) mg/dL Plasma Lactic Acid [place] (0.7-2.0) mmol/L Calcium (8.4-10.2) mg/dL Magnesium (1.6-2.3) mg/dL Total Bilirubin (0.2-1.3) mg/dL AST (14-36) U/L ALT (4-34) U/L Alkaline Phosphatase (38-126) U/L Lactate Dehydrogenase (313-618) U/L C-Reactive Protein (<10.0) mg/L Total Protein (6.3-8.2) g/dL Albumin (3.5-5.0) g/dL Lipase (23-300) U/L Urine Color Light Red Urine Appearance Cloudy H (Clear) Urine pH 5.5 (5.0-8.0) Ur Specific [place] 1.022 (1.001-1.035) Urine Protein 1+ H (Negative) Urine Glucose (UA) Negative (Negative) Urine Ketones Trace H (Negative) Urine Blood Negative (Negative) Urine Nitrite Negative (Negative) Urine Bilirubin Negative (Negative) Urine Urobilinogen <2.0 (<2.0) mg/dL Ur Leukocyte Esterase Small H (Negative) Urine RBC 28 H (0-5) /hpf Urine WBC 22 H (0-5) /hpf Ur Squamous Epith Cells <1 (0-4) /hpf Amorphous Sediment Occasional H (None) /hpf Urine Bacteria Rare H (None) /hpf Hyaline Casts 248 H (0-2) /lpf Urine Mucus Many H (None) /hpf 01/13/20 01/13/20 Range/Units 22:43 22:43 WBC (3.8-10.6) k/uL RBC (3.80-5.40) m/uL Hgb (11.4-16.0) gm/dL Hct (34.0-46.0) % MCV (80.0-100.0) fL MCH (25.0-35.0) pg MCHC (31.0-37.0) g/dL RDW (11.5-15.5) % Plt Count (150-450) k/uL Neutrophils % % Lymphocytes % % Monocytes % % Eosinophils % % Basophils % % Neutrophils # (1.3-7.7) k/uL Lymphocytes # (1.0-4.8) k/uL Monocytes # (0-1.0) k/uL Eosinophils # (0-0.7) k/uL Basophils # (0-0.2) k/uL PT (9.0-12.0) sec INR (<1.2) APTT (22.0-30.0) sec Sodium 133 L (137-145) mmol/L Potassium 4.5 (3.5-5.1) mmol/L Chloride 97 L (98-107) mmol/L Carbon Dioxide 29 (22-30) mmol/L Anion Gap 7 mmol/L BUN 13 (7-17) mg/dL Creatinine 0.76 (0.52-1.04) mg/dL Est GFR (CKD-EPI)AfAm >90 (>60 ml/min/1.73 sqM) Est GFR (CKD-EPI)NonAf 88 (>60 ml/min/1.73 sqM) Glucose 215 H (74-99) mg/dL Plasma Lactic Acid [place] 1.8 (0.7-2.0) mmol/L Calcium 12.6 H (8.4-10.2) mg/dL Magnesium 1.9 (1.6-2.3) mg/dL Total Bilirubin 0.6 (0.2-1.3) mg/dL AST 23 (14-36) U/L ALT 13 (4-34) U/L Alkaline Phosphatase 78 (38-126) U/L Lactate Dehydrogenase 534 (313-618) U/L C-Reactive Protein <5.0 (<10.0) mg/L Total Protein 7.0 (6.3-8.2) g/dL Albumin 4.0 (3.5-5.0) g/dL Lipase 216 (23-300) U/L Urine Color Urine Appearance (Clear) Urine pH (5.0-8.0) Ur Specific [place] (1.001-1.035) Urine Protein (Negative) Urine Glucose (UA) (Negative) Urine Ketones (Negative) Urine Blood (Negative) Urine Nitrite (Negative) Urine Bilirubin (Negative) Urine Urobilinogen (<2.0) mg/dL Ur Leukocyte Esterase (Negative) Urine RBC (0-5) /hpf Urine WBC (0-5) /hpf Ur Squamous Epith Cells (0-4) /hpf Amorphous Sediment (None) /hpf Urine Bacteria (None) /hpf Hyaline Casts (0-2) /lpf Urine Mucus (None) /hpf Disposition Clinical Impression: Ileus, Nausea vomiting and diarrhea, Dehydration, Status post Rosemary fundoplication, Leukocytosis Disposition: ADMITTED IP TO THIS [facility] Condition: Stable Is patient prescribed a controlled substance at d/c from ED?: No Referrals: Anabelle Martinez MD [Primary Care Provider] - 1-2 days
[2020-01-14] MEDS: HYDROmorphone 0.5 MG/0.5 ML SYRINGE IVP PRN ×5 (02:34→23:57)
[2020-01-14] MEDS: SODIUM CHLORIDE 0.9% 1,000 ML IV SCH ×3 (06:42→21:30)
[2020-01-14] MEDS ORDERED: ALBUTEROL HFA INHALER INHALATION PRN (10:39)
[2020-01-14] MEDS: PANTOPRAZOLE 40 MG/10 ML VIAL IV SCH (11:25)
--- NOTE | 2020-01-14 12:38 | P.GSHP ---
History of Present Illness H&P Date: 01/14/20 CHIEF COMPLAINT: Nausea vomiting and diarrhea HISTORY OF PRESENT ILLNESS: This is a 59-year-old female with a known past medical history of Viviana fundoplication in September 2019, exploratory laparotomy with lysis of adhesions in October. At the time of her recent laparotomy there is no definite bowel obstruction seen. Patient continues to have recurrent hospitalizations with vomiting and diarrhea and dehydration. She is usually treated with IV fluids and treated as an ileus. And symptoms improve and then she tolerates diet. Patientpresents to the hospital with nausea vomiting and diarrhea. She reports that she was recently at [facility] for similar symptoms and they treated her with antibiotics Flagyl and azithromycin. Patient feels that this has made her diarrhea worse. She is also complaining of right upper quadrant pain. She was told that she has some issues with her gallbladder At [facility]. She denies any fever chills or sweats. PAST MEDICAL HISTORY: See list. PAST SURGICAL HISTORY: See list. MEDICATIONS: See list. ALLERGIES: See list. SOCIAL HISTORY: No illicit drug use. REVIEW OF SYSTEMS: CONSTITUTIONAL: Denies fever or chills. HEENT: Denies blurred vision, vision changes, or eye pain. Denies hemoptysis CARDIOVASCULAR: Denies chest pain or pressure. RESPIRATORY: No shortness of breath. GASTROINTESTINAL: See HPI for pertinent findings HEMATOLOGIC: Denies bleeding disorders. GENITOURINARY: Denies any blood in urine or increased urinary frequency. SKIN: Denies pruitis. Denies rash. PHYSICAL EXAM: VITAL SIGNS: Reviewed GENERAL: Well-developed in no acute distress. HEENT: No sclera icterus. Extraocular movements grossly intact. Moist buccal mucosa. Head is atraumatic, normocephalic. No nasal drainage. ABDOMEN: Soft. Nondistended. Right upper quadrant tenderness with palpation NEUROLOGIC: Alert and oriented. Cranial nerves II through XII grossly intact. LABORATORY DATA: WBC 17.7 sodium 133 creatinine 0.76 lactic 1.8 IMAGING: Abdominal x-ray findings suggestive of generalized ileus which is slightly improved since previous study. Again, partial small bowel obstruction cannot be entirely excluded. No free air ASSESSMENT: 1. Right upper quadrant abdominal pain 2. Nausea vomiting and diarrhea 3. Ileus 4. Dehydration PLAN: -Order abdominal ultrasound And HIDA scan for further evaluation of the right upper quadrant pain and possible gallbladder disease -Continue IV fluids -Continue clear liquid diet -Consult medicine for medical management GI prophylaxis Protonix and DVT prophylaxis subcu heparin Physician Golf Club Assembler note has been reviewed by physician. Signing provider agrees with the documented findings, assessment, and plan of care. Past Medical History Past Medical History: COPD, GERD/Reflux, Osteoarthritis (OA) Additional Past Medical History / Comment(s): Pt recently admitted to [facility] on 10/28/19 for dehydration, acute kidney injury, ileus. Had exploratory laparotomy in October when she was previously here. She is recent post viviana fundoplication and has had other recent admits for dehydration. Other hx: Pt states she has been having diarrhea lately-liquid/watery stools, bronchitis, UTI, nephritis, pt unsure why lopressor was recently prescribed, osteoporosis, past low back fracture, occasional upper back pain, sinus allergies. History of Any Multi-Drug Resistant Organisms: None Reported Past Surgical History: Section, Hernia Repair, Hysterectomy Additional Past Surgical History / Comment(s): 10/07/19 Viviana fundoplication, colonoscopy, hemorrhoidectomy, L shoulder benign tumor removed Past Anesthesia/Blood Transfusion Reactions: Previous Problems w/ Anesthesia Additional Past Anesthesia/Blood Transfusion Reaction / Comment(s): woke up during sx in past Past Psychological History: Anxiety, Depression Smoking Status: Current every day smoker Past Alcohol Use History: None Reported Past Drug Use History: None Reported - Past Family History Father Family Medical History: Cancer Additional Family Medical History / Comment(s): Esophageal cancer/ulcer. Pt states father of pneumonia at the age of 56yrs. Mother Family Medical History: Diabetes Mellitus Additional Family Medical History / Comment(s): MENS SYNDROME Sister(s) Additional Family Medical History / Comment(s): MENS SYNDROME Medications and Allergies Home Medications Medication Instructions Recorded Confirmed Type Montelukast [Singulair] 10 mg PO HS 09/03/19 01/14/20 History Metoprolol Tartrate 12.5 mg PO BID 09/26/19 01/14/20 History Albuterol Inhaler [Ventolin Hfa 2 puff INHALATION RT-QID PRN 11/18/19 01/14/20 History Inhaler] Fluticasone Nasal [place] [Flonase 1 spray EA NOSTRIL DAILY PRN 11/18/19 01/14/20 History Nasal [place]] Ondansetron [Zofran ODT] 4 mg PO DAILY PRN 11/18/19 01/14/20 History Ibuprofen [Motrin] 600 mg PO Q8HR PRN 01/14/20 01/14/20 History Nicotine 21Mg/24Hr Patch [Habitrol] 1 patch TRANSDERM DAILY 01/14/20 01/14/20 History metroNIDAZOLE [Flagyl] 500 mg PO TID 01/14/20 01/14/20 History Allergies Allergy/AdvReac Type Severity Reaction Status Date / Time No Known Allergies Allergy Verified 01/14/20 07:44 Surgical - Exam Vital Signs Temp Pulse Resp BP Pulse Ox 97.9 F 122 H 30 H 96/66 98 01/13/20 22:13 01/13/20 22:13 01/13/20 22:13 01/13/20 22:13 01/13/20 22:13 Results - Labs 01/13/20 22:43 01/13/20 22:43 Abnormal Lab Results - Last 24 Hours (Table) 01/13/20 01/13/20 01/13/20 Range/Units 22:43 22:43 22:43 WBC 17.7 H (3.8-10.6) k/uL Plt Count 513 H (150-450) k/uL Neutrophils # 12.6 H (1.3-7.7) k/uL Basophils # 0.3 H (0-0.2) k/uL APTT 21.6 L (22.0-30.0) sec Sodium (137-145) mmol/L Chloride (98-107) mmol/L Glucose (74-99) mg/dL Calcium (8.4-10.2) mg/dL Procalcitonin (0.02-0.09) ng/mL Urine Appearance Cloudy H (Clear) Urine Protein 1+ H (Negative) Urine Ketones Trace H (Negative) Ur Leukocyte Esterase Small H (Negative) Urine RBC 28 H (0-5) /hpf Urine WBC 22 H (0-5) /hpf Amorphous Sediment Occasional H (None) /hpf Urine Bacteria Rare H (None) /hpf Hyaline Casts 248 H (0-2) /lpf Urine Mucus Many H (None) /hpf 01/13/20 01/13/20 Range/Units 22:43 22:43 WBC (3.8-10.6) k/uL Plt Count (150-450) k/uL Neutrophils # (1.3-7.7) k/uL Basophils # (0-0.2) k/uL APTT (22.0-30.0) sec Sodium 133 L (137-145) mmol/L Chloride 97 L (98-107) mmol/L Glucose 215 H (74-99) mg/dL Calcium 12.6 H (8.4-10.2) mg/dL Procalcitonin 0.12 H (0.02-0.09) ng/mL Urine Appearance (Clear) Urine Protein (Negative) Urine Ketones (Negative) Ur Leukocyte Esterase (Negative) Urine RBC (0-5) /hpf Urine WBC (0-5) /hpf Amorphous Sediment (None) /hpf Urine Bacteria (None) /hpf Hyaline Casts (0-2) /lpf Urine Mucus (None) /hpf Diabetes panel 01/13/20 Range/Units 22:43 Sodium 133 L (137-145) mmol/L Potassium 4.5 (3.5-5.1) mmol/L Chloride 97 L (98-107) mmol/L Carbon Dioxide 29 (22-30) mmol/L BUN 13 (7-17) mg/dL Creatinine 0.76 (0.52-1.04) mg/dL Glucose 215 H (74-99) mg/dL Calcium 12.6 H (8.4-10.2) mg/dL AST 23 (14-36) U/L ALT 13 (4-34) U/L Alkaline Phosphatase 78 (38-126) U/L Total Protein 7.0 (6.3-8.2) g/dL Albumin 4.0 (3.5-5.0) g/dL Calcium panel 01/13/20 Range/Units 22:43 Calcium 12.6 H (8.4-10.2) mg/dL Albumin 4.0 (3.5-5.0) g/dL Pituitary panel 01/13/20 Range/Units 22:43 Sodium 133 L (137-145) mmol/L Potassium 4.5 (3.5-5.1) mmol/L Chloride 97 L (98-107) mmol/L Carbon Dioxide 29 (22-30) mmol/L BUN 13 (7-17) mg/dL Creatinine 0.76 (0.52-1.04) mg/dL Glucose 215 H (74-99) mg/dL Calcium 12.6 H (8.4-10.2) mg/dL Adrenal panel 01/13/20 Range/Units 22:43 Sodium 133 L (137-145) mmol/L Potassium 4.5 (3.5-5.1) mmol/L Chloride 97 L (98-107) mmol/L Carbon Dioxide 29 (22-30) mmol/L BUN 13 (7-17) mg/dL Creatinine 0.76 (0.52-1.04) mg/dL Glucose 215 H (74-99) mg/dL Calcium 12.6 H (8.4-10.2) mg/dL Total Bilirubin 0.6 (0.2-1.3) mg/dL AST 23 (14-36) U/L ALT 13 (4-34) U/L Alkaline Phosphatase 78 (38-126) U/L Total Protein 7.0 (6.3-8.2) g/dL Albumin 4.0 (3.5-5.0) g/dL
[2020-01-14 13:19] VITALS: BMI 16.9
--- NOTE | 2020-01-14 13:23 | US ---
EXAMINATION TYPE: US abdomen complete DATE OF EXAM: 01/14/2020 COMPARISON: NONE CLINICAL HISTORY: right upper quadrant abdominal pain. EXAM MEASUREMENTS: Liver Length: 12.1 cm Gallbladder Wall: 0.4 cm CBD: 0.7 cm Spleen: 8.4 cm Right Kidney: 10.3 x 5.2 x 4.5 cm Left Kidney: 9.7 x 4.4 x 4.3 cm Severe overlying bowel gas. Pancreas: Obscured by bowel gas Liver: wnl Gallbladder: comet tail artifact in anterior wall Evidence for sonographic Negro's sign: CBD: ?comet tail artifact in wall Spleen: wnl Right Kidney: poor visualization due to overlying bowel gas Left Kidney: poor visualization due to overlying bowel gas Upper IVC: wnl in its visualized portions Abd Aorta: distal and bifurcation obscured by bowel gas, no aneurysm evident There is no ascites. IMPRESSION: Findings suggest cholecystosis within the gallbladder, gallbladder is contracted. Borderl ine enlarged common bile duct.
[2020-01-14 13:24] LABS: Glucose,Whole Blood 89 mg/dL (75-99)
--- NOTE | 2020-01-14 16:55 | P.CONS ---
History of Present Illness - Reason for Consult Consult date: 01/14/20 Medical management - Chief Complaint Abdominal pain - History of Present Illness Patient is a 59-year-old female with a known history of COPD, GERD, recent Viviana fundoplication in September 2019, explored a laparotomy and lysis of adhesions in October 2019, osteoarthritis and anxiety/depressionsmoker came to ER with complaints of came to ER with the complaints of nausea, vomiting and diarrhea. Patient has been having recurrent episodes of similar symptoms since September and has undergone explore laparotomy with lysis of adhesions. Patient says that she had 3 days of diarrhea followed by nausea and vomiting episodes. Patient was also complaining of abdominal pain mainly epigastric and right upper quadrant. Denied any recent antibiotic use. No history of C. difficile infection. Patient was recently admitted to the hospital for acute kidney injury as well. Denied any chest pain or shortness breath. No fever no chills. No headache or dizziness or lightheadedness. Patient had abdominal x-ray series in the ER showed findings most suggestive of generalized ileus which is slightly improved since the previous study. Osteopenia, no free air, partial small bowel obstruction cannot be entirely ruled out. Laboratory data showed WBC 17.7, hemoglobin 14.8 and platelets 513 Sodium 133, potassium 4.5, chloride 97, calcium level 12.6 Procalcitonin level is 0.12 Urinalysis showed cloudy small leukocyte esterase and elevated WBC and RBCs and hyaline casts. Review of Systems Constitutional: Patient denies any fever or chills . Generalized weakness and malaise. Abdomen: Patient does have nausea vomiting and abdominal pain. Diarrhea.. Cardiovascular: Patient denies any chest pain or short of breath no palpitations. Respiratory: patient denied any cough is from production. No shortness of breath Neurologic: Patient denied any numbness or tingling headache. Musculoskeletal: Patient denies any complaints of joint swelling or deformity. Skin: Negative Psychiatric: Negative Endocrine: No heat or cold intolerance. No recent weight gain. Genitourinary: No dysuria or hematuria. All other 14 point ROS negative except the above Past Medical History Past Medical History: COPD, GERD/Reflux, Osteoarthritis (OA) Additional Past Medical History / Comment(s): Pt recently admitted to [facility] on 10/28/19 for dehydration, acute kidney injury, ileus. Had exploratory laparotomy in October when she was previously here. She is recent post viviana fundoplication and has had other recent admits for dehydration. Other hx: Pt states she has been having diarrhea lately-liquid/watery stools, bronchitis, UTI, nephritis, pt unsure why lopressor was recently prescribed, osteoporosis, past low back fracture, occasional upper back pain, sinus allergies. History of Any Multi-Drug Resistant Organisms: None Reported Past Surgical History: Section, Hernia Repair, Hysterectomy Additional Past Surgical History / Comment(s): 10/07/19 Viviana fundoplication, colonoscopy, hemorrhoidectomy, L shoulder benign tumor removed Past Anesthesia/Blood Transfusion Reactions: Previous Problems w/ Anesthesia Additional Past Anesthesia/Blood Transfusion Reaction / Comm: woke up during sx in past Past Psychological History: Anxiety, Depression Smoking Status: Current every day smoker Past Alcohol Use History: None Reported Past Drug Use History: None Reported - Past Family History Father Family Medical History: Cancer Additional Family Medical History / Comment(s): Esophageal cancer/ulcer. Pt states father of pneumonia at the age of 56yrs. Mother Family Medical History: Diabetes Mellitus Additional Family Medical History / Comment(s): MENS SYNDROME Sister(s) Additional Family Medical History / Comment(s): MENS SYNDROME Medications and Allergies Home Medications Medication Instructions Recorded Confirmed Type Montelukast [Singulair] 10 mg PO HS 09/03/19 01/14/20 History Metoprolol Tartrate 12.5 mg PO BID 09/26/19 01/14/20 History Albuterol Inhaler [Ventolin Hfa 2 puff INHALATION RT-QID PRN 11/18/19 01/14/20 History Inhaler] Fluticasone Nasal [place] [Flonase 1 spray EA NOSTRIL DAILY PRN 11/18/19 01/14/20 History Nasal [place]] Ondansetron [Zofran ODT] 4 mg PO DAILY PRN 11/18/19 01/14/20 History Ibuprofen [Motrin] 600 mg PO Q8HR PRN 01/14/20 01/14/20 History Nicotine 21Mg/24Hr Patch [Habitrol] 1 patch TRANSDERM DAILY 01/14/20 01/14/20 History metroNIDAZOLE [Flagyl] 500 mg PO TID 01/14/20 01/14/20 History Allergies Allergy/AdvReac Type Severity Reaction Status Date / Time No Known Allergies Allergy Verified 01/14/20 07:44 Physical Exam Vitals: Vital Signs Temp Pulse Pulse Resp BP BP BP 01/14/20 12:00 98.3 F 73 16 103/65 01/14/20 08:23 97.9 F 78 16 97/63 01/14/20 02:30 97.4 F L 80 18 113/73 01/14/20 02:08 89 16 101/47 01/13/20 22:13 97.9 F 122 H 30 H 96/66 Pulse Ox 01/14/20 12:00 96 01/14/20 08:23 98 01/14/20 02:30 97 01/14/20 02:08 97 01/13/20 22:13 98 Intake and Output 01/14/20 01/14/20 01/14/20 06:59 14:59 22:59 Other: # Voids 1 2 Weight 40.823 kg 40.823 kg PHYSICAL EXAMINATION: Patient is lying in the bed comfortably, mild distress, awake alert and oriented.. HEENT: Normocephalic. Neck is supple. Pupils reactive. Nostrils clear. Oral cavity is moist. Ears reveal no drainage. Neck reveals no JVD, carotid bruits, or thyromegaly. CHEST EXAMINATION: Trachea is central. Symmetrical expansion. Lung haddad clear to auscultation and percussion. CARDIAC: Normal S1, S2 with no gallops. No murmurs ABDOMEN: Soft. Patient does have epigastric and right upper quadrant tenderness. No guarding no rigidity. Bowel sounds normal. No organomegaly. No abdominal bruits. Extremities: reveal no edema. No clubbing or cyanosis Neurologically awake, alert, oriented x3 with well-coordinated movements. No focal deficits noted Skin: No rash or skin lesions. Psychiatric: Coperative. Nonsuicidal Musculoskeletal: No joint swelling or deformity. Normal range of motion. Results CBC & Chem 7: 01/13/20 22:43 01/13/20 22:43 Labs: Abnormal Lab Results - Last 24 Hours (Table) 01/13/20 01/13/20 01/13/20 Range/Units 22:43 22:43 22:43 WBC 17.7 H (3.8-10.6) k/uL Plt Count 513 H (150-450) k/uL Neutrophils # 12.6 H (1.3-7.7) k/uL Basophils # 0.3 H (0-0.2) k/uL APTT 21.6 L (22.0-30.0) sec Sodium (137-145) mmol/L Chloride (98-107) mmol/L Glucose (74-99) mg/dL Calcium (8.4-10.2) mg/dL Procalcitonin (0.02-0.09) ng/mL Urine Appearance Cloudy H (Clear) Urine Protein 1+ H (Negative) Urine Ketones Trace H (Negative) Ur Leukocyte Esterase Small H (Negative) Urine RBC 28 H (0-5) /hpf Urine WBC 22 H (0-5) /hpf Amorphous Sediment Occasional H (None) /hpf Urine Bacteria Rare H (None) /hpf Hyaline Casts 248 H (0-2) /lpf Urine Mucus Many H (None) /hpf 01/13/20 01/13/20 Range/Units 22:43 22:43 WBC (3.8-10.6) k/uL Plt Count (150-450) k/uL Neutrophils # (1.3-7.7) k/uL Basophils # (0-0.2) k/uL APTT (22.0-30.0) sec Sodium 133 L (137-145) mmol/L Chloride 97 L (98-107) mmol/L Glucose 215 H (74-99) mg/dL Calcium 12.6 H (8.4-10.2) mg/dL Procalcitonin 0.12 H (0.02-0.09) ng/mL Urine Appearance (Clear) Urine Protein (Negative) Urine Ketones (Negative) Ur Leukocyte Esterase (Negative) Urine RBC (0-5) /hpf Urine WBC (0-5) /hpf Amorphous Sediment (None) /hpf Urine Bacteria (None) /hpf Hyaline Casts (0-2) /lpf Urine Mucus (None) /hpf Assessment and Plan Assessment: Nausea vomiting or abdominal pain secondary ileus Possible acute cholecystitis with right upper quadrant pain Sepsis secondary to above Abnormal urine sample. History of Viviana fundoplication surgery in September 2019 Explained to laparotomy in October 2019 Recent history of acute kidney injury Osteoporosis Lower back fracture and low back pain Anxiety/depression Currently every day smoker GI and DVT prophylaxis with heparin subcu Plan: Patient will be continued on IV hydration and symptomatic management for nausea and vomiting. Nothing by mouth. We will start on antibiotics and cough ceftriaxone and Flagyl. Follow-up HIDA scan and ultrasound of the abdomen. Continue to follow closely and further recommendations based on the clinical course. will follow with you. Smoking cessation has been counseled X insulin. Thank you for your consult. istory Time with Patient: Greater than 30
[2020-01-14 17:52] LABS: Glucose,Whole Blood 74 mg/dL (75-99)
--- NOTE | 2020-01-14 18:00 | NM ---
EXAMINATION TYPE: NM hepatobiliary w CCK DATE OF EXAM: 01/14/2020 COMPARISON: NONE HISTORY: Abdominal pain TECHNIQUE: After the intravenous administration of 4.49 mCi Tc 99m Mebrofenin hepatobiliary scintigra phy is performed. Immediate images post injection. FINDINGS: There is satisfactory initial accumulation of tracer by the liver. The gallbladder is visualized wit hin 90 minutes. The small bowel activity is noted within 30 minutes. At one hour CCK was administer ed, patient was injected with 0.8 mcg of Kinevac, and gallbladder ejection fraction is calculated at 98 %, in the normal range. Therefore there is no scintigraphic evidence of cystic or common bile jl t obstruction to suggest acute cholecystitis or gallbladder dyskinesia. IMPRESSION: No focal liver defect. Normal gallbladder ejection fraction. Normal exam.
[2020-01-14] MEDS: INSULIN ASPART (NovoLOG) 100 UNIT/ML VIAL SQ SCH ×2 (18:44→20:28)
[2020-01-14] MEDS: MONTELUKAST 10 MG TAB PO SCH (20:27)
[2020-01-14] MEDS: HEPARIN SODIUM,PORCINE 5,000 UNIT/ML 1 ML VIAL SQ SCH (20:29)
[2020-01-14] MEDS: metroNIDAZOLE-NS PMX 500 MG in SALINE 1 100ML.BAG IVPB SCH ×2 (20:29→23:59)
[2020-01-14 20:33] LABS: Glucose,Whole Blood 83 mg/dL (75-99)
[2020-01-15] MEDS: SODIUM CHLORIDE 0.9% 1,000 ML IV SCH ×3 (05:23→21:36)
[2020-01-15 06:05] LABS: Basophils # (A) 0.1 k/uL (0-0.2); Basophils % (A) 1 %; Eosinophils # (A) 0.3 k/uL (0-0.7); Eosinophils % (A) 4 %; HCT 33.2 % (34.0-46.0); Hypochromasia Slight; Lymphocytes % (A) 45 %; MCH 30.9 pg (25.0-35.0); MCHC 31.7 g/dL (31.0-37.0); MCV 97.3 fL (80.0-100.0); Mean Platelet Volume 7.1; Monocytes # (A) 0.4 k/uL (0-1.0); Monocytes % (A) 6 %; Neutrophils # (A) 2.7 k/uL (1.3-7.7); Neutrophils % (A) 41 %; Platelet Count 337 k/uL (150-450); RBC 3.41 m/uL (3.80-5.40); RDW 12.5 % (11.5-15.5); WBC 6.6 k/uL (3.8-10.6)
[2020-01-15 06:13] LABS: African American GFR (CKD) >90 (>60 ml/min/1.73 sqM); Anion Gap 5 mmol/L; Blood Urea Nitrogen 3 mg/dL (7-17); Calcium 9.7 mg/dL (8.4-10.2); Carbon Dioxide 19 mmol/L (22-30); Chloride 113 mmol/L (98-107); Glucose 93 mg/dL (74-99); Non-African American GFR(CKD) >90 (>60 ml/min/1.73 sqM); Potassium 3.4 mmol/L (3.5-5.1); Sodium 137 mmol/L (137-145)
[2020-01-15 06:19] LABS: HGB 10.5 gm/dL (11.4-16.0)
[2020-01-15] MEDS ORDERED: POTASSIUM CHLORIDE ER 20 MEQ TAB.ER PO STA (08:01)
[2020-01-15] MEDS: INSULIN ASPART (NovoLOG) 100 UNIT/ML VIAL SQ SCH ×4 (08:09→21:56)
[2020-01-15] MEDS: metroNIDAZOLE-NS PMX 500 MG in SALINE 1 100ML.BAG IVPB SCH (08:55)
[2020-01-15] MEDS: HEPARIN SODIUM,PORCINE 5,000 UNIT/ML 1 ML VIAL SQ SCH ×2 (08:56→20:31)
[2020-01-15] MEDS: PANTOPRAZOLE 40 MG/10 ML VIAL IV SCH (09:30)
[2020-01-15] MEDS: HYDROmorphone 0.5 MG/0.5 ML SYRINGE IVP PRN ×3 (11:52→20:32)
[2020-01-15 13:12] LABS: Glucose,Whole Blood 90 mg/dL (75-99)
[2020-01-15] MEDS: NICOTINE 21MG/24HR PATCH TRANSDERM SCH (13:13)
--- NOTE | 2020-01-15 14:16 | P.PN ---
Subjective Progress Note Date: 01/15/20 CHIEF COMPLAINT: Nausea vomiting and diarrhea HISTORY OF PRESENT ILLNESS: Patient reports improvement in her abdominal pain today as well as her nausea vomiting and diarrhea. She did have 2 loose stools. She's had no further vomiting. She is tolerating her clear liquid diet. She reports that she is hungry and wants to eat. She is afebrile. Hemoglobin is 10.5, WBC 6.6 potassium 3.4 calcium 9.7 Abdominal ultrasound findings suggest cholecystosis within the gallbladder, gallbladder is contracted. Borderline enlarged common bile duct. HIDA scan is normal. EF 98% PHYSICAL EXAM: VITAL SIGNS: Reviewed. GENERAL: Well-developed in no acute distress. HEENT: No sclera icterus. Extraocular movements grossly intact. Moist buccal mucosa. Head is atraumatic, normocephalic. ABDOMEN: Soft. Nondistended. NEUROLOGIC: Alert and oriented. Cranial nerves II through XII grossly intact. ASSESSMENT: 1. Right upper quadrant abdominal pain. No evidence of cholecystitis HIDA scan normal 2. Nausea vomiting and diarrhea 3. Ileus 4. Dehydration PLAN: -Discontinue antibiotics -Start regular diet and monitor -Continue IV fluids for now -Add nicotine patch for nicotine dependence -Add probiotics -GI prophylaxis Protonix and DVT prophylaxis subcu heparin Physician Reference Investigator note has been reviewed by physician. Signing provider agrees with the documented findings, assessment, and plan of care. Objective - Vital Signs Vital signs: Vital Signs Temp 98.4 F 01/15/20 12:01 Pulse 82 01/15/20 12:01 Resp 20 01/15/20 12:01 BP 140/84 01/15/20 12:01 Pulse Ox 98 01/15/20 12:01 Intake & Output 01/14/20 01/15/20 01/15/20 18:59 06:59 18:59 Intake Total 461 Balance 461 Weight 40.823 kg Intake: Oral 461 Other: Voiding Method Toilet # Voids 2 2 - Labs CBC & Chem 7: 01/15/20 05:45 01/15/20 05:45 Labs: Abnormal Lab Results - Last 24 Hours (Table) 01/14/20 01/15/20 01/15/20 Range/Units 17:51 05:45 05:45 RBC 3.41 L (3.80-5.40) m/uL Hgb 10.5 L D (11.4-16.0) gm/dL Hct 33.2 L (34.0-46.0) % Potassium 3.4 L (3.5-5.1) mmol/L Chloride 113 H (98-107) mmol/L Carbon Dioxide 19 L (22-30) mmol/L BUN 3 L (7-17) mg/dL Creatinine 0.46 L (0.52-1.04) mg/dL POC Glucose (mg/dL) 74 L (75-99) mg/dL
[2020-01-15 16:00] LABS: Hemoglobin A1C 5.5 % (4.0-6.0)
[2020-01-15 17:39] LABS: Glucose,Whole Blood 86 mg/dL (75-99)
[2020-01-15] MEDS: LACTOBACILLUS ACIDOPH & BULGAR 1 EACH PACKET PO SCH (20:32)
[2020-01-15] MEDS: MONTELUKAST 10 MG TAB PO SCH (20:32)
[2020-01-15] MEDS ORDERED: Potassium Replacement Protocol 1 EACH MISC MISCELLANE PRN (21:47)
[2020-01-15] MEDS: POTASSIUM CHLORIDE ER 20 MEQ TAB.ER PO SCH ×2 (21:58→23:04)
--- NOTE | 2020-01-15 22:28 | P.PN ---
Subjective Progress Note Date: 01/15/20 Principal diagnosis: Nausea vomiting or abdominal pain secondary ileus. resolved. Patient is a 59-year-old female with a known history of COPD, GERD, recent Rosemary fundoplication in September 2019, explored a laparotomy and lysis of adhesions in October 2019, osteoarthritis and anxiety/depressionsmoker came to ER with complaints of came to ER with the complaints of nausea, vomiting and diarrhea. Patient has been having recurrent episodes of similar symptoms since September and has undergone explore laparotomy with lysis of adhesions. Patient says that she had 3 days of diarrhea followed by nausea and vomiting episodes. Patient was also complaining of abdominal pain mainly epigastric and right upper quadrant. Denied any recent antibiotic use. No history of C. difficile infection. Patient was recently admitted to the hospital for acute kidney injury as well. Denied any chest pain or shortness breath. No fever no chills. No headache or dizziness or lightheadedness.Patient did have 2 small bowel movements Patient had abdominal x-ray series in the ER showed findings most suggestive of generalized ileus which is slightly improved since the previous study. Osteopenia, no free air, partial small bowel obstruction cannot be entirely ruled out. Laboratory data showed WBC 17.7, hemoglobin 14.8 and platelets 513 Sodium 133, potassium 4.5, chloride 97, calcium level 12.6 Procalcitonin level is 0.12 Urinalysis showed cloudy small leukocyte esterase and elevated WBC and RBCs and hyaline casts. 01/15/2020 Patient states that her abdominal pain is better today. Patient does have nausea no episodes of vomiting. Tolerating liquid diet. Laboratory data showed WBC 6.6 and hemoglobin 10.5 and platelets 337 Potassium 3.4, chloride 113, BUN 3 and creatinine 0.46 Ultrasound of the abdomen showed findings suggest cholecystosis within the gallbladder. Gallbladder is contracted. Borderline enlarged common bile duct. Patient has been afebrile. No chest pain or shortness of breath. No headache or dizziness or lightheadedness. current medications reviewed. Objective - Vital Signs Vital signs: Vital Signs Temp 98.7 F 01/15/20 19:47 Pulse 85 01/15/20 19:47 Resp 16 01/15/20 19:47 BP 132/70 01/15/20 19:47 Pulse Ox 99 01/15/20 19:47 Intake & Output 01/15/20 01/15/20 01/16/20 06:59 18:59 06:59 Intake Total 461 200 Balance 461 200 Intake: Oral 461 200 Other: Voiding Method Toilet Toilet # Voids 2 3 - Exam PHYSICAL EXAMINATION: Patient is lying in the bed comfortably, mild distress, awake alert and oriented.. HEENT: Normocephalic. Neck is supple. Pupils reactive. Nostrils clear. Oral cavity is moist. Ears reveal no drainage. Neck reveals no JVD, carotid bruits, or thyromegaly. CHEST EXAMINATION: Trachea is central. Symmetrical expansion. Lung haddad clear to auscultation and percussion. CARDIAC: Normal S1, S2 with no gallops. No murmurs ABDOMEN: Soft. Patient does have epigastric and right upper quadrant tenderness. No guarding no rigidity. Bowel sounds normal. No organomegaly. No abdominal bruits. Extremities: reveal no edema. No clubbing or cyanosis Neurologically awake, alert, oriented x3 with well-coordinated movements. No focal deficits noted Skin: No rash or skin lesions. Psychiatric: Coperative. Nonsuicidal Musculoskeletal: No joint swelling or deformity. Normal range of motion. - Labs CBC & Chem 7: 01/15/20 05:45 01/15/20 20:47 Labs: Abnormal Lab Results - Last 24 Hours (Table) 01/15/20 01/15/20 01/15/20 Range/Units 05:45 05:45 20:47 RBC 3.41 L (3.80-5.40) m/uL Hgb 10.5 L D (11.4-16.0) gm/dL Hct 33.2 L (34.0-46.0) % Potassium 3.4 L 3.4 L (3.5-5.1) mmol/L Chloride 113 H (98-107) mmol/L Carbon Dioxide 19 L (22-30) mmol/L BUN 3 L (7-17) mg/dL Creatinine 0.46 L (0.52-1.04) mg/dL Assessment and Plan Assessment: Nausea vomiting or abdominal pain secondary ileus. resolved. Possible acute cholecystitis with right upper quadrant pain.unlikley. US abd megative. Leukocytosis. Resolved. Likely reactive. Abnormal urine sample. History of Rosemary fundoplication surgery in September 2019 Explained to laparotomy in October 2019 Recent history of acute kidney injury Osteoporosis Lower back fracture and low back pain Anxiety/depression Currently every day smoker GI and DVT prophylaxis with heparin subcu Plan: Patient will be continued on IV hydration and symptomatic management for nausea and vomiting. Follow-up HIDA scan and ultrasound of the abdomen. Showed no evidence of acute cholecystitis. Patient was started on liquid diet and advance as tolerated. Continue to follow closely and further recommendations based on the clinical course. Smoking cessation has been counseled X insulin. Time with Patient: Greater than 30
[2020-01-16] MEDS: HYDROmorphone 0.5 MG/0.5 ML SYRINGE IVP PRN ×3 (01:20→20:52)
[2020-01-16 07:53] LABS: Basophils # (A) 0.1 k/uL (0-0.2); Basophils % (A) 1 %; Eosinophils # (A) 0.3 k/uL (0-0.7); Eosinophils % (A) 5 %; HCT 35.6 % (34.0-46.0); HGB 11.5 gm/dL (11.4-16.0); Lymphocytes # (A) 2.7 k/uL (1.0-4.8); Lymphocytes % (A) 45 %; MCH 30.5 pg (25.0-35.0); MCHC 32.4 g/dL (31.0-37.0); MCV 94.1 fL (80.0-100.0); Mean Platelet Volume 7.4; Monocytes # (A) 0.3 k/uL (0-1.0); Monocytes % (A) 6 %; Neutrophils # (A) 2.4 k/uL (1.3-7.7); Neutrophils % (A) 41 %; Platelet Count 446 k/uL (150-450); RBC 3.78 m/uL (3.80-5.40); RDW 12.7 % (11.5-15.5)
[2020-01-16 08:18] LABS: African American GFR (CKD) >90 (>60 ml/min/1.73 sqM); Anion Gap 4 mmol/L; Blood Urea Nitrogen <2 mg/dL (7-17); Calcium 10.1 mg/dL (8.4-10.2); Carbon Dioxide 26 mmol/L (22-30); Chloride 108 mmol/L (98-107); Glucose 122 mg/dL (74-99); Non-African American GFR(CKD) >90 (>60 ml/min/1.73 sqM); Potassium 3.8 mmol/L (3.5-5.1); Sodium 138 mmol/L (137-145)
[2020-01-16] MEDS ORDERED: POTASSIUM CHLORIDE ER 20 MEQ TAB.ER PO STA (08:27)
[2020-01-16] MEDS: LACTOBACILLUS ACIDOPH & BULGAR 1 EACH PACKET PO SCH ×2 (09:10→20:41)
[2020-01-16] MEDS: NICOTINE 21MG/24HR PATCH TRANSDERM SCH (09:10)
[2020-01-16] MEDS: PANTOPRAZOLE 40 MG TABLET PO SCH ×2 (09:10→09:24)
[2020-01-16] MEDS ORDERED: ALPRAZolam 0.25 MG TAB PO STA (09:18)
[2020-01-16] MEDS: HEPARIN SODIUM,PORCINE 5,000 UNIT/ML 1 ML VIAL SQ SCH ×2 (09:23→20:40)
[2020-01-16] MEDS: SODIUM CHLORIDE 0.9% 1,000 ML IV SCH ×2 (09:46→14:11)
--- NOTE | 2020-01-16 12:38 | P.PN ---
Subjective Progress Note Date: 01/16/20 CHIEF COMPLAINT: Nausea vomiting and diarrhea HISTORY OF PRESENT ILLNESS: Patient reports improvement in her abdominal pain today as well as her nausea vomiting and diarrhea. She did have 2 loose stools. She's had no further vomiting. She is tolerating regular diet. Afebrile. WBC 6.0 potassium 3.8 PHYSICAL EXAM: VITAL SIGNS: Reviewed. GENERAL: Well-developed in no acute distress. HEENT: No sclera icterus. Extraocular movements grossly intact. Moist buccal mucosa. Head is atraumatic, normocephalic. ABDOMEN: Soft. Nondistended. NEUROLOGIC: Alert and oriented. Cranial nerves II through XII grossly intact. ASSESSMENT: 1. Right upper quadrant abdominal pain. No evidence of cholecystitis HIDA scan normal 2. Nausea vomiting and diarrhea 3. Ileus 4. Dehydration PLAN: -Add scheduled Lomotil for diarrhea and monitor -Continue regular diet -Continue IV fluids for now -Continue nicotine patch for nicotine dependence -Continue probiotics -GI prophylaxis Protonix and DVT prophylaxis subcu heparin Physician Shop Superintendent note has been reviewed by physician. Signing provider agrees with the documented findings, assessment, and plan of care. Objective - Vital Signs Vital signs: Vital Signs Temp 98.2 F 01/16/20 08:06 Pulse 76 01/16/20 08:06 Resp 16 01/16/20 08:06 BP 108/73 01/16/20 08:06 Pulse Ox 98 01/16/20 08:06 Intake & Output 01/15/20 01/16/20 01/16/20 18:59 06:59 18:59 Intake Total 200 221 Balance 200 221 Intake: Oral 200 221 Other: Voiding Method Toilet Toilet # Voids 3 3 1 - Labs CBC & Chem 7: 01/16/20 07:17 01/16/20 07:17 Labs: Abnormal Lab Results - Last 24 Hours (Table) 01/15/20 01/16/20 01/16/20 Range/Units 20:47 07:17 07:17 RBC 3.78 L (3.80-5.40) m/uL Potassium 3.4 L (3.5-5.1) mmol/L Chloride 108 H (98-107) mmol/L BUN <2 L (7-17) mg/dL Creatinine 0.44 L (0.52-1.04) mg/dL Glucose 122 H (74-99) mg/dL
[2020-01-16] MEDS: DIPHENOX-ATROP 2.5-0.025 MG 1 EACH TAB PO SCH ×3 (12:42→20:46)
[2020-01-16] MEDS: MONTELUKAST 10 MG TAB PO SCH (20:41)
--- NOTE | 2020-01-16 22:42 | P.PN ---
Subjective Progress Note Date: 01/16/20 Principal diagnosis: Nausea vomiting or abdominal pain secondary ileus. resolved. Patient is a 59-year-old female with a known history of COPD, GERD, recent Rosemary fundoplication in September 2019, explored a laparotomy and lysis of adhesions in October 2019, osteoarthritis and anxiety/depressionsmoker came to ER with complaints of came to ER with the complaints of nausea, vomiting and diarrhea. Patient has been having recurrent episodes of similar symptoms since September and has undergone explore laparotomy with lysis of adhesions. Patient says that she had 3 days of diarrhea followed by nausea and vomiting episodes. Patient was also complaining of abdominal pain mainly epigastric and right upper quadrant. Denied any recent antibiotic use. No history of C. difficile infection. Patient was recently admitted to the hospital for acute kidney injury as well. Denied any chest pain or shortness breath. No fever no chills. No headache or dizziness or lightheadedness.Patient did have 2 small bowel movements Patient had abdominal x-ray series in the ER showed findings most suggestive of generalized ileus which is slightly improved since the previous study. Osteopenia, no free air, partial small bowel obstruction cannot be entirely ruled out. Laboratory data showed WBC 17.7, hemoglobin 14.8 and platelets 513 Sodium 133, potassium 4.5, chloride 97, calcium level 12.6 Procalcitonin level is 0.12 Urinalysis showed cloudy small leukocyte esterase and elevated WBC and RBCs and hyaline casts. 01/15/2020 Patient states that her abdominal pain is better today. Patient does have nausea no episodes of vomiting. Tolerating liquid diet. Laboratory data showed WBC 6.6 and hemoglobin 10.5 and platelets 337 Potassium 3.4, chloride 113, BUN 3 and creatinine 0.46 Ultrasound of the abdomen showed findings suggest cholecystosis within the gallbladder. Gallbladder is contracted. Borderline enlarged common bile duct. Patient has been afebrile. No chest pain or shortness of breath. No headache or dizziness or lightheadedness. 01/16/2020 Patient is currently lying in bed comfortably. Abdominal pain is better. Patient was anxious this morning and was given a dose of Xanax. No fever no chills. Patient is tolerating liquids. Patient did have 2 loose stools. No nausea or vomiting. No chest pain or shortness breath. Improving symptomatically.. current medications reviewed. Objective - Vital Signs Vital signs: Vital Signs Temp 98.2 F 01/16/20 08:06 Pulse 76 01/16/20 08:06 Resp 16 01/16/20 08:06 BP 108/73 01/16/20 08:06 Pulse Ox 98 01/16/20 08:06 Intake & Output 01/15/20 01/16/20 01/16/20 18:59 06:59 18:59 Intake Total 200 221 Balance 200 221 Intake: Oral 200 221 Other: Voiding Method Toilet Toilet # Voids 3 3 - Exam PHYSICAL EXAMINATION: Patient is lying in the bed comfortably, mild distress, awake alert and oriented.. HEENT: Normocephalic. Neck is supple. Pupils reactive. Nostrils clear. Oral cavity is moist. Ears reveal no drainage. Neck reveals no JVD, carotid bruits, or thyromegaly. CHEST EXAMINATION: Trachea is central. Symmetrical expansion. Lung haddad clear to auscultation and percussion. CARDIAC: Normal S1, S2 with no gallops. No murmurs ABDOMEN: Soft. Patient does have epigastric and right upper quadrant tenderness. No guarding no rigidity. Bowel sounds normal. No organomegaly. No abdominal bruits. Extremities: reveal no edema. No clubbing or cyanosis Neurologically awake, alert, oriented x3 with well-coordinated movements. No f ocal deficits noted Skin: No rash or skin lesions. Psychiatric: Coperative. Nonsuicidal Musculoskeletal: No joint swelling or deformity. Normal range of motion. - Labs CBC & Chem 7: 01/16/20 07:17 01/16/20 07:17 Labs: Abnormal Lab Results - Last 24 Hours (Table) 01/15/20 01/16/20 01/16/20 Range/Units 20:47 07:17 07:17 RBC 3.78 L (3.80-5.40) m/uL Potassium 3.4 L (3.5-5.1) mmol/L Chloride 108 H (98-107) mmol/L BUN <2 L (7-17) mg/dL Creatinine 0.44 L (0.52-1.04) mg/dL Glucose 122 H (74-99) mg/dL Assessment and Plan Assessment: Nausea vomiting or abdominal pain secondary ileus. resolved. suspected acute cholecystitis with right upper quadrant pain. unlikley. US abd negative. Leukocytosis. Resolved. Likely reactive. Abnormal urine sample. History of Rosemary fundoplication surgery in September 2019 Explained to laparotomy in October 2019 Recent history of acute kidney injury Osteoporosis Lower back fracture and low back pain Anxiety/depression Currently every day smoker GI and DVT prophylaxis with heparin subcu Plan: Patient will be continued on IV hydration and symptomatic management for nausea and vomiting. Follow-up HIDA scan and ultrasound of the abdomen. Showed no evidence of acute cholecystitis. Patient was started on liquid diet and advance as tolerated. Continue to follow closely and further recommendations based on the clinical course. Smoking cessation has been counseled X insulin. Time with Patient: Greater than 30
[2020-01-17] MEDS: HYDROmorphone 0.5 MG/0.5 ML SYRINGE IVP PRN ×2 (01:15→04:46)
[2020-01-17 04:53] LABS: Basophils # (A) 0.1 k/uL (0-0.2); Basophils % (A) 1 %; Eosinophils # (A) 0.4 k/uL (0-0.7); Eosinophils % (A) 6 %; HCT 34.7 % (34.0-46.0); HGB 11.1 gm/dL (11.4-16.0); Lymphocytes # (A) 3.5 k/uL (1.0-4.8); Lymphocytes % (A) 53 %; MCH 30.2 pg (25.0-35.0); MCV 94.6 fL (80.0-100.0); Mean Platelet Volume 7.2; Monocytes # (A) 0.4 k/uL (0-1.0); Monocytes % (A) 6 %; Neutrophils # (A) 2.2 k/uL (1.3-7.7); Neutrophils % (A) 33 %; Platelet Count 422 k/uL (150-450); RBC 3.67 m/uL (3.80-5.40); RDW 12.5 % (11.5-15.5); WBC 6.7 k/uL (3.8-10.6)
[2020-01-17 05:03] LABS: African American GFR (CKD) >90 (>60 ml/min/1.73 sqM); Anion Gap 3 mmol/L; Blood Urea Nitrogen 3 mg/dL (7-17); Calcium 10.1 mg/dL (8.4-10.2); Carbon Dioxide 24 mmol/L (22-30); Chloride 109 mmol/L (98-107); Glucose 117 mg/dL (74-99); Non-African American GFR(CKD) >90 (>60 ml/min/1.73 sqM); Potassium 3.8 mmol/L (3.5-5.1); Sodium 136 mmol/L (137-145)
[2020-01-17] MEDS: SODIUM CHLORIDE 0.9% 1,000 ML IV SCH (07:38)
[2020-01-17] MEDS ORDERED: POTASSIUM CHLORIDE ER 20 MEQ TAB.ER PO STA (07:43)
[2020-01-17] MEDS: LACTOBACILLUS ACIDOPH & BULGAR 1 EACH PACKET PO SCH (09:10)
[2020-01-17] MEDS: PANTOPRAZOLE 40 MG TABLET PO SCH (09:12)
[2020-01-17] MEDS: NICOTINE 21MG/24HR PATCH TRANSDERM SCH (09:12)
[2020-01-17] MEDS: HEPARIN SODIUM,PORCINE 5,000 UNIT/ML 1 ML VIAL SQ SCH (09:12)
[2020-01-17] MEDS: DIPHENOX-ATROP 2.5-0.025 MG 1 EACH TAB PO SCH (10:44)
[2020-01-17 12:14] VITALS: BP 112/64; PULSE 84; RESP 16; TEMP 98.8
--- NOTE | 2020-01-17 12:57 | P.PN ---
Subjective Patient is a 59-year-old female with a known history of COPD, GERD, recent Rosemary fundoplication in September 2019, explored a laparotomy and lysis of adhesions in October 2019, osteoarthritis and anxiety/depressionsmoker came to ER with complaints of came to ER with the complaints of nausea, vomiting and diarrhea. Patient has been having recurrent episodes of similar symptoms since September and has undergone explore laparotomy with lysis of adhesions. Patient says that she had 3 days of diarrhea followed by nausea and vomiting episodes. Patient was also complaining of abdominal pain mainly epigastric and right upper quadrant. Denied any recent antibiotic use. No history of C. difficile infection. Patient was recently admitted to the hospital for acute kidney injury as well. Denied any chest pain or shortness breath. No fever no chills. No headache or dizziness or lightheadedness.Patient did have 2 small bowel movements Patient had abdominal x-ray series in the ER showed findings most suggestive of generalized ileus which is slightly improved since the previous study. Osteopenia, no free air, partial small bowel obstruction cannot be entirely ruled out. Laboratory data showed WBC 17.7, hemoglobin 14.8 and platelets 513 Sodium 133, potassium 4.5, chloride 97, calcium level 12.6 Procalcitonin level is 0.12 Urinalysis showed cloudy small leukocyte esterase and elevated WBC and RBCs and hyaline casts. 01/15/2020 Patient states that her abdominal pain is better today. Patient does have nausea no episodes of vomiting. Tolerating liquid diet. Laboratory data showed WBC 6.6 and hemoglobin 10.5 and platelets 337 Potassium 3.4, chloride 113, BUN 3 and creatinine 0.46 Ultrasound of the abdomen showed findings suggest cholecystosis within the gallbladder. Gallbladder is contracted. Borderline enlarged common bile duct. Patient has been afebrile. No chest pain or shortness of breath. No headache or dizziness or lightheadedness. 01/16/2020 Patient is currently lying in bed comfortably. Abdominal pain is better. Patient was anxious this morning and was given a dose of Xanax. No fever no chills. Patient is tolerating liquids. Patient did have 2 loose stools. No nausea or vomiting. No chest pain or shortness breath. Improving symptomatically.. 01/17/2020 Patient has good bowel movements. No evidence of cholecystitis on HIDA scan. Patient may not need antibiotics. Patient is clinically doing well tolerating diet well can be discharged from medical perspective. Constitutional: Denied any fatigue denied any fever. Cardio vascular: denied any chest pain, palpitations Gastrointestinal denied any nausea vomiting Pulmonary: Denied any shortness of breath cough Neurologic denied any new focal deficits All inpatient medications were reviewed and appropriate changes in these medications as dictated in the interval history and assessment and plan. Objective - Vital Signs Vital signs: Vital Signs Temp 98.8 F 01/17/20 11:40 Pulse 84 01/17/20 11:40 Resp 16 01/17/20 11:40 BP 112/64 01/17/20 11:40 Pulse Ox 98 01/17/20 11:40 Intake & Output 01/16/20 01/17/20 01/17/20 18:59 06:59 18:59 Intake Total 120 Balance 120 Weight 40.823 kg Intake: Oral 120 Other: Voiding Method Toilet # Voids 1 1 1 # Bowel Movements 1 - Exam PHYSICAL EXAMINATION: GENERAL: The patient is alert and oriented x3, not in any acute distress. Well developed, well nourished. HEENT: Pupils are round and equally reacting to light. EOMI. No scleral icterus. No conjunctival pallor. Normocephalic, atraumatic. No pharyngeal erythema. No thyromegaly. CARDIOVASCULAR: S1 and S2 present. No murmurs, rubs, or gallops. PULMONARY: Chest is clear to auscultation, no wheezing or crackles. ABDOMEN: Soft, nontender, nondistended, normoactive bowel sounds. No palpable organomegaly. MUSCULOSKELETAL: No joint swelling or deformity. EXTREMITIES: No cyanosis, clubbing, or pedal edema. NEUROLOGICAL: Gross neurological examination did not reveal any focal deficits. SKIN: No rashes. - Labs CBC & Chem 7: 01/17/20 04:35 01/17/20 04:35 Labs: Abnormal Lab Results - Last 24 Hours (Table) 01/17/20 01/17/20 Range/Units 04:35 04:35 RBC 3.67 L (3.80-5.40) m/uL Hgb 11.1 L (11.4-16.0) gm/dL Sodium 136 L (137-145) mmol/L Chloride 109 H (98-107) mmol/L BUN 3 L (7-17) mg/dL Creatinine 0.46 L (0.52-1.04) mg/dL Glucose 117 H (74-99) mg/dL Assessment and Plan Plan: Nausea vomiting or abdominal pain secondary ileus. resolved. ruled out acute cholecystitis Leukocytosis. Resolved. Likely reactive. Abnormal urine sample. History of Rosemary fundoplication surgery in September 2019 Explained to laparotomy in October 2019 Recent history of acute kidney injury Osteoporosis Lower back fracture and low back pain Anxiety/depression Currently every day smoker GI and DVT prophylaxis with heparin subcu plan: Patient can be discharged from medical perspective with the follow-up with PCP in about a week.
--- NOTE | 2020-01-17 14:28 | P.DS ---
Providers Date of admission: 01/16/20 14:39 Expected date of discharge: 01/17/20 Attending physician: Kurtis Phipps Consults: 01/14/20 08:01 Consult Physician Routine Consulting Provider: Iker Miranda Consult Reason/Comments: medical managment Do you want consulting provider notified?: Yes Primary care physician: Anabelle [facility] Course: Discharge diagnosis 1. Right upper quadrant abdominal pain, pain improved. 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 Nausea vomiting and diarrhea 3. Ileus 4. Dehydration Hospital course This is a 59-year-old female with a known past medical history of Rosemary fundoplication in September 2019, exploratory laparotomy with lysis of adhesions in October. At the time of her recent laparotomy there is no definite bowel obstruction seen. Patient continues to have recurrent hospitalizations with vomiting and diarrhea and dehydration. She is usually treated with IV fluids and treated as an ileus. And symptoms improve and then she tolerates diet. Patientpresents to the hospital with nausea vomiting and diarrhea. She reports that she was recently at [facility] for similar symptoms and they treated her with antibiotics Flagyl and azithromycin. Patient feels that this has made her diarrhea worse. She is also complaining of right upper quadrant pain. She was told that she has some issues with her gallbladder At [facility]. Patient did have a HIDA scan EF of 98% is indicative of hyperkinetic gallbladder. Patient's symptoms did improve. She is hydrated with IV fluids. She was able to tolerate advancement of diet. She is no other having the abdominal pain vomiting or diarrhea. Exact etiology of her symptoms is unclear. Patient was encouraged to follow-up at a tertiary care center such as [facility] if symptoms recur. Patient is afebrile. She is tolerating diet. She is stable for discharge. Please refer to chart for any further details. Physician Ecclesiastical Worker note has been reviewed by physician. Signing provider agrees with the documented findings, assessment, and plan of care. Patient Condition at Discharge: Stable Plan - Discharge Summary New Discharge Prescriptions: Continue Montelukast [Singulair] 10 mg PO HS Metoprolol Tartrate 12.5 mg PO BID Ondansetron [Zofran ODT] 4 mg PO DAILY PRN PRN Reason: Nausea Fluticasone Nasal Pledger [Flonase Nasal Pledger] 1 spray EA NOSTRIL DAILY PRN PRN Reason: Allergy Symptoms Albuterol Inhaler [Ventolin Hfa Inhaler] 2 puff INHALATION RT-QID PRN PRN Reason: Shortness Of Breath Nicotine 21Mg/24Hr Patch [Habitrol] 1 patch TRANSDERM DAILY Ibuprofen [Motrin] 600 mg PO Q8HR PRN PRN Reason: Pain Discontinued metroNIDAZOLE [Flagyl] 500 mg PO TID Discharge Medication List Montelukast [Singulair] 10 mg PO HS 09/03/19 [History] Metoprolol Tartrate 12.5 mg PO BID 09/26/19 [History] Albuterol Inhaler [Ventolin Hfa Inhaler] 2 puff INHALATION RT-QID PRN 11/18/19 [History] Fluticasone Nasal Pledger [Flonase Nasal Pledger] 1 spray EA NOSTRIL DAILY PRN 11/18/19 [History] Ondansetron [Zofran ODT] 4 mg PO DAILY PRN 11/18/19 [History] Ibuprofen [Motrin] 600 mg PO Q8HR PRN 01/14/20 [History] Nicotine 21Mg/24Hr Patch [Habitrol] 1 patch TRANSDERM DAILY 01/14/20 [History] Follow up Appointment(s)/Referral(s): [facility], [NON-STAFF] - [facility] [NON-STAFF] - Anabelle Martinez MD [Primary Care Provider] - 1-2 days Activity/Diet/Wound Care/Special Instructions: Diet: regular Activity: as tolerated Discharge Disposition: HOME WITH HOME HEALTH SERVICES
--- NOTE | 2020-01-20 10:38 | CDI ---
Documentation Clarification Form Date: 01/20/20 From: Lakeshia Chaudhari CCS Phone: If you have a question about this query, please contact Elsy Rosas, Food Service Director at [phone] between 8am and 5pm. Admit Date: 01/16/20 Discharge Date:01/17/20 Patient Name: Mariaa Schmid Visit Number: [id number] ATTENTION: The Clinical Documentation Specialists (CDI) and [facility] Coding Staff appreciate your assistance in clarifying documentation. Please respond to the clarification below the line at the bottom and electronically sign. The CDI & [facility] Coding staff will review the response and follow-up if needed. Please note: Queries are made part of the Legal Health Record. If you have any questions, please contact the author of this message via ITS. Dear Dr. Phipps, Patient has been described as underweight with moderate temporal muscle wasting. History/Risk Factors: Ileus, Hyperkinetic gallbladder, N/V/D, GERD, S/P Rosemary Fundoplication Clinical Indicators: Underweight, Muscle wasting Patients weight is: 40.823 kg Patients height is: 5 ft 1 in Calculated BMI is: 16.9 Muscle wasting: Moderate temporal muscle wasting Treatments: Ensure clear, Monitor PO, Diet advancement and supplement intake Dietary Consult: 01/13-01/16: Unintended weight loss, 13.7 kg lost since September, consuming 25% of clear liquid diet In order to capture the severity of condition associated with patient BMI of 16.9, a clinical diagnosis needs to be documented by the physician. Please clarify: Cachexia Underweight Malnutrition Mild Moderate Sever Other Unable to determine Underweight, moderate malnutrition MTDD
== END 2020-01-17 15:49 | disposition home health service (06) | DRG 389 ==
LOC: EC 22:11 → 6PED 01-14 01:13 → OBSVTOIN 01-16 14:39
PROVIDERS: ADMIT Surgery; ATTEND Surgery
DX: K56.7 Ileus, unspecified (principal); E44.0 Moderate protein-calorie malnutrition; Z68.1 Body mass index [BMI] 19.9 or less, adult; J44.9 Chronic obstructive pulmonary disease, unspecified; K82.8 Other specified diseases of gallbladder; D72.829 Elevated white blood cell count, unspecified; E86.0 Dehydration; K21.9 Gastro-esophageal reflux disease without esophagitis; M19.90 Unspecified osteoarthritis, unspecified site; M81.0 Age-related osteoporosis without current pathological fracture; F17.210 Nicotine dependence, cigarettes, uncomplicated; F32.9 Major depressive disorder, single episode, unspecified; F41.9 Anxiety disorder, unspecified; Z71.3 Dietary counseling and surveillance; R82.90 Unspecified abnormal findings in urine; Z71.6 Tobacco abuse counseling; Z98.890 Other specified postprocedural states; Z79.899 Other long term (current) drug therapy; Z87.440 Personal history of urinary (tract) infections; Z87.81 Personal history of (healed) traumatic fracture; Z90.710 Acquired absence of both cervix and uterus; Z80.0 Family history of malignant neoplasm of digestive organs; Z83.3 Family history of diabetes mellitus; Z83.49 Family history of other endocrine, nutritional and metabolic diseases
CPT/HCPCS: 36415; 74022; 76700; 78227; 80048; 80053; 81001; 83036; 83605; 83615; 83690; 83735; 84132; 84145; 85025; 85610; 85730; 86140; 93005; 96361; 96374; 96375; 99285

== ENCOUNTER 2020-09-02 01:57 | Observation (INO) | payer OTHER ==
--- NOTE | 2020-09-02 02:00 | ED ---
Weakness HPI - General Stated complaint: Dehydration Time Seen by Provider: 09/02/20 01:59 Source: RN notes reviewed, old records reviewed Limitations: no limitations - History of Present Illness Initial comments: This is a 56-year-old female DF for evaluation of severe abdominal pain. Patient is positive abdominal pain found here in the ER. Mild nausea no vomiting. Patient has no fevers. No recent travel history or sick contacts. Patient is on palliative care and hospice. Patient has no fevers. Patient has history of difficulty eating and drinking before. MD Complaint: generalized weakness, lack of energy -: days(s) Location: generalized Severity: moderate Severity scale (1-10): 4 Quality: tingling Consistency: intermittent Improves with: none Worsens with: none Context: history of similar Associated Symptoms: loss of appetite, nausea/vomiting - Related Data Home Medications Medication Instructions Recorded Confirmed Montelukast [Singulair] 10 mg PO HS 09/03/19 09/02/20 Metoprolol Tartrate 12.5 mg PO DAILY 09/26/19 09/02/20 ALPRAZolam [Xanax] 0.25 mg PO DAILY PRN 09/02/20 09/02/20 Albuterol Sulfate [Proair Hfa] 2 puff INHALATION RT-QID PRN 09/02/20 09/02/20 Omeprazole [PriLOSEC] 20 mg PO DAILY 09/02/20 09/02/20 Ondansetron HCl [Zofran] 4 mg PO DAILY PRN 09/02/20 09/02/20 Allergies Allergy/AdvReac Type Severity Reaction Status Date / Time No Known Allergies Allergy Verified 09/02/20 06:54 Review of Systems ROS Statement: Those systems with pertinent positive or pertinent negative responses have been documented in the HPI. ROS Other: All systems not noted in ROS Statement are negative. Past Medical History Past Medical History: COPD, GERD/Reflux, Osteoarthritis (OA) Additional Past Medical History / Comment(s): Pt recently admitted to [facility] on 10/28/19 for dehydration, acute kidney injury, ileus. Had exploratory laparotomy in October when she was previously here. She is recent post viviana fundoplication and has had other recent admits for dehydration. Other hx: Pt states she has been having diarrhea lately-liquid/watery stools, bronchitis, UTI, nephritis, pt unsure why lopressor was recently prescribed, osteoporosis, past low back fracture, occasional upper back pain, sinus allergies. History of Any Multi-Drug Resistant Organisms: None Reported Past Surgical History: Section, Hernia Repair, Hysterectomy Additional Past Surgical History / Comment(s): 10/07/19 Viviana fundoplication, colonoscopy, hemorrhoidectomy, L shoulder benign tumor removed Past Anesthesia/Blood Transfusion Reactions: Previous Problems w/ Anesthesia Additional Past Anesthesia/Blood Transfusion Reaction / Comment(s): woke up during sx in past Past Psychological History: Anxiety, Depression Smoking Status: Current every day smoker Past Alcohol Use History: None Reported Past Drug Use History: None Reported - Past Family History Father Family Medical History: Cancer Additional Family Medical History / Comment(s): Esophageal cancer/ulcer. Pt states father of pneumonia at the age of 56yrs. Mother Family Medical History: Diabetes Mellitus Additional Family Medical History / Comment(s): MENS SYNDROME Sister(s) Additional Family Medical History / Comment(s): MENS SYNDROME General Exam General appearance: alert, in no apparent distress Head exam: Present: atraumatic, normocephalic, normal inspection Eye exam: Present: normal appearance, PERRL, EOMI. Absent: scleral icterus, conjunctival injection, periorbital swelling ENT exam: Present: normal exam, mucous membranes moist Neck exam: Present: normal inspection. Absent: tenderness, meningismus, lymphadenopathy Respiratory exam: Present: normal lung sounds bilaterally. Absent: respiratory distress, wheezes, rales, rhonchi, stridor Cardiovascular Exam: Present: regular rate, normal rhythm, normal heart sounds. Absent: systolic murmur, diastolic murmur, rubs, gallop, clicks GI/Abdominal exam: Present: soft, normal bowel sounds. Absent: distended, tenderness, guarding, rebound, rigid Extremities exam: Present: normal inspection, full ROM, normal capillary refill. Absent: tenderness, pedal edema, joint swelling, calf tenderness Back exam: Present: normal inspection Neurological exam: Present: alert, oriented X3, CN II-XII intact Psychiatric exam: Present: normal affect, normal mood Skin exam: Present: warm, dry, intact, normal color. Absent: rash Course Vital Signs 09/02/20 09/02/20 09/02/20 02:00 06:04 07:26 Temperature 97.8 F Pulse Rate 83 94 94 Respiratory 24 16 18 Rate Blood Pressure 99/58 110/80 100/64 O2 Sat by Pulse 100 100 98 Oximetry 09/02/20 09/02/20 09/02/20 10:00 12:00 12:25 Temperature Pulse Rate 86 77 Respiratory 18 18 Rate Blood Pressure 86/59 84/57 110/98 O2 Sat by Pulse 100 100 Oximetry 09/02/20 09/02/20 13:37 16:46 Temperature 99.0 F Pulse Rate 90 100 Respiratory 18 18 Rate Blood Pressure 107/74 110/62 O2 Sat by Pulse 97 99 Oximetry - Reevaluation(s) Reevaluation #1: Medical record is reviewed Patient no significant acute distress Patient symptoms improved here in the ER Patient informed of results and questions answered Medical Decision Making - Medical Decision Making 52 female DF for evaluation of abdominal pain, patient found of ileus here in the ER, we will admit for symptomatic treatment and nothing by mouth state - Lab Data Result diagrams: 09/03/20 03:30 09/03/20 03:30 Lab Results 09/02/20 09/02/20 09/02/20 Range/Units 02:49 02:49 02:49 WBC 23.9 H (3.8-10.6) k/uL RBC 5.02 (3.80-5.40) m/uL Hgb 15.0 (11.4-16.0) gm/dL Hct 45.7 (34.0-46.0) % MCV 90.9 (80.0-100.0) fL MCH 29.8 (25.0-35.0) pg MCHC 32.7 (31.0-37.0) g/dL RDW 12.7 (11.5-15.5) % Plt Count 515 H (150-450) k/uL MPV 7.3 Neutrophils % 80 % Lymphocytes % 12 % Monocytes % 6 % Eosinophils % 0 % Basophils % 0 % Neutrophils # 19.2 H (1.3-7.7) k/uL Lymphocytes # 2.9 (1.0-4.8) k/uL Monocytes # 1.4 H (0-1.0) k/uL Eosinophils # 0.1 (0-0.7) k/uL Basophils # 0.1 (0-0.2) k/uL Sodium 128 L (137-145) mmol/L Potassium 4.2 (3.5-5.1) mmol/L Chloride 92 L (98-107) mmol/L Carbon Dioxide 27 (22-30) mmol/L Anion Gap 9 mmol/L BUN 21 H (7-17) mg/dL Creatinine 0.71 (0.52-1.04) mg/dL Est GFR (CKD-EPI)AfAm >90 (>60 ml/min/1.73 sqM) Est GFR (CKD-EPI)NonAf >90 (>60 ml/min/1.73 sqM) Glucose 149 H (74-99) mg/dL Plasma Lactic Acid Héctor (0.7-2.0) mmol/L Calcium 11.0 H (8.4-10.2) mg/dL Total Bilirubin 0.5 (0.2-1.3) mg/dL AST 23 (14-36) U/L ALT 12 (4-34) U/L Alkaline Phosphatase 65 (38-126) U/L Creatine Kinase 41 (30-135) U/L Total Protein 6.0 L (6.3-8.2) g/dL Albumin 3.3 L (3.5-5.0) g/dL Amylase 68 (30-110) U/L Lipase 40 (23-300) U/L Urine Color Light Yellow Urine Appearance Clear (Clear) Urine pH 5.5 (5.0-8.0) Ur Specific Kinsman 1.005 (1.001-1.035) Urine Protein Negative (Negative) Urine Glucose (UA) Negative (Negative) Urine Ketones Negative (Negative) Urine Blood Negative (Negative) Urine Nitrite Negative (Negative) Urine Bilirubin Negative (Negative) Urine Urobilinogen <2.0 (<2.0) mg/dL Ur Leukocyte Esterase Trace H (Negative) Urine RBC 1 (0-5) /hpf Urine WBC 6 H (0-5) /hpf Ur Squamous Epith Cells <1 (0-4) /hpf Urine Bacteria Rare H (None) /hpf Hyaline Casts 1 (0-2) /lpf Urine Mucus Rare H (None) /hpf Urine Yeast (Budding) Rare H (None) /hpf 09/02/20 Range/Units 02:49 WBC (3.8-10.6) k/uL RBC (3.80-5.40) m/uL Hgb (11.4-16.0) gm/dL Hct (34.0-46.0) % MCV (80.0-100.0) fL MCH (25.0-35.0) pg MCHC (31.0-37.0) g/dL RDW (11.5-15.5) % Plt Count (150-450) k/uL MPV Neutrophils % % Lymphocytes % % Monocytes % % Eosinophils % % Basophils % % Neutrophils # (1.3-7.7) k/uL Lymphocytes # (1.0-4.8) k/uL Monocytes # (0-1.0) k/uL Eosinophils # (0-0.7) k/uL Basophils # (0-0.2) k/uL Sodium (137-145) mmol/L Potassium (3.5-5.1) mmol/L Chloride (98-107) mmol/L Carbon Dioxide (22-30) mmol/L Anion Gap mmol/L BUN (7-17) mg/dL Creatinine (0.52-1.04) mg/dL Est GFR (CKD-EPI)AfAm (>60 ml/min/1.73 sqM) Est GFR (CKD-EPI)NonAf (>60 ml/min/1.73 sqM) Glucose (74-99) mg/dL Plasma Lactic Acid Héctor 1.7 (0.7-2.0) mmol/L Calcium (8.4-10.2) mg/dL Total Bilirubin (0.2-1.3) mg/dL AST (14-36) U/L ALT (4-34) U/L Alkaline Phosphatase (38-126) U/L Creatine Kinase (30-135) U/L Total Protein (6.3-8.2) g/dL Albumin (3.5-5.0) g/dL Amylase (30-110) U/L Lipase (23-300) U/L Urine Color Urine Appearance (Clear) Urine pH (5.0-8.0) Ur Specific Kinsman (1.001-1.035) Urine Protein (Negative) Urine Glucose (UA) (Negative) Urine Ketones (Negative) Urine Blood (Negative) Urine Nitrite (Negative) Urine Bilirubin (Negative) Urine Urobilinogen (<2.0) mg/dL Ur Leukocyte Esterase (Negative) Urine RBC (0-5) /hpf Urine WBC (0-5) /hpf Ur Squamous Epith Cells (0-4) /hpf Urine Bacteria (None) /hpf Hyaline Casts (0-2) /lpf Urine Mucus (None) /hpf Urine Yeast (Budding) (None) /hpf - Radiology Data Radiology results: report reviewed (X-ray KUB is positive for ileus), image reviewed Disposition Clinical Impression: Gastroparesis, Abdominal pain, Dehydration, Vomiting, Nausea vomiting and diarrhea Disposition: ADMITTED IP TO THIS [facility] Condition: Fair Is patient prescribed a controlled substance at d/c from ED?: No
[2020-09-02] MEDS ORDERED: SODIUM CHLORIDE 0.9% 1,000 ML IV STA ×2 (02:14)
[2020-09-02] MEDS ORDERED: HYDROmorphone 1 MG/ML 1 ML SYRINGE IVP STA ×3 (02:14→03:21)
[2020-09-02] MEDS ORDERED: SODIUM CHLORIDE 0.9% 500 ML 500 ML IV STA (02:14)
--- NOTE | 2020-09-02 03:07 | XR ---
EXAMINATION TYPE: XR KUB DATE OF EXAM: 09/02/2020 COMPARISON: 01/14/2020 HISTORY: Abdominal pain TECHNIQUE: 2 views supine FINDINGS: Lung bases are clear. There is no sign of pneumoperitoneum. There are some distended gas an d fluid-filled small bowel loops in the mid abdomen. There are surgical clips in the pelvis. There is gas down to the rectum. There is vertebroplasty of L2 noted. IMPRESSION: Gas-filled and fluid-filled multiple loops of bowel suggestive of ileus. I do not see jerri dence for mechanical bowel obstruction. Ileus pattern slightly worse than old exam.
[2020-09-02 03:09] LABS: ALT 12 U/L (4-34); AST 23 U/L (14-36); African American GFR (CKD) >90 (>60 ml/min/1.73 sqM); Albumin 3.3 g/dL (3.5-5.0); Alkaline Phosphatase 65 U/L (38-126); Amylase 68 U/L (30-110); Anion Gap 9 mmol/L; Blood Urea Nitrogen 21 mg/dL (7-17); Carbon Dioxide 27 mmol/L (22-30); Chloride 92 mmol/L (98-107); Creatine Kinase 41 U/L (30-135); Glucose 149 mg/dL (74-99); Lipase 40 U/L (23-300); Non-African American GFR(CKD) >90 (>60 ml/min/1.73 sqM); Potassium 4.2 mmol/L (3.5-5.1); Sodium 128 mmol/L (137-145); Total Bilirubin 0.5 mg/dL (0.2-1.3)
[2020-09-02] MEDS ORDERED: HYDROmorphone 1 MG/ML 1 ML SYRINGE IVP PRN (03:21)
[2020-09-02] MEDS ORDERED: PANTOPRAZOLE 40 MG/10 ML VIAL IVP STA (03:21)
[2020-09-02] MEDS ORDERED: PROCHLORPERAZINE INJ 10 MG/2 ML VIAL IVP STA (03:21)
[2020-09-02] MEDS ORDERED: DIAZEPAM 5 MG/ML 2 ML INJ IVP STA (03:21)
[2020-09-02] MEDS ORDERED: PROCHLORPERAZINE INJ 10 MG/2 ML VIAL IVP PRN (03:21)
[2020-09-02] MEDS ORDERED: ONDANSETRON 4 MG/2 ML VIAL IVP PRN (03:21)
[2020-09-02 03:22] LABS: Basophils # (A) 0.1 k/uL (0-0.2); Basophils % (A) 0 %; Eosinophils # (A) 0.1 k/uL (0-0.7); Eosinophils % (A) 0 %; HCT 45.7 % (34.0-46.0); Lymphocytes # (A) 2.9 k/uL (1.0-4.8); Lymphocytes % (A) 12 %; MCH 29.8 pg (25.0-35.0); MCHC 32.7 g/dL (31.0-37.0); MCV 90.9 fL (80.0-100.0); Mean Platelet Volume 7.3; Monocytes # (A) 1.4 k/uL (0-1.0); Monocytes % (A) 6 %; Neutrophils # (A) 19.2 k/uL (1.3-7.7); Neutrophils % (A) 80 %; Platelet Count 515 k/uL (150-450); RBC 5.02 m/uL (3.80-5.40); RDW 12.7 % (11.5-15.5); WBC 23.9 k/uL (3.8-10.6)
[2020-09-02] MEDS ORDERED: NALOXONE 0.4 MG/ML 1 ML VIAL IV PRN (03:23)
[2020-09-02 06:32] LABS: Appearance,Urine Clear (Clear); Bacteria,Urine Rare /hpf; Bilirubin,Urine Negative (Negative); Blood,Urine Negative (Negative); Budding Yeast,Urine Rare /hpf; Color,Urine Light Yellow; Glucose,Urine (UA) Negative (Negative); Hyaline Casts,Urine 1 /lpf (0-2); Ketones,Urine Negative (Negative); Leukocyte Esterase,Urine Trace (Negative); Mucus,Urine Rare /hpf; Nitrite,Urine Negative (Negative); PH, Urine 5.5 (5.0-8.0); Protein,Urine Negative (Negative); RBC,Urine 1 /hpf (0-5); Specific Gravity,Urine 1.005 (1.001-1.035); Squamous Epithelial Cell,Urine <1 /hpf (0-4); Urobilinogen,Urine <2.0 mg/dL (<2.0); WBC,Urine 6 /hpf (0-5)
[2020-09-02] MEDS ORDERED: ALBUTEROL HFA INHALER INHALATION PRN (11:00)
[2020-09-02] MEDS: PANTOPRAZOLE 40 MG/10 ML VIAL IVP SCH (11:24)
[2020-09-02] MEDS: SODIUM CHLORIDE 0.9% 1,000 ML IV SCH (13:15)
--- NOTE | 2020-09-02 13:58 | P.HPIM ---
History of Present Illness Patient is a pleasant 60-year-old female came in with complaints of 9/10 severe crampy abdominal pain in the mid abdomen. All the symptoms resolved at this time. Patient had a abdominal x-ray which showed ileus. Patient does have bowel sounds, has been passing gas. Patient did have leukocytosis. Patient the denied any significant nausea vomiting denied any unusual diarrhea. Patient at baseline does have around 2-3 loose bowel movements and denied any increased to worsening diarrhea from her baseline. Patient does have leukocytosis with white blood cell count going up to around 24,000 with a thrombocytosis and that did have low blood sodium of 128 Review of Systems REVIEW OF SYSTEMS: CONSTITUTIONAL: No fever, no malaise, no fatigue. HEENT: No recent visual problems or hearing problems. Denied any sore throat. CARDIOVASCULAR: No chest pain, orthopnea, PND, no palpitations, no syncope. PULMONARY: No shortness of breath, no cough, no hemoptysis. GASTROINTESTINAL: As mentioned in HPI NEUROLOGICAL: No headaches, no weakness, no numbness. HEMATOLOGICAL: Denies any bleeding or petechiae. GENITOURINARY: Denies any burning micturition, frequency, or urgency. MUSCULOSKELETAL/RHEUMATOLOGICAL: Denies any joint pain, swelling, or any muscle pain. ENDOCRINE: Denies any polyuria or polydipsia. The rest of the 14-point review of systems is negative. Past Medical History Past Medical History: COPD, GERD/Reflux, Osteoarthritis (OA) Additional Past Medical History / Comment(s): Pt recently admitted to [facility] on 10/28/19 for dehydration, acute kidney injury, ileus. Had exploratory laparotomy in October when she was previously here. She is recent post viviana fundoplication and has had other recent admits for dehydration. Other hx: Pt states she has been having diarrhea lately-liquid/watery stools, bronchitis, UTI, nephritis, pt unsure why lopressor was recently prescribed, osteoporosis, past low back fracture, occasional upper back pain, sinus allergies. History of Any Multi-Drug Resistant Organisms: None Reported Past Surgical History: Section, Hernia Repair, Hysterectomy Additional Past Surgical History / Comment(s): 10/07/19 Viviana fundoplication, colonoscopy, hemorrhoidectomy, L shoulder benign tumor removed Past Anesthesia/Blood Transfusion Reactions: Previous Problems w/ Anesthesia Additional Past Anesthesia/Blood Transfusion Reaction / Comment(s): woke up du ring sx in past Past Psychological History: Anxiety, Depression Smoking Status: Current every day smoker Past Alcohol Use History: None Reported Past Drug Use History: None Reported - Past Family History Father Family Medical History: Cancer Additional Family Medical History / Comment(s): Esophageal cancer/ulcer. Pt states father of pneumonia at the age of 56yrs. Mother Family Medical History: Diabetes Mellitus Additional Family Medical History / Comment(s): MENS SYNDROME Sister(s) Additional Family Medical History / Comment(s): MENS SYNDROME Medications and Allergies Home Medications Medication Instructions Recorded Confirmed Type Montelukast [Singulair] 10 mg PO HS 09/03/19 09/02/20 History Metoprolol Tartrate 12.5 mg PO DAILY 09/26/19 09/02/20 History ALPRAZolam [Xanax] 0.25 mg PO DAILY PRN 09/02/20 09/02/20 History Albuterol Sulfate [Proair Hfa] 2 puff INHALATION RT-QID PRN 09/02/20 09/02/20 History Omeprazole [PriLOSEC] 20 mg PO DAILY 09/02/20 09/02/20 History Ondansetron HCl [Zofran] 4 mg PO DAILY PRN 09/02/20 09/02/20 History Allergies Allergy/AdvReac Type Severity Reaction Status Date / Time No Known Allergies Allergy Verified 09/02/20 06:54 Physical Exam Vitals: Vital Signs Temp Pulse Resp BP Pulse Ox 09/02/20 13:37 90 18 107/74 97 09/02/20 12:25 110/98 09/02/20 12:00 77 18 84/57 100 09/02/20 10:00 86 18 86/59 100 09/02/20 07:26 94 18 100/64 98 09/02/20 06:04 94 16 110/80 100 09/02/20 02:00 97.8 F 83 24 99/58 100 Intake and Output 09/01/20 09/02/20 09/02/20 22:59 06:59 14:59 Other: Weight 43.091 kg PHYSICAL EXAMINATION: GENERAL: The patient is alert and oriented x3, not in any acute distress. Thin built female HEENT: Pupils are round and equally reacting to light. EOMI. No scleral icterus. No conjunctival pallor. Normocephalic, atraumatic. No pharyngeal erythema. No thyromegaly. CARDIOVASCULAR: S1 and S2 present. No murmurs, rubs, or gallops. PULMONARY: Chest is clear to auscultation, no wheezing or crackles. ABDOMEN: Soft, nontender, nondistended, normoactive bowel sounds. No palpable organomegaly. MUSCULOSKELETAL: No joint swelling or deformity. EXTREMITIES: No cyanosis, clubbing, or pedal edema. NEUROLOGICAL: Gross neurological examination did not reveal any focal deficits. SKIN: No rashes. Results CBC & Chem 7: 09/02/20 02:49 09/02/20 02:49 Labs: Abnormal Lab Results - Last 24 Hours (Table) 09/02/20 09/02/20 09/02/20 Range/Units 02:49 02:49 02:49 WBC 23.9 H (3.8-10.6) k/uL Plt Count 515 H (150-450) k/uL Neutrophils # 19.2 H (1.3-7.7) k/uL Monocytes # 1.4 H (0-1.0) k/uL Sodium 128 L (137-145) mmol/L Chloride 92 L (98-107) mmol/L BUN 21 H (7-17) mg/dL Glucose 149 H (74-99) mg/dL Calcium 11.0 H (8.4-10.2) mg/dL Total Protein 6.0 L (6.3-8.2) g/dL Albumin 3.3 L (3.5-5.0) g/dL Ur Leukocyte Esterase Trace H (Negative) Urine WBC 6 H (0-5) /hpf Urine Bacteria Rare H (None) /hpf Urine Mucus Rare H (None) /hpf Urine Yeast (Budding) Rare H (None) /hpf Assessment and Plan Plan: -Abdominal pain, ileus: Symptoms improved at this time patient is passing gas patient was started on clear liquid diet will advance as tolerated - leukocytosis reactive in nature we'll repeat white blood cell count tomorrow -Hypovolemic hyponatremia expected to improve with IV fluids. -Gastroesophageal reflux disease -Depression -Nicotine abuse: Counseling was provided -DVT prophylaxis Lovenox GI prophylaxis Pepcid or Protonix
--- NOTE | 2020-09-02 14:26 | P.GSCN ---
History of Present Illness Consult date: 09/02/20 History of present illness: CHIEF COMPLAINT: Abdominal pain HISTORY OF PRESENT ILLNESS: This is a 60-year-old female with a past surgical history of Viviana fundoplication in September 2019, exploratory laparotomy with lysis of adhesions in October 2019. At the time of her laparotomy there was no definite bowel obstruction seen. Patient has had recurrent hospitalizations with diarrhea, dehydration and ileus. Patient complains of mid abdominal pain she has been having diarrhea. She's had decrease in appetite. She reports that this has been her usual symptoms with the diarrhea and abdominal pain. She has been treating herself at home with adjusting her diet. She was supposed to have IV fluids set up outpatient and this did not happen. She feels dehydrated so t herefore she came into the hospital for further evaluation and treatment. She had a KUB x-ray completed showing gas-filled and fluid filled multiple loops of bowel gas adjusted of ileus. No evidence for bowel obstruction. Ileus pattern slowly worsened old exam. Medicine service has started patient on a clear liquid diet. White count was elevated at 23.9 she's afebrile. She denies any fever, chills or sweats at home. PAST MEDICAL HISTORY: See list. PAST SURGICAL HISTORY: See list. MEDICATIONS: See list. ALLERGIES: See list. SOCIAL HISTORY: No illicit drug use. REVIEW OF SYSTEMS: CONSTITUTIONAL: Denies fever or chills. HEENT: Denies blurred vision, vision changes, or eye pain. Denies hemoptysis ENDOCRINE: Denies heat or cold intolerance. CARDIOVASCULAR: Denies chest pain or pressure. RESPIRATORY: No shortness of breath. GASTROINTESTINAL: Please refer to HPI NEURO: Denies history of seizures. PSYCH: No depression or suicidal ideation HEMATOLOGIC: Denies bleeding disorders. LYMPHATIC: The patient denies any lumps and bumps around the neck. GENITOURINARY: Denies any blood in urine or increased urinary frequency. MUSCULOSKELETAL: Denies myalgias. Denies joint swelling. Denies decreased range of motion beyond patients baseline. SKIN: Denies pruitis. Denies rash. PHYSICAL EXAM: VITAL SIGNS: Reviewed GENERAL: Well-developed in no acute distress. HEENT: No sclera icterus. Extraocular movements grossly intact. Moist buccal mucosa. Head is atraumatic, normocephalic. Hears conversational speech. No nasal drainage. NECK: Supple without lymphadenopathy. CHEST: Non-labored respirations and equal bilateral excursions. CARDIOVASCULAR: Regular rate with regular rhythm. Palpable 2+ radial pulses. ABDOMEN: Soft. Nondistended. Mild tenderness with palpation of the mid abdomen. Old midline incision site has healed though evidence of infection. MUSCULOSKELETAL: No clubbing or cyanosis. NEUROLOGIC: No focal or lateralizing signs. Cranial nerves II through XII grossly intact. PSYCH: Appropriate affect. Alert and oriented to person, place and time. SKIN: Well perfused. Good skin turgor. LABORATORY DATA: WBC 23.9 hemoglobin 15 platelets 5:15 sodium 128 2121 creatinine 0.71 LFTs normal lipase normal Urinalysis trace leukocyte esterase and WBCs only 6 COVID-19 not detected IMAGING: KUB x-ray completed showing gas-filled and fluid filled multiple loops of bowel gas adjusted of ileus. No evidence for bowel obstruction. Ileus pattern slowly worsened old exam. ASSESSMENT: 1. Ileus 2. Abdominal pain with diarrhea 3. Dehydration 4. Leukocytosis 5. Hyponatremia 6. History of Viviana fundoplication 7. History of Exploratory laparotomy with lysis of adhesions PLAN: -Further recommendations forthcoming per surgeon -Continue clear liquid diet -Continue IV fluid -Hyponatremia management per medicine service -GI prophylaxis Protonix and DVT prophylaxis Lovenox Physician Taping Supervisor note has been reviewed by physician. Signing provider agrees with the documented findings, assessment, and plan of care. Past Medical History Past Medical History: COPD, GERD/Reflux, Osteoarthritis (OA) Additional Past Medical History / Comment(s): Pt recently admitted to [facility] on 10/28/19 for dehydration, acute kidney injury, ileus. Had exploratory laparotomy in October when she was previously here. She is recent post viviana fundoplication and has had other recent admits for dehydration. Other hx: Pt states she has been having diarrhea lately-liquid/watery stools, bronchitis, UTI, nephritis, pt unsure why lopressor was recently prescribed, osteoporosis, past low back fracture, occasional upper back pain, sinus allergies. History of Any Multi-Drug Resistant Organisms: None Reported Past Surgical History: Section, Hernia Repair, Hysterectomy Additional Past Surgical History / Comment(s): 10/07/19 Viviana fundoplication, colonoscopy, hemorrhoidectomy, L shoulder benign tumor removed Past Anesthesia/Blood Transfusion Reactions: Previous Problems w/ Anesthesia Additional Past Anesthesia/Blood Transfusion Reaction / Comm: woke up during sx in past Past Psychological History: Anxiety, Depression Smoking Status: Current every day smoker Past Alcohol Use History: None Reported Past Drug Use History: None Reported - Past Family History Father Family Medical History: Cancer Additional Family Medical History / Comment(s): Esophageal cancer/ulcer. Pt states father of pneumonia at the age of 56yrs. Mother Family Medical History: Diabetes Mellitus Additional Family Medical History / Comment(s): MENS SYNDROME Sister(s) Additional Family Medical History / Comment(s): MENS SYNDROME Medications and Allergies Home Medications Medication Instructions Recorded Confirmed Type Montelukast [Singulair] 10 mg PO HS 09/03/19 09/02/20 History Metoprolol Tartrate 12.5 mg PO DAILY 09/26/19 09/02/20 History ALPRAZolam [Xanax] 0.25 mg PO DAILY PRN 09/02/20 09/02/20 History Albuterol Sulfate [Proair Hfa] 2 puff INHALATION RT-QID PRN 09/02/20 09/02/20 History Omeprazole [PriLOSEC] 20 mg PO DAILY 09/02/20 09/02/20 History Ondansetron HCl [Zofran] 4 mg PO DAILY PRN 09/02/20 09/02/20 History Allergies Allergy/AdvReac Type Severity Reaction Status Date / Time No Known Allergies Allergy Verified 09/02/20 06:54 Surgical - Exam Vital Signs Temp Pulse Resp BP Pulse Ox 97.8 F 83 24 99/58 100 09/02/20 02:00 09/02/20 02:00 09/02/20 02:00 09/02/20 02:00 09/02/20 02:00 Results - Labs 09/02/20 02:49 09/02/20 02:49 Abnormal Lab Results - Last 24 Hours (Table) 09/02/20 09/02/20 09/02/20 Range/Units 02:49 02:49 02:49 WBC 23.9 H (3.8-10.6) k/uL Plt Count 515 H (150-450) k/uL Neutrophils # 19.2 H (1.3-7.7) k/uL Monocytes # 1.4 H (0-1.0) k/uL Sodium 128 L (137-145) mmol/L Chloride 92 L (98-107) mmol/L BUN 21 H (7-17) mg/dL Glucose 149 H (74-99) mg/dL Calcium 11.0 H (8.4-10.2) mg/dL Total Protein 6.0 L (6.3-8.2) g/dL Albumin 3.3 L (3.5-5.0) g/dL Ur Leukocyte Esterase Trace H (Negative) Urine WBC 6 H (0-5) /hpf Urine Bacteria Rare H (None) /hpf Urine Mucus Rare H (None) /hpf Urine Yeast (Budding) Rare H (None) /hpf Diabetes panel 09/02/20 Range/Units 02:49 Sodium 128 L (137-145) mmol/L Potassium 4.2 (3.5-5.1) mmol/L Chloride 92 L (98-107) mmol/L Carbon Dioxide 27 (22-30) mmol/L BUN 21 H (7-17) mg/dL Creatinine 0.71 (0.52-1.04) mg/dL Glucose 149 H (74-99) mg/dL Calcium 11.0 H (8.4-10.2) mg/dL AST 23 (14-36) U/L ALT 12 (4-34) U/L Alkaline Phosphatase 65 (38-126) U/L Total Protein 6.0 L (6.3-8.2) g/dL Albumin 3.3 L (3.5-5.0) g/dL Calcium panel 09/02/20 Range/Units 02:49 Calcium 11.0 H (8.4-10.2) mg/dL Albumin 3.3 L (3.5-5.0) g/dL Pituitary panel 09/02/20 Range/Units 02:49 Sodium 128 L (137-145) mmol/L Potassium 4.2 (3.5-5.1) mmol/L Chloride 92 L (98-107) mmol/L Carbon Dioxide 27 (22-30) mmol/L BUN 21 H (7-17) mg/dL Creatinine 0.71 (0.52-1.04) mg/dL Glucose 149 H (74-99) mg/dL Calcium 11.0 H (8.4-10.2) mg/dL Adrenal panel 09/02/20 Range/Units 02:49 Sodium 128 L (137-145) mmol/L Potassium 4.2 (3.5-5.1) mmol/L Chloride 92 L (98-107) mmol/L Carbon Dioxide 27 (22-30) mmol/L BUN 21 H (7-17) mg/dL Creatinine 0.71 (0.52-1.04) mg/dL Glucose 149 H (74-99) mg/dL Calcium 11.0 H (8.4-10.2) mg/dL Total Bilirubin 0.5 (0.2-1.3) mg/dL AST 23 (14-36) U/L ALT 12 (4-34) U/L Alkaline Phosphatase 65 (38-126) U/L Total Protein 6.0 L (6.3-8.2) g/dL Albumin 3.3 L (3.5-5.0) g/dL
[2020-09-02 20:34] VITALS: RESP 16
[2020-09-02] MEDS ORDERED: MONTELUKAST 10 MG TAB PO SCH (21:00)
[2020-09-03 04:12] LABS: Basophils # (A) 0.1 k/uL (0-0.2); Basophils % (A) 1 %; Eosinophils # (A) 0.2 k/uL (0-0.7); Eosinophils % (A) 2 %; HCT 30.8 % (34.0-46.0); Lymphocytes # (A) 2.3 k/uL (1.0-4.8); Lymphocytes % (A) 22 %; MCHC 33.5 g/dL (31.0-37.0); MCV 92.5 fL (80.0-100.0); Mean Platelet Volume 7.2; Monocytes # (A) 0.6 k/uL (0-1.0); Monocytes % (A) 6 %; Neutrophils # (A) 7.1 k/uL (1.3-7.7); Neutrophils % (A) 69 %; Platelet Count 345 k/uL (150-450); RBC 3.32 m/uL (3.80-5.40); RDW 12.5 % (11.5-15.5); WBC 10.3 k/uL (3.8-10.6)
[2020-09-03 04:25] LABS: HGB 10.3 gm/dL (11.4-16.0)
[2020-09-03 05:09] VITALS: PULSE 79; TEMP 98.8
[2020-09-03] MEDS: SODIUM CHLORIDE 0.9% 1,000 ML IV SCH ×2 (06:54→06:56)
[2020-09-03 07:11] VITALS: BP 90/53
[2020-09-03] MEDS: PANTOPRAZOLE 40 MG/10 ML VIAL IVP SCH (08:46)
[2020-09-03] MEDS ORDERED: NICOTINE 21MG/24HR PATCH TRANSDERM SCH (09:00)
[2020-09-03] MEDS ORDERED: ENOXAPARIN 30 MG/0.3 ML SYRINGE SQ SCH (09:00)
[2020-09-03 09:45] LABS: African American GFR (CKD) 133.1 (60.0-200.0); Anion Gap 5.3 mmol/L (4.00-12.00); BUN/Creat Ratio 12.5 Ratio (12.00-20.00); Calcium 8.8 mg/dL (8.7-10.3); Carbon Dioxide 19.7 mmol/L (21.6-31.8); Non-African American GFR(CKD) 114.8 (60.0-200.0); Potassium 3.1 mmol/L (3.5-5.5)
[2020-09-03] MEDS ORDERED: POTASSIUM CHLORIDE ER 20 MEQ TAB.ER PO STA (10:37)
--- NOTE | 2020-09-03 11:23 | P.PN ---
Subjective Progress Note Date: 09/03/20 CHIEF COMPLAINT: Abdominal pain HISTORY OF PRESENT ILLNESS: Surgical service is following in regards to hussain spaulding's abdominal pain and diarrhea with evidence of ileus on abdominal x-ray. Patient's abdominal pain and diarrhea have resolved. She reports feeling better. Her white count has normalized. She's afebrile. She is tolerating a full liquid diet. Denies any nausea or vomiting. She says she is getting workup done at [facility] on her hair thyroid. Patient feels ready for discharge. Potassium 3.1 and being replaced. Sodium was 137 up from 128 PHYSICAL EXAM: VITAL SIGNS: Reviewed GENERAL: Well-developed in no acute distress. HEENT: No sclera icterus. Extraocular movements grossly intact. Moist buccal mucosa. Head is atraumatic, normocephalic. Hears conversational speech. No nasal drainage. NECK: Supple without lymphadenopathy. CHEST: Non-labored respirations and equal bilateral excursions. CARDIOVASCULAR: Palpable 2+ radial pulses. ABDOMEN: Soft. Nondistended. Nontender. MUSCULOSKELETAL: No clubbing or cyanosis. NEUROLOGIC: No focal or lateralizing signs. Cranial nerves II through XII grossly intact. PSYCH: Appropriate affect. Alert and oriented to person, place and time. SKIN: Well perfused. Good skin turgor. ASSESSMENT: 1. Ileus resolved 2. Abdominal pain with diarrhea resolved 3. Dehydration 4. Leukocytosis resolved and likely reactive 5. Hyponatremia 6. History of Rosemary fundoplication 7. History of Exploratory laparotomy with lysis of adhesions PLAN: -Patient is stable from surgical standpoint for discharge. -Continue advance diet as tolerated Physician Fire Dispatcher note has been reviewed by physician. Signing provider agrees with the documented findings, assessment, and plan of care. Objective - Vital Signs Vital signs: Vital Signs Temp 98.8 F 09/03/20 05:00 Pulse 79 09/03/20 05:00 Resp 16 09/03/20 05:00 BP 90/53 09/03/20 07:10 Pulse Ox 98 09/03/20 05:00 Intake & Output 09/02/20 09/03/20 09/03/20 18:59 06:59 18:59 Intake Total 125 720 Balance 125 720 Intake: Intake, IV Titration 125 120 Amount Sodium Chloride 0.9% 1, 125 120 000 ml @ 125 mls/hr IV . Q8H [facility] Rx#:[id number] Oral 600 Other: Voiding Method Toilet Toilet - Labs CBC & Chem 7: 09/03/20 03:30 09/03/20 03:30 Labs: Abnormal Lab Results - Last 24 Hours (Table) 09/03/20 09/03/20 Range/Units 03:30 03:30 RBC 3.32 L (3.80-5.40) m/uL Hgb 10.3 L D (11.4-16.0) gm/dL Hct 30.8 L (34.0-46.0) % Potassium 3.1 L (3.5-5.5) mmol/L Chloride 112 H (96-109) mmol/L Carbon Dioxide 19.7 L (21.6-31.8) mmol/L BUN 5.0 L (9.0-27.0) mg/dL Creatinine 0.4 L (0.6-1.5) mg/dL
--- NOTE | 2020-09-03 16:07 | P.DS ---
Providers Date of admission: 09/02/20 03:24 Expected date of discharge: 09/03/20 Attending physician: Iker Miranda Consults: 09/02/20 03:23 Consult Physician Routine Consulting Provider: Kurtis Phipps Consult Reason/Comments: ileus Do you want consulting provider notified?: Yes Primary care physician: Anabelle Martinez Hospital Course: Final diagnosis -Abdominal pain, ileus -leukocytosis reactive in nature, improving -Hypovolemic hyponatremia, improved -Gastroesophageal reflux disease -Depression -Nicotine abuse: Counseling was provided -DVT prophylaxis -GI prophylaxis Discharge disposition Patient is being discharged in a stable condition with guarded prognosis to home. Patient will follow-up with Dr. Martinez in the outpatient setting upon discharge. Patient is to continue with [facility] in the outpatient setting. Total time taken is greater than 35 minutes. Hospital course This is a 60-year-old female who was recently admitted with severe abdominal cramping in the mid abdomen and was being closely monitored. Patient states that symptoms had resolved once being admitted although will need 24-hour observation as abdominal x-ray showed ileus and patient does have leukocytosis noted. Repeat labs today were performed and white blood count trending down and recommend outpatient follow-up for repeat labs to monitor closely. Sodium also improved and is currently 137. Patient reports to passing gas and having bowel movements and tolerating diet stating she is hungry and was maintained on clear liquids and tolerating with no nausea or vomiting or abdominal pain noted. Patient is adamant about going home today. Currently no reports of chest pain, shortness of breath, or palpitations. Patient is afebrile. No reports of nausea or vomiting and patient is tolerating diet. Patient will be discharged home today. On exam vital signs are stable. Cardio S1, S2 are muffled. Respiratory system shows diminished breath sounds at the bases with no wheezing or rhonchi noted. Abdomen is soft and nontender. Nervous system shows no focal deficits. Please refer to medication reconciliation sheet for a list of medications. Patient Condition at Discharge: Fair Plan - Discharge Summary Discharge Rx Participant: Yes New Discharge Prescriptions: Continue Montelukast [Singulair] 10 mg PO HS Metoprolol Tartrate 12.5 mg PO DAILY Ondansetron HCl [Zofran] 4 mg PO DAILY PRN PRN Reason: Nausea And Vomiting Albuterol Sulfate [Proair Hfa] 2 puff INHALATION RT-QID PRN PRN Reason: Shortness Of Breath Omeprazole [PriLOSEC] 20 mg PO DAILY ALPRAZolam [Xanax] 0.25 mg PO DAILY PRN PRN Reason: Anxiety Discharge Medication List Montelukast [Singulair] 10 mg PO HS 09/03/19 [History] Metoprolol Tartrate 12.5 mg PO DAILY 09/26/19 [History] ALPRAZolam [Xanax] 0.25 mg PO DAILY PRN 09/02/20 [History] Albuterol Sulfate [Proair Hfa] 2 puff INHALATION RT-QID PRN 09/02/20 [History] Omeprazole [PriLOSEC] 20 mg PO DAILY 09/02/20 [History] Ondansetron HCl [Zofran] 4 mg PO DAILY PRN 09/02/20 [History] Follow up Appointment(s)/Referral(s): [facility], [NON-STAFF] - 1 Week Anabelle Martinez MD [Primary Care Provider] - 09/10/20 1:00 pm Ambulatory/Diagnostic Orders: Complete Blood Count w/diff [LAB.AMB] Time Frame: 3 Days, Location: None Selected Patient Instructions/Handouts: Acute Abdominal Pain (DC), Ileus (DC) Activity/Diet/Wound Care/Special Instructions: Activity Limited until follow-up Follow-up with primary care provider upon discharge Continue with current medications Continue with full liquid diet and slowly advance as tolerated to low fiber Continue with palliative care Repeat labs in 2-3 days Discharge Disposition: HOME WITH HOME HEALTH SERVICES
== END 2020-09-03 13:02 | disposition home health service (06) ==
LOC: EC 01:57 → INTOOBSV 03:24 → 5NMEDONC 03:24 → UNDODISIN 09-03 13:02
PROVIDERS: ADMIT Hospitalist; ATTEND Hospitalist
DX: K56.7 Ileus, unspecified (principal); D72.829 Elevated white blood cell count, unspecified; E86.1 Hypovolemia; E87.1 Hypo-osmolality and hyponatremia; K21.9 Gastro-esophageal reflux disease without esophagitis; F32.9 Major depressive disorder, single episode, unspecified; F17.200 Nicotine dependence, unspecified, uncomplicated; E86.0 Dehydration; R20.2 Paresthesia of skin; R63.0 Anorexia; F41.9 Anxiety disorder, unspecified; R79.89 Other specified abnormal findings of blood chemistry; J44.9 Chronic obstructive pulmonary disease, unspecified; M19.90 Unspecified osteoarthritis, unspecified site; K31.84 Gastroparesis; M81.0 Age-related osteoporosis without current pathological fracture; Z20.822 Contact with and (suspected) exposure to COVID-19; Z87.09 Personal history of other diseases of the respiratory system; Z87.440 Personal history of urinary (tract) infections; Z90.710 Acquired absence of both cervix and uterus; Z79.899 Other long term (current) drug therapy; Z51.5 Encounter for palliative care; Z80.0 Family history of malignant neoplasm of digestive organs; Z83.6 Family history of other diseases of the respiratory system; Z83.3 Family history of diabetes mellitus; Z83.49 Family history of other endocrine, nutritional and metabolic diseases
CPT/HCPCS: 96376 ×3; 96372; 96361; 96374; 96375; 99285; 36415; 80053; 80048; 82150; 82550; 83605; 83690; 85025 ×2; 81001; 87635; 74018; G0378 ×2; S4990; J0780; J3360; J1650; J1170; C9113 ×2

== ENCOUNTER 2020-09-27 13:53 | Emergency (ER) | payer OTHER ==
[2020-09-27] MEDS ORDERED: MORPHINE SULFATE 4 MG/ML SYRINGE IV STA (14:29)
[2020-09-27] MEDS ORDERED: ONDANSETRON 4 MG/2 ML VIAL IVP STA (14:29)
[2020-09-27] MEDS ORDERED: SODIUM CHLORIDE 0.9% 1,000 ML IV STA (14:29)
[2020-09-27] MEDS ORDERED: SODIUM CHLORIDE 0.9% 500 ML 500 ML IV STA (14:29)
--- NOTE | 2020-09-27 15:03 | ED ---
General Adult HPI - General Chief complaint: Nausea/Vomiting/Diarrhea Stated complaint: dehydrated Time Seen by Provider: 09/27/20 14:14 Source: patient Mode of arrival: wheelchair Limitations: no limitations - History of Present Illness Initial comments: 60-year-old female with a past medical history of GERD presents to the emergency room for a chief complaint of abdominal pain. Patient reports she has abdominal pain. Patient reports she has had this on and off ever since a hernia surgery over a year ago. Patient also has diarrhea. Concerned she is dehydrated. States his diarrhea is chronic. Patient states she is on palliative care for the symptoms and knew she needed IV fluids but they were unable to get an IV so she came into the ER. Patient has no other complaints at this time including shortness of breath, chest pain, nausea or vomiting, headache, or visual changes. - Related Data Home Medications Medication Instructions Recorded Confirmed Montelukast [Singulair] 10 mg PO HS 09/03/19 09/27/20 Metoprolol Tartrate 25 mg PO DAILY 09/26/19 09/27/20 ALPRAZolam [Xanax] 0.25 mg PO DAILY PRN 09/02/20 09/27/20 Albuterol Sulfate [Proair Hfa] 2 puff INHALATION RT-Q4H PRN 09/02/20 09/27/20 Ondansetron HCl [Zofran] 4 mg PO Q12H PRN 09/02/20 09/27/20 Diphenox-Atrop 2.5-0.025 mg 1 tab PO TID PRN 09/27/20 09/27/20 [Lomotil] Potassium Chloride ER [K-Dur 10] 10 meq PO BID 09/27/20 09/27/20 Allergies Allergy/AdvReac Type Severity Reaction Status Date / Time No Known Allergies Allergy Verified 09/27/20 15:06 Review of Systems ROS Statement: Those systems with pertinent positive or pertinent negative responses have been documented in the HPI. ROS Other: All systems not noted in ROS Statement are negative. Past Medical History Past Medical History: COPD, GERD/Reflux, Osteoarthritis (OA) Additional Past Medical History / Comment(s): Pt recently admitted to [facility] on 10/28/19 for dehydration, acute kidney injury, ileus. Had exploratory laparotomy in October when she was previously here. She is recent post viviana fundoplication and has had other recent admits for dehydration. Other hx: Pt states she has been having diarrhea lately-liquid/watery stools, bronchitis, UTI, nephritis, pt unsure why lopressor was recently prescribed, osteoporosis, past low back fracture, occasional upper back pain, sinus allergies. History of Any Multi-Drug Resistant Organisms: None Reported Past Surgical History: Section, Hernia Repair, Hysterectomy Additional Past Surgical History / Comment(s): 10/07/19 Viviana fundoplication, colonoscopy, hemorrhoidectomy, L shoulder benign tumor removed Past Anesthesia/Blood Transfusion Reactions: Previous Problems w/ Anesthesia Additional Past Anesthesia/Blood Transfusion Reaction / Comment(s): woke up during sx in past Past Psychological History: Anxiety, Depression Smoking Status: Current every day smoker Past Alcohol Use History: None Reported Past Drug Use History: None Reported - Past Family History Father Family Medical History: Cancer Additional Family Medical History / Comment(s): Esophageal cancer/ulcer. Pt states father of pneumonia at the age of 56yrs. Mother Family Medical History: Diabetes Mellitus Additional Family Medical History / Comment(s): MENS SYNDROME Sister(s) Additional Family Medical History / Comment(s): MENS SYNDROME General Exam Limitations: no limitations General appearance: alert, in no apparent distress Head exam: Present: atraumatic, normocephalic, normal inspection Eye exam: Present: normal appearance, PERRL, EOMI. Absent: scleral icterus, conjunctival injection, periorbital swelling ENT exam: Present: normal exam, mucous membranes moist Neck exam: Present: normal inspection. Absent: tenderness, meningismus, lymphadenopathy Respiratory exam: Present: normal lung sounds bilaterally. Absent: respiratory distress, wheezes, rales, rhonchi, stridor Cardiovascular Exam: Present: regular rate, normal rhythm, normal heart sounds. Absent: systolic murmur, diastolic murmur, rubs, gallop, clicks GI/Abdominal exam: Present: soft, tenderness (Mild generalized abdominal tenderness.), normal bowel sounds. Absent: distended, guarding, rebound, rigid Course Vital Signs 09/27/20 09/27/20 13:59 16:22 Temperature 97.7 F Pulse Rate 104 H 90 Respiratory 18 18 Rate Blood Pressure 100/65 109/73 O2 Sat by Pulse 100 100 Oximetry Medical Decision Making - Medical Decision Making Vitals are stable. Patient is well-appearing. Patient does have abdominal tenderness and pain laboratory evaluation was initiated. CBC reveals leukocytosis of 14.9. CMP unremarkable. Magnesium is noted to be 1.2, patient was given IV mag. Urinalysis does not show any evidence of infection. Patient was given fluid. CT was obtained which showed a dilated fluid-filled small bowel and also distended large bowel with fluid level suggestive of generalized ileus. Patient is having diarrhea. She also has a mild bilateral hydronephrosis however no evidence for infection. I reevaluated patient and she feels much better. Patient is requesting discharge home, does not want to stay in the hospital. Patient was given IV mag for her hypomagnesemia. She will follow-up with her doctor. She'll return here for any worsening symptoms. - Lab Data Result diagrams: 09/27/20 14:50 09/27/20 14:50 Lab Results 09/27/20 09/27/20 09/27/20 Range/Units 14:50 14:50 15:35 WBC 14.9 H (3.8-10.6) k/uL RBC 4.27 (3.80-5.40) m/uL Hgb 12.8 (11.4-16.0) gm/dL Hct 38.9 (34.0-46.0) % MCV 91.2 (80.0-100.0) fL MCH 30.0 (25.0-35.0) pg MCHC 32.9 (31.0-37.0) g/dL RDW 12.2 (11.5-15.5) % Plt Count 420 (150-450) k/uL MPV 7.1 Neutrophils % 75 % Lymphocytes % 17 % Monocytes % 5 % Eosinophils % 1 % Basophils % 1 % Neutrophils # 11.2 H (1.3-7.7) k/uL Lymphocytes # 2.5 (1.0-4.8) k/uL Monocytes # 0.8 (0-1.0) k/uL Eosinophils # 0.2 (0-0.7) k/uL Basophils # 0.1 (0-0.2) k/uL Sodium 131 L (137-145) mmol/L Potassium 5.0 (3.5-5.1) mmol/L Chloride 108 H (98-107) mmol/L Carbon Dioxide 15 L (22-30) mmol/L Anion Gap 8 mmol/L BUN 8 (7-17) mg/dL Creatinine 0.50 L (0.52-1.04) mg/dL Est GFR (CKD-EPI)AfAm >90 (>60 ml/min/1.73 sqM) Est GFR (CKD-EPI)NonAf >90 (>60 ml/min/1.73 sqM) Glucose 117 H (74-99) mg/dL Calcium 10.7 H (8.4-10.2) mg/dL Magnesium 1.2 L (1.6-2.3) mg/dL Total Bilirubin 0.3 (0.2-1.3) mg/dL AST 26 (14-36) U/L ALT 14 (4-34) U/L Alkaline Phosphatase 71 (38-126) U/L Total Protein 5.6 L (6.3-8.2) g/dL Albumin 2.9 L (3.5-5.0) g/dL Amylase 47 (30-110) U/L Lipase 38 (23-300) U/L Urine Color Yellow Urine Appearance Clear (Clear) Urine pH 5.5 (5.0-8.0) Ur Specific [place] 1.013 (1.001-1.035) Urine Protein Trace H (Negative) Urine Glucose (UA) Negative (Negative) Urine Ketones Negative (Negative) Urine Blood Negative (Negative) Urine Nitrite Negative (Negative) Urine Bilirubin Negative (Negative) Urine Urobilinogen <2.0 (<2.0) mg/dL Ur Leukocyte Esterase Negative (Negative) Disposition Clinical Impression: Nausea & vomiting, Hypomagnesemia, Ileus Disposition: HOME SELF-CARE Condition: Good Instructions (If sedation given, give patient instructions): Abdominal Pain (ED) Additional Instructions: Please follow-up with your doctor in one to 2 days. Please return to the emergency room for any worsening symptoms. Is patient prescribed a controlled substance at d/c from ED?: No Referrals: Anabelle Martinez MD [Primary Care Provider] - 1-2 days Time of Disposition: 17:20
[2020-09-27 15:23] LABS: Basophils # (A) 0.1 k/uL (0-0.2); Basophils % (A) 1 %; Eosinophils # (A) 0.2 k/uL (0-0.7); Eosinophils % (A) 1 %; HCT 38.9 % (34.0-46.0); HGB 12.8 gm/dL (11.4-16.0); Lymphocytes # (A) 2.5 k/uL (1.0-4.8); Lymphocytes % (A) 17 %; MCHC 32.9 g/dL (31.0-37.0); MCV 91.2 fL (80.0-100.0); Mean Platelet Volume 7.1; Monocytes # (A) 0.8 k/uL (0-1.0); Monocytes % (A) 5 %; Neutrophils # (A) 11.2 k/uL (1.3-7.7); Neutrophils % (A) 75 %; Platelet Count 420 k/uL (150-450); RBC 4.27 m/uL (3.80-5.40); RDW 12.2 % (11.5-15.5); WBC 14.9 k/uL (3.8-10.6)
[2020-09-27 15:32] LABS: ALT 14 U/L (4-34); AST 26 U/L (14-36); African American GFR (CKD) >90 (>60 ml/min/1.73 sqM); Albumin 2.9 g/dL (3.5-5.0); Alkaline Phosphatase 71 U/L (38-126); Amylase 47 U/L (30-110); Anion Gap 8 mmol/L; Blood Urea Nitrogen 8 mg/dL (7-17); Calcium 10.7 mg/dL (8.4-10.2); Carbon Dioxide 15 mmol/L (22-30); Chloride 108 mmol/L (98-107); Glucose 117 mg/dL (74-99); Lipase 38 U/L (23-300); Magnesium 1.2 mg/dL (1.6-2.3); Non-African American GFR(CKD) >90 (>60 ml/min/1.73 sqM); Sodium 131 mmol/L (137-145); Total Bilirubin 0.3 mg/dL (0.2-1.3); Total Protein 5.6 g/dL (6.3-8.2)
[2020-09-27 15:52] LABS: Appearance,Urine Clear (Clear); Bilirubin,Urine Negative (Negative); Blood,Urine Negative (Negative); Color,Urine Yellow; Glucose,Urine (UA) Negative (Negative); Ketones,Urine Negative (Negative); Leukocyte Esterase,Urine Negative (Negative); Nitrite,Urine Negative (Negative); PH, Urine 5.5 (5.0-8.0); Protein,Urine Trace (Negative); Specific Gravity,Urine 1.013 (1.001-1.035); Urobilinogen,Urine <2.0 mg/dL (<2.0)
[2020-09-27] MEDS ORDERED: MAGNESIUM OXIDE 400 MG TAB PO STA (15:59)
--- NOTE | 2020-09-27 16:32 | CT ---
EXAMINATION TYPE: CT abdomen pelvis w con DATE OF EXAM: 09/27/2020 COMPARISON: 11/25/2019 HISTORY: abdominal pain CT DLP: 479.3 mGycm Automated exposure control for dose reduction was used. CONTRAST: Performed with IV Contrast, patient injected with 100 mL of Isovue 300. Images obtained from the diaphragm to the floor the pelvis with IV contrast. Lung bases are clear of consolidation. There is no pleural effusion. Heart size is normal. There is n o pericardial effusion. Liver and spleen are intact. The bile ducts are not dilated. There is no pancreatic mass. Gallbladder appears normal. The stomach is intact. There is no adrenal mass. There is some enlargement of the left and right renal pelvis. Bladder diste nds smoothly. There is satisfactory contrast opacification of the kidneys. Delayed images show symmet leyla pyelograms. There is no retroperitoneal adenopathy. There is broad-based umbilical hernia that contains fat and small bowel loop. There are multiple distended small bowel loops with fluid and air-fluid levels. Small bowel measures up to 3.5 cm. There are also large bowel fluid levels seen in the right colon and transverse colon. There is no evidence of free air. There is no evidence of ascites. I see no pelvic mass. There is hys terectomy. Appendix is not seen. The lumbar vertebra have normal alignment. There is vertebroplasty of L2 vertebra with 25% compressio n deformity. There is T11 wedging 20%. Unchanged. IMPRESSION: Dilated fluid-filled small bowel and also distended large bowel with fluid levels suggestive of gener alized ileus. Small bowel distention increased compared to old CT scan. Mild bilateral hydronephrosis which is new compared to old exam.
[2020-09-27] MEDS ORDERED: MAGNESIUM SULFATE-D5W PMX 1 GM in DEXTROSE/WATER 1 100ML.BAG IVPB STA (17:05)
[2020-09-27 19:03] VITALS: BP 108/80; PULSE 84; RESP 16; TEMP 97.8
== END 2020-09-27 19:02 | disposition home or self-care (01) ==
LOC: EC 13:53
DX: K56.7 Ileus, unspecified (principal); E83.42 Hypomagnesemia; J44.9 Chronic obstructive pulmonary disease, unspecified; K21.9 Gastro-esophageal reflux disease without esophagitis; M19.90 Unspecified osteoarthritis, unspecified site; F32.9 Major depressive disorder, single episode, unspecified; F41.9 Anxiety disorder, unspecified; F17.200 Nicotine dependence, unspecified, uncomplicated; Z79.51 Long term (current) use of inhaled steroids; Z79.899 Other long term (current) drug therapy
CPT/HCPCS: 36415; 80053; 82150; 83690; 83735; 85025; 81003; 74177; 96365; 96375 ×2; 96361; 99284; J2270; J2405; J3475; Q9967

== ENCOUNTER 2020-12-12 09:20 | Observation (INO) | payer OTHER ==
[2020-12-12] MEDS ORDERED: HYDROmorphone 0.5 MG/0.5 ML SYRINGE IVP STA ×2 (09:54→12:28)
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
[2020-12-12 11:37] LABS: Basophils % (A) 0 %; Eosinophils % (A) 0 %; HCT 43.5 % (34.0-46.0); HGB 13.7 gm/dL (11.4-16.0); Lymphocytes # (A) 2.5 k/uL (1.0-4.8); Lymphocytes % (A) 19 %; MCH 29.7 pg (25.0-35.0); MCHC 31.5 g/dL (31.0-37.0); MCV 94.6 fL (80.0-100.0); Mean Platelet Volume 7.2; Monocytes # (A) 0.6 k/uL (0-1.0); Monocytes % (A) 4 %; Neutrophils # (A) 10.1 k/uL (1.3-7.7); Neutrophils % (A) 75 %; Platelet Count 415 k/uL (150-450); RDW 13.3 % (11.5-15.5); WBC 13.4 k/uL (3.8-10.6)
[2020-12-12 12:01] LABS: Albumin 3.5 g/dL (3.5-5.0); Calcium 10.9 mg/dL (8.4-10.2); Potassium 5.2 mmol/L (3.5-5.1); Total Bilirubin 0.3 mg/dL (0.2-1.3); Total Protein 6.2 g/dL (6.3-8.2)
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
[2020-12-12] MEDS ORDERED: HYDROcodone/APAP 5-325MG 1 EACH TAB PO PRN (17:04)
[2020-12-12] MEDS: HYDROcodone/APAP 5-325MG 1 EACH TAB PO PRN (17:12)
[2020-12-13] MEDS: HYDROmorphone 0.5 MG/0.5 ML SYRINGE IVP PRN ×3 (00:05→12:36)
[2020-12-13] MEDS: HYDROcodone/APAP 5-325MG 1 EACH TAB PO PRN ×4 (02:50→22:18)
[2020-12-13 02:54] VITALS: RESP 16
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
[2020-12-13] MEDS ORDERED: ALPRAZolam 0.25 MG TAB PO PRN (11:09)
[2020-12-13] MEDS ORDERED: SODIUM CHLORIDE 0.9% 1,000 ML IV SCH (12:00)
[2020-12-13] MEDS: NICOTINE 21MG/24HR PATCH TRANSDERM SCH (12:16)
[2020-12-13] MEDS: ACETAMINOPHEN TAB 325 MG TAB PO SCH ×2 (12:17→20:42)
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
[2020-12-13] MEDS: DICYCLOMINE 20 MG TAB PO SCH ×2 (15:49→22:19)
[2020-12-13] MEDS: METOPROLOL TARTRATE 12.5 MG TAB PO SCH (16:55)
[2020-12-13] MEDS: KETOROLAC 15 MG/ML 1 ML VIAL IVP PRN (19:51)
[2020-12-13] MEDS: FAMOTIDINE 20 MG TAB PO SCH (22:18)
[2020-12-13] MEDS: HEPARIN SODIUM,PORCINE/PF 5,000 UNIT/0.5 ML SYRINGE SQ SCH (22:18)
[2020-12-14] MEDS: HYDROcodone/APAP 5-325MG 1 EACH TAB PO PRN (05:20)
[2020-12-14] MEDS: KETOROLAC 15 MG/ML 1 ML VIAL IVP PRN ×2 (05:20→12:18)
[2020-12-14] MEDS: ACETAMINOPHEN TAB 325 MG TAB PO SCH ×2 (05:29→12:13)
[2020-12-14 07:15] LABS: African American GFR (CKD) >90 (>60 ml/min/1.73 sqM); Anion Gap 8 mmol/L; Blood Urea Nitrogen 12 mg/dL (7-17); Calcium 10.4 mg/dL (8.4-10.2); Carbon Dioxide 15 mmol/L (22-30); Chloride 111 mmol/L (98-107); Glucose 96 mg/dL (74-99); Non-African American GFR(CKD) >90 (>60 ml/min/1.73 sqM); Sodium 134 mmol/L (137-145)
[2020-12-14] MEDS: FAMOTIDINE 20 MG TAB PO SCH (07:33)
[2020-12-14] MEDS: NICOTINE 21MG/24HR PATCH TRANSDERM SCH (07:33)
[2020-12-14] MEDS: METOPROLOL TARTRATE 12.5 MG TAB PO SCH (07:33)
[2020-12-14] MEDS: DICYCLOMINE 20 MG TAB PO SCH (07:33)
[2020-12-14] MEDS: HEPARIN SODIUM,PORCINE/PF 5,000 UNIT/0.5 ML SYRINGE SQ SCH (07:33)
[2020-12-14 07:51] VITALS: BP 105/68; PULSE 74; TEMP 97.5
[2020-12-14 07:56] LABS: Potassium 4.9 mmol/L (3.5-5.1)
--- NOTE | 2020-12-14 09:20 | XR ---
Right hip Limited HISTORY: Trauma and pain 2 views of the right hip correlated to CT scan 12/12/2020 There is a cortical disruption laterally at the level of the acetabulum seen on the frontal view. Bon e mineralization is reduced which could limit evaluation. There is no dislocation. IMPRESSION: Minimally displaced acetabular fracture noted
--- NOTE | 2020-12-14 10:21 | P.PN ---
Subjective Progress Note Date: 12/14/20 Principal diagnosis: acetabular fracture, minimally displaced Patient was seen at bedside this morning resting semirecumbent position. Patient says she is in much better pain controlled today versus yesterday. She says she did get up this morning with physical therapy and use walker here to the bathroom and back to her bed. Patient says she is radial home today. She says she still having pain in the right hip region. Patient denies radiation of pain. Patient denies chest pain, fever, shortness of breath, nausea, vomiting, change in vision, loss of bowel/bladder control. Objective - Vital Signs Vital signs: Vital Signs Temp 97.5 F L 12/14/20 07:50 Pulse 74 12/14/20 07:50 Resp 16 12/14/20 07:50 BP 105/68 12/14/20 07:50 Pulse Ox 100 12/14/20 07:50 Intake & Output 12/13/20 12/14/20 12/14/20 18:59 06:59 18:59 Intake Total 594 888 Balance 594 888 Intake: IV 888 ns 888 Oral 594 Other: # Voids 1 1 - Exam Inspection: Negative for any open fractures, erythema, ecchymosis, nodules Palpation: Significant TTP along the anterior and lateral portion of the right hip. NTTP throughout the rest exam Sensation: Sensation is equal, symmetric, intact bilaterally throughout Range of motion: Range of motion is full in bilateral upper extremities on elbow flexion/extension wrist flexion/extension, shoulder internal/external rotation abduction. Range of motion is full and left lower extremity and hip flexion/extension, knee flexion/extension, plantar flexion/dorsiflexion. Range of motion is full on the right side and plantar/dorsiflexion. Range of motion limited in hip flexion/extension due to patient being in severe pain Motor: Bilateral upper extremities 5/5 in resisted elbow flexion/extension, wrist flexion/extension, hog operator strength, shoulder abduction and internal/external rotation.. Left lower extremity 5/5 in resisted hip flexion/extension, knee flexion/70, plantar flexion/dorsiflexion. Right lower extremity - 5/5 in resisted plantar flexion/dorsiflexion and knee flexion/extension. 3/5 in resisted hip flexion/extension Neurovascular - Refill under 3 seconds bilaterally in upper extremities. DP pulses intact, 2+ bilaterally. Special tests - negative Yudelka's bilaterally; negative Homans bilaterally. - Labs CBC & Chem 7: 12/12/20 11:10 12/14/20 06:24 Labs: Abnormal Lab Results - Last 24 Hours (Table) 12/14/20 Range/Units 06:24 Sodium 134 L (137-145) mmol/L Chloride 111 H (98-107) mmol/L Carbon Dioxide 15 L (22-30) mmol/L Calcium 10.4 H (8.4-10.2) mg/dL Assessment and Plan Assessment: Acetabular fracture, minimally displaced Plan: 1. Acetabular fracture, minimally displaced - results of x-ray were discussed with patient. We do not recommend any urgent/emergent orthopedic surgical intervention. Patient stable this morning. Plan to have patient follow-up in the outpatient setting in 1 week. In the discharge patient home today with walker. 2. Appreciate medical management 3. Pain management -IV and oral medications in hospital. Plan to discharge home with [place] 7.5mg/325 mg 4. PT/OT - weightbearing as tolerated with walker for assistance. script for walker to go home 5. DVT ppx - heparin inpatient 6. Discharge planning - plan for discharge home today Time with Patient: Less than 30
--- NOTE | 2020-12-14 10:30 | P.DS ---
Providers Date of admission: 12/12/20 14:05 Expected date of discharge: 12/14/20 Attending physician: Guy Gilmore Consults: 12/12/20 14:05 Consult Physician Urgent Consulting Provider: Corie Bustos Consult Reason/Comments: medical management Do you want consulting provider notified?: Yes Primary care physician: Anabelle [facility] Course: Date of admission: 12/12/2020 Date of discharge: 12/14/2020 Admission diagnosis: Right hip pain Discharge diagnosis: Acetabular fracture, minimally displaced Attending physician: Dr. Gilmore Surgical procedures: NA Brief history: Patient is a 60-year-old female with a history of right hip pain. X-ray right hip demonstrate an acetabular fracture, minimally displaced. No orthopedic surgical intervention recommended at this time. Hospital course: Patient had physical therapy at bedside with walker for assistance. Patient was able to get up out of bed with walker and get to bathroom and back to bed. Patient was treated with [place] 5 mg/325 mg and Dilaudid for pain control Discharge condition/disposition: Patient will be discharged home in stable condition. Discharge medications: Instructions are given on resumption of patient's normal daily medications per primary care recommendation, in addition patient will be prescribed [place] 7.5 mg/325 mg. Assessment: Acetabular fracture, minimally displaced Procedures: NA Patient Condition at Discharge: Good Plan - Discharge Summary New Discharge Prescriptions: New HYDROcodone/APAP 7.5-325MG [[place] 7.5] 1 each PO Q6HR PRN #28 tab PRN Reason: Pain No Action Montelukast [Singulair] 10 mg PO HS Metoprolol Tartrate 12.5 mg PO AC-BID Diphenox-Atrop 2.5-0.025 mg [Lomotil] 1 tab PO Q8H Acetaminophen [Tylenol 8 Hour] 1,300 mg PO Q8H ALPRAZolam [Xanax] 0.25 mg PO DAILY Dicyclomine [Bentyl] 20 mg PO TID Discharge Medication List Montelukast [Singulair] 10 mg PO HS 09/03/19 [History] Metoprolol Tartrate 12.5 mg PO AC-BID 09/26/19 [History] ALPRAZolam [Xanax] 0.25 mg PO DAILY 09/02/20 [History] Diphenox-Atrop 2.5-0.025 mg [Lomotil] 1 tab PO Q8H 09/27/20 [History] Acetaminophen [Tylenol 8 Hour] 1,300 mg PO Q8H 12/12/20 [History] Dicyclomine [Bentyl] 20 mg PO TID 12/12/20 [History] HYDROcodone/APAP 7.5-325MG [[place] 7.5] 1 each PO Q6HR PRN #28 tab 12/14/20 [Rx] Follow up Appointment(s)/Referral(s): Anabelle Martinez MD [Primary Care Provider] - 1-2 days Guy Gilmore MD [STAFF PHYSICIAN] - 1 Week Activity/Diet/Wound Care/Special Instructions: -Weight-bear as tolerated walker at home. Follow up with Dr. Gilmore in office in 1 week. -Use [place] 7.5 mg/325 mg for pain control - Please do not hesitate to contact our office if you have any questions, advanced orthopedics at [phone] Discharge Disposition: HOME SELF-CARE
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
== END 2020-12-14 13:45 | disposition home or self-care (01) ==
LOC: EC 09:20 → 4SSUR 14:05
PROVIDERS: ADMIT Orthopaedic Surgery; ATTEND Orthopaedic Surgery
DX: S32.401A Unspecified fracture of right acetabulum, initial encounter for closed fracture (principal); J44.9 Chronic obstructive pulmonary disease, unspecified; F17.210 Nicotine dependence, cigarettes, uncomplicated; E87.1 Hypo-osmolality and hyponatremia; E87.8 Other disorders of electrolyte and fluid balance, not elsewhere classified; E87.2 Acidosis; K21.9 Gastro-esophageal reflux disease without esophagitis; M19.90 Unspecified osteoarthritis, unspecified site; D72.829 Elevated white blood cell count, unspecified; F32.9 Major depressive disorder, single episode, unspecified; R19.7 Diarrhea, unspecified; M81.0 Age-related osteoporosis without current pathological fracture; F41.9 Anxiety disorder, unspecified; M54.6 Pain in thoracic spine; Z20.822 Contact with and (suspected) exposure to COVID-19; V40.6XXA Car passenger injured in collision with pedestrian or animal in traffic accident, initial encounter; Z79.899 Other long term (current) drug therapy; Z87.09 Personal history of other diseases of the respiratory system; Z87.440 Personal history of urinary (tract) infections; Z90.710 Acquired absence of both cervix and uterus; Z98.890 Other specified postprocedural states; Z80.0 Family history of malignant neoplasm of digestive organs; Z83.3 Family history of diabetes mellitus; Z83.6 Family history of other diseases of the respiratory system; Z83.49 Family history of other endocrine, nutritional and metabolic diseases
CPT/HCPCS: 96376 ×3; 96372 ×2; 96375; 96374; 99285; 36415; 80053; 80048; 85025; 87635; 73502; 74177; G0378 ×3; S4990 ×2; J1885 ×2; J1170 ×2; Q9967; J1644 ×2

== ENCOUNTER → 2021-08-26 | Outpatient (CLI) | payer OTHER | END | disposition home or self-care (01) | LOC: LABWHC1 14:04 | PROVIDERS: ATTEND Surgery Surgical Critical Care | DX: E89.2 Postprocedural hypoparathyroidism (principal) | CPT/HCPCS: 36415; 83970 ==

== ENCOUNTER → 2023-10-10 | Outpatient (CLI) | payer OTHER ==
--- NOTE | 2023-10-11 09:25 | BD ---
EXAMINATION TYPE: Axial Bone Density DATE OF EXAM: 10/10/2023 CLINICAL HISTORY: 63 years old Female. ICD-10 CODE: M48.50XS COLLAPSED VERTEBRA, NEC, SITE UNSP, SEQ UE Height: 5 ft Weight: 101 FRAX RISK QUESTIONS: Alcohol (3 or more units per day): no Family History (Parent hip fracture): no Glucocorticoids (More than 3mos): no (Ex: prednisone, prednisolone, methylprednisolone, dexamethasone, and hydrocortisone). History of Fracture in Adulthood: yes Secondary Osteoporosis: 1. Type 1 Diabetes: no 2. Hyperthyroidism: no 3. Menopause before 45: yes 4. Malnutrition: no 5. Chronic liver disease: no Rheumatoid Arthritis: no Current Tobacco Use: yes RISK FACTORS HISTORY OF: Surgery to Spine/Hip(right/left)/Wrist (right/left): no MEDICATIONS: Thyroid Medications: none Osteoporosis Medications: none EXAM MEASUREMENTS: Bone mineral densitometry was performed using the [employer]. Bone mineral density as measured about the Lumbar spine is: ----- L1-L4(G/cm2): 0.792 T Score Values are as follows: ----- L1: -4.0 ----- L2: -0.4 ----- L3: -4.0 ----- L4: -4.2 ----- L1-L4: -3.2 Z Score Values are as follows: ----- L1: -2.1 ----- L2: 1.5 ----- L3: -2.1 ----- L4: -2.3 ----- L1-L4: -1.3 Bone mineral density has: increased 6.2 % since study of: 2018 Bone mineral density about the R hip (g/cm2): 0.526 Bone mineral density about the L hip (g/cm2): 0.509 T Score values are as follows: -----R Neck: -3.7 -----L Neck: -3.8 -----R Total: -4.0 -----L Total: -2.7 Z Score values are as follows: -----R Neck: -2.0 -----L Neck: -2.1 -----R Total: -2.6 -----L Total: -1.2 Bone mineral density has: increased 24.2 % since study of: 2018 FRAX%s: The graph provided illustrates a 39.9 % chance for a major osteoporotic fx and a 26.1% chance for the hips probability for fx in 10 years time. IMPRESSION: Osteoporosis (T Score less than -2.5). There is increased fracture risk and therapy is usually indicated based on age. Re-Screen 1-2 years. NOTE: T-SCORE=SD OF THE YOUNG ADULT MEAN.
== END | disposition home or self-care (01) ==
LOC: RADBDWWP 16:26
PROVIDERS: ATTEND Internal Medicine Rheumatology
DX: M48.50XS Collapsed vertebra, not elsewhere classified, site unspecified, sequela of fracture (principal); M81.0 Age-related osteoporosis without current pathological fracture; Z78.0 Asymptomatic menopausal state
CPT/HCPCS: 77080